=== PATIENT | female | born 1940 | race Caucasian/White ===

== ENCOUNTER → 2022-12-31 | Outpatient (CLI) | payer MEDICARE ==
--- NOTE | 2022-12-31 16:46 | US ---
EXAMINATION TYPE: US venous doppler duplex LE DATE OF EXAM: 12/31/2022 2:22 PM COMPARISON: NONE CLINICAL INDICATION: Female, 82 years old with history of R25.2 CRAMP AND SPASM; Leg spasms. No redn ess or swelling. On aspirin. SIDE PERFORMED: Bilateral TECHNIQUE: The lower extremity deep venous system is examined utilizing real time linear array sonog alisson with graded compression, doppler sonography and color-flow sonography. VESSELS IMAGED: Common Femoral Vein Deep Femoral Vein Greater Saphenous Vein * Femoral Vein Popliteal Vein Small Saphenous Vein * Proximal Calf Veins (* superficial vessels) Right Leg: Negative for DVT Left Leg: Negative for DVT IMPRESSION: Grayscale, color doppler, spectral doppler imaging performed of the deep veins of the lo wer extremities. There is normal flow, compressibility, vascular waveforms.
== END | disposition home or self-care (01) ==
LOC: RADUSWWP 13:31
PROVIDERS: ATTEND Internal Medicine
DX: R25.2 Cramp and spasm (principal)
CPT/HCPCS: 93970

== ENCOUNTER 2023-01-17 13:43 | Inpatient (IN) | payer MEDICARE ==
[2023-01-17] MEDS ORDERED: SODIUM CHLORIDE 0.9% 1,000 ML IV STA (14:48)
[2023-01-17 15:07] LABS: Basophils # (A) 0.1 k/uL (0-0.2); Basophils % (A) 1 %; Eosinophils # (A) 0.4 k/uL (0-0.7); Eosinophils % (A) 5 %; HCT 32.8 % (34.0-46.0); HGB 11.5 gm/dL (11.4-16.0); Lymphocytes # (A) 2.2 k/uL (1.0-4.8); Lymphocytes % (A) 31 %; MCHC 35.2 g/dL (31.0-37.0); MCV 93.7 fL (80.0-100.0); Mean Platelet Volume 8.4; Monocytes # (A) 0.4 k/uL (0-1.0); Monocytes % (A) 6 %; Neutrophils # (A) 4.1 k/uL (1.3-7.7); Neutrophils % (A) 56 %; Platelet Count 163 k/uL (150-450); RDW 11.5 % (11.5-15.5); WBC 7.3 k/uL (3.8-10.6)
[2023-01-17 15:15] LABS: Partial Thromboplastin Time 23.8 sec (22.0-30.0); Prothrombin Time 10.4 sec (9.0-12.0)
[2023-01-17 15:32] LABS: ALT 25 U/L (4-34); AST 33 U/L (14-36); African American GFR (CKD) 15 (>60 ml/min/1.73 sqM); Albumin 4.4 g/dL (3.5-5.0); Alkaline Phosphatase 63 U/L (38-126); Anion Gap 15 mmol/L; Calcium 9.5 mg/dL (8.4-10.2); Carbon Dioxide 15 mmol/L (22-30); Chloride 99 mmol/L (98-107); Glucose 129 mg/dL (74-99); Non-African American GFR(CKD) 13 (>60 ml/min/1.73 sqM); Potassium 4.5 mmol/L (3.5-5.1); Sodium 129 mmol/L (137-145); Total Bilirubin 0.6 mg/dL (0.2-1.3); Total Protein 7.5 g/dL (6.3-8.2)
--- NOTE | 2023-01-17 15:32 | XR ---
EXAMINATION TYPE: XR chest 2V DATE OF EXAM: 01/17/2023 3:28 PM COMPARISON: None TECHNIQUE: XR chest 2V Frontal and lateral views of the chest. CLINICAL INDICATION:Female, 82 years old with history of weakness; FINDINGS: Lungs/Pleura: There is no evidence of pleural effusion, focal consolidation, or pneumothorax. Senesc ent parenchymal change. Pulmonary vascularity: Unremarkable. Heart/mediastinum: Cardiomediastinal silhouette is enlarged. Atherosclerotic calcifications are seen in the aorta. Two lead cardiac conduction device overlying the left hemithorax with lead tips project ing over the right ventricle and right atrium. Musculoskeletal: Multiple level degenerative disc disease changes seen throughout the spine. IMPRESSION: Cardiomegaly without evidence for acute process.
[2023-01-17 15:42] LABS: Blood Urea Nitrogen 107 mg/dL (7-17)
[2023-01-17] MEDS ORDERED: NALOXONE 0.4 MG/ML 1 ML VIAL IV PRN ×2 (16:18→16:30)
[2023-01-17] MEDS ORDERED: ACETAMINOPHEN TAB 325 MG TAB PO PRN (16:18)
[2023-01-17] MEDS ORDERED: MELATONIN 3 MG TABLET PO PRN (16:18)
[2023-01-17] MEDS ORDERED: HYDROcodone/APAP 5-325MG 1 EACH TAB PO PRN (16:18)
[2023-01-17] MEDS ORDERED: ONDANSETRON 4 MG/2 ML VIAL IVP PRN (16:30)
[2023-01-17] MEDS: SODIUM CHLORIDE 0.9% 1,000 ML IV SCH (17:59)
--- NOTE | 2023-01-17 18:08 | ED ---
General Adult HPI - General Chief complaint: Recheck/Abnormal Lab/Rx Stated complaint: Abnormal Labs Time Seen by Provider: 01/17/23 14:30 Source: patient, RN notes reviewed, old records reviewed Mode of arrival: ambulatory - History of Present Illness Initial comments: Patient is an 82-year-old male who was sent in by her PCP over concern for dehydration and abnormal labs. Patient has been having episodes of diarrhea, for multiple days. She has had decreased by mouth intake per family. Patient does have a history of CK D. She is from [place] and recently moved here. W fiona in [place] they did place a AV fistula in the right upper extremity. It has never been used for dialysis but was placed empirically. She is yet to follow up with a real estate associate here in [place]. Denies any chest pain or shortness of breath. Denies any fevers. Denies any dysuria or hematuria. Denies any constipation, urinary retention, diarrhea currently. Denies any blood in her stool. Presents for further evaluation at this time. - Related Data Allergies Allergy/AdvReac Type Severity Reaction Status Date / Time Penicillins AdvReac Rash/Hives Verified 01/17/23 14:00 Review of Systems ROS Statement: Those systems with pertinent positive or pertinent negative responses have been documented in the HPI. Review of Systems: CONST: Endorses generalized weakness EYES: Denies blurry vision ENT: Denies nasal congestion C/V: Denies Chest pain RESP: Denies shortness of breath GI: Denies abdominal pain : Denies dysuria SKIN: Denies rash. MSK: Denies joint pain. NEURO: Denies headache ROS Other: All systems not noted in ROS Statement are negative. Past Medical History Past Medical History: Chest Pain / Angina, Hyperlipidemia, Hypertension, Renal Disease Additional Past Medical History / Comment(s): right arm fistula History of Any Multi-Drug Resistant Organisms: None Reported Past Surgical History: Appendectomy, Tubal Ligation Additional Past Surgical History / Comment(s): pacemaker Past Psychological History: No Psychological Hx Reported Smoking Status: Never smoker Past Alcohol Use History: None Reported Past Drug Use History: None Reported General Exam - General Exam Comments Initial Comments: General: Appears in no acute distress. HEAD: Normal with no signs of head trauma. EYES: PERRLA, EOMI, conjunctiva normal, no discharge. ENT: Hearing grossly intact, normal oropharynx. Mildly dry mucous membranes. RESPIRATORY: Clear breath sounds bilaterally. No wheezes, rales, or rhonchi. C/V: Regular rate and rhythm. S1 and S2 auscultated, no edema, peripheral pulses 2+ and intact throughout.Right upper extremity AV fistula has palpable thrill and audible bruit. ABD: Abd is soft, nontender, nondistended EXT: Normal range of motion, no obvious deformity SKIN: No rashes or lesions observed on exposed skin. NEURO: Alert and oriented x 4. Cranial nerves II-XII intact. No focal sensory or strength deficits. Course Vital Signs 01/17/23 13:52 Temperature 97.0 F L Pulse Rate 69 Respiratory 18 Rate Blood Pressure 129/66 O2 Sat by Pulse 99 Oximetry Medical Decision Making - Medical Decision Making Was pt. sent in by a medical professional or institution (, PA, SEARCH ENGINE OPTIMIZATION CONSULTANT, urgent care, hospital, or custodial...) When possible be specific @ -No Did you speak to anyone other than the patient for history (EMS, parent, family, police, friend...)? What history was obtained from this source @ -Spoke with the patient's daughter who assist with patient's past medical history recent past medical history including results of his laboratory studies. Did you review nursing and triage notes (agree or disagree)? Why? @ -I reviewed and agree with nursing and triage notes Were old charts reviewed (outside hosp., previous admission, EMS record, old EKG, old radiological studies, urgent care reports/EKG's, custodial records)? Report findings @ -Old charts and labs reviewed from December 2022. Differential Diagnosis (chest pain, altered mental status, abdominal pain women, abdominal pain men, vaginal bleeding, weakness, fever, dyspnea, syncope, headache, dizziness, GI bleed, back pain, seizure, CVA, palpatations, mental health, musculoskeletal)? @ -Dehydration, viral syndrome, UTI, infection, electrolyte abnormality, this list is not all-inclusive EKG interpreted by me (3pts min.). @ -None done X-rays interpreted by me (1pt min.). @ -Chest x-ray reveals no obvious acute cardiopulmonary process. CT interpreted by me (1pt min.). @ -None done U/S interpreted by me (1pt. min.). @ -None done What testing was considered but not performed or refused? (CT, X-rays, U/S, labs)? Why? @ -None What meds were considered but not given or refused? Why? @ -None Did you discuss the management of the patient with other professionals (professionals i.e. , PA, SEARCH ENGINE OPTIMIZATION CONSULTANT, lab, RT, psych nurse, social sciences instructor, hotel office manager, teacher, learning and development officer, comp field case manager)? Give summary @ -I discussed with the admitting physician, Dr. Samson who accepted the patient. Was smoking cessation discussed for >3mins.? @ -No Was critical care preformed (if so, how long)? @ -No Were there social determinants of health that impacted care today? How? (Homelessness, low income, unemployed, alcoholism, drug addiction, transportation, low edu. Level, literacy, decrease access to med. care, penitentiary, rehab)? @ -No Was there de-escalation of care discussed even if they declined (Discuss DNR or withdrawal of care, Hospice)? DNR status @ -No What co-morbidities impacted this encounter? (DM, HTN, Smoking, COPD, CAD, Cancer, CVA, ARF, Chemo, Hep., AIDS, mental health diagnosis, sleep apnea, morbid obesity)? @ -CK D Was patient admitted / discharged? Hospital course, mention meds given and route, prescriptions, significant lab abnormalities, going to OR and other pertinent info. @ -Based on the patient's presentation and physical exam, I'm concerned for possible dehydration for the patient. This recent with an acute kidney injury on CK D concerning her recent labs showing elevated creatinine above her ba seline. She is been having diarrhea but currently is relatively symptomatically except feeling generally tired with body pain. Presents for further evaluation. We'll obtain abdominal laboratory studies. She likely will be admitted. She was in agreement this plan. Vital signs of Limits. Patient's labs reveal a acutely elevated BUN/creatinine in the setting of CK D. Likely an acute kidney injury on CK D. Patient also mildly hyponatremic to 129. Viral swabs are negative. Urine is still pending. I updated family and patient. She will be admitted to the hospital for evaluation by nephrology for IV fluids as well. Diagnosis is CHENCHO on CK D and hyponatremia. Patient was in agreement this plan. I spoke with the accepting physician, Dr. Samson of [facility] Adm[facility] for Dr. Khalil Who Accepted the Patient. Nephrology Consulted. Undiagnosed new problem with uncertain prognosis? @ -No Drug Therapy requiring intensive monitoring for toxicity (Heparin, Nitro, Insulin, Cardizem)? @ -No Were any procedures done? @ -No Diagnosis/symptom? @ -CHENCHO on CK D Acute, or Chronic, or Acute on Chronic? @ -Acute Uncomplicated (without systemic symptoms) or Complicated (systemic symptoms)? @ -Complicated Side effects of treatment? @ -No Exacerbation, Progression, or Severe Exacerbation? @ -No Poses a threat to life or bodily function? How? (Chest pain, USA, MS, pneumonia, PE, COPD, DKA, ARF, appy, cholecystitis, CVA, Diverticulitis, Homicidal, Suicidal, threat to staff... and all critical care pts) @ -Yes Diagnosis/symptom? @ -Hyponatremia, dehydration Acute, or Chronic, or Acute on Chronic? @ -Acute Uncomplicated (without systemic symptoms) or Complicated (systemic symptoms)? @ -Complicated Side effects of treatment? @ -none Exacerbation, Progression, or Severe Exacerbation] @ -no Poses a threat to life or bodily function? @ -Yes - Lab Data Result diagrams: 01/17/23 14:55 01/17/23 14:55 Lab Results 01/17/23 01/17/23 01/17/23 Range/Units 14:55 14:55 14:55 WBC 7.3 (3.8-10.6) k/uL RBC 3.50 L (3.80-5.40) m/uL Hgb 11.5 (11.4-16.0) gm/dL Hct 32.8 L (34.0-46.0) % MCV 93.7 (80.0-100.0) fL MCH 33.0 (25.0-35.0) pg MCHC 35.2 (31.0-37.0) g/dL RDW 11.5 (11.5-15.5) % Plt Count 163 (150-450) k/uL MPV 8.4 Neutrophils % 56 % Lymphocytes % 31 % Monocytes % 6 % Eosinophils % 5 % Basophils % 1 % Neutrophils # 4.1 (1.3-7.7) k/uL Lymphocytes # 2.2 (1.0-4.8) k/uL Monocytes # 0.4 (0-1.0) k/uL Eosinophils # 0.4 (0-0.7) k/uL Basophils # 0.1 (0-0.2) k/uL PT 10.4 (9.0-12.0) sec INR 1.0 (<1.2) APTT 23.8 (22.0-30.0) sec Sodium 129 L (137-145) mmol/L Potassium 4.5 (3.5-5.1) mmol/L Chloride 99 (98-107) mmol/L Carbon Dioxide 15 L (22-30) mmol/L Anion Gap 15 mmol/L BUN 107 H* (7-17) mg/dL Creatinine 3.11 H (0.52-1.04) mg/dL Est GFR (CKD-EPI)AfAm 15 (>60 ml/min/1.73 sqM) Est GFR (CKD-EPI)NonAf 13 (>60 ml/min/1.73 sqM) Glucose 129 H (74-99) mg/dL Calcium 9.5 (8.4-10.2) mg/dL Total Bilirubin 0.6 (0.2-1.3) mg/dL AST 33 (14-36) U/L ALT 25 (4-34) U/L Alkaline Phosphatase 63 (38-126) U/L Total Protein 7.5 (6.3-8.2) g/dL Albumin 4.4 (3.5-5.0) g/dL Influenza Type A (PCR) (Not Detectd) Influenza Type B (PCR) (Not Detectd) RSV (PCR) (Not Detectd) SARS-CoV-2 (PCR) (Not Detectd) 01/17/23 Range/Units 15:13 WBC (3.8-10.6) k/uL RBC (3.80-5.40) m/uL Hgb (11.4-16.0) gm/dL Hct (34.0-46.0) % MCV (80.0-100.0) fL MCH (25.0-35.0) pg MCHC (31.0-37.0) g/dL RDW (11.5-15.5) % Plt Count (150-450) k/uL MPV Neutrophils % % Lymphocytes % % Monocytes % % Eosinophils % % Basophils % % Neutrophils # (1.3-7.7) k/uL Lymphocytes # (1.0-4.8) k/uL Monocytes # (0-1.0) k/uL Eosinophils # (0-0.7) k/uL Basophils # (0-0.2) k/uL PT (9.0-12.0) sec INR (<1.2) APTT (22.0-30.0) sec Sodium (137-145) mmol/L Potassium (3.5-5.1) mmol/L Chloride (98-107) mmol/L Carbon Dioxide (22-30) mmol/L Anion Gap mmol/L BUN (7-17) mg/dL Creatinine (0.52-1.04) mg/dL Est GFR (CKD-EPI)AfAm (>60 ml/min/1.73 sqM) Est GFR (CKD-EPI)NonAf (>60 ml/min/1.73 sqM) Glucose (74-99) mg/dL Calcium (8.4-10.2) mg/dL Total Bilirubin (0.2-1.3) mg/dL AST (14-36) U/L ALT (4-34) U/L Alkaline Phosphatase (38-126) U/L Total Protein (6.3-8.2) g/dL Albumin (3.5-5.0) g/dL Influenza Type A (PCR) Not Detected (Not Detectd) Influenza Type B (PCR) Not Detected (Not Detectd) RSV (PCR) Not Detected (Not Detectd) SARS-CoV-2 (PCR) Not Detected (Not Detectd) Disposition Clinical Impression: Acute kidney injury superimposed on CKD, Dehydration, Hyponatremia Disposition: ADMITTED IP TO THIS HOSP Condition: Stable Time of Disposition: 15:43
[2023-01-17 18:11] LABS: Appearance,Urine Clear (Clear); Color,Urine Light Yellow; Glucose,Urine (UA) Negative (Negative); Protein,Urine Negative (Negative); Specific Gravity,Urine <1.005 (1.001-1.035)
[2023-01-17 18:12] LABS: Bilirubin,Urine Negative (Negative); Blood,Urine Negative (Negative); Ketones,Urine Negative (Negative); Leukocyte Esterase,Urine Negative (Negative); Nitrite,Urine Negative (Negative); Urobilinogen,Urine <2.0 mg/dL (<2.0)
--- NOTE | 2023-01-17 18:41 | P.HPIM ---
History of Present Illness H&P Date: 01/17/23 History of Presenting Illness: Patient is a very pleasant 82-year-old female with a past medical history of stage IIIB chronic kidney disease, hypertension, hyperlipidemia and hyp othyroidism. She presented to the emergency department secondary to concerns of dehydration. She recently moved to [facility] from [place] to live with family. She was seen by Dr. Edwards in the outpatient setting for evaluation and workup to establish primary care provider and reports having an appointment with chemical research technician Dr. Antoine next week. Patient and family at bedside reports that over the past 5 days patient has had decreased appetite, nausea, and decreased urinary output. Patient admits to not urinating very much over the past week. Family at bedside reports that she has been evaluated by a chemical research technician in the past and they put in a catheter for potential dialysis but states her renal function seemed to have stabilized with baseline creatinine around 2. Patient reports upon evaluation at PCPs office he was concern for dehydration and she had labs drawn showing elevated renal function and concerns for dehydration so she was sent to the emergency department for evaluation and rehydration. Patient denies having any fevers, chills, headache, lightheadedness, dizziness, diaphoresis, chest pain or palpitations, shortness of breath, cough or congestion, episodes of vomiting, or experiencing any numbness/tingling/weakness in her extremities. She does report having a couple episodes of diarrhea but reports he's also had a decreased appetite and not eating very much. Patient does also report decreased urinary output but denies having any dysuria, abdominal pain, flank pain, suprapubic pain, or hematuria. Patient underwent full evaluation in the emergency department. Labs completed and reviewed. CBC showing no significant abnormalities. Coagulation profile normal findings. BMP revealing hyponatremia with sodium of 129 and hypocarbia with bicarbonate 15 as well as an acute kidney injury with BUN of 107, creatinine 3.11, and GFR of 13 with baseline creatinine of 2.0 per documented labs drawn on 12/26/22. Chest x-ray was completed showing cardiomegaly without evidence for acute process. Discussed in detail with ED physician, patient to be admitted to general medical unit with telemetry secondary to acute on chronic kidney injury and dehydration. Consult placed to nephrology. Review of systems: Pertinent positives and negatives as discussed in HPI, a complete review of systems was performed and all other systems are negative. Physical exam: Vital signs reviewed and stable. General: Nontoxic, no distress and appears stated age. Derm: Skin warm and dry, normal coloration for ethnicity. Head: Atraumatic, normocephalic and symmetric. Eyes: EOMs intact, no lid lag, and anicteric sclera Mouth: no lip lesions, mucus membranes moist Cardiovascular: regular rate and rhythm with normal S1S2, no murmur, positive posterior tibial pulses bilaterally, and cap refill < 2 seconds. Right upper extremity AV fistula, bruit and thrill intact. Lungs: Respirations even, regular, and unlabored on room air. Lungs CTA bilaterally, no rhonchi, no rales, no wheezing, and no accessory muscle usage. Abdominal: soft, nontender to palpation, no guarding, no appreciable organomegaly Ext: ROM intact. No gross muscle atrophy, no edema, no contractures Neuro: Speech clear, face symmetrical and CN II-XII grossly intact with no noted focal neuro deficits Psych: Alert and oriented to person, place, time, and situation. Appropriate and pleasant affect. Assessment and Plan of Care: Acute kidney injury on stage III B chronic kidney disease Dehydration with reports of decreased oral intake and decreased urinary output Hypertension Hyperlipidemia Hypothyroidism Labs completed and reviewed. CBC showing no significant abnormalities. Coagulation profile normal findings. BMP revealing hyponatremia with sodium of 129 and hypocarbia with bicarbonate 15 as well as an acute kidney injury with BUN of 107, creatinine 3.11, and GFR of 13 with baseline creatinine of 2.0 per documented labs drawn on 12/26/22. Chest x-ray was completed showing cardiomegaly without evidence for acute process. Discussed in detail with ED physician, patient to be admitted to general medical unit with telemetry secondary to acute on chronic kidney injury and d ehydration. Consult placed to nephrology. Order placed for ultrasound renal/kidneys and bladder. Order placed for straight cath as needed to obtain previously ordered urine specimen. Patient to continue with IV fluid hydration with 0.9% normal saline at 100 mL per hour pending further recommendations from nephrology telemetry monitoring Follow-up on urinalysis Awaiting home medications to be uploaded into system, home meds to be reordered once reconciled. Order placed for repeat morning BMP to continue to follow renal function closely and monitor for improvement. Orders placed for bladder management to monitor for postvoid residuals. -Order placed for EKG. The patient is admitted with an anticipated greater than 2 midnight stay for evaluation of acute kidney injury on chronic kidney disease. CODE STATUS: full code DVT prophylaxis: Heparin Discussed with: pt, pt's family at bedside, RN and Ed physician Anticipated discharge date: clinical course to determine Anticipated discharge place: home Patient was seen independently by Nurse Practitioner. This document was prepared using [employer] dictation software. Please allow for errors in terminal operations supervisor while rare they do occur. I reviewed the documentation as provided by the LUBNA above, who is the original author of this note. I agree with the documented assessment and plan, with the following changes: none Past Medical History Past Medical History: Chest Pain / Angina, Hyperlipidemia, Hypertension, Renal Disease Additional Past Medical History / Comment(s): right arm fistula History of Any Multi-Drug Resistant Organisms: None Reported Past Surgical History: Appendectomy, Tubal Ligation Additional Past Surgical History / Comment(s): pacemaker Past Psychological History: No Psychological Hx Reported Smoking Status: Never smoker Past Alcohol Use History: None Reported Past Drug Use History: None Reported Medications and Allergies Allergies Allergy/AdvReac Type Severity Reaction Status Date / Time bacitracin Allergy Unknown Verified 01/17/23 18:42 [From Neosporin ([id number])] levofloxacin [From Levaquin] Allergy Unknown Verified 01/17/23 18:42 metronidazole [From Flagyl] Allergy Unknown Verified 01/17/23 18:42 neomycin Allergy Unknown Verified 01/17/23 18:42 [From Neosporin ([id number])] Penicillins Allergy Rash/Hives Verified 01/17/23 18:42 polymyxin B Allergy Unknown Verified 01/17/23 18:42 [From Neosporin ([id number])] Physical Exam Osteopathic Statement: *. No significant issues noted on an osteopathic structural exam other than those noted in the History and Physical/Consult. Vitals: Vital Signs Temp Pulse Resp BP Pulse Ox 01/17/23 13:52 97.0 F L 69 18 129/66 99 Intake and Output 01/17/23 01/17/23 01/17/23 06:59 14:59 22:59 Other: Weight 58.695 kg Results CBC & Chem 7: 01/17/23 14:55 01/17/23 14:55 Labs: Abnormal Lab Results - Last 24 Hours (Table) 01/17/23 01/17/23 Range/Units 14:55 14:55 RBC 3.50 L (3.80-5.40) m/uL Hct 32.8 L (34.0-46.0) % Sodium 129 L (137-145) mmol/L Carbon Dioxide 15 L (22-30) mmol/L BUN 107 H* (7-17) mg/dL Creatinine 3.11 H (0.52-1.04) mg/dL Glucose 129 H (74-99) mg/dL
--- NOTE | 2023-01-17 19:54 | US ---
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 Corticomedullary differentiation is maintained. 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 Urinary bladder is within normal limits. IMPRESSION: 1. No hydronephrosis or nephrolithiasis. 2. 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
[2023-01-17] MEDS: HEPARIN SODIUM,PORCINE/PF 5,000 UNIT/0.5 ML SYRINGE SQ SCH (22:39)
[2023-01-18] MEDS: SODIUM CHLORIDE 0.9% 1,000 ML IV SCH ×3 (05:19→21:32)
[2023-01-18] MEDS: LORATADINE 10 MG TAB PO SCH (08:41)
[2023-01-18] MEDS: VITAMIN E (DL,TOCOPHERYL ACET) 400 UNIT (180 MG) CAP PO SCH (08:41)
[2023-01-18] MEDS: ASPIRIN 81 MG PO SCH (08:41)
[2023-01-18] MEDS: VIT A,C & E-LUTEIN-MINERALS 1 EACH TAB PO SCH (08:41)
[2023-01-18] MEDS: METOPROLOL SUCCINATE (ER) 25 MG TAB.ER.24H PO SCH (08:41)
[2023-01-18] MEDS: amLODIPine 5 MG TAB PO SCH ×2 (08:41→19:54)
[2023-01-18] MEDS: HEPARIN SODIUM,PORCINE/PF 5,000 UNIT/0.5 ML SYRINGE SQ SCH ×2 (08:54→21:30)
[2023-01-18 09:38] LABS: BUN/Creat Ratio 34.27 Ratio (12.00-20.00); Blood Urea Nitrogen 89.1 mg/dL (9.0-27.0); Calcium 9.2 mg/dL (8.7-10.3); Carbon Dioxide 17.1 mmol/L (21.6-31.8); Chloride 103 mmol/L (96-109); Glucose 84 mg/dL (70-110); Magnesium 2.6 mg/dL (1.5-2.4); Potassium 4.3 mmol/L (3.5-5.5); Sodium 135 mmol/L (135-145)
[2023-01-18 09:56] LABS: Basophils # (A) 0.06 X 10*3/uL (0.00-0.10); Basophils % (A) 0.8 %; Eosinophils # (A) 0.47 X 10*3/uL (0.04-0.35); HCT 33.3 % (37.2-46.3); Lymphocytes # (A) 2.22 X 10*3/uL (0.90-5.00); Lymphocytes % (A) 28.4 %; MCH 31.4 pg (27.0-32.0); MCV 95.1 FL (80.0-97.0); Mean Platelet Volume 10.6 FL (9.5-12.2); Monocytes # (A) 0.68 X 10*3/uL (0.20-1.00); Monocytes % (A) 8.7 %; NRBC Per 100 WBC 0 X 10*3/uL (0.00-0.01); Neutrophils # (A) 4.36 X 10*3/uL (1.80-7.70); Neutrophils % (A) 55.8 %; Platelet Count 188 X 10*3/uL (140-440); RDW 11.3 % (11.5-14.5); WBC 7.81 X 10*3/uL (4.50-10.00)
[2023-01-18] MEDS: CHOLESTYRAMINE (WITH SUGAR) 4 GM PACKET PO SCH (12:02)
--- NOTE | 2023-01-18 13:35 | P.NPCON ---
History of Present Illness - Reason for Consult Consult date: 01/18/23 acute renal failure - Chief Complaint Dehydration - History of Present Illness 82-year-old lady recently moved from [place], coming to the hospital with multiple episodes of diarrhea. She has history of chronic kidney disease, right upper arm aVF used to follow with nephrology in [place]. Unclear baseline creatinine, but as per the daughter she is CK D stage V. creatinine was 2.0 earlier in the month on admission was 3.6, improved to 2.6 with hydration. Still continues to have diarrhea. No nausea vomiting. No NSAID use or recent contrast studies. Home medication includes losartan and Lasix. No documented hypotensive episodes. Review of Systems Constitutional: Reports as per HPI Past Medical History Past Medical History: Chest Pain / Angina, Hyperlipidemia, Hypertension, Renal Disease Additional Past Medical History / Comment(s): right arm fistula History of Any Multi-Drug Resistant Organisms: None Reported Past Surgical History: Appendectomy, Tubal Ligation Additional Past Surgical History / Comment(s): pacemaker Past Psychological History: No Psychological Hx Reported Smoking Status: Never smoker Past Alcohol Use History: None Reported Past Drug Use History: None Reported Medications and Allergies Home Medications Medication Instructions Recorded Confirmed Type Aspirin EC [Ecotrin Low Dose] 81 mg PO DAILY 01/17/23 01/17/23 History Atorvastatin [Lipitor] 20 mg PO HS 01/17/23 01/17/23 History Cholestyramine (with Sugar) 4 gm PO DIRECTED 01/17/23 01/17/23 History [Cholestyramine Packet] Fluticasone Nasal [place] [Flonase 1 - 2 spr EA NOSTRIL BID PRN 01/17/23 01/17/23 History Nasal [place]] Furosemide [Lasix] 40 mg PO DAILY 01/17/23 01/17/23 History Levothyroxine Sodium [Synthroid] 50 mcg PO DIRECTED 01/17/23 01/17/23 History Loratadine 10 mg PO DAILY 01/17/23 01/17/23 History Losartan Potassium 100 mg PO DIRECTED 01/17/23 01/17/23 History Metoprolol Succinate (ER) [Toprol 25 mg PO DAILY 01/17/23 01/17/23 History Xl] Oxybutynin Xl [Ditropan XL] 5 mg PO DIRECTED 01/17/23 01/17/23 History Spironolactone [Aldactone] 25 mg PO DIRECTED 01/17/23 01/17/23 History Vitamin E (Dl,Tocopheryl Acet) 400 unit PO DAILY 01/17/23 01/17/23 History [Vitamin E (400 Iu = 180 mg)] Vits A,C,E/Lutein/Minerals 1 tab PO DAILY 01/17/23 01/17/23 History [Ocuvite with Lutein Tablet] amLODIPine [Norvasc] 5 mg PO BID 01/17/23 01/17/23 History Allergies Allergy/AdvReac Type Severity Reaction Status Date / Time bacitracin Allergy Unknown Verified 01/17/23 18:42 [From Neosporin ([id number])] levofloxacin [From Levaquin] Allergy Unknown Verified 01/17/23 18:42 metronidazole [From Flagyl] Allergy Unknown Verified 01/17/23 18:42 neomycin Allergy Unknown Verified 01/17/23 18:42 [From Neosporin ([id number])] Penicillins Allergy Rash/Hives Verified 01/17/23 18:42 polymyxin B Allergy Unknown Verified 01/17/23 18:42 [From Neosporin ([id number])] Physical Exam Vitals: Vital Signs Temp Pulse Pulse Resp BP BP Pulse Ox 01/18/23 07:00 97.5 F L 66 16 147/55 96 01/18/23 02:16 17 01/18/23 00:20 98.1 F 76 17 138/64 97 01/17/23 21:25 97.5 F L 61 14 144/56 98 01/17/23 20:43 68 16 130/53 95 01/17/23 19:00 96.8 F L 64 14 132/50 98 01/17/23 13:52 97.0 F L 69 18 129/66 99 Intake and Output 01/17/23 01/18/23 01/18/23 22:59 06:59 14:59 Output Total 200 400 Balance -200 -400 Output: Urine 200 400 Other: Voiding Method Toilet # Voids 2 Weight 58.695 kg No acute distress S1-S2 heard Lungs clear Abdomen soft No edema Results - Lab Results Most recent lab results Calcium 9.2 mg/dL (8.7-10.3) 01/18/23 05:42 Magnesium 2.6 mg/dL (1.5-2.4) H 01/18/23 05:42 01/18/23 05:42 01/18/23 05:42 Assessment and Plan Assessment: #1 acute kidney injury secondary to prerenal process or diarrhea. 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 -She also has right upper arm aVF, not fully matured #3 hypertension with chronic kidney disease. #4 metabolic bone disease #5 anemia with chronic kidney disease Plan: #1 renal function improving. #2 continue with IV fluids #3 if renal function continued to improve, stable from nephrology to be followed up in the office next week
--- NOTE | 2023-01-18 16:52 | P.PN ---
Subjective Progress Note Date: 01/18/23 Hospital course: Hospital course: Patient is a very pleasant 82-year-old female with a past medical history of stage IIIB chronic kidney disease due to atrophied left kidney, hypertension, hyperlipidemia and hypothyroidism. She presented to the emergency department secondary to concerns of dehydration. She recently moved to [facility] from [place] to live with family. She was seen by Dr. Edwards in the outpatient setting for evaluation and workup to establish primary care provider and reports having an appointment with route deliverer Dr. Antoine next week. Patient and family at bedside reports that over the past 5 days patient has had decreased appetite, nausea, and decreased urinary output. Patient admits to not urinating very much over the past week and having a few episodes of diarrhea. Family at bedside reports that she has been evaluated by a route deliverer in the past and they put in a catheter for potential dialysis but states her renal function seemed to have stabilized with baseline creatinine around 2. Patient reports upon evaluation at PCPs office he was concern for dehydration and she had labs drawn showing elevated renal function and concerns for dehydration so she was sent to the emergency department for evaluation and rehydration. Patient underwent full evaluation in the emergency department. Labs completed and reviewed. CBC showing no significant abnormalities. Coagulation profile normal findings. BMP revealing hyponatremia with sodium of 129 and hypocarbia with bicarbonate 15 as well as an acute kidney injury with BUN of 107, creatinine 3.11, and GFR of 13 with baseline creatinine of 2.0 per documented labs drawn on 12/26/22. Chest x-ray was completed showing cardiomegaly without evidence for acute process. Patient was admitted to general medical unit with telemetry secondary to acute on chronic kidney injury and dehydration. Consult placed to nephrology. Physical exam: Vital signs reviewed and stable. General: Nontoxic, no distress and appears stated age. Derm: Skin warm and dry, normal coloration for ethnicity. Head: Atraumatic, normocephalic and symmetric. Eyes: EOMs intact, no lid lag, and anicteric sclera Mouth: no lip lesions, mucus membranes moist Cardiovascular: regular rate and rhythm with normal S1S2, no murmur, positive posterior tibial pulses bilaterally, and cap refill < 2 seconds. Right upper extremity AV fistula, bruit and thrill intact. Lungs: Respirations even, regular, and unlabored on room air. Lungs CTA bilaterally, no rhonchi, no rales, no wheezing, and no accessory muscle usage. Abdominal: soft, nontender to palpation, no guarding, no appreciable organomegaly Ext: ROM intact. No gross muscle atrophy, no edema, no contractures Neuro: Speech clear, face symmetrical and CN II-XII grossly intact with no noted focal neuro deficits Psych: Alert and oriented to person, place, time, and situation. Appropriate and pleasant affect. Assessment and Plan of Care: Acute kidney injury on stage III B chronic kidney disease, improving Dehydration with reports of decreased oral intake, diarrhea and decreased urinary output while still taking diuretics Hypertension Hyperlipidemia Hypothyroidism Labs completed and reviewed. BMP revealing improvement of renal function with BUN 89.1, creatinine 2.6, and GFR of 18. CBC showing mild normocytic anemia with hemoglobin stable at 11.0. Nephrology following, discussed plan of care recommending continued IV fluid hydration for an additional 24 hours if renal function continues to improve may be discharged from nephrology standpoint. Ultrasound renal/kidneys and bladder completed in radiology report reviewed showing no hydronephrosis or nephrolithiasis, nonvisualization of left kidney which may be due to congenital absence or atrophy.. Urinalysis negative for blood, protein,or infection. Patient to continue with IV fluid hydration with 0.9% normal saline at 100 mL per hour Continue telemetry monitoring Order placed for repeat morning CBC and BMP to follow up on renal function and electrolytes. Awaiting home medications to be uploaded into system, home meds to be reordered once reconciled. Order placed for repeat morning BMP to continue to follow renal function closely and monitor for improvement. Continue to monitor I's and O's -Lasix, Aldactone and Losartan held at this time secondary to acute kidney injury. -Patient to continue with daily medication regimen consisting of amlodipine 5 mg twice daily, aspirin 81 mg daily, atorvastatin 20 mg nightly, cholestyramine 4 g daily, metoprolol 25 mg daily, and Ditropan 5 mg daily CODE STATUS: full code DVT prophylaxis: Heparin Discussed with: Patient, RN, and route deliverer Anticipated discharge date: clinical course to determine Anticipated discharge place: home Patient was seen independently by Nurse Practitioner. This document was prepared using [employer] dictation software. Please allow for errors in technical service rep while rare they do occur. Objective - Vital Signs Vital signs: Vital Signs Temp 97.5 F L 01/18/23 07:00 Pulse 66 01/18/23 07:00 Resp 16 01/18/23 07:00 BP 147/55 01/18/23 07:00 Pulse Ox 96 01/18/23 07:00 FiO2 Intake & Output 01/17/23 01/18/23 01/18/23 18:59 06:59 18:59 Output Total 600 Balance -600 Weight 58.695 kg 58.695 kg Output: Urine 600 Other: Voiding Method Toilet # Voids 2 - Labs CBC & Chem 7: 01/18/23 05:42 01/18/23 05:42 Labs: Abnormal Lab Results - Last 24 Hours (Table) 01/17/23 01/17/23 Range/Units 14:55 14:55 RBC 3.50 L (3.80-5.40) m/uL Hct 32.8 L (34.0-46.0) % Sodium 129 L (137-145) mmol/L Carbon Dioxide 15 L (22-30) mmol/L BUN 107 H* (7-17) mg/dL Creatinine 3.11 H (0.52-1.04) mg/dL Glucose 129 H (74-99) mg/dL
[2023-01-18] MEDS ORDERED: ATORVASTATIN 20 MG TAB PO SCH (21:00)
[2023-01-18] MEDS ORDERED: OXYBUTYNIN XL 5 MG TAB.ER.24 PO SCH (21:00)
[2023-01-19 04:58] VITALS: RESP 16
[2023-01-19 08:45] LABS: HCT 33.7 % (37.2-46.3); HGB 11.3 d/dL (12.0-15.0); MCH 31.7 pg (27.0-32.0); MCHC 33.5 d/dL (32.0-37.0); MCV 94.7 FL (80.0-97.0); Mean Platelet Volume 10.1 FL (9.5-12.2); NRBC Per 100 WBC 0 X 10*3/uL (0.00-0.01); Platelet Count 180 X 10*3/uL (140-440); RBC 3.56 X 10*6/uL (4.10-5.20); RDW 11.3 % (11.5-14.5); WBC 7.79 X 10*3/uL (4.50-10.00)
[2023-01-19 09:04] LABS: BUN/Creat Ratio 32.19 Ratio (12.00-20.00); Blood Urea Nitrogen 67.6 mg/dL (9.0-27.0); Calcium 9.5 mg/dL (8.7-10.3); Carbon Dioxide 17.9 mmol/L (21.6-31.8); Chloride 107 mmol/L (96-109); Glucose 86 mg/dL (70-110); Magnesium 2.3 mg/dL (1.5-2.4); Potassium 4.6 mmol/L (3.5-5.5); Sodium 138 mmol/L (135-145)
[2023-01-19] MEDS: LORATADINE 10 MG TAB PO SCH (09:08)
[2023-01-19] MEDS: ASPIRIN 81 MG PO SCH (09:08)
[2023-01-19] MEDS: METOPROLOL SUCCINATE (ER) 25 MG TAB.ER.24H PO SCH (09:08)
[2023-01-19] MEDS: VIT A,C & E-LUTEIN-MINERALS 1 EACH TAB PO SCH (09:08)
[2023-01-19] MEDS: amLODIPine 5 MG TAB PO SCH (09:08)
[2023-01-19] MEDS: VITAMIN E (DL,TOCOPHERYL ACET) 400 UNIT (180 MG) CAP PO SCH (09:08)
[2023-01-19] MEDS: CHOLESTYRAMINE (WITH SUGAR) 4 GM PACKET PO SCH (09:10)
[2023-01-19] MEDS: HEPARIN SODIUM,PORCINE/PF 5,000 UNIT/0.5 ML SYRINGE SQ SCH (09:41)
[2023-01-19] MEDS: SODIUM CHLORIDE 0.9% 1,000 ML IV SCH (09:41)
--- NOTE | 2023-01-19 10:04 | P.DS ---
Providers Date of admission: 01/17/23 16:30 Expected date of discharge: 01/19/23 Attending physician: Landon Samson MD Consults: 01/17/23 16:19 Consult Physician Routine Consulting Provider: Ivan Langston Consult Reason/Comments: acute on chronic renal failure Do you want consulting provider notified?: Yes Primary care physician: Jono Edwards MD Hospital Course: Discharge Diagnosis: Acute kidney injury on stage III B chronic kidney disease. Acute kidney injury secondary to dehydration resulting from decreased oral intake and diarrhea. Diuretics were held and patient underwent IV fluid hydration. Patient reports no further episodes of diarrhea. Ultrasound renal/kidneys and bladder completed in radiology report reviewed showing no hydronephrosis or nephrolithiasis, nonvisualization of left kidney which may be due to congenital absence or atrophy. Urinalysis negative for blood, protein,or infection.She was evaluated by structural steel trades worker stated patient may be cleared from nephrology standpoint for outpatient follow-up in the office next week as scheduled once renal function improves near baseline Renal function is back at baseline with BUN 67.6, creatinine 2.1, and GFR of 23 with baseline creatinine of 2.0.Patient instructed that Aldactone is being discontinued secondary to high risk of hyperkalemia with current chronic kidney disease. Patient instructed that she may resume diuretic with Lasix tomorrow morning and also educated that any time she is experiencing decreased intake with vomiting or diarrhea that diuretic should be held and she should notify her doctor. Patient is scheduled to follow-up with her structural steel trades worker on 02/07/23 and has outpatient follow-up with her PCP in 2 days. Dehydration with reports of decreased oral intake, diarrhea and decreased urinary output while still taking diuretics. Hypertension Hyperlipidemia Hypothyroidism Hospital Course: Patient is a very pleasant 82-year-old female with a past medical history of stage IIIB chronic kidney disease due to atrophied left kidney, hypertension, hyperlipidemia and hypothyroidism. She presented to the emergency department secondary to concerns of dehydration. She recently moved to [facility] from [place] to live with family. She was seen by Dr. Edwards in the outpatient setting for evaluation and workup to establish primary care provider and reports having an appointment with structural steel trades worker Dr. Antoine next week. Patient and family at bedside reports that over the past 5 days patient has had decreased appetite, nausea, and decreased urinary output. Patient admits to not urinating very much over the past week and having a few episodes of diarrhea. Family at bedside reports that she has been evaluated by a structural steel trades worker in the past and they put in a catheter for potential dialysis but states her renal function seemed to have stabilized with baseline creatinine around 2. Patient reports upon evaluation at PCPs office he was concern for dehydration and she had labs drawn showing elevated renal function and concerns for dehydration so she was sent to the emergency department for evaluation and rehydration. Patient underwent full evaluation in the emergency department. Labs completed and reviewed. CBC showing no significant abnormalities. Coagulation profile normal findings. BMP revealing hyponatremia with sodium of 129 and hypocarbia with bicarbonate 15 as well as an acute kidney injury with BUN of 107, creatinine 3.11, and GFR of 13 with baseline creatinine of 2.0 per documented labs drawn on 12/26/22. Chest x-ray was completed showing cardiomegaly without evidence for acute process. Patient was admitted to general medical unit with telemetry secondary to acute on chronic kidney injury and dehydration. Consult placed to nephrology. Acute kidney injury secondary to dehydration resulting from decreased oral intake and diarrhea. Diuretics were held and patient underwent IV fluid hydration. Patient reports no further episodes of diarrhea. Ultrasound renal/kidneys and bladder completed in radiology report reviewed showing no hydronephrosis or nephrolithiasis, nonvisualization of left kidney which may be due to congenital absence or atrophy. Urinalysis negative for blood, protein,or infection.She was evaluated by structural steel trades worker stated patient may be cleared from nephrology standpoint for outpatient follow-up in the office next week as scheduled once renal function improves near baseline Renal function is back at baseline with BUN 67.6, creatinine 2.1, and GFR of 23 with baseline creatinine of 2.0.Patient instructed that Aldactone is being dis continued secondary to high risk of hyperkalemia with current chronic kidney disease. Patient instructed that she may resume diuretic with Lasix tomorrow morning and also educated that any time she is experiencing decreased intake with vomiting or diarrhea that diuretic should be held and she should notify her doctor. Patient is scheduled to follow-up with her structural steel trades worker on 02/07/23 and has outpatient follow-up with her PCP in 2 days. Physical exam: Vital signs reviewed and stable. General: Nontoxic, no distress and appears stated age. Derm: Skin warm and dry, normal coloration for ethnicity. Head: Atraumatic, normocephalic and symmetric. Eyes: EOMs intact, no lid lag, and anicteric sclera Mouth: no lip lesions, mucus membranes moist Cardiovascular: regular rate and rhythm with normal S1S2, no murmur, positive posterior tibial pulses bilaterally, and cap refill < 2 seconds. Right upper extremity AV fistula, bruit and thrill intact. Lungs: Respirations even, regular, and unlabored on room air. Lungs CTA bilaterally, no rhonchi, no rales, no wheezing, and no accessory muscle usage. Abdominal: soft, nontender to palpation, no guarding, no appreciable organomegaly Ext: ROM intact. No gross muscle atrophy, no edema, no contractures Neuro: Speech clear, face symmetrical and CN II-XII grossly intact with no noted focal neuro deficits Psych: Alert and oriented to person, place, time, and situation. Appropriate and pleasant affect. A total of 37 minutes of time were spent preparing this complex discharge summary. Pt was discharged on 01/19/23 at 9:59 AM. Patient was seen independently by Nurse Practitioner. This document was prepared using [employer] dictation software. Please allow for errors in funeral workers while rare they do occur. Patient Condition at Discharge: Stable Plan - Discharge Summary Discharge Rx Participant: No New Discharge Prescriptions: Continue Aspirin EC [Ecotrin Low Dose] 81 mg PO DAILY Cholestyramine (with Sugar) [Cholestyramine Packet] 4 gm PO DIRECTED Fluticasone Nasal [place] [Flonase Nasal [place]] 1 - 2 spr EA NOSTRIL BID PRN PRN Reason: Allergy Symptoms Furosemide [Lasix] 40 mg PO DAILY Loratadine 10 mg PO DAILY Metoprolol Succinate (ER) [Toprol XL] 25 mg PO DAILY Vits A,C,E/Lutein/Minerals [Ocuvite with Lutein Tablet] 1 tab PO DAILY amLODIPine [Norvasc] 5 mg PO BID Atorvastatin [Lipitor] 20 mg PO HS Levothyroxine Sodium [Synthroid] 50 mcg PO DAILY Losartan Potassium 100 mg PO DAILY Oxybutynin Xl [Ditropan XL] 5 mg PO HS Vitamin E (Dl,Tocopheryl Acet) [Vitamin E (400 Iu = 180 mg)] 400 unit PO DAILY Discontinued Spironolactone [Aldactone] 25 mg PO DIRECTED Discharge Medication List Aspirin EC [Ecotrin Low Dose] 81 mg PO DAILY 01/17/23 [History] Atorvastatin [Lipitor] 20 mg PO HS 01/17/23 [History] Cholestyramine (with Sugar) [Cholestyramine Packet] 4 gm PO DIRECTED 01/17/23 [History] Fluticasone Nasal [place] [Flonase Nasal [place]] 1 - 2 spr EA NOSTRIL BID PRN 12/21 03/14 [History] Furosemide [Lasix] 40 mg PO DAILY 01/17/23 [History] Levothyroxine Sodium [Synthroid] 50 mcg PO DAILY 01/17/23 [History] Loratadine 10 mg PO DAILY 01/17/23 [History] Losartan Potassium 100 mg PO DAILY 01/17/23 [History] Metoprolol Succinate (ER) [Toprol XL] 25 mg PO DAILY 01/17/23 [History] Oxybutynin Xl [Ditropan XL] 5 mg PO HS 01/17/23 [History] Vitamin E (Dl,Tocopheryl Acet) [Vitamin E (400 Iu = 180 mg)] 400 unit PO DAILY 01/17/23 [History] Vits A,C,E/Lutein/Minerals [Ocuvite with Lutein Tablet] 1 tab PO DAILY 01/17/23 [History] amLODIPine [Norvasc] 5 mg PO BID 01/17/23 [History] Follow up Appointment(s)/Referral(s): Linda Antoine MD [STAFF PHYSICIAN] - 01/28/23 9:15 am Jono Edwards MD [Primary Care Provider] - 1 Week Patient Instructions/Handouts: Dehydration (ED), Acute Kidney Injury (DC) Activity/Diet/Wound Care/Special Instructions: Activity: As tolerated. Take breaks as needed. Diet: Heart healthy and carb consistent diet. Avoid salts, or foods with hidden salts such as canned or boxed foods and frozen dinners. Extra salt makes your heart work harder and traps the fluid in your body for longer. Special Instructions: Take all of your medications as directed and remember to keep all of your doctor's appointments and follow-up as needed. Now that diarrhea has subsided and you have been rehydrated, we will be discharging you home. As discussed with you and your grandson, you may resume your diuretic Lasix 40 mg daily starting tomorrow (but should always hold in the future if you are having excess diarrhea or vomiting). Also as we discussed, Aldactone has been discontinued because with your chronic kidney disease and currently being on losartan, taking Aldactone places you at a very elevated risk for developing hyperkalemia. Follow up with Dr. Antoine, It Support Consultant as scheduled on Jan 28. Thank you for allowing us to participate in your care, it was truly a pleasure having you for our patient!!! Discharge Disposition: HOME SELF-CARE
[2023-01-19 10:42] VITALS: BP 156/60; PULSE 72; TEMP 97.8
== END 2023-01-19 11:25 | disposition home or self-care (01) | DRG 683 ==
LOC: EC 13:43 → 6NMEDSUR 16:30 → OBSVTOIN 01-18 18:31
PROVIDERS: ADMIT Student in an Organized Health Care Education/Training Program; ATTEND Student in an Organized Health Care Education/Training Program
DX: N17.9 Acute kidney failure, unspecified (principal); E87.1 Hypo-osmolality and hyponatremia; D63.1 Anemia in chronic kidney disease; I13.10 Hypertensive heart and chronic kidney disease without heart failure, with stage 1 through stage 4 chronic kidney disease, or unspecified chronic kidney disease; N18.32 Chronic kidney disease, stage 3b; E03.9 Hypothyroidism, unspecified; E86.0 Dehydration; E78.5 Hyperlipidemia, unspecified; M89.8X9 Other specified disorders of bone, unspecified site; R19.7 Diarrhea, unspecified; Z20.822 Contact with and (suspected) exposure to COVID-19; Z28.310 Unvaccinated for COVID-19; Z88.0 Allergy status to penicillin; Z79.82 Long term (current) use of aspirin; Z79.890 Hormone replacement therapy; Z79.899 Other long term (current) drug therapy; Z88.1 Allergy status to other antibiotic agents
CPT/HCPCS: 36415; 51798; 71046; 76770; 80048; 80053; 81003; 83735; 85025; 85027; 85610; 85730; 87636; 93005; 96360; 99285

== ENCOUNTER → 2023-01-23 | Outpatient (CLI) | payer MEDICARE ==
--- NOTE | 2023-01-23 16:55 | US ---
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 Indirect Doppler criteria was utilized. FINDINGS: EXAM MEASUREMENTS: RIGHT: Peak Systolic Velocity (PSV) cm/sec ----- Right CCA: 111 ----- Right ICA: 119 ----- Right ECA: 90.3 ICA/CCA ratio: 1.2 RIGHT: End Diastole cm/sec ----- Right CCA: 8.9 ----- Right ICA: 16.6 ----- Right ECA: 0.8 LEFT: Peak Systolic Velocity (PSV) cm/sec ----- Left CCA: 113 ----- Left ICA: 78.7 ----- Left ECA: 161 ICA/CCA ratio: 0.8 LEFT: End Diastole cm/sec ----- Left CCA: 17.4 ----- Left ICA: 15.7 ----- Left ECA: 3.3 VERTEBRALS (direction of flow): Right Vertebral: unable to obtain Left Vertebral: Antegrade Rhythm: Normal INSERTER OPERATOR NOTES: exam technically challenging due to shadowing from plaque and deep tortuous vessel s IMPRESSION: Limited examination. 1. Moderate atherosclerotic plaque in the the left carotid bulb with mild plaque in the right bowel. Less than 50% stenosis of the bilateral internal carotid artery origins. 2. Nonvisualization of the right vertebral artery. This can be further evaluated with CTA neck as cl inically indicated. Criteria for Assigning % of Stenosis / Diameter reduction (Estimation based on the indirect measurements of the internal carotid artery velocities (ICA PSV). 1. Normal (no stenosis)=ICA PSV < 125 cm/s: ratio < 2.0: ICA EDV<40 cm/s. 2. Less than 50% stenosis=ICA PSV < 125 cm/s: ratio < 2.0: ICA EDV<40 cm/s. 3. 50 to 69% stenosis=ICA PSV of 125 to 230 cm/s: ration 2.0 ? 4.0: ICA EDV 40-100 cm/s. 4. Greater than 70% stenosis to near occlusion= ICA PSV > 230 cm/s: ratio > 4.0: ICA EDV > 100 cm/s. 5. Near occlusion= ICA PSV velocities may be low or undetectable: variable ratio and ICA EDV. 6. Total occlusion=unable to detect flow.
--- NOTE | 2023-01-25 10:10 | US ---
EXAMINATION TYPE: US arterial LE single level DATE OF EXAM: 01/23/2023 3:42 PM CLINICAL INDICATION: Female, 82 years old with history of I65.23 R25.2; claudication both legs History of: Smoker: quit 15+ yrs prior Hypertension: Yes Diabetic: No Hyperlipidemia: No TIA/CVA: No Previous Vascular Surgery: rt arm fistula CAD: No MT: No Vascular Ulcers: No Claudication: Bilateral Gangrene: No Doppler Waveforms: Right: Monophasic Left: Multiphasic Right Brachial Pressure: NOT OBTAINED DUE TO FISTULA Left Brachial Pressure: 140 Ankle-Brachial Indices: Right: 0.5 Left: 0.9 (Vessel hardening > 1.4; Normal 0.9 - 1.4, Moderate 0.7 - 0.9, Severe 0.5-0.7) Toe Brachial Indices: Right: 0.2 Left: 0.4 IMPRESSION: Findings compatible with severe right and normal left peripheral vascular disease by ankle brachial i ndices.
== END | disposition home or self-care (01) ==
LOC: RADUSWWP 13:49
PROVIDERS: ATTEND Internal Medicine
DX: I65.23 Occlusion and stenosis of bilateral carotid arteries (principal); R25.2 Cramp and spasm
CPT/HCPCS: 93880; 93923

== ENCOUNTER → 2023-02-14 | Outpatient (CLI) | payer MEDICARE ==
[2023-02-14 13:18] LABS: ALT 13 U/L (8-44); AST 21 U/L (13-35); Albumin 4.5 d/dL (3.8-4.9); Albumin/Globulin Ratio 1.88 Ratio (1.60-3.17); Alkaline Phosphatase 119 U/L (41-126); BUN/Creat Ratio 11.95 Ratio (12.00-20.00); Blood Urea Nitrogen 23.9 mg/dL (9.0-27.0); Calcium 9.9 mg/dL (8.7-10.3); Carbon Dioxide 23.9 mmol/L (21.6-31.8); Chloride 103 mmol/L (96-109); Globulin 2.4 d/dL (1.6-3.3); Glucose 95 mg/dL (70-110); Magnesium 1.9 mg/dL (1.5-2.4); Potassium 3.8 mmol/L (3.5-5.5); Sodium 141 mmol/L (135-145); Total Bilirubin 0.5 mg/dL (0.3-1.2); Total Protein 6.9 d/dL (6.2-8.2)
[2023-02-14 14:23] LABS: Basophils # (A) 0.08 X 10*3/uL (0.00-0.10); Basophils % (A) 0.9 %; Eosinophils # (A) 2.24 X 10*3/uL (0.04-0.35); Eosinophils % (A) 24.5 %; HGB 11.6 d/dL (12.0-15.0); Lymphocytes # (A) 2.67 X 10*3/uL (0.90-5.00); Lymphocytes % (A) 29.1 %; MCH 31.9 pg (27.0-32.0); MCHC 33.1 d/dL (32.0-37.0); MCV 96.2 FL (80.0-97.0); Mean Platelet Volume 10.4 FL (9.5-12.2); Monocytes # (A) 0.69 X 10*3/uL (0.20-1.00); Monocytes % (A) 7.5 %; NRBC Per 100 WBC 0 X 10*3/uL (0.00-0.01); Neutrophils # (A) 3.45 X 10*3/uL (1.80-7.70); Neutrophils % (A) 37.7 %; Platelet Count 182 X 10*3/uL (140-440); RBC 3.64 X 10*6/uL (4.10-5.20); RBC Morphology Normal (Normal); RDW 12.6 % (11.5-14.5); WBC 9.16 X 10*3/uL (4.50-10.00)
== END | disposition home or self-care (01) ==
LOC: LABWHC1 08:51
PROVIDERS: ATTEND Internal Medicine
DX: I10 Essential (primary) hypertension (principal)
CPT/HCPCS: 36415; 80053; 83735; 85025

== ENCOUNTER → 2023-03-05 | Outpatient (CLI) | payer MEDICARE ==
[2023-03-05 13:07] LABS: Basophils # (A) 0.1 k/uL (0-0.2); Basophils % (A) 1 %; Eosinophils % (A) 15 %; HCT 37.5 % (34.0-46.0); HGB 12.4 gm/dL (11.4-16.0); Lymphocytes # (A) 1.8 k/uL (1.0-4.8); Lymphocytes % (A) 27 %; MCH 32.6 pg (25.0-35.0); MCHC 33.2 g/dL (31.0-37.0); MCV 98.4 fL (80.0-100.0); Mean Platelet Volume 8.5; Monocytes # (A) 0.5 k/uL (0-1.0); Monocytes % (A) 8 %; Neutrophils # (A) 3.3 k/uL (1.3-7.7); Neutrophils % (A) 47 %; Platelet Count 176 k/uL (150-450); RBC 3.81 m/uL (3.80-5.40)
[2023-03-05 20:26] LABS: Albumin 4.5 d/dL (3.8-4.9); BUN/Creat Ratio 15.45 Ratio (12.00-20.00); Blood Urea Nitrogen 30.9 mg/dL (9.0-27.0); Calcium 9.7 mg/dL (8.7-10.3); Carbon Dioxide 25.4 mmol/L (21.6-31.8); Chloride 102 mmol/L (96-109); Glucose 110 mg/dL (70-110); Iron 41 UG/DL (50-170); Potassium 3.7 mmol/L (3.5-5.5); Sodium 141 mmol/L (135-145); Total Iron Binding Capacity 199 UG/DL (228-460); Uric Acid 10.1 mg/dL (2.9-7.7)
== END | disposition home or self-care (01) ==
LOC: LABWHC1 12:13
DX: E55.9 Vitamin D deficiency, unspecified (principal); M10.9 Gout, unspecified; N25.81 Secondary hyperparathyroidism of renal origin; N39.0 Urinary tract infection, site not specified; N18.4 Chronic kidney disease, stage 4 (severe); D63.1 Anemia in chronic kidney disease; R80.9 Proteinuria, unspecified
CPT/HCPCS: 36415; 80048; 82040; 82306; 83540; 83550; 83735; 83970; 84100; 84550; 85025

== ENCOUNTER 2023-03-14 20:13 | Emergency (ER) | payer MEDICARE ==
[2023-03-14] MEDS ORDERED: SODIUM CHLORIDE 0.9% 500 ML 500 ML IV STA (20:29)
[2023-03-14 20:30] VITALS: BP 173/73; PULSE 83; RESP 18; TEMP 98
--- NOTE | 2023-03-14 20:32 | ED ---
Arrhythmia/Palpitations HPI - General Chief Complaint: Arrhythmia/Palpitations Stated Complaint: Hypertension Time Seen by Provider: 03/14/23 20:29 Source: patient, family, RN notes reviewed, old records reviewed, Caregiver Mode of arrival: EMS Limitations: no limitations - History of Present Illness Initial Comments: This is a 82-year-old female presents emergency department today. Patient feels like her heart is racing complaining of elevated blood pressure which is in persistence up-to-date. No chest pain no travel history no sick contacts no s hortness of breath. Patient did take medications as prescribed, has no neurological complaints able ambulate without difficulty does have again mild headache -: hour(s) Context: occurred during rest Associated Symptoms: denies other symptoms Treatments Prior to Arrival: other (0) - Related Data Home Medications Medication Instructions Recorded Confirmed Aspirin EC [Ecotrin Low Dose] 81 mg PO DAILY 01/17/23 01/17/23 Atorvastatin [Lipitor] 20 mg PO HS 01/17/23 01/17/23 Cholestyramine (with Sugar) 4 gm PO DIRECTED 01/17/23 01/17/23 [Cholestyramine Packet] Fluticasone Nasal [place] [Flonase 1 - 2 spr EA NOSTRIL BID PRN 01/17/23 01/17/23 Nasal [place]] Furosemide [Lasix] 40 mg PO DAILY 01/17/23 01/17/23 Levothyroxine Sodium [Synthroid] 50 mcg PO DAILY 01/17/23 01/19/23 Loratadine 10 mg PO DAILY 01/17/23 01/17/23 Losartan Potassium 100 mg PO DAILY 01/17/23 01/19/23 Metoprolol Succinate (ER) [Toprol 25 mg PO DAILY 01/17/23 01/17/23 XL] Oxybutynin Xl [Ditropan XL] 5 mg PO HS 01/17/23 01/19/23 Vitamin E (Dl,Tocopheryl Acet) 400 unit PO DAILY 01/17/23 01/17/23 [Vitamin E (400 Iu = 180 mg)] Vits A,C,E/Lutein/Minerals 1 tab PO DAILY 01/17/23 01/17/23 [Ocuvite with Lutein Tablet] amLODIPine [Norvasc] 5 mg PO BID 01/17/23 01/17/23 Allergies Allergy/AdvReac Type Severity Reaction Status Date / Time bacitracin Allergy Unknown Verified 03/14/23 20:26 [From Neosporin ([id number])] levofloxacin [From Levaquin] Allergy Unknown Verified 03/14/23 20:26 metronidazole [From Flagyl] Allergy Unknown Verified 03/14/23 20:26 neomycin Allergy Unknown Verified 03/14/23 20:26 [From Neosporin ([id number])] Penicillins Allergy Rash/Hives Verified 03/14/23 20:26 polymyxin B Allergy Unknown Verified 03/14/23 20:26 [From Neosporin ([id number])] Review of Systems ROS Statement: Those systems with pertinent positive or pertinent negative responses have been documented in the HPI. ROS Other: All systems not noted in ROS Statement are negative. Past Medical History Past Medical History: Chest Pain / Angina, Hyperlipidemia, Hypertension, Renal Disease Additional Past Medical History / Comment(s): stage 4 renal. right arm fistula History of Any Multi-Drug Resistant Organisms: None Reported Past Surgical History: Appendectomy, Tubal Ligation Additional Past Surgical History / Comment(s): pacemaker Past Psychological History: No Psychological Hx Reported Smoking Status: Never smoker Past Alcohol Use History: None Reported Past Drug Use History: None Reported General Exam General appearance: alert, in no apparent distress, anxious Head exam: Present: atraumatic, normocephalic, normal inspection Eye exam: Present: normal appearance, PERRL, EOMI. Absent: scleral icterus, conjunctival injection, periorbital swelling ENT exam: Present: normal exam, mucous membranes moist Neck exam: Present: normal inspection. Absent: tenderness, meningismus, lymphadenopathy Respiratory exam: Present: normal lung sounds bilaterally. Absent: respiratory distress, wheezes, rales, rhonchi, stridor Cardiovascular Exam: Present: regular rate, normal rhythm, normal heart sounds. Absent: systolic murmur, diastolic murmur, rubs, gallop, clicks GI/Abdominal exam: Present: soft, normal bowel sounds. Absent: distended, tenderness, guarding, rebound, rigid Extremities exam: Present: normal inspection, full ROM, normal capillary refill. Absent: tenderness, pedal edema, joint swelling, calf tenderness Back exam: Present: normal inspection Neurological exam: Present: alert, oriented X3, CN II-XII intact Psychiatric exam: Present: normal affect, normal mood Skin exam: Present: warm, dry, intact, normal color. Absent: rash Course Vital Signs 03/14/23 20:16 Temperature 98.0 F Pulse Rate 83 Respiratory 18 Rate Blood Pressure 173/73 O2 Sat by Pulse 95 Oximetry - Reevaluation(s) Reevaluation #1: 03/14/23 Medical record is reviewed Reevaluation #2: 03/14/23 Patient symptoms are improved here in the ER Reevaluation #3: 03/14/23 Patient informed results and questions answered Reevaluation #4: Was pt. sent in by a medical professional or institution (JG Foley, AUTO SERVICE REPRESENTATIVE, urgent care, hospital, or assisted...) When possible be specific @ -no Did you speak to anyone other than the patient for history (EMS, parent, family, police, friend...)? What history was obtained from this source @ -no Did you review nursing and triage notes (agree or disagree)? Why? @ -agree Are old charts reviewed (outside hosp., previous admission, EMS record, old EKG, old radiological studies, urgent care reports/EKG's, assisted records)? Report findings @ -yes Differential Diagnosis (chest pain, altered mental status, abdominal pain women, abdominal pain men, vaginal bleeding, weakness, fever, dyspnea, syncope, headache, dizziness, GI bleed, back pain, seizure, CVA, palpatations, mental health, musculoskeletal)? @ -prior EKG interpreted by me (3pts min.). @ -yes X-rays interpreted by me (1pt min.). @ -no CT interpreted by me (1pt min.). @ -no U/S interpreted by me (1pt. min.). @ -no What testing was considered but not performed or refused? (CT, X-rays, U/S, labs)? Why? @ -none What meds were considered but not given or refused? Why? @ -none Did you discuss the management of the patient with other professionals (professionals i.e. JG Foley, AUTO SERVICE REPRESENTATIVE, lab, RT, psych nurse, social media editor, intellectual property lawyer, teacher, animal park code enforcement officer, case managers)? Give summary @ -no Was smoking cessation discussed for >3mins.? @ -no Was critical care preformed (if so, how long)? @ -no Were there social determinants of health that impacted care today? How? (Homelessness, low income, unemployed, alcoholism, drug addiction, transportation, low edu. Level, literacy, decrease access to med. care, [facility], rehab)? @ -none Was there de-escalation of care discussed even if they declined (Discuss DNR or withdrawal of care, Hospice)? DNR status @ -no What co-morbidities impacted this encounter? (DM, HTN, Smoking, COPD, CAD, Cancer, CVA, ARF, Chemo, Hep., AIDS, mental health diagnosis, sleep apnea, morbid obesity)? @ -none Was patient admitted / discharged? Hospital course, mention meds given and route, prescriptions, significant lab abnormalities, going to OR and other pertinent info. @ - 82 female to the emergency department for evaluation of hypertension occasional headache. History of hypertension but uncontrolled. Patient symptoms are improving here in the ER and can be discharged home Discharge Undiagnosed new problem with uncertain prognosis? @ -no Drug Therapy requiring intensive monitoring for toxicity (Heparin, Nitro, Insulin, Cardizem)? @ -no Were any procedures done? @ -no Diagnosis/symptom? @ -Hypertension Acute, or Chronic, or Acute on Chronic? @ -Acute Uncomplicated (without systemic symptoms) or Complicated (systemic symptoms)? @ -Complicated Side effects of treatment? @ -no Exacerbation, Progression, or Severe Exacerbation? @ -exacerbation Poses a threat to life or bodily function? How? (Chest pain, [place], [place], pneumonia, PE, COPD, DKA, ARF, appy, cholecystitis, CVA, Diverticulitis, Homicidal, Suicidal, threat to staff... and all critical care pts) @ -yes EKG Findings - EKG Comments: EKG Findings:: EKG is paced 85 QRS 173 QTC 449 - EKG Results: EKG: interpreted by SEVERIANO Medical Decision Making - Medical Decision Making 82 female to the emergency department for evaluation of hypertension occasional headache. History of hypertension but uncontrolled. Patient symptoms are improving here in the ER and can be discharged home - Lab Data Result diagrams: 03/14/23 20:31 03/14/23 20:31 Lab Results 03/14/23 03/14/23 03/14/23 Range/Units 20:31 20:31 20:31 WBC 8.3 (3.8-10.6) k/uL RBC 3.67 L (3.80-5.40) m/uL Hgb 12.0 (11.4-16.0) gm/dL Hct 35.4 (34.0-46.0) % MCV 96.4 (80.0-100.0) fL MCH 32.7 (25.0-35.0) pg MCHC 33.9 (31.0-37.0) g/dL RDW 11.7 (11.5-15.5) % Plt Count 191 (150-450) k/uL MPV 8.1 Neutrophils % 53 % Lymphocytes % 28 % Monocytes % 7 % Eosinophils % 9 % Basophils % 1 % Neutrophils # 4.4 (1.3-7.7) k/uL Lymphocytes # 2.3 (1.0-4.8) k/uL Monocytes # 0.6 (0-1.0) k/uL Eosinophils # 0.7 (0-0.7) k/uL Basophils # 0.1 (0-0.2) k/uL PT 10.3 (9.0-12.0) sec INR 1.0 (<1.2) APTT 26.1 (22.0-30.0) sec Sodium 135 L (137-145) mmol/L Potassium 4.0 (3.5-5.1) mmol/L Chloride 102 (98-107) mmol/L Carbon Dioxide 20 L (22-30) mmol/L Anion Gap 13 mmol/L BUN 32 H (7-17) mg/dL Creatinine 1.54 H (0.52-1.04) mg/dL Est GFR (CKD-EPI)AfAm 36 (>60 ml/min/1.73 sqM) Est GFR (CKD-EPI)NonAf 31 (>60 ml/min/1.73 sqM) Glucose 129 H (74-99) mg/dL Calcium 9.5 (8.4-10.2) mg/dL Phosphorus 3.7 (2.5-4.5) mg/dL Magnesium 2.0 (1.6-2.3) mg/dL Total Bilirubin 0.4 (0.2-1.3) mg/dL AST 29 (14-36) U/L ALT 18 (4-34) U/L Alkaline Phosphatase 103 (38-126) U/L Troponin I (0.000-0.034) ng/mL NT-Pro-B Natriuret Pep 1730 pg/mL Total Protein 6.8 (6.3-8.2) g/dL Albumin 3.9 (3.5-5.0) g/dL 03/14/23 Range/Units 20:31 WBC (3.8-10.6) k/uL RBC (3.80-5.40) m/uL Hgb (11.4-16.0) gm/dL Hct (34.0-46.0) % MCV (80.0-100.0) fL MCH (25.0-35.0) pg MCHC (31.0-37.0) g/dL RDW (11.5-15.5) % Plt Count (150-450) k/uL MPV Neutrophils % % Lymphocytes % % Monocytes % % Eosinophils % % Basophils % % Neutrophils # (1.3-7.7) k/uL Lymphocytes # (1.0-4.8) k/uL Monocytes # (0-1.0) k/uL Eosinophils # (0-0.7) k/uL Basophils # (0-0.2) k/uL PT (9.0-12.0) sec INR (<1.2) APTT (22.0-30.0) sec Sodium (137-145) mmol/L Potassium (3.5-5.1) mmol/L Chloride (98-107) mmol/L Carbon Dioxide (22-30) mmol/L Anion Gap mmol/L BUN (7-17) mg/dL Creatinine (0.52-1.04) mg/dL Est GFR (CKD-EPI)AfAm (>60 ml/min/1.73 sqM) Est GFR (CKD-EPI)NonAf (>60 ml/min/1.73 sqM) Glucose (74-99) mg/dL Calcium (8.4-10.2) mg/dL Phosphorus (2.5-4.5) mg/dL Magnesium (1.6-2.3) mg/dL Total Bilirubin (0.2-1.3) mg/dL AST (14-36) U/L ALT (4-34) U/L Alkaline Phosphatase (38-126) U/L Troponin I <0.012 (0.000-0.034) ng/mL NT-Pro-B Natriuret Pep pg/mL Total Protein (6.3-8.2) g/dL Albumin (3.5-5.0) g/dL - EKG Data -: EKG Interpreted by Me Disposition Clinical Impression: Hypertension Disposition: HOME SELF-CARE Condition: Good Instructions (If sedation given, give patient instructions): Hypertension (ED) Is patient prescribed a controlled substance at d/c from ED?: No Referrals: Jono Edwards MD [Primary Care Provider] - 1-2 days Time of Disposition: 22:30
[2023-03-14 20:41] LABS: Basophils # (A) 0.1 k/uL (0-0.2); Basophils % (A) 1 %; Eosinophils # (A) 0.7 k/uL (0-0.7); Eosinophils % (A) 9 %; HCT 35.4 % (34.0-46.0); Lymphocytes # (A) 2.3 k/uL (1.0-4.8); Lymphocytes % (A) 28 %; MCH 32.7 pg (25.0-35.0); MCHC 33.9 g/dL (31.0-37.0); MCV 96.4 fL (80.0-100.0); Mean Platelet Volume 8.1; Monocytes # (A) 0.6 k/uL (0-1.0); Monocytes % (A) 7 %; Neutrophils # (A) 4.4 k/uL (1.3-7.7); Neutrophils % (A) 53 %; Platelet Count 191 k/uL (150-450); RBC 3.67 m/uL (3.80-5.40); RDW 11.7 % (11.5-15.5); WBC 8.3 k/uL (3.8-10.6)
[2023-03-14 21:00] LABS: Partial Thromboplastin Time 26.1 sec (22.0-30.0); Prothrombin Time 10.3 sec (9.0-12.0)
[2023-03-14 21:01] LABS: ALT 18 U/L (4-34); AST 29 U/L (14-36); African American GFR (CKD) 36 (>60 ml/min/1.73 sqM); Albumin 3.9 g/dL (3.5-5.0); Alkaline Phosphatase 103 U/L (38-126); Anion Gap 13 mmol/L; Blood Urea Nitrogen 32 mg/dL (7-17); Calcium 9.5 mg/dL (8.4-10.2); Carbon Dioxide 20 mmol/L (22-30); Chloride 102 mmol/L (98-107); Glucose 129 mg/dL (74-99); Non-African American GFR(CKD) 31 (>60 ml/min/1.73 sqM); Phosphorus 3.7 mg/dL (2.5-4.5); Sodium 135 mmol/L (137-145); Total Bilirubin 0.4 mg/dL (0.2-1.3); Total Protein 6.8 g/dL (6.3-8.2)
[2023-03-14 21:09] LABS: NT-Pro-B-Type Natriuretic Pept 1730 pg/mL
== END 2023-03-14 22:58 | disposition home or self-care (01) ==
LOC: EC 20:13
DX: I10 Essential (primary) hypertension (principal); E78.5 Hyperlipidemia, unspecified; Z88.0 Allergy status to penicillin; Z88.1 Allergy status to other antibiotic agents; Z88.8 Allergy status to other drugs, medicaments and biological substances; Z79.82 Long term (current) use of aspirin; Z79.899 Other long term (current) drug therapy
CPT/HCPCS: 36415; 80053; 83735; 83880; 84100; 84484; 85025; 85610; 85730; 93005; 99285

== ENCOUNTER → 2023-04-22 | Outpatient (CLI) | payer MEDICARE ==
[2023-04-22 11:00] LABS: Basophils # (A) 0.08 X 10*3/uL (0.00-0.10); Basophils % (A) 1.2 %; Eosinophils # (A) 0.75 X 10*3/uL (0.04-0.35); Eosinophils % (A) 11.2 %; HCT 39.9 % (37.2-46.3); HGB 13.1 d/dL (12.0-15.0); Lymphocytes # (A) 2.23 X 10*3/uL (0.90-5.00); Lymphocytes % (A) 33.2 %; MCH 30.7 pg (27.0-32.0); MCHC 32.8 d/dL (32.0-37.0); MCV 93.4 FL (80.0-97.0); Mean Platelet Volume 10.6 FL (9.5-12.2); Monocytes # (A) 0.64 X 10*3/uL (0.20-1.00); Monocytes % (A) 9.5 %; NRBC Per 100 WBC 0 X 10*3/uL (0.00-0.01); Neutrophils # (A) 2.99 X 10*3/uL (1.80-7.70); Neutrophils % (A) 44.6 %; Platelet Count 193 X 10*3/uL (140-440); RBC 4.27 X 10*6/uL (4.10-5.20); RDW 11.2 % (11.5-14.5); WBC 6.71 X 10*3/uL (4.50-10.00)
[2023-04-22 16:26] LABS: Appearance,Urine Clear (Clear); Bilirubin,Urine Negative (Negative); Blood,Urine Negative (Negative); Color,Urine Yellow (Yellow); Ketones,Urine Negative (Negative); Nitrite,Urine Negative (Negative); PH, Urine 5.5; Specific Gravity,Urine 1.009 (1.001-1.030); Urobilinogen,Urine 0.2 E.U./DL
[2023-04-22 16:29] LABS: Bacteria,Urine None Seen (None Seen)
[2023-04-22 16:33] LABS: % Iron Saturation 56.94 (12.00-45.00); Albumin 4.5 d/dL (3.8-4.9); BUN/Creat Ratio 15.16 Ratio (12.00-20.00); Blood Urea Nitrogen 28.8 mg/dL (9.0-27.0); Calcium 10.1 mg/dL (8.7-10.3); Carbon Dioxide 24.5 mmol/L (21.6-31.8); Chloride 96 mmol/L (96-109); Glucose 92 mg/dL (70-110); Iron 123 UG/DL (50-170); Magnesium 2.1 mg/dL (1.5-2.4); Phosphorus 4.2 mg/dL (2.4-5.1); Potassium 3.5 mmol/L (3.5-5.5); Sodium 136 mmol/L (135-145); Total Iron Binding Capacity 216 UG/DL (228-460)
== END | disposition home or self-care (01) ==
LOC: LABWHC1 08:16
PROVIDERS: ATTEND Nurse Practitioner Family
DX: N18.4 Chronic kidney disease, stage 4 (severe) (principal); E55.9 Vitamin D deficiency, unspecified; N25.81 Secondary hyperparathyroidism of renal origin; M10.9 Gout, unspecified; D63.1 Anemia in chronic kidney disease; R80.9 Proteinuria, unspecified
CPT/HCPCS: 36415; 80048; 81001; 82040; 82306; 82728; 83540; 83550; 83735; 83970; 84100; 85025

== ENCOUNTER → 2023-05-27 | Outpatient (CLI) | payer MEDICARE ==
[2023-05-27 15:43] LABS: Basophils # (A) 0.09 X 10*3/uL (0.00-0.10); Basophils % (A) 1.3 %; Eosinophils # (A) 0.74 X 10*3/uL (0.04-0.35); HCT 38.4 % (37.2-46.3); HGB 12.5 g/dL (12.0-15.0); Lymphocytes # (A) 2.49 X 10*3/uL (0.90-5.00); Lymphocytes % (A) 36.9 %; MCH 30.7 pg (27.0-32.0); MCHC 32.6 g/dL (32.0-37.0); MCV 94.3 FL (80.0-97.0); Monocytes # (A) 0.96 X 10*3/uL (0.20-1.00); Monocytes % (A) 14.2 %; NRBC Per 100 WBC 0 X 10*3/uL (0.00-0.01); Neutrophils # (A) 2.45 X 10*3/uL (1.80-7.70); Neutrophils % (A) 36.5 %; Platelet Count 175 X 10*3/uL (140-440); RBC 4.07 X 10*6/uL (4.10-5.20); RDW 11.8 % (11.5-14.5); WBC 6.74 X 10*3/uL (4.50-10.00)
[2023-05-27 16:04] LABS: % Iron Saturation 32.29 (12.00-45.00); Albumin 4.3 g/dL (3.8-4.9); BUN/Creat Ratio 17.28 Ratio (12.00-20.00); Blood Urea Nitrogen 43.2 mg/dL (9.0-27.0); Calcium 9.5 mg/dL (8.7-10.3); Carbon Dioxide 23.6 mmol/L (21.6-31.8); Chloride 100 mmol/L (96-109); Glucose 91 mg/dL (70-110); Iron 72 UG/DL (50-170); Magnesium 2.2 mg/dL (1.5-2.4); Phosphorus 4.3 mg/dL (2.4-5.1); Sodium 138 mmol/L (135-145); T4, Free (Free Thyroxine) 1.31 ng/dL (0.80-1.80); Total Iron Binding Capacity 223 UG/DL (228-460); Uric Acid 9.3 mg/dL (2.9-7.7)
== END | disposition home or self-care (01) ==
LOC: LABWHC1 08:25
PROVIDERS: ATTEND Internal Medicine Nephrology
DX: E55.9 Vitamin D deficiency, unspecified (principal); E03.9 Hypothyroidism, unspecified; N25.81 Secondary hyperparathyroidism of renal origin; M10.9 Gout, unspecified; D63.1 Anemia in chronic kidney disease; N39.0 Urinary tract infection, site not specified; N18.4 Chronic kidney disease, stage 4 (severe); R80.9 Proteinuria, unspecified; R73.9 Hyperglycemia, unspecified
CPT/HCPCS: 36415; 80048; 82040; 82043; 82306; 82570; 82728; 83036; 83540; 83550; 83735; 83970; 84100; 84439; 84443; 84550; 85025

== ENCOUNTER → 2023-07-17 | Outpatient (CLI) | payer MEDICARE ==
[2023-07-17 16:18] LABS: BUN/Creat Ratio 13.29 Ratio (12.00-20.00); Blood Urea Nitrogen 63.8 mg/dL (9.0-27.0); Calcium 9.7 mg/dL (8.7-10.3); Chloride 99 mmol/L (96-109); Glucose 101 mg/dL (70-110); Potassium 4.3 mmol/L (3.5-5.5); Sodium 138 mmol/L (135-145)
== END | disposition home or self-care (01) ==
LOC: LABWHC1 09:04
PROVIDERS: ATTEND Internal Medicine Nephrology
DX: N18.4 Chronic kidney disease, stage 4 (severe) (principal)
CPT/HCPCS: 36415; 80048

== ENCOUNTER 2023-07-22 19:43 | Inpatient (IN) | payer MEDICARE ==
--- NOTE | 2023-07-22 21:15 | XR ---
EXAMINATION TYPE: XR chest 2V DATE OF EXAM: 07/22/2023 8:56 PM CLINICAL INDICATION:Female, 82 years old with history of shortness of breath.; H COMPARISON: Chest radiographs from 01/17/2023 TECHNIQUE: XR chest 2V Frontal and lateral views of the chest. FINDINGS: Lungs/Pleura: No evidence of focal consolidation or pneumothorax. Blunting of the costophrenic angles is present. Pulmonary vascularity: Pulmonary vascular congestion. Heart/mediastinum: Cardiomediastinal silhouette is enlarged and stable. Two lead cardiac conduction d evice overlying the left hemithorax with lead tips projecting over the right ventricle and right atri um. Musculoskeletal: No acute osseous pathology. Other findings: None IMPRESSION: Cardiomegaly, pulmonary vascular congestion and bilateral pleural effusions. Correlate with BNP for c ongestive heart failure.
[2023-07-22 21:21] LABS: Basophils % (A) 0 %; Eosinophils # (A) 0.1 k/uL (0-0.7); Eosinophils % (A) 1 %; HCT 30.9 % (34.0-46.0); HGB 10.6 gm/dL (11.4-16.0); Lymphocytes # (A) 0.9 k/uL (1.0-4.8); Lymphocytes % (A) 14 %; MCH 31.8 pg (25.0-35.0); MCHC 34.4 g/dL (31.0-37.0); MCV 92.5 fL (80.0-100.0); Monocytes # (A) 0.3 k/uL (0-1.0); Monocytes % (A) 5 %; Neutrophils % (A) 79 %; Platelet Count 153 k/uL (150-450); RBC 3.34 m/uL (3.80-5.40); RDW 13.2 % (11.5-15.5); WBC 6.4 k/uL (3.8-10.6)
[2023-07-22 21:22] LABS: ALT 18 U/L (4-34); AST 26 U/L (14-36); African American GFR (CKD) 11 (>60 ml/min/1.73 sqM); Albumin 3.9 g/dL (3.5-5.0); Alkaline Phosphatase 88 U/L (38-126); Anion Gap 13 mmol/L; Blood Urea Nitrogen 71 mg/dL (7-17); Carbon Dioxide 16 mmol/L (22-30); Chloride 101 mmol/L (98-107); Glucose 153 mg/dL (74-99); Non-African American GFR(CKD) 9 (>60 ml/min/1.73 sqM); Potassium 4.3 mmol/L (3.5-5.1); Sodium 130 mmol/L (137-145); Total Protein 6.8 g/dL (6.3-8.2)
[2023-07-22] MEDS ORDERED: BUMETANIDE 0.25 MG/ML 4 ML VIAL IVP STA (23:28)
--- NOTE | 2023-07-22 23:39 | ED ---
Weakness HPI - General Chief complaint: Weakness Stated complaint: high BP stage IV liver failure Time Seen by Provider: 07/22/23 22:34 Source: patient Mode of arrival: wheelchair Limitations: no limitations - History of Present Illness Initial comments: 82-year-old female with history of ESRD presenting with chief complaint of elevated blood pressure and shortness of breath. Patient has had worsening shortness of breath over the past few days. Worse with lying flat. Patient is in need of dialysis. She follows with Dr. Antoine. Patient has an old dialysis fistula to the right arm that has not been used for 3 years, her daughter notes that over the holidays it dramatically increased in size and they were scheduled to see Dr. Joseph tomorrow. She denies chest pain. No fevers. No cough or congestion. - Related Data Home Medications Medication Instructions Recorded Confirmed Aspirin EC [Ecotrin Low Dose] 81 mg PO DAILY 01/17/23 07/22/23 Atorvastatin [Lipitor] 20 mg PO HS 01/17/23 07/22/23 Cholestyramine (with Sugar) 4 gm PO BID PRN 01/17/23 07/22/23 [Cholestyramine Packet] Fluticasone Nasal [place] [Flonase 1 - 2 spr EA NOSTRIL BID PRN 01/17/23 07/22/23 Nasal [place]] Furosemide [Lasix] 40 mg PO DAILY 01/17/23 07/22/23 Levothyroxine Sodium [Synthroid] 50 mcg PO DAILY 01/17/23 07/22/23 Loratadine 10 mg PO DAILY 01/17/23 07/22/23 Oxybutynin Xl [Ditropan XL] 5 mg PO HS 01/17/23 07/22/23 Vits A,C,E/Lutein/Minerals 1 tab PO DAILY 01/17/23 07/22/23 [Ocuvite with Lutein Tablet] amLODIPine [Norvasc] 5 mg PO BID 01/17/23 07/22/23 Vitamin E (Dl,Tocopheryl Acet) 450 mg PO HS 07/22/23 07/22/23 [Vitamin E (1000 Iu = 450 MG)] allopurinoL [Zyloprim] 100 mg PO DAILY 07/22/23 07/22/23 carvediloL [Coreg] 12.5 mg PO BID 07/22/23 07/22/23 Allergies Allergy/AdvReac Type Severity Reaction Status Date / Time bacitracin Allergy Rash/Hives Verified 07/22/23 23:11 [From Neosporin ([id number])] levofloxacin [From Levaquin] Allergy Rash/Hives Verified 07/22/23 23:11 metronidazole [From Flagyl] Allergy Rash/Hives Verified 07/22/23 23:11 neomycin Allergy Rash/Hives Verified 07/22/23 23:11 [From Neosporin ([id number])] Penicillins Allergy Rash/Hives Verified 07/22/23 23:11 polymyxin B Allergy Rash/Hives Verified 07/22/23 23:11 [From Neosporin ([id number])] Review of Systems ROS Statement: Those systems with pertinent positive or pertinent negative responses have been documented in the HPI. ROS Other: All systems not noted in ROS Statement are negative. Past Medical History Past Medical History: Chest Pain / Angina, Hyperlipidemia, Hypertension, Renal Disease Additional Past Medical History / Comment(s): stage 4 renal. right arm fistula History of Any Multi-Drug Resistant Organisms: None Reported Past Surgical History: Appendectomy, Tubal Ligation Additional Past Surgical History / Comment(s): pacemaker Past Psychological History: No Psychological Hx Reported Smoking Status: Never smoker Past Alcohol Use History: None Reported Past Drug Use History: None Reported General Exam Limitations: no limitations General appearance: alert, in distress (Patient showing increased respiratory effort) Head exam: Present: atraumatic, normocephalic Eye exam: Present: normal appearance, EOMI Neck exam: Present: normal inspection Respiratory exam: Present: respiratory distress (Patient is clearly short of breath), rales, accessory muscle use. Absent: wheezes, rhonchi, stridor Cardiovascular Exam: Present: regular rate, normal rhythm, normal heart sounds. Absent: systolic murmur, diastolic murmur, rubs, gallop, clicks Neurological exam: Present: alert, oriented X3 Psychiatric exam: Present: normal affect, normal mood Skin exam: Present: warm, dry Course Vital Signs 07/22/23 07/22/23 20:29 22:45 Temperature 98.1 F Pulse Rate 82 84 Respiratory 18 20 Rate Blood Pressure 160/65 168/77 O2 Sat by Pulse 94 L 96 Oximetry Medical Decision Making - Medical Decision Making EKG shows electronic ventricular pacemaker. Ventricular rate 86. AR interval 164. QRS 146. QT 429. QTc 472. Was pt. sent in by a medical professional or institution (J[facility] Foley, PSYCHIATRIC LPN, urgent care, hospital, or intermediate...) When possible be specific @ -No Did you speak to anyone other than the patient for history (EMS, parent, family, police, friend...)? What history was obtained from this source @ -History supplemented by daughter Did you review nursing and triage notes (agree or disagree)? Why? @ -I reviewed and agree with nursing and triage notes Were old charts reviewed (outside hosp., previous admission, EMS record, old EKG, old radiological studies, urgent care reports/EKG's, intermediate records)? Report findings @ -No old charts were reviewed Differential Diagnosis (chest pain, altered mental status, abdominal pain women, abdominal pain men, vaginal bleeding, weakness, fever, dyspnea, syncope, headache, dizziness, GI bleed, back pain, seizure, CVA, palpatations, mental health, musculoskeletal)? @ -MDM Differential Dyspnea: Coronary syndrome, arrhythmia, tamponade, asthma, COPD, pulmonary embolism, pneumonia, pneumothorax, pulmonary effusion, anaphylaxis, diabetic ketoacidosis, flailed chest, pulmonary contusion, diaphragmatic rupture, anemia, neuromuscular this is not meant to be an all-inclusive list. EKG interpreted by me (3pts min.). @ -As above X-rays interpreted by me (1pt min.). @ -Chest x-ray shows cardiomegaly, pulmonary vascular congestion and bilateral pleural effusions. CT interpreted by me (1pt min.). @ -None done U/S interpreted by me (1pt. min.). @ -None done What testing was considered but not performed or refused? (CT, X-rays, U/S, labs)? Why? @ -None What meds were considered but not given or refused? Why? @ -None Did you discuss the management of the patient with other professionals (professionals i.e. JG Foley, PSYCHIATRIC LPN, lab, RT, psych nurse, executive secretary social welfare, lawyer real estate, teacher, court registry officer, medical case manager)? Give summary @ -I spoke with Dr. Ding who accepted admission Was smoking cessation discussed for >3mins.? @ -No Was critical care preformed (if so, how long)? @ -No Were there social determinants of health that impacted care today? How? (Homelessness, low income, unemployed, alcoholism, drug addiction, transporta tion, low edu. Level, literacy, decrease access to med. care, detention, rehab)? @ -No Was there de-escalation of care discussed even if they declined (Discuss DNR or withdrawal of care, Hospice)? DNR status @ -No What co-morbidities impacted this encounter? (DM, HTN, Smoking, COPD, CAD, Cancer, CVA, ARF, Chemo, Hep., AIDS, mental health diagnosis, sleep apnea, morbid obesity)? @ -ESRD Was patient admitted / discharged? Hospital course, mention meds given and route, prescriptions, significant lab abnormalities, going to OR and other pertinent info. @ -82-year-old female presenting with chief complaint of dyspnea. Patient has history of ESRD and requires dialysis, has not started dialysis yet. On physical exam there are Rales heard bilaterally at the lung bases. Chest x-ray shows cardiomegaly with pulmonary vascular congestion and bilateral pleural effusions. BNP is 38,700. BUN 71 and creatinine 4.16. Given the patient's kidney function she is treated with Bumex 1mg. She will be admitted with consults placed to nephrology and vascular surgery. Patient is agreeable with this plan. I discussed this case with my attending Dr. Ward. Undiagnosed new problem with uncertain prognosis? @ -No Drug Therapy requiring intensive monitoring for toxicity (Heparin, Nitro, Insulin, Cardizem)? @ -No Were any procedures done? @ -No Diagnosis/symptom? @ -CHF, CKD Acute, or Chronic, or Acute on Chronic? @ -Acute on chronic Uncomplicated (without systemic symptoms) or Complicated (systemic symptoms)? @ -Complicated Side effects of treatment? @ -No Exacerbation, Progression, or Severe Exacerbation? @ -CHF exacerbation Poses a threat to life or bodily function? How? (Chest pain, [place], [place], pneumonia, PE, COPD, DKA, ARF, appy, cholecystitis, CVA, Diverticulitis, Homicidal, Su[place] ju[place], threat to staff... and all critical care pts) @ -Yes - Lab Data Result diagrams: 07/22/23 20:37 07/22/23 20:37 Lab Results 01/31/24 01/31/24 01/31/24 Range/Units 20:37 20:37 20:37 WBC 6.4 (3.8-10.6) k/uL RBC 3.34 L (3.80-5.40) m/uL Hgb 10.6 L (11.4-16.0) gm/dL Hct 30.9 L (34.0-46.0) % MCV 92.5 (80.0-100.0) fL MCH 31.8 (25.0-35.0) pg MCHC 34.4 (31.0-37.0) g/dL RDW 13.2 (11.5-15.5) % Plt Count 153 (150-450) k/uL MPV 9.0 Neutrophils % 79 % Lymphocytes % 14 % Monocytes % 5 % Eosinophils % 1 % Basophils % 0 % Neutrophils # 5.0 (1.3-7.7) k/uL Lymphocytes # 0.9 L (1.0-4.8) k/uL Monocytes # 0.3 (0-1.0) k/uL Eosinophils # 0.1 (0-0.7) k/uL Basophils # 0.0 (0-0.2) k/uL Sodium 130 L (137-145) mmol/L Potassium 4.3 (3.5-5.1) mmol/L Chloride 101 (98-107) mmol/L Carbon Dioxide 16 L (22-30) mmol/L Anion Gap 13 mmol/L BUN 71 H (7-17) mg/dL Creatinine 4.16 H (0.52-1.04) mg/dL Est GFR (CKD-EPI)AfAm 11 (>60 ml/min/1.73 sqM) Est GFR (CKD-EPI)NonAf 9 (>60 ml/min/1.73 sqM) Glucose 153 H (74-99) mg/dL Calcium 9.0 (8.4-10.2) mg/dL Total Bilirubin 1.0 (0.2-1.3) mg/dL AST 26 (14-36) U/L ALT 18 (4-34) U/L Alkaline Phosphatase 88 (38-126) U/L NT-Pro-B Natriuret Pep 87650 pg/mL Total Protein 6.8 (6.3-8.2) g/dL Albumin 3.9 (3.5-5.0) g/dL Disposition Clinical Impression: CHF (congestive heart failure), Chronic renal disease Disposition: ADMITTED IP TO THIS HOSP Condition: Poor Time of Disposition: 23:39
[2023-07-22] MEDS ORDERED: NALOXONE 0.4 MG/ML 1 ML VIAL IV PRN (23:48)
--- NOTE | 2023-07-23 03:27 | P.HPIM ---
History of Present Illness H&P Date: 07/23/23 Patient is a 82-year-old female with PMH of ESRD, hypertension, hyperlipidemia, and hypothyroidism who presents to the emergency room with complaints of shortness of breath. Reports gradually worsening dyspnea and orthopnea over the past 3 to 4 days. Reports that she previously underwent an RUE AV fistula formation in [place] 2 years ago but her CKD improved and she never initiated dialysis. Reports however that the fistula has increased in size and was scheduled to see Dr. Joseph in the clinic tomorrow to get it ready for dialysis initiation. Patient denied experiencing lower extremity swelling or pain. Denied chest discomfort, fever, chills, cough, nausea, vomiting, abdominal pain, diarrhea. Patient reports previously being told she had congestive heart failure. Continues to make urine of varying amounts daily. Chest x-ray was consistent with congestive heart failure with EKG showing V paced rhythm at 86 bpm as reviewed by me. Laboratory evaluation was remarkable for proBNP 38,700, creatinine 4.16 (previously 2.1 and 12/2022), sodium 130, CO2 16, and hemoglobin 10.6. ED documentation reviewed and case discussed with ED provider. Review of systems: Pertinent positives and negatives as discussed in HPI, a complete review of systems was performed and all other systems are negative. Physical examination: Vital signs reviewed General: non toxic, no distress, appears at stated age, normal weight Derm: no unusual rashes/lesions, warm Head: atraumatic, normocephalic, symmetric Eyes: EOMI, no lid lag, anicteric sclera, pupils equal round reactive to light ENT: Nose and ears atraumatic Neck: No cervical lymphadenopathy, trachea midline, supple Mouth: no lip lesion, mucus membranes moist Cardiovascular: S1S2 reg, no murmur, positive dorsalis pedis pulse bilateral, no edema Lungs: Mild scattered coarse breath sounds without wheezing, no accessory muscle use Abdominal: soft, nontender to palpation, no guarding Ext: muscle strength 4 out of 5 in all 4 extremities grossly, no gross muscle atrophy, no contractures, RUE AV fistula noted with palpable thrill Neuro: CN II-XI grossly intact, no gross focal neuro deficits Psych: Alert, oriented, appropriate affect Assessment: Fluid overload, congestive heart failure with likely component ESRD Hyponatremia Normocytic anemia, likely of chronic disease Chronic conditions: Hypertension, hyperlipidemia, hypothyroidism Imaging: Chest x-ray was consistent with congestive heart failure with EKG showing V paced rhythm at 86 bpm as reviewed by me. Data Review: Laboratory evaluation was remarkable for proBNP 38,700, creatinine 4.16 (previously 2.1 and 12/2022), sodium 130, CO2 16, and hemoglobin 10.6. Plan: Start patient on Lasix 40 mg IVP q8h Cardiology and nephrology consulted Intake and output Daily weights Obtain echocardiogram Fluid restriction Vascular surgery consulted for RUE fistula Continue home meds DVT prophylaxis: Lovenox subcu The patient is admitted with an anticipated greater than 2 midnight stay for evaluation of fluid overload CODE STATUS: Full Code Discussed with: Patient Anticipated discharge place: Home Past Medical History Past Medical History: Chest Pain / Angina, Hyperlipidemia, Hypertension, Renal Disease Additional Past Medical History / Comment(s): stage 4 renal. right arm fistula History of Any Multi-Drug Resistant Organisms: None Reported Past Surgical History: Appendectomy, Tubal Ligation Additional Past Surgical History / Comment(s): pacemaker Past Psychological History: No Psychological Hx Reported Smoking Status: Never smoker Past Alcohol Use History: None Reported Past Drug Use History: None Reported Medications and Allergies Home Medications Medication Instructions Recorded Confirmed Type Aspirin EC [Ecotrin Low Dose] 81 mg PO DAILY 01/17/23 07/22/23 History Atorvastatin [Lipitor] 20 mg PO HS 01/17/23 07/22/23 History Cholestyramine (with Sugar) 4 gm PO BID PRN 01/17/23 07/22/23 History [Cholestyramine Packet] Fluticasone Nasal [place] [Flonase 1 - 2 spr EA NOSTRIL BID PRN 01/17/23 07/22/23 History Nasal [place]] Furosemide [Lasix] 40 mg PO DAILY 01/17/23 07/22/23 History Levothyroxine Sodium [Synthroid] 50 mcg PO DAILY 01/17/23 07/22/23 History Loratadine 10 mg PO DAILY 01/17/23 07/22/23 History Oxybutynin Xl [Ditropan XL] 5 mg PO HS 01/17/23 07/22/23 History Vits A,C,E/Lutein/Minerals 1 tab PO DAILY 01/17/23 07/22/23 History [Ocuvite with Lutein Tablet] amLODIPine [Norvasc] 5 mg PO BID 01/17/23 07/22/23 History Vitamin E (Dl,Tocopheryl Acet) 450 mg PO HS 07/22/23 07/22/23 History [Vitamin E (1000 Iu = 450 MG)] allopurinoL [Zyloprim] 100 mg PO DAILY 07/22/23 07/22/23 History carvediloL [Coreg] 12.5 mg PO BID 07/22/23 07/22/23 History Allergies Allergy/AdvReac Type Severity Reaction Status Date / Time bacitracin Allergy Rash/Hives Verified 07/22/23 23:11 [From Neosporin ([id number])] levofloxacin [From Levaquin] Allergy Rash/Hives Verified 07/22/23 23:11 metronidazole [From Flagyl] Allergy Rash/Hives Verified 07/22/23 23:11 neomycin Allergy Rash/Hives Verified 07/22/23 23:11 [From Neosporin ([id number])] Penicillins Allergy Rash/Hives Verified 07/22/23 23:11 polymyxin B Allergy Rash/Hives Verified 07/22/23 23:11 [From Neosporin ([id number])] Physical Exam Vitals: Vital Signs Temp Pulse Resp BP Pulse Ox 07/23/23 01:58 72 16 151/59 95 07/22/23 22:45 84 20 168/77 96 07/22/23 20:29 98.1 F 82 18 160/65 94 L Intake and Output 07/22/23 07/22/23 07/23/23 14:59 22:59 06:59 Other: Weight 62.142 kg Results CBC & Chem 7: 07/22/23 20:37 07/22/23 20:37 Labs: Abnormal Lab Results - Last 24 Hours (Table) 07/22/23 07/22/23 Range/Units 20:37 20:37 RBC 3.34 L (3.80-5.40) m/uL Hgb 10.6 L (11.4-16.0) gm/dL Hct 30.9 L (34.0-46.0) % Lymphocytes # 0.9 L (1.0-4.8) k/uL Sodium 130 L (137-145) mmol/L Carbon Dioxide 16 L (22-30) mmol/L BUN 71 H (7-17) mg/dL Creatinine 4.16 H (0.52-1.04) mg/dL Glucose 153 H (74-99) mg/dL
[2023-07-23] MEDS ORDERED: FUROSEMIDE 10 MG/ML 4 ML VIAL IV SCH (08:00)
[2023-07-23] MEDS: LEVOTHYROXINE 50 MCG TAB PO SCH (09:01)
[2023-07-23] MEDS: carvediloL 12.5 MG TAB PO SCH ×2 (09:05→18:54)
[2023-07-23 09:25] LABS: Appearance,Urine Clear (Clear); Bacteria,Urine Rare /hpf; Bilirubin,Urine Negative (Negative); Blood,Urine Negative (Negative); Color,Urine Colorless; Glucose,Urine (UA) Negative (Negative); Ketones,Urine Negative (Negative); Leukocyte Esterase,Urine Trace (Negative); Nitrite,Urine Negative (Negative); PH, Urine 5.5 (5.0-8.0); Protein,Urine 2+ (Negative); Specific Gravity,Urine 1.012 (1.001-1.035); Squamous Epithelial Cell,Urine 1 /hpf (0-4); Urobilinogen,Urine <2.0 mg/dL (<2.0); WBC,Urine 1 /hpf (0-5)
[2023-07-23] MEDS: amLODIPine 5 MG TAB PO SCH ×2 (09:51→21:00)
[2023-07-23] MEDS: allopurinoL 100 MG TAB PO SCH (09:51)
[2023-07-23] MEDS: ASPIRIN 81 MG PO SCH (09:52)
--- NOTE | 2023-07-23 10:40 | US ---
EXAMINATION TYPE: Pre-Operative Non-Invasive Evaluation of the hand for Potential Radial Artery [address], Measurements only DATE OF EXAM: 07/23/2023 10:30 AM CLINICAL INDICATION: Female, 82 years old with history of evaluate fistula; evaluate fistula had x 2 years never needed to use it. SIDE PERFORMED: Right TECHNIQUE: Radial artery is measured utilizing real time linear array sonography. Duplex Findings: Radial Artery: Color flow seen Right fistula visualized flow seen. IMPRESSION: 1. Right radial artery fistula appears patent.
--- NOTE | 2023-07-23 11:03 | P.GSCN ---
History of Present Illness Consult date: 07/23/23 Reason for Consult: Dialysis fistula Requesting physician: Kadi Masters History of present illness: This is a pleasant 82-year-old female who presented to the emergency department with complaints of elevated blood pressure and shortness of breath. Apparently patient has been having worsening of shortness of breath over the past few days especially with lying flat. She has a history of chronic kidney disease and follows with Dr. Antoine. She had placed a right upper extremity fistula about 2 to 3 years ago in [place] however had never had to access it for dialysis. She states she believes that she is going to require hemodialysis. She had an appointment with Dr. Russ scheduled today in the office to make sure fistula could be accessed. She currently denies any shortness of breath or chest pain sitting up in bed. Denies any pain in the right upper extremity. Review of Systems A 14 point review systems was completed all pertinent positives and negatives as stated in the HPI. Past Medical History Past Medical History: Chest Pain / Angina, Hyperlipidemia, Hypertension, Renal Disease Additional Past Medical History / Comment(s): stage 4 renal. right arm fistula History of Any Multi-Drug Resistant Organisms: None Reported Past Surgical History: Appendectomy, Tubal Ligation Additional Past Surgical History / Comment(s): pacemaker Past Psychological History: No Psychological Hx Reported Smoking Status: Never smoker Past Alcohol Use History: None Reported Past Drug Use History: None Reported Medications and Allergies Home Medications Medication Instructions Recorded Confirmed Type Aspirin EC [Ecotrin Low Dose] 81 mg PO DAILY 01/17/23 07/22/23 History Atorvastatin [Lipitor] 20 mg PO HS 01/17/23 07/22/23 History Cholestyramine (with Sugar) 4 gm PO BID PRN 01/17/23 07/22/23 History [Cholestyramine Packet] Fluticasone Nasal [place] [Flonase 1 - 2 spr EA NOSTRIL BID PRN 01/17/23 07/22/23 History Nasal [place]] Furosemide [Lasix] 40 mg PO DAILY 01/17/23 07/22/23 History Levothyroxine Sodium [Synthroid] 50 mcg PO DAILY 01/17/23 07/22/23 History Loratadine 10 mg PO DAILY 01/17/23 07/22/23 History Oxybutynin Xl [Ditropan XL] 5 mg PO HS 01/17/23 07/22/23 History Vits A,C,E/Lutein/Minerals 1 tab PO DAILY 01/17/23 07/22/23 History [Ocuvite with Lutein Tablet] amLODIPine [Norvasc] 5 mg PO BID 01/17/23 07/22/23 History Vitamin E (Dl,Tocopheryl Acet) 450 mg PO HS 07/22/23 07/22/23 History [Vitamin E (1000 Iu = 450 MG)] allopurinoL [Zyloprim] 100 mg PO DAILY 07/22/23 07/22/23 History carvediloL [Coreg] 12.5 mg PO BID 07/22/23 07/22/23 History Allergies Allergy/AdvReac Type Severity Reaction Status Date / Time bacitracin Allergy Rash/Hives Verified 07/22/23 23:11 [From Neosporin ([id number])] levofloxacin [From Levaquin] Allergy Rash/Hives Verified 07/22/23 23:11 metronidazole [From Flagyl] Allergy Rash/Hives Verified 07/22/23 23:11 neomycin Allergy Rash/Hives Verified 07/22/23 23:11 [From Neosporin ([id number])] Penicillins Allergy Rash/Hives Verified 07/22/23 23:11 polymyxin B Allergy Rash/Hives Verified 07/22/23 23:11 [From Neosporin ([id number])] Surgical - Exam Vital Signs Temp Pulse Resp BP Pulse Ox 98.1 F 82 18 160/65 94 L 07/22/23 20:29 07/22/23 20:29 07/22/23 20:29 07/22/23 20:29 07/22/23 20:29 General appearance: The patient is alert, oriented, appears in no acute distress. HET: Head is normocephalic and atraumatic. Pupils are equal and reactive. Neck: Supple. Heart: Regular. Lungs: Equal expansion, normal respiratory effort. Abdomen: Soft, nontender, nondistended. Extremities: Normal skin color and turgor. Right upper extremity fistula with palpable thrill and audible bruit. Palpable radial pulse. Neurological: No focal deficits. Alert and oriented x 3. Results - Labs 07/22/23 20:37 07/22/23 20:37 Abnormal Lab Results - Last 24 Hours (Table) 07/22/23 07/22/23 Range/Units 20:37 20:37 RBC 3.34 L (3.80-5.40) m/uL Hgb 10.6 L (11.4-16.0) gm/dL Hct 30.9 L (34.0-46.0) % Lymphocytes # 0.9 L (1.0-4.8) k/uL Sodium 130 L (137-145) mmol/L Carbon Dioxide 16 L (22-30) mmol/L BUN 71 H (7-17) mg/dL Creatinine 4.16 H (0.52-1.04) mg/dL Glucose 153 H (74-99) mg/dL Diabetes panel 07/22/23 Range/Units 20:37 Sodium 130 L (137-145) mmol/L Potassium 4.3 (3.5-5.1) mmol/L Chloride 101 (98-107) mmol/L Carbon Dioxide 16 L (22-30) mmol/L BUN 71 H (7-17) mg/dL Creatinine 4.16 H (0.52-1.04) mg/dL Glucose 153 H (74-99) mg/dL Calcium 9.0 (8.4-10.2) mg/dL AST 26 (14-36) U/L ALT 18 (4-34) U/L Alkaline Phosphatase 88 (38-126) U/L Total Protein 6.8 (6.3-8.2) g/dL Albumin 3.9 (3.5-5.0) g/dL Calcium panel 07/22/23 Range/Units 20:37 Calcium 9.0 (8.4-10.2) mg/dL Albumin 3.9 (3.5-5.0) g/dL Pituitary panel 07/22/23 Range/Units 20:37 Sodium 130 L (137-145) mmol/L Potassium 4.3 (3.5-5.1) mmol/L Chloride 101 (98-107) mmol/L Carbon Dioxide 16 L (22-30) mmol/L BUN 71 H (7-17) mg/dL Creatinine 4.16 H (0.52-1.04) mg/dL Glucose 153 H (74-99) mg/dL Calcium 9.0 (8.4-10.2) mg/dL Adrenal panel 07/22/23 Range/Units 20:37 Sodium 130 L (137-145) mmol/L Potassium 4.3 (3.5-5.1) mmol/L Chloride 101 (98-107) mmol/L Carbon Dioxide 16 L (22-30) mmol/L BUN 71 H (7-17) mg/dL Creatinine 4.16 H (0.52-1.04) mg/dL Glucose 153 H (74-99) mg/dL Calcium 9.0 (8.4-10.2) mg/dL Total Bilirubin 1.0 (0.2-1.3) mg/dL AST 26 (14-36) U/L ALT 18 (4-34) U/L Alkaline Phosphatase 88 (38-126) U/L Total Protein 6.8 (6.3-8.2) g/dL Albumin 3.9 (3.5-5.0) g/dL Assessment and Plan Assessment: 1. Chronic kidney disease possibly requiring hemodialysis 2. History of right upper extremity fistula creation Plan: Patient's fistula has good palpable thrill and audible bruit, patent fistula. May access for hemodialysis if needed. No further workup needed. Thank you for this consultation, we will sign off at this time. The impression and plan of care has been dictated as directed. I performed a history and examination of this patient, discussed the same with the dictator. I agree with the dictator's note ,documented as a scribe. Any additional findings or plans will be noted.
[2023-07-23] MEDS: hydrALAZINE HCL 25 MG TAB PO SCH ×3 (11:26→21:03)
--- NOTE | 2023-07-23 12:05 | P.CRDCN ---
History of Present Illness Consult date: 07/23/23 Consult reason: hypertension, shortness of breath Chief complaint: Shortness of breath and elevated blood pressure History of present illness: History of present illness: Patient is a pleasant 82-year-old female with significant past medical history of end-stage renal disease with fistula however not on dialysis, hypertension, hyperlipidemia, pacemaker, and hypothyroidism who presented to the emergency department with elevated blood pressure and worsening shortness of breath. She denies any history of CAD or heart failure. She reports that her shortness of breath has been getting gradually worse over the past couple weeks. Her swelling has been stable. She denies any chest pain or pressure. Denies any fevers or chills. EKG shows ventricular paced rhythm. Chest x-ray shows cardiomegaly, pulmonary vascular congestion and bilateral pleural effusions. Labs reviewed hemoglobin 10.6, sodium 130, creatinine 4.16, BUN 71, BNP 09579. She was started on IV diuretics. REVIEW OF SYSTEMS: No fever or chills. No cough or expectoration. No diaphoresis. Patient denies headache, dizziness, blurred vision, double vision. Patient denies any stomach discomfort. No nausea, vomiting. No hematochezia. No hematemesis. Denies any black stools or blood in his stools. Denies dysuria or hematuria. No muscle weakness or numbness. No chest pain or pressure. Reports shortness of breath. PHYSICAL EXAMINATION: This is a 82-year-old female in no apparent distress at the time of my examination. HEENT: Head is atraumatic, normocephalic. Pupils are equal, round. Sclerae anicteric. Conjunctivae are clear. Mucous membranes of the mouth are moist. Neck is supple. There is no jugular venous distention. No carotid bruit is heard. CHEST EXAMINATION: Lungs are clear to auscultation with diminished bases. No chest wall tenderness is noted on palpation or with deep breathing. She is on 3 L nasal cannula O2. HEART EXAMINATION: Heart regular rate and rhythm. S1, S2 heard. No murmurs, gallops or rub. ABDOMEN: Soft, nontender. Bowel sounds are heard. EXTREMITIES: 2+ peripheral pulses with trace edema bilateral lower extremities and no calf tenderness noted. NEUROLOGIC EXAMINATION: Patient is awake, alert and oriented x3. IMPRESSION AND PLAN: Hypertension Shortness of breath Congestive heart failure likely a component of end-stage renal disease Hyponatremia Hyperlipidemia Hypothyroidism PLAN: We will check echocardiogram to evaluate heart function and structure. Recommend better blood pressure control will start hydralazine 25 mg 3 times daily. Continue with diuretics. Will check troponin. Nephrology following. We will follow. I am dictating on behalf of Dr. Chance Esparza's history/physical and assessment/plan. Past Medical History Past Medical History: Chest Pain / Angina, Hyperlipidemia, Hypertension, Renal Disease Additional Past Medical History / Comment(s): stage 4 renal. right arm fistula History of Any Multi-Drug Resistant Organisms: None Reported Past Surgical History: Appendectomy, Tubal Ligation Additional Past Surgical History / Comment(s): pacemaker Past Psychological History: No Psychological Hx Reported Smoking Status: Never smoker Past Alcohol Use History: None Reported Past Drug Use History: None Reported Medications and Allergies Home Medications Medication Instructions Recorded Confirmed Type Aspirin EC [Ecotrin Low Dose] 81 mg PO DAILY 01/17/23 07/22/23 History Atorvastatin [Lipitor] 20 mg PO HS 01/17/23 07/22/23 History Cholestyramine (with Sugar) 4 gm PO BID PRN 01/17/23 07/22/23 History [Cholestyramine Packet] Fluticasone Nasal [place] [Flonase 1 - 2 spr EA NOSTRIL BID PRN 01/17/23 07/22/23 History Nasal [place]] Furosemide [Lasix] 40 mg PO DAILY 01/17/23 07/22/23 History Levothyroxine Sodium [Synthroid] 50 mcg PO DAILY 01/17/23 07/22/23 History Loratadine 10 mg PO DAILY 01/17/23 07/22/23 History Oxybutynin Xl [Ditropan XL] 5 mg PO HS 01/17/23 07/22/23 History Vits A,C,E/Lutein/Minerals 1 tab PO DAILY 01/17/23 07/22/23 History [Ocuvite with Lutein Tablet] amLODIPine [Norvasc] 5 mg PO BID 01/17/23 07/22/23 History Vitamin E (Dl,Tocopheryl Acet) 450 mg PO HS 07/22/23 07/22/23 History [Vitamin E (1000 Iu = 450 MG)] allopurinoL [Zyloprim] 100 mg PO DAILY 07/22/23 07/22/23 History carvediloL [Coreg] 12.5 mg PO BID 07/22/23 07/22/23 History Allergies Allergy/AdvReac Type Severity Reaction Status Date / Time bacitracin Allergy Rash/Hives Verified 07/22/23 23:11 [From Neosporin ([id number])] levofloxacin [From Levaquin] Allergy Rash/Hives Verified 07/22/23 23:11 metronidazole [From Flagyl] Allergy Rash/Hives Verified 07/22/23 23:11 neomycin Allergy Rash/Hives Verified 07/22/23 23:11 [From Neosporin ([id number])] Penicillins Allergy Rash/Hives Verified 07/22/23 23:11 polymyxin B Allergy Rash/Hives Verified 07/22/23 23:11 [From Neosporin ([id number])] Physical Exam Vitals: Vital Signs Temp Pulse Resp BP Pulse Ox 07/23/23 11:28 82 18 167/72 95 07/23/23 09:56 97.6 F 84 20 170/69 94 L 07/23/23 09:00 90 18 180/70 95 07/23/23 08:00 91 18 159/76 94 L 07/23/23 05:12 82 18 151/64 95 07/23/23 03:29 90 18 159/76 94 L 07/23/23 01:58 72 16 151/59 95 07/22/23 22:45 84 20 168/77 96 07/22/23 20:29 98.1 F 82 18 160/65 94 L Intake and Output 07/22/23 07/23/23 07/23/23 22:59 06:59 14:59 Other: Weight 62.142 kg Results 07/22/23 20:37 07/22/23 20:37 Cardiac Enzymes 07/22/23 Range/Units 20:37 AST 26 (14-36) U/L CBC 07/22/23 Range/Units 20:37 WBC 6.4 (3.8-10.6) k/uL RBC 3.34 L (3.80-5.40) m/uL Hgb 10.6 L (11.4-16.0) gm/dL Hct 30.9 L (34.0-46.0) % Plt Count 153 (150-450) k/uL Comprehensive Metabolic Panel 07/22/23 Range/Units 20:37 Sodium 130 L (137-145) mmol/L Potassium 4.3 (3.5-5.1) mmol/L Chloride 101 (98-107) mmol/L Carbon Dioxide 16 L (22-30) mmol/L BUN 71 H (7-17) mg/dL Creatinine 4.16 H (0.52-1.04) mg/dL Glucose 153 H (74-99) mg/dL Calcium 9.0 (8.4-10.2) mg/dL AST 26 (14-36) U/L ALT 18 (4-34) U/L Alkaline Phosphatase 88 (38-126) U/L Total Protein 6.8 (6.3-8.2) g/dL Albumin 3.9 (3.5-5.0) g/dL Current Medications Generic Name Dose Route Start Last Admin Trade Name Freq PRN Reason Stop Dose Admin Allopurinol 100 mg 07/23/23 09:00 07/23/23 09:51 Allopurinol 100 Mg Tab PO 100 mg DAILY [facility] Administration Amlodipine Besylate 5 mg 07/23/23 09:00 07/23/23 09:51 Amlodipine 5 Mg Tab PO 5 mg BID [facility] Administration Aspirin 81 mg 07/23/23 09:00 07/23/23 09:52 Aspirin 81 Mg PO 81 mg DAILY [facility] Administration Atorvastatin Calcium 20 mg 07/23/23 21:00 Atorvastatin 20 Mg Tab PO HS [facility] Carvedilol 12.5 mg 07/23/23 07:30 07/23/23 09:05 Carvedilol 12.5 Mg Tab PO 12.5 mg BID-W/MEALS [facility] Administration Furosemide 40 mg 07/23/23 08:00 07/23/23 09:04 Furosemide 10 Mg/Ml 4 Ml Vial IV 40 mg Q8HR [facility] Administration Hydralazine HCl 25 mg 07/23/23 11:15 07/23/23 11:26 Hydralazine Hcl 25 Mg Tab PO 25 mg TID [facility] Administration Levothyroxine Sodium 50 mcg 07/23/23 06:30 07/23/23 09:01 Levothyroxine 50 Mcg Tab PO 50 mcg DAILY@0630 [facility] Administration Naloxone HCl 0.2 mg 07/22/23 23:48 Naloxone 0.4 Mg/Ml 1 Ml Vial IV Q2M PRN Opioid Reversal Oxybutynin Chloride 5 mg 07/23/23 21:00 Oxybutynin Xl 5 Mg Tab.Er.24 PO HS [facility] Intake and Output 07/22/23 07/23/23 07/23/23 22:59 06:59 14:59 Other: Weight 62.142 kg 07/22/23 20:37 07/22/23 20:37
[2023-07-23] MEDS ORDERED: LIDOCAINE 4% CREAM 5 GM TUBE TOPICAL ONE (12:10)
[2023-07-23] MEDS ORDERED: hydrALAZINE HCL 20 MG/ML 1 ML VIAL IVP PRN (12:31)
--- NOTE | 2023-07-23 12:34 | P.NPCON ---
History of Present Illness - Reason for Consult chronic renal failure - History of Present Illness Reason for consultation: Progressive chronic kidney disease History of present illness: Patient is 82-year-old female seen in renal consultation for progressive chronic kidney disease. Patient has chronic kidney disease stage IV/V. Patient's recent creatinine was 4.8. Patient came to the hospital due to shortness of breath and elevated blood pressure. Patient has history of congestive heart failure. She is currently on IV Lasix. Chest x-ray suggestive of fluid overload. Creatinine 4.16 on admission. Also noted to be acidotic and hyponatremic. She has been evaluated by cardiology and echocardiogram is pending. Hydralazine added for better blood pressure control. She is currently on 3 L nasal cannula. Denies gross hematuria. Denies use of nonsteroidals. Patient has a matured AV fistula on her right arm and has been evaluated by vascular surgery. The fistula has been cleared for use. Patient was evaluated outpatient. Losartan was discontinued and kidney ultrasound was ordered to rule out obstruction. Vital signs are stable. General: Resting in bed. HEENT: Head exam is unremarkable. On nasal cannula. LUNGS: Scattered rhonchi. HEART: Rate and Rhythm are regular. ABDOMEN: Nontender. EXTREMITITES: Trace edema. Past Medical History Past Medical History: Chest Pain / Angina, Hyperlipidemia, Hypertension, Renal Disease Additional Past Medical History / Comment(s): stage 4 renal. right arm fistula History of Any Multi-Drug Resistant Organisms: None Reported Past Surgical History: Appendectomy, Tubal Ligation Additional Past Surgical History / Comment(s): pacemaker Past Psychological History: No Psychological Hx Reported Smoking Status: Never smoker Past Alcohol Use History: None Reported Past Drug Use History: None Reported Medications and Allergies Home Medications Medication Instructions Recorded Confirmed Type Aspirin EC [Ecotrin Low Dose] 81 mg PO DAILY 01/17/23 07/22/23 History Atorvastatin [Lipitor] 20 mg PO HS 01/17/23 07/22/23 History Cholestyramine (with Sugar) 4 gm PO BID PRN 01/17/23 07/22/23 History [Cholestyramine Packet] Fluticasone Nasal [place] [Flonase 1 - 2 spr EA NOSTRIL BID PRN 01/17/23 07/22/23 History Nasal [place]] Furosemide [Lasix] 40 mg PO DAILY 01/17/23 07/22/23 History Levothyroxine Sodium [Synthroid] 50 mcg PO DAILY 01/17/23 07/22/23 History Loratadine 10 mg PO DAILY 01/17/23 07/22/23 History Oxybutynin Xl [Ditropan XL] 5 mg PO HS 01/17/23 07/22/23 History Vits A,C,E/Lutein/Minerals 1 tab PO DAILY 01/17/23 07/22/23 History [Ocuvite with Lutein Tablet] amLODIPine [Norvasc] 5 mg PO BID 01/17/23 07/22/23 History Vitamin E (Dl,Tocopheryl Acet) 450 mg PO HS 07/22/23 07/22/23 History [Vitamin E (1000 Iu = 450 MG)] allopurinoL [Zyloprim] 100 mg PO DAILY 07/22/23 07/22/23 History carvediloL [Coreg] 12.5 mg PO BID 07/22/23 07/22/23 History Allergies Allergy/AdvReac Type Severity Reaction Status Date / Time bacitracin Allergy Rash/Hives Verified 07/22/23 23:11 [From Neosporin ([id number])] levofloxacin [From Levaquin] Allergy Rash/Hives Verified 07/22/23 23:11 metronidazole [From Flagyl] Allergy Rash/Hives Verified 07/22/23 23:11 neomycin Allergy Rash/Hives Verified 07/22/23 23:11 [From Neosporin ([id number])] Penicillins Allergy Rash/Hives Verified 07/22/23 23:11 polymyxin B Allergy Rash/Hives Verified 07/22/23 23:11 [From Neosporin ([id number])] Physical Exam Vitals: Vital Signs Temp Pulse Resp BP Pulse Ox 07/23/23 11:28 82 18 167/72 95 07/23/23 09:56 97.6 F 84 20 170/69 94 L 07/23/23 09:00 90 18 180/70 95 07/23/23 08:00 91 18 159/76 94 L 07/23/23 05:12 82 18 151/64 95 07/23/23 03:29 90 18 159/76 94 L 07/23/23 01:58 72 16 151/59 95 07/22/23 22:45 84 20 168/77 96 07/22/23 20:29 98.1 F 82 18 160/65 94 L Intake and Output 07/22/23 07/23/23 07/23/23 22:59 06:59 14:59 Other: Weight 62.142 kg Results - Lab Results Most recent lab results Calcium 9.0 mg/dL (8.4-10.2) 07/22/23 20:37 07/22/23 20:37 07/22/23 20:37 Assessment and Plan Plan: Assessment: 1. Acute kidney injury secondary to ATN versus progression of underlying chronic kidney disease. Creatinine 4.16 on admission. 2. Chronic kidney disease stage IV with baseline creatinine at 2 with recent progression to CKD 5. Etiology is nephrosclerosis and solitary kidney. 3. Congestive heart failure. Unknown ejection fraction. Echocardiogram or dered. 4. Hypertension with chronic kidney disease. 5. Volume overload. 6. Acute hypoxic respiratory failure. 7. Metabolic acidosis secondary to chronic kidney disease. Plan: Change IV Lasix to 80 mg IV twice daily. Low-salt diet and 1200 cc fluid restriction. Initiate renal replacement therapy. AV fistula has been cleared for use by vascular surgery - will start with small needles. Plan for first treatment of hemodialysis today and second treatment tomorrow. Check renal ultrasound. Check phosphorus level. Patient agreeable with the above plan. Thank you for the consultation. I will continue to follow the patient with you during her hospital stay.
--- NOTE | 2023-07-23 13:35 | US ---
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 Size is somewhat small.
[2023-07-23 14:37] LABS: African American GFR (CKD) 13 (>60 ml/min/1.73 sqM); Anion Gap 13 mmol/L; Blood Urea Nitrogen 65 mg/dL (7-17); Calcium 8.8 mg/dL (8.4-10.2); Carbon Dioxide 19 mmol/L (22-30); Chloride 100 mmol/L (98-107); Glucose 108 mg/dL (74-99); Non-African American GFR(CKD) 11 (>60 ml/min/1.73 sqM); Potassium 3.7 mmol/L (3.5-5.1); Sodium 132 mmol/L (137-145)
[2023-07-23] MEDS: ATORVASTATIN 20 MG TAB PO SCH (21:00)
[2023-07-23] MEDS: FUROSEMIDE 10 MG/ML 10 ML VIAL IV SCH (21:00)
[2023-07-23] MEDS: OXYBUTYNIN XL 5 MG TAB.ER.24 PO SCH (21:00)
[2023-07-24 03:45] LABS: Hepatitis B Surface AB- Quant 3.5 mIU/mL
[2023-07-24 05:49] LABS: Hepatitis B Surface Antigen Nonreactive
[2023-07-24] MEDS: LEVOTHYROXINE 50 MCG TAB PO SCH (05:51)
--- NOTE | 2023-07-24 07:44 | CA ---
Transthoracic Echo Report Name: Brenda Dotson Age: 82 Gender: F : 1940 Exam Date: 07/23/2023 13:18 Exam Location: [facility] Ht (in): 64 Wt (lb): 137 Ordering Physician: Kan Ding MD Attending/Referring Phys: Cow Tender Elieser Rachel RD Procedure CPT: Indications: chf Cardiac Hx: Technical Quality: Fair Contrast 1: Total Dose (mL): Contrast 2: Total Dose (mL): MEASUREMENTS (Male / Female) Normal Values 2D ECHO LV Diastolic Diameter PLAX 4.8 cm 4.2 - 5.9 / 3.9 - 5.3 cm LV Systolic Diameter PLAX 2.7 cm IVS Diastolic Thickness 1.0 cm 0.6 - 1.0 / 0.6 - 0.9 cm LVPW Diastolic Thickness 1.1 cm 0.6 - 1.0 / 0.6 - 0.9 cm LV Relative Wall Thickness 0.4 RV Internal Dim ED PLAX 2.8 cm LVOT Diameter 2.1 cm Aortic Root Diameter 2.7 cm LA Systolic Diameter LX 3.3 cm 3.0 - 4.0 / 2.7 - 3.8 cm LV Diastolic Volume MOD BP 44.7 cm??? 67 - 155 / 56 - 104 cm??? LV Systolic Volume MOD BP 23.6 cm??? - 58 / 19 - 49 cm??? LV Ejection Fraction MOD BP 47.2 % >= 55 % LV Cardiac Index MOD BP 965.9 cm???/min???m??? LV Diastolic Volume MOD 4C 37.9 cm??? LV Systolic Volume MOD 4C 21.3 cm??? LV Ejection Fraction MOD 4C 43.8 % LV Cardiac Index MOD 4C 759.7 cm???/min???m??? LV Diastolic Length 4C 5.6 cm LV Systolic Length 4C 4.9 cm LV Diastolic Volume MOD 2C 48.4 cm??? LV Systolic Volume MOD 2C 24.8 cm??? LV Ejection Fraction MOD 2C 48.7 % LV Cardiac Index MOD 2C 1079.4 cm???/min???m??? LV Diastolic Length 2C 6.2 cm LV Systolic Length 2C 5.3 cm LA Volume 46.0 cm??? - 58 / 22 - 52 cm??? LA Volume Index 27.4 cm???/m??? 16 - 28 cm???/m??? DOPPLER AV Peak Velocity 98.8 cm/s AV Peak Gradient 3.9 mmHg AV Mean Velocity 73.9 cm/s AV Mean Gradient 2.4 mmHg AV Velocity Time Integral 24.8 cm LVOT Peak Velocity 73.2 cm/s LVOT Peak Gradient 2.1 mmHg LVOT Velocity Time Integral 20.2 cm LVOT Stroke Volume 72.2 cm??? LVOT Stroke Volume Index 43.4 ml/m??? LVOT Cardiac Index 3306.4 cm???/min???m??? AV Area Cont Eq vti 2.9 cm??? AV Area Cont Eq pk 2.6 cm??? MV Peak Velocity 123.5 cm/s MV Peak Gradient 6.1 mmHg MV Mean Velocity 67.4 cm/s MV Mean Gradient 2.2 mmHg MV Velocity Time Integral 33.1 cm MR Peak Velocity 366.8 cm/s MR Peak Gradient 53.8 mmHg Mitral E Point Velocity 105.8 cm/s Mitral A Point Velocity 102.6 cm/s Mitral E to A Ratio 1.0 MV Deceleration Time 161.0 ms TR Peak Velocity 305.8 cm/s TR Peak Gradient 37.4 mmHg Right Ventricular Systolic Press 42.4 mmHg PV Peak Velocity 89.8 cm/s PV Peak Gradient 3.2 mmHg FINDINGS Left Ventricle Normal LV size and wall thickness. Left ventricular ejection fraction is estimated at 55 %. Mild concentric LVH Right Ventricle Normal right ventricular size. RVSP= 42 mmHg. Catheter/pacemaker wire in the right ventricular cavity. Right Atrium Normal right atrial size. Left Atrium Normal left atrial size. Mitral Valve Structurally normal mitral valve. Mild MR. Aortic Valve Trileaflet aortic valve. No aortic stenosis. No aortic regurgitation. Tricuspid Valve Structurally normal tricuspid valve. Moderate TR. Pulmonic Valve Pulmonic valve not well visualized. No pulmonic regurgitation. Pericardium Small posterior pericardial effusion. Aorta Normal size aortic root. CONCLUSIONS Normal LV size and function. LVEF estimated at 55-60% Mild concentric LVH No obvious regional wall motion abnormality and no significant diastolic dysfunction PPM wire in RV. RVSP 42 mmHg Mild MR. Physiologic pericardial effusion, small Previewed by: Dr Sascha Markham (Electronically Signed) Final Date: 24 July 2023 07:43
--- NOTE | 2023-07-24 10:43 | P.PN ---
Subjective HISTORY OF PRESENT ILLNESS: This is an 82-year-old female who follows in the office with Dr. Jay. 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 Patient initially presented to the hospital with increasing shortness of breath. Patient was initiated on hemodialysis yesterday with removal of 2.1 L. Patient is again undergoing hemodialysis at the time of examination. She remains on IV diuretics and is receiving 80 mg of Lasix twice a day. Blood pressure this morning 172/68. She remains on 3 L nasal cannula with oxygen saturations greater than 92%. Echocardiogram completed revealing ejection fraction 55%, mild concentric LVH, mild MR, moderate TR and small posterior pericardial effusion PHYSICAL EXAM: VITAL SIGNS: Reviewed. GENERAL: Well-developed in no acute distress. NECK: Supple. No JVD or thyromegaly LUNGS: Respirations even and unlabored. Lungs essentially clear to auscultation bilaterally. HEART: Regular rate and rhythm. S1 and S2 heard. EXTREMITIES: Normal range of motion. No clubbing or cyanosis. Peripheral pulses intact. 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 Signing provider agrees with the documented findings, assessment, and plan of care documented by LETTER STAMPING MACHINE OPERATOR as a scribe. Objective - Vital Signs Vital signs: Vital Signs Temp 98.1 F 07/24/23 07:34 Pulse 80 07/24/23 07:34 Resp 19 07/24/23 07:34 BP 172/68 07/24/23 07:34 Pulse Ox 94 L 07/24/23 07:34 FiO2 Intake & Output 07/23/23 07/24/23 07/24/23 18:59 06:59 18:59 Intake Total 400 590 Output Total 2100 Balance -1700 590 Weight 58 kg Intake: Oral 590 Hemodialysis 400 Output: Hemodialysis 2100 Other: Voiding Method External Catheter - Labs CBC & Chem 7: 07/22/23 20:37 07/23/23 14:17 Labs: Abnormal Lab Results - Last 24 Hours (Table) 07/22/23 07/22/23 07/23/23 Range/Units 14:17 22:26 14:17 Sodium 132 L (137-145) mmol/L Carbon Dioxide 19 L (22-30) mmol/L BUN 65 H (7-17) mg/dL Creatinine 3.59 H (0.52-1.04) mg/dL Glucose 108 H (74-99) mg/dL Phosphorus 6.1 H (2.5-4.5) mg/dL Troponin I 0.058 H* (0.000-0.034) ng/mL
--- NOTE | 2023-07-24 11:15 | P.PN ---
Subjective Patient is seen in follow-up for chronic kidney disease stage V. Started on hemodialysis July 23, 2023. AV fistula working well. Tolerating dialysis well. Dyspnea improved. Tolerated 2 L ultrafiltration yesterday. Vital signs are stable. General: No acute distress. HEENT: Head exam is unremarkable. On nasal cannula. LUNGS: No audible rhonchi or wheezes. HEART: Rate and Rhythm are regular. ABDOMEN: Nontender. EXTREMITITES: No edema. Objective - Vital Signs Vital signs: Vital Signs Temp 98.0 F 07/24/23 10:49 Pulse 72 07/24/23 10:49 Resp 21 07/24/23 10:49 BP 164/72 07/24/23 10:49 Pulse Ox 94 L 07/24/23 07:34 FiO2 Intake & Output 07/23/23 07/24/23 07/24/23 18:59 06:59 18:59 Intake Total 400 590 400 Output Total 2100 2000 Balance -1700 590 -1600 Weight 58 kg Intake: Oral 590 Hemodialysis 400 400 Output: Hemodialysis 2100 1999 Other: Voiding Method External Catheter - Labs CBC & Chem 7: 07/22/23 20:37 07/23/23 14:17 Labs: Abnormal Lab Results - Last 24 Hours (Table) 07/22/23 07/22/23 07/23/23 Range/Units 14:17 22:26 14:17 Sodium 132 L (137-145) mmol/L Carbon Dioxide 19 L (22-30) mmol/L BUN 65 H (7-17) mg/dL Creatinine 3.59 H (0.52-1.04) mg/dL Glucose 108 H (74-99) mg/dL Phosphorus 6.1 H (2.5-4.5) mg/dL Troponin I 0.058 H* (0.000-0.034) ng/mL Assessment and Plan Plan: Assessment: 1. Acute kidney injury secondary to ATN versus progression of underlying chronic kidney disease. Creatinine 4.16 on admission. Started on hemodialysis July 23, 2023 via AV fistula. Kidney ultrasound showed no hydronephrosis. Left kidney absent. 2. Chronic kidney disease stage IV with baseline creatinine at 2 with recent progression to CKD 5. Etiology is nephrosclerosis and solitary kidney. 3. Acute on chronic diastolic CHF with moderate tricuspid regurgitation and mild mitral regurgitation. Small posterior pericardial effusion noted. 4. Hypertension with chronic kidney disease. 5. Volume overload. Improving with ultrafiltration. 6. Acute hypoxic respiratory failure. 7. Metabolic acidosis secondary to chronic kidney disease. Improved postdialysis. 8. Hypervolemic hyponatremia. Improved postdialysis. 9. Hyperphosphatemia secondary to chronic kidney disease. Phosphorus level 6.1 dated July 22, 2023. This will be repeated. Plan: Currently seen while undergoing hemodialysis. Third treatment tomorrow. Maintain IV Lasix. Increase dose of hydralazine. Hold for systolic blood pressure less than 120. Low-salt diet and 1200 cc fluid restriction. Repeat phosphorus level. program manager environmental planning to set up outpatient hemodialysis.
[2023-07-24 11:44] LABS: BUN/Creat Ratio 14.91 Ratio (12.00-20.00); Blood Urea Nitrogen 50.7 mg/dL (9.0-27.0); Calcium 8.9 mg/dL (8.7-10.3); Carbon Dioxide 23.6 mmol/L (21.6-31.8); Chloride 95 mmol/L (96-109); Glucose 93 mg/dL (70-110); Potassium 3.6 mmol/L (3.5-5.5); Sodium 134 mmol/L (135-145)
[2023-07-24] MEDS: carvediloL 12.5 MG TAB PO SCH ×2 (13:06→17:11)
[2023-07-24] MEDS: ASPIRIN 81 MG PO SCH (13:06)
[2023-07-24] MEDS: allopurinoL 100 MG TAB PO SCH (13:07)
[2023-07-24] MEDS: amLODIPine 5 MG TAB PO SCH ×2 (13:07→21:18)
[2023-07-24] MEDS: FUROSEMIDE 10 MG/ML 10 ML VIAL IV SCH ×2 (13:07→21:18)
[2023-07-24] MEDS: hydrALAZINE HCL 25 MG TAB PO SCH (13:07)
--- NOTE | 2023-07-24 14:54 | P.PN ---
Subjective Progress Note Date: 07/24/23 Patient was seen and examined today as a follow-up. She underwent dialysis via access of right upper extremity fistula x 2 without any complications. He denies any pain in the right upper extremity. Objective - Vital Signs Vital signs: Vital Signs Temp 97.5 F L 07/24/23 13:24 Pulse 79 07/24/23 13:24 Resp 19 07/24/23 13:24 BP 176/55 07/24/23 13:24 Pulse Ox 91 L 07/24/23 13:24 FiO2 Intake & Output 07/23/23 07/24/23 07/24/23 18:59 06:59 18:59 Intake Total 400 590 400 Output Total 2099 1999 Balance -1700 590 -1600 Weight 58 kg Intake: Oral 590 Hemodialysis 400 400 Output: Hemodialysis 2099 1999 Other: Voiding Method External Catheter External Catheter - Exam General appearance: The patient is alert, oriented, appears in no acute distress. HET: Head is normocephalic and atraumatic. Neck: Supple. Extremities: Normal skin color and turgor. Right upper extremity fistula with dressing over it. Palpable thrill. No bleeding. Neurological: No focal deficits. - Labs CBC & Chem 7: 07/22/23 20:37 07/24/23 07:31 Labs: Abnormal Lab Results - Last 24 Hours (Table) 07/22/23 07/22/23 07/24/23 Range/Units 14:17 22:26 07:31 Sodium 134 L (135-145) mmol/L Chloride 95 L (96-109) mmol/L Anion Gap 15.40 H (4.00-12.00) mmol/L BUN 50.7 H (9.0-27.0) mg/dL Creatinine 3.4 H (0.6-1.5) mg/dL Est GFR (CKD-EPI) 13 L (>=60) Phosphorus 6.1 H (2.5-4.5) mg/dL Troponin I 0.058 H* (0.000-0.034) ng/mL Assessment and Plan Assessment: 1. Chronic kidney disease possibly requiring hemodialysis 2. History of right upper extremity fistula creation Plan: Continue with hemodialysis per recommendations from nephrology. Thank you for this consultation, we will sign off at this time. The impression and plan of care has been dictated as directed. Dr.Giliberto I performed a history and examination of this patient, discussed the same with the dictator. I agree with the dictator's note ,documented as a scribe. Any additional findings or plans will be noted.
--- NOTE | 2023-07-24 15:32 | P.PN ---
Subjective Progress Note Date: 07/24/23 Hospital Course: 82-year-old female with PMH of ESRD, hypertension, hyperlipidemia, and hypothyroidism who presents to the emergency room with complaints of shortness of breath. Chest x-ray was consistent with congestive heart failure with EKG showing V paced rhythm at 86 bpm. Laboratory evaluation was remarkable for proBNP 38,700, creatinine 4.16 (previously 2.1 and 12/2022), sodium 130, CO2 16, and hemoglobin 10.6. Patient was hypoxic, requiring supplemental oxygen. Nephrology, cardiology and vascular surgery consulted. Patient now started on hemodialysis. Subjective: Patient seen and examined at bedside. No acute events overnight. She claims that her shortness of breath is slightly improved. Pertinent positives and negatives as discussed above, a complete review of systems was performed and all other systems are negative. Vitals Signs Reviewed. General: non toxic, no distress, appears at stated age, normal weight Derm: no unusual rashes/lesions, warm Head: atraumatic, normocephalic, symmetric Eyes: EOMI, no lid lag, anicteric sclera, pupils equal round reactive to light ENT: Nose and ears atraumatic Neck: No cervical lymphadenopathy, trachea midline, supple Mouth: no lip lesion, mucus membranes moist Cardiovascular: S1S2 reg, no murmur, positive dorsalis pedis pulse bilateral, no edema Lungs: Mild scattered coarse breath sounds without wheezing, no accessory muscle use Abdominal: soft, nontender to palpation, no guarding Ext: muscle strength 4 out of 5 in all 4 extremities grossly, no gross muscle atrophy, no contractures, RUE AV fistula noted with palpable thrill Neuro: CN II-XI grossly intact, no gross focal neuro deficits Psych: Alert, oriented, appropriate affect Data Reviewed Today: Pertinent Labs: Sodium 134, creatinine 3.4 Imaging: Echocardiogram report reviewed, shows LVEF of 55%, RVSP 40 to Assessment and Plan: Active: ESRD, now on dialysis CHF diastolic exacerbation Hypervolemic hyponatremia Anemia of chronic disease -Cardiology note reviewed, continue hemodialysis IV diuresis per nephrology, no changes -Nephrology note reviewed, continue hemodialysis, increase the dose of hydralazine, low-salt diet and fluid restriction, IV Lasix 80 twice daily -Also on amlodipine 5 mg twice daily, hydralazine at 50 3 times daily, Coreg 12.5 twice daily -vascular surgery note reviewed, signed off -Repeat CBC and BMP tomorrow -PT/OT consulted Chronic: Hypertension Dyslipidemia Hypothyroidism AV block with permanent pacemaker DVT ppx: Subcu heparin Code status: Full code Anticipated discharge place: Pending clinical course Anticipated discharge time: Pending clinical course Objective - Vital Signs Vital signs: Vital Signs Temp 97.5 F L 07/24/23 13:24 Pulse 79 07/24/23 13:24 Resp 19 07/24/23 13:24 BP 176/55 07/24/23 13:24 Pulse Ox 91 L 07/24/23 13:24 FiO2 Intake & Output 07/23/23 07/24/23 07/24/23 18:59 06:59 18:59 Intake Total 400 590 400 Output Total 2099 1999 Balance -1700 590 -1600 Weight 58 kg Intake: Oral 590 Hemodialysis 400 400 Output: Hemodialysis 2099 1999 Other: Voiding Method External Catheter External Catheter - Labs CBC & Chem 7: 07/22/23 20:37 07/24/23 07:31 Labs: Abnormal Lab Results - Last 24 Hours (Table) 07/22/23 07/24/23 Range/Units 22:26 07:31 Sodium 134 L (135-145) mmol/L Chloride 95 L (96-109) mmol/L Anion Gap 15.40 H (4.00-12.00) mmol/L BUN 50.7 H (9.0-27.0) mg/dL Creatinine 3.4 H (0.6-1.5) mg/dL Est GFR (CKD-EPI) 13 L (>=60) Troponin I 0.058 H* (0.000-0.034) ng/mL
[2023-07-24] MEDS: hydrALAZINE HCL 50 MG TAB PO SCH ×2 (17:11→21:18)
[2023-07-24] MEDS: HEPARIN SODIUM,PORCINE 5,000 UNIT/ML 1 ML VIAL SQ SCH ×2 (17:11→23:44)
[2023-07-24] MEDS: ATORVASTATIN 20 MG TAB PO SCH (21:18)
[2023-07-24] MEDS: OXYBUTYNIN XL 5 MG TAB.ER.24 PO SCH (21:18)
[2023-07-24] MEDS ORDERED: ONDANSETRON 4 MG/2 ML VIAL IVP STA (23:04)
[2023-07-25 08:21] LABS: African American GFR (CKD) 17 (>60 ml/min/1.73 sqM); Anion Gap 7 mmol/L; Blood Urea Nitrogen 40 mg/dL (7-17); Calcium 8.8 mg/dL (8.4-10.2); Carbon Dioxide 28 mmol/L (22-30); Chloride 98 mmol/L (98-107); Glucose 96 mg/dL (74-99); Non-African American GFR(CKD) 14 (>60 ml/min/1.73 sqM); Phosphorus 4.3 mg/dL (2.5-4.5); Potassium 3.6 mmol/L (3.5-5.1); Sodium 133 mmol/L (137-145)
[2023-07-25] MEDS: hydrALAZINE HCL 50 MG TAB PO SCH ×3 (08:26→21:38)
[2023-07-25] MEDS: allopurinoL 100 MG TAB PO SCH (08:26)
[2023-07-25] MEDS: carvediloL 12.5 MG TAB PO SCH ×2 (08:26→17:47)
[2023-07-25] MEDS: amLODIPine 5 MG TAB PO SCH ×2 (08:26→21:38)
[2023-07-25] MEDS: ASPIRIN 81 MG PO SCH (08:26)
[2023-07-25] MEDS: HEPARIN SODIUM,PORCINE 5,000 UNIT/ML 1 ML VIAL SQ SCH ×3 (08:27→23:38)
[2023-07-25] MEDS: FUROSEMIDE 10 MG/ML 10 ML VIAL IV SCH ×2 (08:27→21:38)
[2023-07-25] MEDS: LEVOTHYROXINE 50 MCG TAB PO SCH (08:28)
[2023-07-25] MEDS ORDERED: SALINE NASAL GEL 14.1 GM TUBE NASAL PRN (10:58)
--- NOTE | 2023-07-25 11:32 | P.PN ---
Subjective Progress Note Date: 07/25/23 Patient is seen in follow-up for chronic kidney disease stage V. Started on hemodialysis July 23, 2023. AV fistula working well. Tolerating dialysis well. Dyspnea improved. Third HD treatment planned for today. Vital signs are stable. General: No acute distress. HEENT: Head exam is unremarkable. On nasal cannula. LUNGS: No audible rhonchi or wheezes. HEART: Rate and Rhythm are regular. AVF with palpable thrill ABDOMEN: Nontender. EXTREMITITES: No edema. Objective - Vital Signs Vital signs: Vital Signs Temp 97.5 F L 07/25/23 07:55 Pulse 77 07/25/23 07:55 Resp 15 07/25/23 07:55 BP 155/58 07/25/23 07:55 Pulse Ox 93 L 07/25/23 08:49 FiO2 Intake & Output 07/24/23 07/25/23 07/25/23 18:59 06:59 18:59 Intake Total 400 240 240 Output Total 2000 Balance -1600 240 240 Weight 70 kg Intake: Oral 240 240 Hemodialysis 400 Output: Hemodialysis 1999 Other: Voiding Method External Catheter # Voids 2 - Labs CBC & Chem 7: 07/22/23 20:37 07/25/23 06:53 Labs: Abnormal Lab Results - Last 24 Hours (Table) 07/24/23 07/25/23 Range/Units 07:31 06:53 Sodium 134 L 133 L (135-145) mmol/L Chloride 95 L (96-109) mmol/L Anion Gap 15.40 H (4.00-12.00) mmol/L BUN 50.7 H 40 H (9.0-27.0) mg/dL Creatinine 3.4 H 2.90 H (0.6-1.5) mg/dL Est GFR (CKD-EPI) 13 L (>=60) Assessment and Plan Plan: Assessment: 1. Acute kidney injury secondary to ATN versus progression of underlying chronic kidney disease. Creatinine 4.16 on admission. Started on hemodialysis July 23, 2023 via AV fistula. Kidney ultrasound showed no hydronephrosis. Left kidney absent. 2. Chronic kidney disease stage IV with baseline creatinine at 2 with recent progression to CKD 5. Etiology is nephrosclerosis and solitary kidney. 3. Acute on chronic diastolic CHF with moderate tricuspid regurgitation and mi ld mitral regurgitation. Small posterior pericardial effusion noted. 4. Hypertension with chronic kidney disease. 5. Volume overload. Improving with ultrafiltration. 6. Acute hypoxic respiratory failure. 7. Metabolic acidosis secondary to chronic kidney disease. Improved postdialysis. 8. Hypervolemic hyponatremia. Improved postdialysis. 9. Hyperphosphatemia secondary to chronic kidney disease. Phosphorus level 6.1 dated July 22, 2023. This will be repeated. Plan: Third treatment today, next treatment Thursday Maintain IV Lasix. Continue hydralazine. Hold for systolic blood pressure less than 120. Low-salt diet and 1200 cc fluid restriction. Repeat phosphorus level. chemical plant manager to set up outpatient hemodialysis, clear for discharge once has chair time.
--- NOTE | 2023-07-25 13:58 | P.PN ---
Subjective Progress Note Date: 07/25/23 Hospital Course: 82-year-old female with PMH of ESRD, hypertension, hyperlipidemia, and hypothyroidism who presents to the emergency room with complaints of shortness of breath. Chest x-ray was consistent with congestive heart failure with EKG showing V paced rhythm at 86 bpm. Laboratory evaluation was remarkable for proBNP 38,700, creatinine 4.16 (previously 2.1 and 12/2022), sodium 130, CO2 16, and hemoglobin 10.6. Patient was hypoxic, requiring supplemental oxygen. Nephrology, cardiology and vascular surgery consulted. Patient now started on hemodialysis. Subjective: Patient seen and examined at bedside. No acute events overnight. She claims that her shortness of breath is slightly improved. Pertinent positives and negatives as discussed above, a complete review of systems was performed and all other systems are negative. Vitals Signs Reviewed. General: non toxic, no distress, appears at stated age, normal weight Derm: no unusual rashes/lesions, warm Head: atraumatic, normocephalic, symmetric Eyes: EOMI, no lid lag, anicteric sclera, pupils equal round reactive to light ENT: Nose and ears atraumatic Neck: No cervical lymphadenopathy, trachea midline, supple Mouth: no lip lesion, mucus membranes moist Cardiovascular: S1S2 reg, no murmur, positive dorsalis pedis pulse bilateral, no edema Lungs: Mild scattered coarse breath sounds without wheezing, no accessory muscle use, supplemental oxygen Abdominal: soft, nontender to palpation, no guarding Ext: muscle strength 4 out of 5 in all 4 extremities grossly, no gross muscle atrophy, no contractures, RUE AV fistula noted with palpable thrill Neuro: CN II-XI grossly intact, no gross focal neuro deficits Psych: Alert, oriented, appropriate affect Data Reviewed Today: Pertinent Labs: Sodium 133, creatinine 2.9, magnesium 2 Imaging: No new imaging Assessment and Plan: Active: ESRD, now on dialysis CHF diastolic exacerbation Hypervolemic hyponatremia Anemia of chronic disease -Cardiology following -Nephrology following continue hemodialysis, low-salt diet and fluid restriction, IV Lasix 80 twice daily -Also on amlodipine 5 mg twice daily, hydralazine at 50 3 times daily, Coreg 12.5 twice daily -vascular surgery note reviewed, signed off -Repeat CBC and BMP tomorrow -PT/OT consulted Chronic: Hypertension Dyslipidemia Hypothyroidism AV block with permanent pacemaker DVT ppx: Subcu heparin Code status: Full code Anticipated discharge place: Pending clinical course Anticipated discharge time: Pending clinical course Objective - Vital Signs Vital signs: Vital Signs Temp 98.7 F 07/25/23 12:59 Pulse 96 07/25/23 12:59 Resp 17 07/25/23 12:59 BP 136/59 07/25/23 12:59 Pulse Ox 96 07/25/23 12:59 FiO2 Intake & Output 07/24/23 07/25/23 07/25/23 18:59 06:59 18:59 Intake Total 400 240 240 Output Total 1999 Balance -1600 240 240 Weight 70 kg Intake: Oral 240 240 Hemodialysis 400 Output: Hemodialysis 1999 Other: Voiding Method External Catheter External Catheter # Voids 2 - Labs CBC & Chem 7: 07/22/23 20:37 07/25/23 06:53 Labs: Abnormal Lab Results - Last 24 Hours (Table) 07/25/23 Range/Units 06:53 Sodium 133 L (137-145) mmol/L BUN 40 H (7-17) mg/dL Creatinine 2.90 H (0.52-1.04) mg/dL
--- NOTE | 2023-07-25 16:27 | P.PN ---
Subjective Progress Note Date: 07/25/23 HISTORY OF PRESENT ILLNESS: This is an 82-year-old female who follows in the office with Dr. Jay. 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 Patient initially presented to the hospital with increasing shortness of breath. Patient was initiated on hemodialysis yesterday with removal of 2.1 L. Patient is again undergoing hemodialysis at the time of examination. She remains on IV diuretics and is receiving 80 mg of Lasix twice a day. Blood pressure this morning 172/68. She remains on 3 L nasal cannula with oxygen saturations greater than 92%. Echocardiogram completed revealing ejection fraction 55%, mild concentric LVH, mild MR, moderate TR and small posterior pericardial effusion. 07/26/23 She is feeling better today, her itching and shortness of breath have both improved. She is currently on dialysis. No chest pain or pressure. BP is better controlled. PHYSICAL EXAM: VITAL SIGNS: Reviewed. GENERAL: Well-developed in no acute distress. NECK: Supple. LUNGS: Respirations even and unlabored. Lungs essentially clear to auscultation bilaterally. HEART: Regular rate and rhythm. S1 and S2 heard. EXTREMITIES: Normal range of motion. No clubbing or cyanosis. Peripheral pulses intact. 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 Daily weights, accurate intake and output, and monitoring of kidney function. Continue to monitor blood pressure. Continue current cardiac medications. Cardiology to sign off, please call with any questions or concerns. Follow-up in clinic in 1 week. Nurse practitioner note has been reviewed by physician. Signing provider agrees with the documented findings, assessment, and plan of care documented by WHEELAGE CLERK as a scribe. Objective - Vital Signs Vital signs: Vital Signs Temp 98.7 F 07/25/23 12:59 Pulse 96 07/25/23 12:59 Resp 17 07/25/23 12:59 BP 136/59 07/25/23 12:59 Pulse Ox 96 07/25/23 12:59 FiO2 Intake & Output 07/24/23 07/25/23 07/25/23 18:59 06:59 18:59 Intake Total 400 240 240 Output Total 1999 Balance -1600 240 240 Weight 70 kg Intake: Oral 240 240 Hemodialysis 400 Output: Hemodialysis 1999 Other: Voiding Method External Catheter External Catheter # Voids 2 - Labs CBC & Chem 7: 07/22/23 20:37 07/25/23 06:53 Labs: Abnormal Lab Results - Last 24 Hours (Table) 07/25/23 Range/Units 06:53 Sodium 133 L (137-145) mmol/L BUN 40 H (7-17) mg/dL Creatinine 2.90 H (0.52-1.04) mg/dL
[2023-07-25] MEDS: ATORVASTATIN 20 MG TAB PO SCH (21:38)
[2023-07-25] MEDS: OXYBUTYNIN XL 5 MG TAB.ER.24 PO SCH (21:39)
[2023-07-25] MEDS ORDERED: ACETAMINOPHEN TAB 325 MG TAB PO PRN (23:40)
[2023-07-26] MEDS: LEVOTHYROXINE 50 MCG TAB PO SCH (05:41)
[2023-07-26] MEDS: allopurinoL 100 MG TAB PO SCH (08:44)
[2023-07-26] MEDS: amLODIPine 5 MG TAB PO SCH ×2 (08:44→21:28)
[2023-07-26] MEDS: HEPARIN SODIUM,PORCINE 5,000 UNIT/ML 1 ML VIAL SQ SCH ×3 (08:44→23:02)
[2023-07-26] MEDS: hydrALAZINE HCL 50 MG TAB PO SCH ×3 (08:44→21:28)
[2023-07-26] MEDS: carvediloL 12.5 MG TAB PO SCH ×2 (08:44→17:33)
[2023-07-26] MEDS: ASPIRIN 81 MG PO SCH (08:45)
[2023-07-26] MEDS: FUROSEMIDE 10 MG/ML 10 ML VIAL IV SCH ×2 (08:45→21:28)
[2023-07-26 09:07] LABS: African American GFR (CKD) 19 (>60 ml/min/1.73 sqM); Anion Gap 11 mmol/L; Blood Urea Nitrogen 22 mg/dL (7-17); Calcium 9.1 mg/dL (8.4-10.2); Carbon Dioxide 26 mmol/L (22-30); Chloride 97 mmol/L (98-107); Glucose 99 mg/dL (74-99); Non-African American GFR(CKD) 16 (>60 ml/min/1.73 sqM); Potassium 3.9 mmol/L (3.5-5.1); Sodium 134 mmol/L (137-145)
--- NOTE | 2023-07-26 09:15 | P.PN ---
Subjective Progress Note Date: 07/26/23 Patient is seen in follow-up for chronic kidney disease stage V. Started on hemodialysis July 23, 2023. Having some left foot pain when walking and left calf cramping after HD. Vital signs are stable. General: No acute distress. HEENT: Head exam is unremarkable. On nasal cannula. LUNGS: No audible rhonchi or wheezes. HEART: Rate and Rhythm are regular. RUE AVF with palpable thrill ABDOMEN: Nontender. EXTREMITITES: No edema. Objective - Vital Signs Vital signs: Vital Signs Temp 98.1 F 07/26/23 08:00 Pulse 74 07/26/23 08:00 Resp 18 07/26/23 08:00 BP 149/54 07/26/23 08:00 Pulse Ox 91 L 07/26/23 09:10 FiO2 Intake & Output 07/25/23 07/26/23 07/26/23 18:59 06:59 18:59 Intake Total 240 250 Balance 240 250 Weight 57 kg Intake: Oral 240 250 Other: Voiding Method External Catheter # Voids 1 1 - Labs CBC & Chem 7: 07/22/23 20:37 07/26/23 08:07 Labs: Abnormal Lab Results - Last 24 Hours (Table) 07/26/23 Range/Units 08:07 Sodium 134 L (137-145) mmol/L Chloride 97 L (98-107) mmol/L BUN 22 H (7-17) mg/dL Creatinine 2.64 H (0.52-1.04) mg/dL Assessment and Plan Plan: Assessment: 1. Acute kidney injury secondary to ATN versus progression of underlying chronic kidney disease. Creatinine 4.16 on admission. Started on hemodialysis July 23, 2023 via AV fistula. Kidney ultrasound showed no hydronephrosis. Left kidney absent. 2. Chronic kidney disease stage IV with baseline creatinine at 2 with recent progression to CKD 5. Etiology is nephrosclerosis and solitary kidney. 3. Acute on chronic diastolic CHF with moderate tricuspid regurgitation and mild mitral regurgitation. Small posterior pericardial effusion noted. 4. Hypertension with chronic kidney disease. 5. Volume overload. Improving with ultrafiltration. 6. Acute hypoxic respiratory failure. 7. Metabolic acidosis secondary to chronic kidney disease. Improved postdialysis. 8. Hypervolemic hyponatremia. Improved postdialysis. 9. Hyperphosphatemia secondary to chronic kidney disease. Phosphorus level 6.1 dated July 22, 2023. This will be repeated. Plan: Completed 3 consecutive HD treatments, next HD Thursday. Maintain IV Lasix. Continue hydralazine. Hold for systolic blood pressure less than 120. Low-salt diet and 1200 cc fluid restriction. Repeat phosphorus level. secondary market manager to set up outpatient hemodialysis, clear for discharge once has chair time.
--- NOTE | 2023-07-26 12:01 | P.PN ---
Subjective Progress Note Date: 07/26/23 Hospital Course: 82-year-old female with PMH of ESRD, hypertension, hyperlipidemia, and hypothyroidism who presents to the emergency room with complaints of shortness of breath. Chest x-ray was consistent with congestive heart failure with EKG showing V paced rhythm at 86 bpm. Laboratory evaluation was remarkable for proBNP 38,700, creatinine 4.16 (previously 2.1 and 12/2022), sodium 130, CO2 16, and hemoglobin 10.6. Patient was hypoxic, requiring supplemental oxygen. Nephrology, cardiology and vascular surgery consulted. Patient now started on hemodialysis. Subjective: Patient seen and examined at bedside. No acute events overnight. Shortness of breath is improved. However complaining of left foot pain after recent fall Pertinent positives and negatives as discussed above, a complete review of systems was performed and all other systems are negative. Vitals Signs Reviewed. General: non toxic, no distress, appears at stated age, normal weight Derm: no unusual rashes/lesions, warm Head: atraumatic, normocephalic, symmetric Eyes: EOMI, no lid lag, anicteric sclera, pupils equal round reactive to light ENT: Nose and ears atraumatic Neck: No cervical lymphadenopathy, trachea midline, supple Mouth: no lip lesion, mucus membranes moist Cardiovascular: S1S2 reg, no murmur, positive dorsalis pedis pulse bilateral, no edema Lungs: Mild scattered coarse breath sounds without wheezing, no accessory muscle use, supplemental oxygen Abdominal: soft, nontender to palpation, no guarding Ext: muscle strength 4 out of 5 in all 4 extremities grossly, no gross muscle atrophy, no contractures, RUE AV fistula noted with palpable thrill Neuro: CN II-XI grossly intact, no gross focal neuro deficits Psych: Alert, oriented, appropriate affect Data Reviewed Today: Pertinent Labs: Sodium 134, creatinine 2.64 Imaging: No new imaging Assessment and Plan: Active: ESRD, now on dialysis CHF diastolic exacerbation Hypervolemic hyponatremia Anemia of chronic disease -Cardiology following -Nephrology following continue hemodialysis on Thursday, low-salt diet and fluid restriction, IV Lasix 80 twice daily, okay to be discharged when set up for outpatient dialysis -Also on amlodipine 5 mg twice daily, hydralazine at 50 3 times daily, Coreg 12.5 twice daily -vascular surgery note reviewed, signed off -Repeat CBC and BMP tomorrow -PT/OT consulted Left foot pain -X-rays pending Chronic: Hypertension Dyslipidemia Hypothyroidism AV block with permanent pacemaker DVT ppx: Subcu heparin Code status: Full code Anticipated discharge place: Physical therapy evaluation pending Anticipated discharge time: 1 to 2 days Objective - Vital Signs Vital signs: Vital Signs Temp 98.1 F 07/26/23 08:00 Pulse 86 07/26/23 08:00 Resp 18 07/26/23 08:00 BP 149/54 07/26/23 08:00 Pulse Ox 91 L 07/26/23 09:10 FiO2 Intake & Output 07/25/23 07/26/23 07/26/23 18:59 06:59 18:59 Intake Total 240 250 Balance 240 250 Weight 57 kg Intake: Oral 240 250 Other: Voiding Method External Catheter External Catheter # Voids 1 1 - Labs CBC & Chem 7: 07/22/23 20:37 07/26/23 08:07 Labs: Abnormal Lab Results - Last 24 Hours (Table) 07/26/23 Range/Units 08:07 Sodium 134 L (137-145) mmol/L Chloride 97 L (98-107) mmol/L BUN 22 H (7-17) mg/dL Creatinine 2.64 H (0.52-1.04) mg/dL
--- NOTE | 2023-07-26 12:53 | XR ---
EXAMINATION TYPE: XR foot complete LT DATE OF EXAM: 07/26/2023 CLINICAL HISTORY: pain TECHNIQUE: Frontal, lateral and oblique images of the left foot are obtained. COMPARISON: None. FINDINGS: There is no acute fracture/dislocation evident. The joint spaces appear within normal leung its. Simple appearing cyst at the base of the proximal phalanx great toe. The overlying soft tissue appears unremarkable. IMPRESSION: There is no acute fracture or dislocation. ICD 10 NO FRACTURE, INITIAL EVALUATION
[2023-07-26] MEDS: FLUTICASONE 50MCG/SPRAY NASAL 16GM EA NOSTRIL PRN (21:28)
[2023-07-26] MEDS: ATORVASTATIN 20 MG TAB PO SCH (21:28)
[2023-07-26] MEDS: OXYBUTYNIN XL 5 MG TAB.ER.24 PO SCH (21:40)
[2023-07-27] MEDS: LEVOTHYROXINE 50 MCG TAB PO SCH (06:18)
[2023-07-27] MEDS: FUROSEMIDE 10 MG/ML 10 ML VIAL IV SCH (08:35)
[2023-07-27] MEDS: FLUTICASONE 50MCG/SPRAY NASAL 16GM EA NOSTRIL PRN (08:35)
[2023-07-27] MEDS: hydrALAZINE HCL 50 MG TAB PO SCH (08:36)
[2023-07-27] MEDS: ASPIRIN 81 MG PO SCH (08:36)
[2023-07-27] MEDS: amLODIPine 5 MG TAB PO SCH (08:36)
[2023-07-27] MEDS: allopurinoL 100 MG TAB PO SCH (08:36)
[2023-07-27] MEDS: carvediloL 12.5 MG TAB PO SCH (08:36)
[2023-07-27] MEDS: HEPARIN SODIUM,PORCINE 5,000 UNIT/ML 1 ML VIAL SQ SCH (08:37)
[2023-07-27 09:05] LABS: BUN/Creat Ratio 9.03 Ratio (12.00-20.00); Blood Urea Nitrogen 34.3 mg/dL (9.0-27.0); Calcium 9.3 mg/dL (8.7-10.3); Carbon Dioxide 25.6 mmol/L (21.6-31.8); Chloride 94 mmol/L (96-109); Glucose 103 mg/dL (70-110); Potassium 3.8 mmol/L (3.5-5.5); Sodium 133 mmol/L (135-145)
[2023-07-27 09:19] VITALS: RESP 17
--- NOTE | 2023-07-27 12:00 | P.PN ---
Subjective Patient is seen for follow-up for end-stage renal disease. Started hemodialysis this admission. No significant complaints today. Overall feeling better. Awaiting outpatient chair time. Objective - Vital Signs Vital signs: Vital Signs Temp 97.9 F 07/27/23 07:29 Pulse 77 07/27/23 07:29 Resp 17 07/27/23 07:29 BP 161/54 07/27/23 07:29 Pulse Ox 95 07/27/23 08:37 FiO2 Intake & Output 07/26/23 07/27/23 07/27/23 18:59 06:59 18:59 Intake Total 720 240 Balance 720 240 Weight 56 kg Intake: Oral 720 240 Other: Voiding Method External Catheter External Catheter # Voids 1 1 - Exam Patient is awake, comfortable, no acute distress Examination of the heart S1 and S2 Examination of the lungs bilateral breath sounds are heard Abdomen is soft nontender Examination of lower extremities shows no significant edema FINANCIAL ADMINISTRATOR exam grossly intact - Labs CBC & Chem 7: 07/22/23 20:37 07/27/23 06:19 Labs: Abnormal Lab Results - Last 24 Hours (Table) 07/27/23 Range/Units 06:19 Sodium 133 L (135-145) mmol/L Chloride 94 L (96-109) mmol/L Anion Gap 13.40 H (4.00-12.00) mmol/L BUN 34.3 H (9.0-27.0) mg/dL Creatinine 3.8 H (0.6-1.5) mg/dL Est GFR (CKD-EPI) 11 L (>=60) BUN/Creatinine Ratio 9.03 L (12.00-20.00) Ratio Assessment and Plan Assessment: 1. Acute kidney injury secondary to ATN versus progression of underlying chronic kidney disease. Creatinine 4.16 on admission. Started on hemodialysis July 23, 2023 via AV fistula. Kidney ultrasound showed no hydronephrosis. Left kidney absent. 2. Chronic kidney disease stage IV with baseline creatinine at 2 with recent progression to CKD 5. Etiology is nephrosclerosis and solitary kidney. 3. Acute on chronic diastolic CHF with moderate tricuspid regurgitation and mild mitral regurgitation. Small posterior pericardial effusion noted. 4. Hypertension with chronic kidney disease. 5. Volume overload. Improving with ultrafiltration. 6. Acute hypoxic respiratory failure. 7. Metabolic acidosis secondary to chronic kidney disease. Improved postdialysis. 8. Hypervolemic hyponatremia. Improved postdialysis. 9. Hyperphosphatemia secondary to chronic kidney disease. Phosphorus level 6.1 dated July 22, 2023. Repeat level 4.3 on 07/25/2023 Plan: Hemodialysis in a.m. Awaiting outpatient placement.
--- NOTE | 2023-07-27 12:40 | P.PN ---
Subjective Progress Note Date: 07/27/23 Hospital Course: 82-year-old female with PMH of ESRD, hypertension, hyperlipidemia, and hypothyroidism who presents to the emergency room with complaints of shortness of breath. Chest x-ray was consistent with congestive heart failure with EKG showing V paced rhythm at 86 bpm. Laboratory evaluation was remarkable for proBNP 38,700, creatinine 4.16 (previously 2.1 and 12/2022), sodium 130, CO2 16, and hemoglobin 10.6. Patient was hypoxic, requiring supplemental oxygen. Nephrology, cardiology and vascular surgery consulted. Patient now started on hemodialysis. Patient may need subacute rehab. Subjective: Patient seen and examined at bedside. No acute events overnight. No new complaints. Pertinent positives and negatives as discussed above, a complete review of systems was performed and all other systems are negative. Vitals Signs Reviewed. General: non toxic, no distress, appears at stated age, normal weight Derm: no unusual rashes/lesions, warm Head: atraumatic, normocephalic, symmetric Eyes: EOMI, no lid lag, anicteric sclera, pupils equal round reactive to light ENT: Nose and ears atraumatic Neck: No cervical lymphadenopathy, trachea midline, supple Mouth: no lip lesion, mucus membranes moist Cardiovascular: S1S2 reg, no murmur, positive dorsalis pedis pulse bilateral, no edema Lungs: Clear to auscultation bilaterally, no accessory muscle use Abdominal: soft, nontender to palpation, no guarding Ext: muscle strength 4 out of 5 in all 4 extremities grossly, no gross muscle atrophy, no contractures, RUE AV fistula noted with palpable thrill Neuro: CN II-XI grossly intact, no gross focal neuro deficits Psych: Alert, oriented, appropriate affect Data Reviewed Today: Pertinent Labs: Sodium 133, creatinine 3.8 Imaging: No new imaging Assessment and Plan: Active: ESRD, now on dialysis CHF diastolic exacerbation Hypervolemic hyponatremia Anemia of chronic disease -Cardiology following -Nephrology note reviewed, dialysis tomorrow, pending outpatient dialysis set up, on Lasix 80 mg IV twice daily -Also on amlodipine 5 mg twice daily, hydralazine at 50 3 times daily, Coreg 12.5 twice daily -vascular surgery note reviewed, signed off Left foot pain, improved -No fractures on x-rays Chronic: Hypertension Dyslipidemia Hypothyroidism AV block with permanent pacemaker DVT ppx: Subcu heparin Code status: Full code Anticipated discharge place: Physical therapy evaluation pending Anticipated discharge time: Possibly today Objective - Vital Signs Vital signs: Vital Signs Temp 97.9 F 07/27/23 07:29 Pulse 77 07/27/23 07:29 Resp 17 07/27/23 07:29 BP 161/54 07/27/23 07:29 Pulse Ox 95 07/27/23 08:37 FiO2 Intake & Output 07/26/23 07/27/23 07/27/23 18:59 06:59 18:59 Intake Total 720 240 Balance 720 240 Weight 56 kg Intake: Oral 720 240 Other: Voiding Method External Catheter External Catheter # Voids 1 1 - Labs CBC & Chem 7: 07/22/23 20:37 07/27/23 06:19 Labs: Abnormal Lab Results - Last 24 Hours (Table) 07/27/23 Range/Units 06:19 Sodium 133 L (135-145) mmol/L Chloride 94 L (96-109) mmol/L Anion Gap 13.40 H (4.00-12.00) mmol/L BUN 34.3 H (9.0-27.0) mg/dL Creatinine 3.8 H (0.6-1.5) mg/dL Est GFR (CKD-EPI) 11 L (>=60) BUN/Creatinine Ratio 9.03 L (12.00-20.00) Ratio
--- NOTE | 2023-07-27 12:51 | P.DS ---
Providers Date of admission: 07/23/23 00:39 Expected date of discharge: 07/27/23 Attending physician: Kan Ding MD Consults: 07/22/23 23:48 Consult Physician Urgent Consulting Provider: Linda Antoine Consult Reason/Comments: CKD Do you want consulting provider notified?: Yes, Notify in am Primary care physician: [facility] Course: Discharge Diagnosis: ESRD, now on dialysis CHF diastolic exacerbation Hypervolemic hyponatremia Anemia of chronic disease Hypertension Dyslipidemia Hypothyroidism AV block with permanent pacemaker Hospital Course: 82-year-old female with PMH of ESRD, hypertension, hyperlipidemia, and hypothyroidism who presents to the emergency room with complaints of shortness of breath. Chest x-ray was consistent with congestive heart failure with EKG showing V paced rhythm at 86 bpm. Laboratory evaluation was remarkable for proBNP 38,700, creatinine 4.16 (previously 2.1 and 12/2022), sodium 130, CO2 16, and hemoglobin 10.6. Patient was hypoxic, requiring supplemental oxygen. Nephrology, cardiology and vascular surgery consulted. Patient now started on hemodialysis. Will start outpatient dialysis tomorrow, Thursday. Patient seen and examined at bedside. Vital signs reviewed and stable. General: non toxic, no distress, appears at stated age, normal weight Derm: no unusual rashes/lesions, warm Head: atraumatic, normocephalic, symmetric Eyes: EOMI, no lid lag, anicteric sclera, pupils equal round reactive to light ENT: Nose and ears atraumatic Neck: No cervical lymphadenopathy, trachea midline, supple Mouth: no lip lesion, mucus membranes moist Cardiovascular: S1S2 reg, no murmur, positive dorsalis pedis pulse bilateral, no edema Lungs: Clear to auscultation bilaterally, no accessory muscle use Abdominal: soft, nontender to palpation, no guarding Ext: muscle strength 4 out of 5 in all 4 extremities grossly, no gross muscle atrophy, no contractures, RUE AV fistula noted with palpable thrill Neuro: CN II-XI grossly intact, no gross focal neuro deficits Psych: Alert, oriented, appropriate affect A total of 33 minutes of time were spent preparing this complex discharge summary. Patient was discharged on 07/27/2023 at 1249. Patient Condition at Discharge: Stable Plan - Discharge Summary Discharge Rx Participant: Yes New Discharge Prescriptions: New hydrALAZINE HCL [Apresoline] 50 mg PO TID #90 tab Continue Aspirin EC [Ecotrin Low Dose] 81 mg PO DAILY Cholestyramine (with Sugar) [Cholestyramine Packet] 4 gm PO BID PRN PRN Reason: Diarrhea Fluticasone Nasal [place] [Flonase Nasal [place]] 1 - 2 spr EA NOSTRIL BID PRN PRN Reason: Allergy Symptoms Loratadine 10 mg PO DAILY Vits A,C,E/Lutein/Minerals [Ocuvite with Lutein Tablet] 1 tab PO DAILY allopurinoL [Zyloprim] 100 mg PO DAILY carvediloL [Coreg*] 12.5 mg PO BID amLODIPine [Norvasc] 5 mg PO BID Atorvastatin [Lipitor] 20 mg PO HS Levothyroxine Sodium [Synthroid] 50 mcg PO DAILY Oxybutynin Xl [Ditropan XL] 5 mg PO HS Vitamin E (Dl,Tocopheryl Acet) [Vitamin E (1000 Iu = 450 MG)] 450 mg PO HS Changed Furosemide [Lasix] 80 mg PO BID #90 tab Discharge Medication List Aspirin EC [Ecotrin Low Dose] 81 mg PO DAILY 01/17/23 [History] Atorvastatin [Lipitor] 20 mg PO HS 01/17/23 [History] Cholestyramine (with Sugar) [Cholestyramine Packet] 4 gm PO BID PRN 01/17/23 [History] Fluticasone Nasal [place] [Flonase Nasal [place]] 1 - 2 spr EA NOSTRIL BID PRN 01/17/23 [History] Levothyroxine Sodium [Synthroid] 50 mcg PO DAILY 01/17/23 [History] Loratadine 10 mg PO DAILY 01/17/23 [History] Oxybutynin Xl [Ditropan XL] 5 mg PO HS 01/17/23 [History] Vits A,C,E/Lutein/Minerals [Ocuvite with Lutein Tablet] 1 tab PO DAILY 01/17/23 [History] amLODIPine [Norvasc] 5 mg PO BID 01/17/23 [History] Vitamin E (Dl,Tocopheryl Acet) [Vitamin E (1000 Iu = 450 MG)] 450 mg PO HS 07/22/23 [History] allopurinoL [Zyloprim] 100 mg PO DAILY 07/22/23 [History] carvediloL [Coreg*] 12.5 mg PO BID 07/22/23 [History] Furosemide [Lasix] 80 mg PO BID #90 tab 07/27/23 [Rx] hydrALAZINE HCL [Apresoline] 50 mg PO TID #90 tab 07/27/23 [Rx] Follow up Appointment(s)/Referral(s): [facility] [NON-STAFF] - 1 Week Jono Edwards DO [Primary Care Provider] - 1-2 days [facility], [NON-STAFF] - 1 Week Linda Antoine MD [STAFF PHYSICIAN] - 1 Week Patient Instructions/Handouts: End Stage Kidney Disease (DC), Dialysis Diet (DC) Activity/Diet/Wound Care/Special Instructions: Please see your PCP and house painter. Discharge Disposition: HOME SELF-CARE
[2023-07-27 15:08] VITALS: BP 150/56; PULSE 79; TEMP 97.7
== END 2023-07-27 15:43 | disposition home or self-care (01) | DRG 291 ==
LOC: EC 19:43 → 2CATHESU 07-23 00:39 → 3NCARDOBS 07-23 05:35 → 1SOBS 07-23 08:15 → 3SCARD 07-23 08:46 → 4SSUR 07-23 12:37 → 5NMEDONC 07-23 12:47
PROVIDERS: ADMIT Internal Medicine; ATTEND Internal Medicine
PROC: 5A1D70Z Performance of Urinary Filtration, Intermittent, Less than 6 Hours Per Day (ICD-10-PCS; principal; 2023-07-23)
PROC: 3E0F7SF Introduction of Other Gas into Respiratory Tract, Via Natural or Artificial Opening (ICD-10-PCS; 2023-07-23)
DX: I13.2 Hypertensive heart and chronic kidney disease with heart failure and with stage 5 chronic kidney disease, or end stage renal disease (principal); I50.33 Acute on chronic diastolic (congestive) heart failure; J96.01 Acute respiratory failure with hypoxia; N18.6 End stage renal disease; N17.0 Acute kidney failure with tubular necrosis; E87.1 Hypo-osmolality and hyponatremia; N17.9 Acute kidney failure, unspecified; I31.39 Other pericardial effusion (noninflammatory); E87.20 Acidosis, unspecified; E11.22 Type 2 diabetes mellitus with diabetic chronic kidney disease; E83.39 Other disorders of phosphorus metabolism; E03.9 Hypothyroidism, unspecified; I08.1 Rheumatic disorders of both mitral and tricuspid valves; D63.1 Anemia in chronic kidney disease; Z79.890 Hormone replacement therapy; E78.5 Hyperlipidemia, unspecified; E87.70 Fluid overload, unspecified; I44.30 Unspecified atrioventricular block; Z79.82 Long term (current) use of aspirin; Z79.899 Other long term (current) drug therapy; Z99.2 Dependence on renal dialysis; Z88.1 Allergy status to other antibiotic agents; Z88.8 Allergy status to other drugs, medicaments and biological substances; Z98.51 Tubal ligation status; Z88.0 Allergy status to penicillin
CPT/HCPCS: 36415; 71046; 76770; 80048; 80053; 81001; 83735; 83880; 84100; 84484; 85025; 86706; 87340; 90935; 93306; 94760; 96374; 96375; 99285

== ENCOUNTER 2023-07-29 14:56 | Emergency (ER) | payer MEDICARE ==
--- NOTE | 2023-07-29 15:35 | ED ---
Weakness HPI - General Chief complaint: Weakness Stated complaint: Confusion Time Seen by Provider: 07/29/23 15:03 Source: patient, EMS, RN notes reviewed, old records reviewed Mode of arrival: EMS Limitations: no limitations - History of Present Illness Initial comments: This is an 82-year-old female to the ER for evaluation of a few days of confusion worsening confusion today. Patient called grandson came to patient's house and evaluated the patient concern for some altered mental status and not acting appropriately. Patient herself aside from being weak has no complaints and she again is a mildly significant poor historian with recent starting of dialysis MD Complaint: generalized weakness -: days(s) Location: generalized Severity: moderate Severity scale (1-10): 5 Consistency: constant Improves with: none Worsens with: none Context: recent illness, history of similar Associated Symptoms: confusion - Related Data Home Medications Medication Instructions Recorded Confirmed Aspirin EC [Ecotrin Low Dose] 81 mg PO DAILY 01/17/23 07/29/23 Atorvastatin [Lipitor] 20 mg PO HS 01/17/23 07/29/23 Cholestyramine (with Sugar) 4 gm PO BID PRN 01/17/23 07/29/23 [Cholestyramine Packet] Fluticasone Nasal [place] [Flonase 1 - 2 spr EA NOSTRIL BID PRN 01/17/23 07/29/23 Nasal [place]] Levothyroxine Sodium [Synthroid] 50 mcg PO DAILY 01/17/23 07/29/23 Loratadine 10 mg PO DAILY 01/17/23 07/29/23 Oxybutynin Xl [Ditropan XL] 5 mg PO HS 01/17/23 07/29/23 Vits A,C,E/Lutein/Minerals 1 tab PO DAILY 01/17/23 07/29/23 [Ocuvite with Lutein Tablet] amLODIPine [Norvasc] 5 mg PO BID 01/17/23 07/29/23 Vitamin E (Dl,Tocopheryl Acet) 450 mg PO HS 07/22/23 07/29/23 [Vitamin E (1000 Iu = 450 MG)] allopurinoL [Zyloprim] 100 mg PO DAILY 07/22/23 07/29/23 carvediloL [Coreg*] 12.5 mg PO BID 07/22/23 07/29/23 Previous Rx's Medication Instructions Recorded Furosemide [Lasix] 80 mg PO BID #90 tab 07/27/23 hydrALAZINE HCL [Apresoline] 50 mg PO TID #90 tab 07/27/23 Allergies Allergy/AdvReac Type Severity Reaction Status Date / Time bacitracin Allergy Rash/Hives Verified 07/29/23 15:41 [From Neosporin ([id number])] levofloxacin [From Levaquin] Allergy Rash/Hives Verified 07/29/23 15:41 metronidazole [From Flagyl] Allergy Rash/Hives Verified 07/29/23 15:41 neomycin Allergy Rash/Hives Verified 07/29/23 15:41 [From Neosporin ([id number])] Penicillins Allergy Rash/Hives Verified 07/29/23 15:41 polymyxin B Allergy Rash/Hives Verified 07/29/23 15:41 [From Neosporin ([id number])] Review of Systems ROS Statement: Those systems with pertinent positive or pertinent negative responses have been documented in the HPI. ROS Other: All systems not noted in ROS Statement are negative. Past Medical History Past Medical History: Chest Pain / Angina, Dialysis, Hyperlipidemia, Hypertension, Renal Disease Additional Past Medical History / Comment(s): stage 4 renal. right arm fistula History of Any Multi-Drug Resistant Organisms: None Reported Past Surgical History: Appendectomy, Tubal Ligation Additional Past Surgical History / Comment(s): pacemaker Past Psychological History: No Psychological Hx Reported Smoking Status: Never smoker Past Alcohol Use History: None Reported Past Drug Use History: None Reported General Exam Limitations: no limitations General appearance: alert, in no apparent distress Head exam: Present: atraumatic, normocephalic, normal inspection Eye exam: Present: normal appearance, PERRL, EOMI. Absent: scleral icterus, conjunctival injection, periorbital swelling ENT exam: Present: normal exam, mucous membranes moist Neck exam: Present: normal inspection. Absent: tenderness, meningismus, lymphadenopathy Respiratory exam: Present: normal lung sounds bilaterally. Absent: respiratory distress, wheezes, rales, rhonchi, stridor Cardiovascular Exam: Present: regular rate, normal rhythm, normal heart sounds. Absent: systolic murmur, diastolic murmur, rubs, gallop, clicks GI/Abdominal exam: Present: soft, normal bowel sounds. Absent: distended, tenderness, guarding, rebound, rigid Extremities exam: Present: normal inspection, full ROM, normal capillary refill. Absent: tenderness, pedal edema, joint swelling, calf tenderness Back exam: Present: normal inspection Neurological exam: Present: alert, oriented X3, CN II-XII intact Psychiatric exam: Present: normal affect, normal mood Skin exam: Present: warm, dry, intact, normal color. Absent: rash Course Vital Signs 07/29/23 07/29/23 07/29/23 15:04 15:52 17:00 Temperature 97.6 F Pulse Rate 82 80 80 Respiratory 20 16 16 Rate Blood Pressure 173/69 166/58 164/61 O2 Sat by Pulse 96 95 94 L Oximetry 07/29/23 07/29/23 18:00 19:27 Temperature 97.9 F Pulse Rate 84 80 Respiratory 16 16 Rate Blood Pressure 159/56 160/59 O2 Sat by Pulse 93 L 94 L Oximetry - Reevaluation(s) Reevaluation #1: 07/29/23 17:56 Medical records reviewed Reevaluation #2: 07/29/23 17:56 Patient symptoms unchanged Reevaluation #3: 07/29/23 17:56 Patient informed of results questions answered Reevaluation #4: 07/29/23 17:56 Was pt. sent in by a medical professional or institution (, PA, BEVERAGE SALES CONSULTANT, urgent care, hospital, or correction...) When possible be specific @ -no Did you speak to anyone other than the patient for history (EMS, parent, family, police, friend...)? What history was obtained from this source @ -no Did you review nursing and triage notes (agree or disagree)? Why? @ -agree Are old charts reviewed (outside hosp., previous admission, EMS record, old EKG, old radiological studies, urgent care reports/EKG's, correction records)? Report findings @ -yes Differential Diagnosis (chest pain, altered mental status, abdominal pain women, abdominal pain men, vaginal bleeding, weakness, fever, dyspnea, syncope, headache, dizziness, GI bleed, back pain, seizure, CVA, palpatations, mental health, musculoskeletal)? @ -prior EKG interpreted by me (3pts min.). @ -yes X-rays interpreted by me (1pt min.). @ -no CT interpreted by me (1pt min.). @ -Yes negative for acute disease U/S interpreted by me (1pt. min.). @ -no What testing was considered but not performed or refused? (CT, X-rays, U/S, labs)? Why? @ -none What meds were considered but not given or refused? Why? @ -none Did you discuss the management of the patient with other professionals (professionals i.e. Dr., PA, BEVERAGE SALES CONSULTANT, lab, RT, psych nurse, oncology social worker, jockey agent, teacher, freedom of information officer, outpatient case manager)? Give summary @ -no Was smoking cessation discussed for >3mins.? @ -no Was critical care preformed (if so, how long)? @ -no Were there social determinants of health that impacted care today? How? (Homelessness, low income, unemployed, alcoholism, drug addiction, transportation, low edu. Level, literacy, decrease access to med. care, long term, rehab)? @ -none Was there de-escalation of care discussed even if they declined (Discuss DNR or withdrawal of care, Hospice)? DNR status @ -no What co-morbidities impacted this encounter? (DM, HTN, Smoking, COPD, CAD, Cancer, CVA, ARF, Chemo, Hep., AIDS, mental health diagnosis, sleep apnea, morbid obesity)? @ -none Was patient admitted / discharged? Hospital course, mention meds given and route, prescriptions, significant lab abnormalities, going to OR and other pertinent info. @ - 82 female to the ER for evaluation. Patient presents today for evaluation of weakness here in the ER with no acute findings, patient feels improved and can be discharged home Discharge Undiagnosed new problem with uncertain prognosis? @ -no Drug Therapy requiring intensive monitoring for toxicity (Heparin, Nitro, In sulin, Cardizem)? @ -no Were any procedures done? @ -no Diagnosis/symptom? @ -Weakness Acute, or Chronic, or Acute on Chronic? @ -Acute Uncomplicated (without systemic symptoms) or Complicated (systemic symptoms)? @ -Complicated Side effects of treatment? @ -no Exacerbation, Progression, or Severe Exacerbation? @ -exacerbation Poses a threat to life or bodily function? How? (Chest pain, USA, NM, pneumonia, PE, COPD, DKA, ARF, appy, cholecystitis, CVA, Diverticulitis, Homicidal, Suicidal, threat to staff... and all critical care pts) @ -yes with extremes of age Reevaluation #5: 07/29/23 17:56 And differential Altered Mental Status: Hypoglycemia, DKA, hypercapnia, ETOH, overdose, CO poisoning, trauma, myxedema coma, HTN encephalopathy, infection, encephalitis, psychosis, intercranial hemorrhage, hepatic encephalopathy, meningitis, CVA, this is not meant to be an all-inclusive list EKG Findings - EKG Comments: EKG Findings:: EKG is paced 82 FL 145 QRS 131 QTc 506 - EKG Results: EKG: interpreted by SEVERIANO Medical Decision Making - Medical Decision Making 82 female to the ER for evaluation. Patient presents today for evaluation of weakness here in the ER with no acute findings, patient feels improved and can be discharged home - Lab Data Result diagrams: 07/29/23 15:33 07/29/23 15:33 Lab Results 07/29/23 07/29/23 07/29/23 Range/Units 15:04 15:33 15:33 WBC 8.1 (3.8-10.6) k/uL RBC 3.29 L (3.80-5.40) m/uL Hgb 10.7 L (11.4-16.0) gm/dL Hct 30.6 L (34.0-46.0) % MCV 93.1 (80.0-100.0) fL MCH 32.6 (25.0-35.0) pg MCHC 35.0 (31.0-37.0) g/dL RDW 13.3 (11.5-15.5) % Plt Count 168 (150-450) k/uL MPV 8.5 Neutrophils % 54 % Lymphocytes % 27 % Monocytes % 8 % Eosinophils % 8 % Basophils % 1 % Neutrophils # 4.4 (1.3-7.7) k/uL Lymphocytes # 2.2 (1.0-4.8) k/uL Monocytes # 0.7 (0-1.0) k/uL Eosinophils # 0.6 (0-0.7) k/uL Basophils # 0.0 (0-0.2) k/uL PT 10.9 (10.0-12.5) sec INR 1.0 (<1.2) APTT 24.5 (22.0-30.0) sec Sodium (137-145) mmol/L Potassium (3.5-5.1) mmol/L Chloride (98-107) mmol/L Carbon Dioxide (22-30) mmol/L Anion Gap mmol/L BUN (7-17) mg/dL Creatinine (0.52-1.04) mg/dL Est GFR (CKD-EPI)AfAm (>60 ml/min/1.73 sqM) Est GFR (CKD-EPI)NonAf (>60 ml/min/1.73 sqM) Glucose (74-99) mg/dL Plasma Lactic Acid Jordon (0.7-2.0) mmol/L Calcium (8.4-10.2) mg/dL Phosphorus (2.5-4.5) mg/dL Magnesium (1.6-2.3) mg/dL Total Bilirubin (0.2-1.3) mg/dL AST (14-36) U/L ALT (4-34) U/L Alkaline Phosphatase (38-126) U/L Ammonia (<30) umol/L Troponin I (0.000-0.034) ng/mL NT-Pro-B Natriuret Pep pg/mL Total Protein (6.3-8.2) g/dL Albumin (3.5-5.0) g/dL Urine Color Light Yellow Urine Appearance Cloudy H (Clear) Urine pH 6.5 (5.0-8.0) Ur Specific [place] 1.007 (1.001-1.035) Urine Protein 1+ H (Negative) Urine Glucose (UA) Negative (Negative) Urine Ketones Negative (Negative) Urine Blood Negative (Negative) Urine Nitrite Negative (Negative) Urine Bilirubin Negative (Negative) Urine Urobilinogen <2.0 (<2.0) mg/dL Ur Leukocyte Esterase Small H (Negative) Urine RBC 1 (0-5) /hpf Urine WBC 3 (0-5) /hpf Ur Squamous Epith Cells 4 (0-4) /hpf Hyaline Casts 7 H (0-2) /lpf Urine Mucus Rare H (None) /hpf 07/29/23 07/29/23 07/29/23 Range/Units 15:33 15:33 15:33 WBC (3.8-10.6) k/uL RBC (3.80-5.40) m/uL Hgb (11.4-16.0) gm/dL Hct (34.0-46.0) % MCV (80.0-100.0) fL MCH (25.0-35.0) pg MCHC (31.0-37.0) g/dL RDW (11.5-15.5) % Plt Count (150-450) k/uL MPV Neutrophils % % Lymphocytes % % Monocytes % % Eosinophils % % Basophils % % Neutrophils # (1.3-7.7) k/uL Lymphocytes # (1.0-4.8) k/uL Monocytes # (0-1.0) k/uL Eosinophils # (0-0.7) k/uL Basophils # (0-0.2) k/uL PT (10.0-12.5) sec INR (<1.2) APTT (22.0-30.0) sec Sodium 129 L (137-145) mmol/L Potassium 3.3 L (3.5-5.1) mmol/L Chloride 93 L (98-107) mmol/L Carbon Dioxide 26 (22-30) mmol/L Anion Gap 10 mmol/L BUN 33 H (7-17) mg/dL Creatinine 2.83 H (0.52-1.04) mg/dL Est GFR (CKD-EPI)AfAm 17 (>60 ml/min/1.73 sqM) Est GFR (CKD-EPI)NonAf 15 (>60 ml/min/1.73 sqM) Glucose 123 H (74-99) mg/dL Plasma Lactic Acid Jordon 0.9 (0.7-2.0) mmol/L Calcium 9.1 (8.4-10.2) mg/dL Phosphorus 3.3 (2.5-4.5) mg/dL Magnesium 2.0 (1.6-2.3) mg/dL Total Bilirubin 0.8 (0.2-1.3) mg/dL AST 30 (14-36) U/L ALT 17 (4-34) U/L Alkaline Phosphatase 87 (38-126) U/L Ammonia <9 (<30) umol/L Troponin I 0.026 (0.000-0.034) ng/mL NT-Pro-B Natriuret Pep 8850 pg/mL Total Protein 6.7 (6.3-8.2) g/dL Albumin 4.0 (3.5-5.0) g/dL Urine Color Urine Appearance (Clear) Urine pH (5.0-8.0) Ur Specific [place] (1.001-1.035) Urine Protein (Negative) Urine Glucose (UA) (Negative) Urine Ketones (Negative) Urine Blood (Negative) Urine Nitrite (Negative) Urine Bilirubin (Negative) Urine Urobilinogen (<2.0) mg/dL Ur Leukocyte Esterase (Negative) Urine RBC (0-5) /hpf Urine WBC (0-5) /hpf Ur Squamous Epith Cells (0-4) /hpf Hyaline Casts (0-2) /lpf Urine Mucus (None) /hpf - EKG Data -: EKG Interpreted by Ut - Radiology Data Radiology results: report reviewed (CT brain negative for acute disease), image reviewed Disposition Clinical Impression: Weakness, Altered mental state Disposition: HOME SELF-CARE Condition: Good Instructions (If sedation given, give patient instructions): Weakness (ED) Is patient prescribed a controlled substance at d/c from ED?: No Referrals: Jono Edwards DO [Primary Care Provider] - 1-2 days Time of Disposition: 18:20
[2023-07-29 15:59] LABS: Basophils % (A) 1 %; Eosinophils # (A) 0.6 k/uL (0-0.7); Eosinophils % (A) 8 %; HCT 30.6 % (34.0-46.0); HGB 10.7 gm/dL (11.4-16.0); Lymphocytes # (A) 2.2 k/uL (1.0-4.8); Lymphocytes % (A) 27 %; MCH 32.6 pg (25.0-35.0); MCV 93.1 fL (80.0-100.0); Mean Platelet Volume 8.5; Monocytes # (A) 0.7 k/uL (0-1.0); Monocytes % (A) 8 %; Neutrophils # (A) 4.4 k/uL (1.3-7.7); Neutrophils % (A) 54 %; Platelet Count 168 k/uL (150-450); RBC 3.29 m/uL (3.80-5.40); RDW 13.3 % (11.5-15.5); WBC 8.1 k/uL (3.8-10.6)
[2023-07-29 16:10] LABS: Lactic Acid, Venous 0.9 mmol/L (0.7-2.0); Prothrombin Time 10.9 sec (10.0-12.5)
[2023-07-29 16:11] LABS: Partial Thromboplastin Time 24.5 sec (22.0-30.0)
[2023-07-29 16:13] VITALS: RESP 16
[2023-07-29 16:13] LABS: ALT 17 U/L (4-34); AST 30 U/L (14-36); African American GFR (CKD) 17 (>60 ml/min/1.73 sqM); Alkaline Phosphatase 87 U/L (38-126); Anion Gap 10 mmol/L; Blood Urea Nitrogen 33 mg/dL (7-17); Calcium 9.1 mg/dL (8.4-10.2); Carbon Dioxide 26 mmol/L (22-30); Chloride 93 mmol/L (98-107); Glucose 123 mg/dL (74-99); Non-African American GFR(CKD) 15 (>60 ml/min/1.73 sqM); Phosphorus 3.3 mg/dL (2.5-4.5); Potassium 3.3 mmol/L (3.5-5.1); Sodium 129 mmol/L (137-145); Total Bilirubin 0.8 mg/dL (0.2-1.3); Total Protein 6.7 g/dL (6.3-8.2)
--- NOTE | 2023-07-29 16:13 | CT ---
EXAMINATION TYPE: CT brain wo con DATE OF EXAM: 07/29/2023 COMPARISON: None HISTORY: AMS, confusion CT DLP: 1109.[address] of the brain was performed. The ventricles, basal cisterns and sulci overlying the cerebral convexities demonstrate mild enlargem ent. There is no evidence for intracranial hemorrhage or sulcal effacement. There is decreased attenuation about the periventricular white matter and deep white matter of both c erebral hemispheres, compatible with chronic small vessel ischemia. Differential diagnosis does inclu de demyelination. No mass effects are seen.No midline shift. Osseous calvarium is intact. If symptoms persist consider MRI. IMPRESSION: 1. Age related atrophic and chronic small vessel ischemic change without acute intracranial process s een at this time.
[2023-07-29 16:20] LABS: NT-Pro-B-Type Natriuretic Pept 8850 pg/mL
[2023-07-29] MEDS: SODIUM CHLORIDE 0.9% 1,000 ML IV STA (17:03)
[2023-07-29 19:44] VITALS: BP 160/59; PULSE 80; TEMP 97.9
[2023-07-29 20:03] LABS: Appearance,Urine Cloudy (Clear); Bilirubin,Urine Negative (Negative); Blood,Urine Negative (Negative); Color,Urine Light Yellow; Glucose,Urine (UA) Negative (Negative); Hyaline Casts,Urine 7 /lpf (0-2); Ketones,Urine Negative (Negative); Leukocyte Esterase,Urine Small (Negative); Mucus,Urine Rare /hpf; Nitrite,Urine Negative (Negative); PH, Urine 6.5 (5.0-8.0); Protein,Urine 1+ (Negative); RBC,Urine 1 /hpf (0-5); Specific Gravity,Urine 1.007 (1.001-1.035); Squamous Epithelial Cell,Urine 4 /hpf (0-4); Urobilinogen,Urine <2.0 mg/dL (<2.0); WBC,Urine 3 /hpf (0-5)
== END 2023-07-29 19:48 | disposition home or self-care (01) ==
LOC: EC 14:56
DX: R53.1 Weakness (principal); R41.82 Altered mental status, unspecified; E78.5 Hyperlipidemia, unspecified; I12.9 Hypertensive chronic kidney disease with stage 1 through stage 4 chronic kidney disease, or unspecified chronic kidney disease; N18.4 Chronic kidney disease, stage 4 (severe); Z99.2 Dependence on renal dialysis; Z79.82 Long term (current) use of aspirin; Z79.899 Other long term (current) drug therapy; Z88.1 Allergy status to other antibiotic agents; Z88.0 Allergy status to penicillin; Z88.8 Allergy status to other drugs, medicaments and biological substances
CPT/HCPCS: 36415; 70450; 80053; 81001; 82140; 83605; 83735; 83880; 84100; 84484; 85025; 85610; 85730; 93005; 96360; 99285

== ENCOUNTER 2023-08-08 00:12 | Inpatient (IN) | payer MEDICARE ==
[2023-08-08] MEDS: MAGNESIUM SULFATE-D5W PMX 1 GM in DEXTROSE/WATER 1 100ML.BAG IVPB STA (00:23)
[2023-08-08] MEDS: methylPREDNISolone SOD SUCCI 125 MG/2 ML VIAL IV STA (00:25)
[2023-08-08] MEDS: IPRATROPIUM-ALBUTEROL 3 ML NEB INHALATION STA (00:30)
[2023-08-08 01:13] LABS: Basophils % (A) 0 %; Eosinophils # (A) 0.5 k/uL (0-0.7); Eosinophils % (A) 5 %; HCT 26.2 % (34.0-46.0); Lymphocytes # (A) 1.5 k/uL (1.0-4.8); Lymphocytes % (A) 16 %; MCH 32.5 pg (25.0-35.0); MCHC 33.9 g/dL (31.0-37.0); MCV 95.7 fL (80.0-100.0); Mean Platelet Volume 10.1; Monocytes # (A) 0.6 k/uL (0-1.0); Monocytes % (A) 7 %; Neutrophils # (A) 6.7 k/uL (1.3-7.7); Neutrophils % (A) 70 %; Platelet Count 181 k/uL (150-450); RBC 2.74 m/uL (3.80-5.40); RDW 14.3 % (11.5-15.5); WBC 9.5 k/uL (3.8-10.6)
[2023-08-08 01:18] LABS: HGB 8.9 gm/dL (11.4-16.0)
[2023-08-08 01:21] LABS: Prothrombin Time 10.6 sec (10.0-12.5)
[2023-08-08 01:23] LABS: ALT 13 U/L (4-34); AST 26 U/L (14-36); African American GFR (CKD) 21 (>60 ml/min/1.73 sqM); Albumin 3.5 g/dL (3.5-5.0); Alkaline Phosphatase 108 U/L (38-126); Anion Gap 9 mmol/L; Blood Urea Nitrogen 18 mg/dL (7-17); Calcium 8.2 mg/dL (8.4-10.2); Carbon Dioxide 25 mmol/L (22-30); Chloride 88 mmol/L (98-107); Glucose 278 mg/dL (74-99); Non-African American GFR(CKD) 19 (>60 ml/min/1.73 sqM); Potassium 3.1 mmol/L (3.5-5.1); Sodium 122 mmol/L (137-145); Total Bilirubin 1.1 mg/dL (0.2-1.3); Total Protein 5.9 g/dL (6.3-8.2)
[2023-08-08 01:27] LABS: Partial Thromboplastin Time 21.9 sec (22.0-30.0)
[2023-08-08 01:31] LABS: NT-Pro-B-Type Natriuretic Pept 20800 pg/mL
--- NOTE | 2023-08-08 02:04 | XR ---
EXAM: XR Chest, 1 View CLINICAL HISTORY: ITS.REASON XR Reason: dyspnea TECHNIQUE: Frontal view of the chest. COMPARISON: No relevant prior studies available. FINDINGS: Lungs: Right lower lobe infiltrate. Pleural space: Unremarkable. No pneumothorax. Heart: Cardiomegaly. Mediastinum: Unremarkable. Normal mediastinal contour. Bones/joints: Unremarkable. No acute fracture. Soft tissues: Left chest wall encoded the . IMPRESSION: Right lower lobe pneumonia
--- NOTE | 2023-08-08 02:19 | ED ---
General Adult HPI - General Chief complaint: Shortness of Breath Stated complaint: NINFA Time Seen by Provider: 08/08/23 00:17 Source: patient, EMS, RN notes reviewed, old records reviewed Mode of arrival: EMS Limitations: no limitations - History of Present Illness Initial comments: Patient is an 82-year-old female who presents emergency department complaining of shortness of breath. Sudden onset today. Patient is a hemodialysis patient. Was a prior tobacco user. Has not missed any dialysis. Normally goes Thursday, , Thursday. Follows up with Dr. Antoine. Endorses no cough. Endorses increased work of breathing as well as shortness of breath. Still makes some mild amount of urine. Presents for further evaluation at this time. Denies chest pain, abdominal pain, nausea, vomiting. No known sick contacts. He is not on any inhalers at home. On last admission, they did find a small pericardial effusion present. - Related Data Home Medications Medication Instructions Recorded Confirmed Aspirin EC [Ecotrin Low Dose] 81 mg PO DAILY 01/17/23 07/29/23 Atorvastatin [Lipitor] 20 mg PO HS 01/17/23 07/29/23 Cholestyramine (with Sugar) 4 gm PO BID PRN 01/17/23 07/29/23 [Cholestyramine Packet] Fluticasone Nasal [place] [Flonase 1 - 2 spr EA NOSTRIL BID PRN 01/17/23 07/29/23 Nasal [place]] Levothyroxine Sodium [Synthroid] 50 mcg PO DAILY 01/17/23 07/29/23 Loratadine 10 mg PO DAILY 01/17/23 07/29/23 Oxybutynin Xl [Ditropan XL] 5 mg PO HS 01/17/23 07/29/23 Vits A,C,E/Lutein/Minerals 1 tab PO DAILY 01/17/23 07/29/23 [Ocuvite with Lutein Tablet] amLODIPine [Norvasc] 5 mg PO BID 01/17/23 07/29/23 Vitamin E (Dl,Tocopheryl Acet) 450 mg PO HS 07/22/23 07/29/23 [Vitamin E (1000 Iu = 450 MG)] allopurinoL [Zyloprim] 100 mg PO DAILY 07/22/23 07/29/23 carvediloL [Coreg*] 12.5 mg PO BID 07/22/23 07/29/23 Previous Rx's Medication Instructions Recorded Furosemide [Lasix] 80 mg PO BID #90 tab 07/27/23 hydrALAZINE HCL [Apresoline] 50 mg PO TID #90 tab 07/27/23 Allergies Allergy/AdvReac Type Severity Reaction Status Date / Time bacitracin Allergy Rash/Hives Verified 07/29/23 15:41 [From Neosporin ([id number])] levofloxacin [From Levaquin] Allergy Rash/Hives Verified 07/29/23 15:41 metronidazole [From Flagyl] Allergy Rash/Hives Verified 07/29/23 15:41 neomycin Allergy Rash/Hives Verified 07/29/23 15:41 [From Neosporin ([id number])] Penicillins Allergy Rash/Hives Verified 07/29/23 15:41 polymyxin B Allergy Rash/Hives Verified 07/29/23 15:41 [From Neosporin ([id number])] Review of Systems ROS Statement: Those systems with pertinent positive or pertinent negative responses have been documented in the HPI. Review of Systems: CONST: Denies fever EYES: Denies blurry vision ENT: Denies nasal congestion C/V: Denies Chest pain RESP: Endorses shortness of breath GI: Denies abdominal pain : Denies dysuria SKIN: Denies rash. MSK: Denies joint pain. NEURO: Denies headache ROS Other: All systems not noted in ROS Statement are negative. Past Medical History Past Medical History: Chest Pain / Angina, Dialysis, Hyperlipidemia, Hypertension, Renal Disease Additional Past Medical History / Comment(s): stage 4 renal. right arm fistula History of Any Multi-Drug Resistant Organisms: None Reported Past Surgical History: Appendectomy, Tubal Ligation Additional Past Surgical History / Comment(s): pacemaker Past Psychological History: No Psychological Hx Reported Smoking Status: Never smoker Past Alcohol Use History: None Reported Past Drug Use History: None Reported General Exam - General Exam Comments Initial Comments: General: Appears in mild to moderate respiratory distress. HEAD: Normal with no signs of head trauma. EYES: PERRLA, EOMI, conjunctiva normal, no discharge. ENT: Hearing grossly intact, normal oropharynx. RESPIRATORY: Diminished breath sounds with coarse breath sounds bilaterally. Increased work of breathing. Requiring supplemental oxygen. Baseline does not require oxygen. C/V: Regular rate and rhythm. S1 and S2 auscultated, extremity edema., peripheral pulses 2+ and intact throughout ABD: Abd is soft, nontender, nondistended EXT: Normal range of motion, no obvious deformity SKIN: No rashes or lesions observed on exposed skin. NEURO: Alert and oriented x 4. Limitations: no limitations Course Vital Signs 08/08/23 08/08/23 08/08/23 00:16 00:20 00:48 Temperature 98 F Pulse Rate 82 73 Respiratory 25 H 18 Rate Blood Pressure 170/72 171/61 O2 Sat by Pulse 100 99 Oximetry Fraction of 40 Inspired Oxygen (FIO2) 08/08/23 08/08/23 01:29 02:38 Temperature Pulse Rate 70 74 Respiratory 17 20 Rate Blood Pressure 169/63 165/62 O2 Sat by Pulse 99 96 Oximetry Fraction of Inspired Oxygen (FIO2) Medical Decision Making - Medical Decision Making Was pt. sent in by a medical professional or institution (, PA, CELL ROOM OPERATOR, urgent care, hospital, or long-term...) When possible be specific @ -No Did you speak to anyone other than the patient for history (EMS, parent, family, police, friend...)? What history was obtained from this source @ -No Did you review nursing and triage notes (agree or disagree)? Why? @ -I reviewed and agree with nursing and triage notes Were old charts reviewed (outside hosp., previous admission, EMS record, old EKG, old radiological studies, urgent care reports/EKG's, long-term records)? Report findings @ -Old charts reviewed Differential Diagnosis (chest pain, altered mental status, abdominal pain women, abdominal pain men, vaginal bleeding, weakness, fever, dyspnea, syncope, headach e, dizziness, GI bleed, back pain, seizure, CVA, palpatations, mental health, musculoskeletal)? @ -Differential Dyspnea: Coronary syndrome, arrhythmia, tamponade, asthma, COPD, pulmonary embolism, p neumonia, pneumothorax, pulmonary effusion, anaphylaxis, diabetic ketoacidosis, flailed chest, pulmonary contusion, diaphragmatic rupture, anemia, neuromuscular, this is not meant to be an all-inclusive list. EKG interpreted by me (3pts min.). @ -As above X-rays interpreted by me (1pt min.). @ -Chest x-ray shows bilateral pulmonary vascular congestion, CT interpreted by me (1pt min.). @ -None done U/S interpreted by me (1pt. min.). @ -None done What testing was considered but not performed or refused? (CT, X-rays, U/S, labs)? Why? @ -None What meds were considered but not given or refused? Why? @ -None Did you discuss the management of the patient with other professionals (professionals i.e. Dr., PA, CELL ROOM OPERATOR, lab, RT, psych nurse, addiction social worker, finisher merchant products, teacher, community cultural development officer, manager mountain)? Give summary @ -Discussed with nephrology Dr. Guerra who will arrange for dialysis and was i n agreement with waiting until morning. I spoke with admitting physician Dr. Sales who accepted the admission was in agreement the plan. Was smoking cessation discussed for >3mins.? @ -No Was critical care preformed (if so, how long)? @ -Yes, 35 minutes Were there social determinants of health that impacted care today? How? (Homelessness, low income, unemployed, alcoholism, drug addiction, tr ansportation, low edu. Level, literacy, decrease access to med. care, fci, rehab)? @ -No Was there de-escalation of care discussed even if they declined (Discuss DNR or withdrawal of care, Hospice)? DNR status @ -No What co-morbidities impacted this encounter? (DM, HTN, Smoking, COPD, CAD, Cancer, CVA, ARF, Chemo, Hep., AIDS, mental health diagnosis, sleep apnea, morbid obesity)? @ -ESRD on hemodialysis Was patient admitted / discharged? Hospital course, mention meds given and route, prescriptions, significant lab abnormalities, going to OR and other pertinent info. @ -Based on the patient's presentation and physical exam, patient presents emergency department with relatively sudden onset shortness of breath. Started today. Denies any significant coughing or productive sputum. Not missed dialysis. Concern is for COPD versus CHF. Initial confusion that she may have a history of COPD and therefore was empirically administered a breathing treatment as well as IV steroids while we were stabilized and patient on BiPAP however was found she has no history of this. Will obtain cardiopulmonary workup otherwise. She was in agreement this plan. Vital signs initially presented with significant tachypnea as well as hypoxia on nonrebreather. Seems to have been improved at this time. Remainder the vital signs within acceptable limits. Patient's labs remarkable for chronic anemia, hyponatremia and hypochloremia as well as hypokalemia. Patient's BNP is elevated to 20,000. Troponin remarkable. Viral swabs negative. Chest x-ray shows bilateral pulmonary vascular congestio n. Radiology interprets it as right lower lobe pneumonia however clinically patient prominent presents more as a volume overload state. Patient was updated regarding this. Patient empirically given a dose of Rocephin however low suspicion for pneumonia. She still makes some urine and will be given a dose of Lasix. Patient otherwise will be admitted on BiPAP. Pulmonology consulted regarding the BiPAP administration. Nephrology consulted and I spoke with Dr. Guerra he was in agreement that patient seems stable enough for dialysis in the morning. He will arrange for it. I spoke with the admitting physician, Dr. Sales who accepted the admission. Undiagnosed new problem with uncertain prognosis? @ -No Drug Therapy requiring intensive monitoring for toxicity (Heparin, Nitro, Insulin, Cardizem)? @ -No Were any procedures done? @ -No Diagnosis/symptom? @ -Hypoxic respiratory failure secondary to volume overload state on BiPAP, ESRD on hemodialysis Acute, or Chronic, or Acute on Chronic? @ -Acute Uncomplicated (without systemic symptoms) or Complicated (systemic symptoms)? @ -Complicated Side effects of treatment? @ -No Exacerbation, Progression, or Severe Exacerbation? @ -No Poses a threat to life or bodily function? How? (Chest pain, [place], [place], pneumonia, PE, COPD, DKA, ARF, appy, cholecystitis, CVA, Diverticulitis, Homicidal, Suicidal, threat to staff... and all critical care pts) @ -Yes - Lab Data Result diagrams: 08/08/23 00:48 08/08/23 00:48 Lab Results 08/08/23 08/08/23 08/08/23 Range/Units 00:48 00:48 00:48 WBC 9.5 (3.8-10.6) k/uL RBC 2.74 L (3.80-5.40) m/uL Hgb 8.9 L D (11.4-16.0) gm/dL Hct 26.2 L (34.0-46.0) % MCV 95.7 (80.0-100.0) fL MCH 32.5 (25.0-35.0) pg MCHC 33.9 (31.0-37.0) g/dL RDW 14.3 (11.5-15.5) % Plt Count 181 (150-450) k/uL MPV 10.1 Neutrophils % 70 % Lymphocytes % 16 % Monocytes % 7 % Eosinophils % 5 % Basophils % 0 % Neutrophils # 6.7 (1.3-7.7) k/uL Lymphocytes # 1.5 (1.0-4.8) k/uL Monocytes # 0.6 (0-1.0) k/uL Eosinophils # 0.5 (0-0.7) k/uL Basophils # 0.0 (0-0.2) k/uL PT 10.6 (10.0-12.5) sec INR 1.0 (<1.2) APTT 21.9 L (22.0-30.0) sec Sodium 122 L (137-145) mmol/L Potassium 3.1 L (3.5-5.1) mmol/L Chloride 88 L (98-107) mmol/L Carbon Dioxide 25 (22-30) mmol/L Anion Gap 9 mmol/L BUN 18 H (7-17) mg/dL Creatinine 2.36 H (0.52-1.04) mg/dL Est GFR (CKD-EPI)AfAm 21 (>60 ml/min/1.73 sqM) Est GFR (CKD-EPI)NonAf 19 (>60 ml/min/1.73 sqM) Glucose 278 H (74-99) mg/dL Calcium 8.2 L (8.4-10.2) mg/dL Total Bilirubin 1.1 (0.2-1.3) mg/dL AST 26 (14-36) U/L ALT 13 (4-34) U/L Alkaline Phosphatase 108 (38-126) U/L Troponin I (0.000-0.034) ng/mL NT-Pro-B Natriuret Pep 23522 pg/mL Total Protein 5.9 L (6.3-8.2) g/dL Albumin 3.5 (3.5-5.0) g/dL Influenza Type A (PCR) (Not Detectd) Influenza Type B (PCR) (Not Detectd) RSV (PCR) (Not Detectd) SARS-CoV-2 (PCR) (Not Detectd) 08/08/23 08/08/23 Range/Units 00:48 01:15 WBC (3.8-10.6) k/uL RBC (3.80-5.40) m/uL Hgb (11.4-16.0) gm/dL Hct (34.0-46.0) % MCV (80.0-100.0) fL MCH (25.0-35.0) pg MCHC (31.0-37.0) g/dL RDW (11.5-15.5) % Plt Count (150-450) k/uL MPV Neutrophils % % Lymphocytes % % Monocytes % % Eosinophils % % Basophils % % Neutrophils # (1.3-7.7) k/uL Lymphocytes # (1.0-4.8) k/uL Monocytes # (0-1.0) k/uL Eosinophils # (0-0.7) k/uL Basophils # (0-0.2) k/uL PT (10.0-12.5) sec INR (<1.2) APTT (22.0-30.0) sec Sodium (137-145) mmol/L Potassium (3.5-5.1) mmol/L Chloride (98-107) mmol/L Carbon Dioxide (22-30) mmol/L Anion Gap mmol/L BUN (7-17) mg/dL Creatinine (0.52-1.04) mg/dL Est GFR (CKD-EPI)AfAm (>60 ml/min/1.73 sqM) Est GFR (CKD-EPI)NonAf (>60 ml/min/1.73 sqM) Glucose (74-99) mg/dL Calcium (8.4-10.2) mg/dL Total Bilirubin (0.2-1.3) mg/dL AST (14-36) U/L ALT (4-34) U/L Alkaline Phosphatase (38-126) U/L Troponin I 0.030 (0.000-0.034) ng/mL NT-Pro-B Natriuret Pep pg/mL Total Protein (6.3-8.2) g/dL Albumin (3.5-5.0) g/dL Influenza Type A (PCR) Not Detected (Not Detectd) Influenza Type B (PCR) Not Detected (Not Detectd) RSV (PCR) Not Detected (Not Detectd) SARS-CoV-2 (PCR) Not Detected (Not Detectd) - EKG Data -: EKG Interpreted by Me EKG Comments: 12-lead Electrocardiogram Interpretation Note EKG was reviewed and interpreted by myself. 12-lead ECG performed at 0008 is interpreted by me as revealing paced rhythm at a rate of 80 beats per minute. Left axis deviation. QRS durations 146 ms, QTc is 495 ms.. There were no ST or T wave abnormalities to suggest myocardial ischemia or injury. R wave progression across the precordium was satisfactory. By my interpretation this EKG is non-diagnostic for acute ischemia. Critical Care Time Critical Care Time: Yes Total Critical Care Time: 35 Disposition Clinical Impression: Volume overload, Hypoxic respiratory failure, BiPAP (biphasic positive airway pressure) dependence, ESRD on dialysis Disposition: ADMITTED IP TO THIS [facility] Condition: Stable Time of Disposition: 02:10
[2023-08-08] MEDS ORDERED: NALOXONE 0.4 MG/ML 1 ML VIAL IV PRN ×2 (02:22→02:23)
[2023-08-08] MEDS ORDERED: ONDANSETRON 4 MG/2 ML VIAL IVP PRN (02:23)
[2023-08-08] MEDS: FUROSEMIDE 10 MG/ML 4 ML VIAL IV STA (02:41)
--- NOTE | 2023-08-08 05:59 | P.HPIM ---
History of Present Illness H&P Date: 08/08/23 Chief Complaint: Difficulty breathing 82-year-old female with end-stage renal disease on hemodialysis Thursday and Thursday Patient unable to provide any meaningful history she is currently on BiPAP and sleepy history obtained by reviewing medical record and discussing the case with the ER doctor and the nursing staff Seems like patient came into the hospital complaining of shortness of breath for a week now which got worse today. Patient is a hemodialysis patient on TTS right AV fistula. Her main concern was increased work of breathing and shortness of breath she also reports some fevers at home and mild cough. Denies any bleeding denies any hemoptysis denies any nausea vomiting No further history obtainable at this time unknown if patient ever had blood clots unknown if she had any sick contacts review of systems Pertinent positives as noted in HPI. All other systems were reviewed and are negative on exam Constitutional: No acute distress, currently on BiPAP and sleeping easily arousable Eyes: Anicteric sclerae, moist conjunctiva, Pupils equal round reactive to light ENMT: NC/AT Oropharynx clear, no erythema, or exudates Neck: Supple, no masses, or JVD No carotid bruits No thyromegaly Lungs: Clear to auscultation Clear to percussion Normal respiratory effort, no accessory muscle use Cardiovascular: Heart regular in rate and rhythm, No murmurs, gallops, or rubs No peripheral edema Abdominal: Soft Nontender, no guarding, rebound or rigidity Abdomen moving with respiration Normoactive bowel sounds No hepatomegaly, No splenomegaly No palpable mass No abdominal wall hernia noted Extremities: No digital cyanosis No clubbing Pedal pulses intact and symmetrical Radial pulses intact and symmetrical No calf tenderness Psychiatric: Alert and oriented to person, place Neuro Muscles Strength 3/5 in bilateral lower extremities 4 out of 5 in bilateral upper extremities Sensation to light touch grossly present throughout Cranial nerves II-XII grossly intact Past Medical History Past Medical History: Chest Pain / Angina, Dialysis, Hyperlipidemia, Hypertension, Renal Disease Additional Past Medical History / Comment(s): stage 4 renal. right arm fistula History of Any Multi-Drug Resistant Organisms: None Reported Past Surgical History: Appendectomy, Tubal Ligation Additional Past Surgical History / Comment(s): pacemaker Past Psychological History: No Psychological Hx Reported Smoking Status: Never smoker Past Alcohol Use History: None Reported Past Drug Use History: None Reported Medications and Allergies Home Medications Medication Instructions Recorded Confirmed Type Aspirin EC [Ecotrin Low Dose] 81 mg PO DAILY 01/17/23 07/29/23 History Atorvastatin [Lipitor] 20 mg PO HS 01/17/23 07/29/23 History Cholestyramine (with Sugar) 4 gm PO BID PRN 01/17/23 07/29/23 History [Cholestyramine Packet] Fluticasone Nasal [place] [Flonase 1 - 2 spr EA NOSTRIL BID PRN 01/17/23 07/29/23 History Nasal [place]] Levothyroxine Sodium [Synthroid] 50 mcg PO DAILY 01/17/23 07/29/23 History Loratadine 10 mg PO DAILY 01/17/23 07/29/23 History Oxybutynin Xl [Ditropan XL] 5 mg PO HS 01/17/23 07/29/23 History Vits A,C,E/Lutein/Minerals 1 tab PO DAILY 01/17/23 07/29/23 History [Ocuvite with Lutein Tablet] amLODIPine [Norvasc] 5 mg PO BID 01/17/23 07/29/23 History Vitamin E (Dl,Tocopheryl Acet) 450 mg PO HS 07/22/23 07/29/23 History [Vitamin E (1000 Iu = 450 MG)] allopurinoL [Zyloprim] 100 mg PO DAILY 07/22/23 07/29/23 History carvediloL [Coreg*] 12.5 mg PO BID 07/22/23 07/29/23 History Furosemide [Lasix] 80 mg PO BID #90 tab 07/27/23 07/29/23 Rx hydrALAZINE HCL [Apresoline] 50 mg PO TID #90 tab 07/27/23 07/29/23 Rx Allergies Allergy/AdvReac Type Severity Reaction Status Date / Time bacitracin Allergy Rash/Hives Verified 07/29/23 15:41 [From Neosporin ([id number])] levofloxacin [From Levaquin] Allergy Rash/Hives Verified 07/29/23 15:41 metronidazole [From Flagyl] Allergy Rash/Hives Verified 07/29/23 15:41 neomycin Allergy Rash/Hives Verified 07/29/23 15:41 [From Neosporin ([id number])] Penicillins Allergy Rash/Hives Verified 07/29/23 15:41 polymyxin B Allergy Rash/Hives Verified 07/29/23 15:41 [From Neosporin ([id number])] Physical Exam Vitals: Vital Signs Temp Pulse Pulse Resp BP BP Pulse Ox 08/08/23 04:00 97.7 F 78 22 169/62 98 08/08/23 03:58 08/08/23 02:38 74 20 165/62 96 08/08/23 01:29 70 17 169/63 99 08/08/23 00:48 73 18 171/61 99 08/08/23 00:20 08/08/23 00:16 98 F 82 25 H 170/72 100 FiO2 08/08/23 04:00 08/08/23 03:58 40 08/08/23 02:38 08/08/23 01:29 08/08/23 00:48 08/08/23 00:20 40 08/08/23 00:16 Intake and Output 08/07/23 08/07/23 08/08/23 14:59 22:59 06:59 Other: Weight 63.503 kg Results CBC & Chem 7: 08/08/23 00:48 08/08/23 00:48 Labs: Abnormal Lab Results - Last 24 Hours (Table) 08/08/23 08/08/23 08/08/23 Range/Units 00:48 00:48 00:48 RBC 2.74 L (3.80-5.40) m/uL Hgb 8.9 L D (11.4-16.0) gm/dL Hct 26.2 L (34.0-46.0) % APTT 21.9 L (22.0-30.0) sec Sodium 122 L (137-145) mmol/L Potassium 3.1 L (3.5-5.1) mmol/L Chloride 88 L (98-107) mmol/L BUN 18 H (7-17) mg/dL Creatinine 2.36 H (0.52-1.04) mg/dL Glucose 278 H (74-99) mg/dL Calcium 8.2 L (8.4-10.2) mg/dL Total Protein 5.9 L (6.3-8.2) g/dL Thrombosis Risk Factor Assmnt - Choose All That Apply Any of the Below Risk Factors Present?: No Other Risk Factors: Yes Each Risk Factor Represents 3 Points: Age 75 years or older Other congenital or acquired thrombophilia - If yes, enter type in comment: No Thrombosis Risk Factor Assessment Total Risk Factor Score: 3 Thrombosis Risk Factor Assessment Level: Moderate Risk Assessment and Plan Assessment: 82-year-old female with end-stage renal disease on hemodialysis TTS through right AV fistula coming in due to worsening shortness of breath associated with fever and cough I discussed case with ED doctor accepted the admission for suspected right lower lobe pneumonia with anticipated length of stay more than 2 midnights Acute hypoxic respiratory failure currently on BiPAP Continue with BiPAP support Monitor vital signs Adjust settings to comfort Suspected community-acquired pneumonia Chest x-ray showed right lower lobe pneumonia White count 9.5 unremarkable patient afebrile while in the hospital Continue with Rocephin 2 g IV piggyback daily Azithromycin 500 mg p.o. daily Tylenol for fever as needed DuoNebs as needed 4 times daily Hemoglobin 8.9 chronic anemia secondary to end-stage renal disease Denies any GI bleeding Continue to monitor End-stage renal disease on hemodialysis TTS For right AV fistula Consult nephrology Hyponatremia continue gentle IV fluid hydration normal saline. Currently sodium 122 potassium 3.1 BUN 18 creatinine 2.36 Acute respiratory viral panel negative for COVID influenza and RSV Continue cardiac meds aspirin, amlodipine, statin, Coreg Full code DVT prophylaxis heparin subcu 3 times daily
[2023-08-08] MEDS: carvediloL 12.5 MG TAB PO SCH (06:35)
[2023-08-08] MEDS: AZITHROMYCIN 500 MG TAB PO SCH (09:28)
[2023-08-08] MEDS: ASPIRIN 81 MG PO SCH (09:28)
[2023-08-08] MEDS: amLODIPine 5 MG TAB PO SCH (09:28)
[2023-08-08] MEDS: FUROSEMIDE 10 MG/ML 4 ML VIAL IV SCH (09:29)
[2023-08-08] MEDS: HEPARIN SODIUM,PORCINE 5,000 UNIT/ML 1 ML VIAL SQ SCH (09:29)
[2023-08-08] MEDS: POTASSIUM CHLORIDE 10 MEQ in WATER FOR INJECTION 1 100ML.BAG IVPB SCH (09:40)
[2023-08-08 11:20] LABS: African American GFR (CKD) 18 (>60 ml/min/1.73 sqM); Anion Gap 10 mmol/L; Blood Urea Nitrogen 24 mg/dL (7-17); Calcium 8.6 mg/dL (8.4-10.2); Carbon Dioxide 26 mmol/L (22-30); Chloride 90 mmol/L (98-107); Glucose 235 mg/dL (74-99); Non-African American GFR(CKD) 16 (>60 ml/min/1.73 sqM); Potassium 3.4 mmol/L (3.5-5.1); Sodium 126 mmol/L (137-145)
[2023-08-08 13:20] VITALS: BMI 23.6
[2023-08-08] MEDS ORDERED: IPRATROPIUM-ALBUTEROL 3 ML NEB INHALATION PRN (13:36)
--- NOTE | 2023-08-08 13:52 | P.PN ---
Subjective Progress Note Date: 08/08/23 Hospital course: Patient is a very pleasant 82-year-old female with a past medical history of ESRD on dialysis Thursday//Thursday's, CAD status post pacemaker placement, chronic diastolic heart failure, hypertension, hyperlipidemia, and hypothyroidism. She presented to the emergency department on 08/08/2023 with a chief complaint of shortness of breath progressively worsening. Upon arrival to the emergency department patient underwent full evaluation. She was found to be in acute respiratory distress with respiratory rate 25 and requiring supplemental oxygen with a nonrebreather. Temp is 98.0 F, heart rate was 82, and blood pressure was 170/72. EKG was completed showing a ventricular paced rhythm. Chest x-ray completed showing right lower lobe infiltrate consistent with right lower lobe pneumonia. Labs completed and reviewed. CBC showing normocytic anemia with hemoglobin of 8.9. BMP revealing hyponatremia with sodium of 122, hypokalemia with potassium of 3.1, hypochloremia with chloride of 88, and renal function consistent with ESRD with BUN of 18, creatinine 2.36, and GFR of 19. Liver profile unremarkable. Troponin 0.030 and proBNP elevated at 20,800. Influenza A, influenza B, RSV, and COVID PCR were all negative. Patient later requiring placement on BiPAP. She was started on treatment for community-acquired pneumonia with azithromycin and Rocephin. She was admitted under our services with consultation to nephrology and pulmonology. Physical exam: Patient seen and fully evaluated at bedside this morning. Patient was initially requiring continuous BiPAP she has since been weaned off of BiPAP and is maintaining SpO2 in the 90's on 6 L O2 via nasal cannula. She reports that she feels as though she is breathing somewhat better but states she is unable to lie flat and continues with significant shortness of breath with movement. She denies having any headache, lightheadedness, dizziness, chest pain, palpitations, or experiencing any numbness/tingling/weakness in her extremities. Patient has large bruise to right arm, states has been there greater than 2 weeks after she underwent her initial hemodialysis session but has not had any difficulties further bruising since initial treatment. Vital signs reviewed and stable. General: Nontoxic, no distress and appears stated age. Derm: Skin warm and dry, normal coloration for ethnicity. Patient with large area of bruising covering right arm. Head: Atraumatic, normocephalic and symmetric. Eyes: EOMs intact, no lid lag, and anicteric sclera Mouth: no lip lesions, mucus membranes moist Cardiovascular: regular rate and rhythm with normal S1S2, no murmur, positive posterior tibial pulses bilaterally, and cap refill < 2 seconds. AV fistula right upper extremity with bruit and thrill intact. Lungs: Respirations even, regular, and unlabored on room air. Lungs CTA chandler aterally, no rhonchi, no rales, no wheezing, and no accessory muscle usage. Abdominal: soft, nontender to palpation, no guarding, no appreciable organomegaly Ext: ROM intact. No gross muscle atrophy, 1+ bilateral lower extremity edema, no contractures Neuro: Speech clear, face symmetrical and CN II-XII grossly intact with no noted focal neuro deficits Psych: Alert and oriented to person, place, time, and situation. Appropriate and pleasant affect. Assessment and Plan of Care: 82-year-old female with end-stage renal disease on hemodialysis Thursday//Saturdays, presented to the emergency department with a chief complaint of worsening shortness of breath associated with fever and cough and initially requiring placement on continuous BiPAP. Patient was found to have right lower lobe pneumonia and fluid volume overload. Acute hypoxic respiratory failure Community acquired pneumonia, right lower lobe HFpEF ESRD on hemodialysis -Chest x-ray positive for right lower lobe pneumonia -Acute respiratory viral panel negative for COVID influenza and RSV -Oxygenation to be administered and titrated as needed to maintain SPO2 equal to or greater than 90%. Patient initially requiring continuous BiPAP and is now on 6 L O2 via NC. -Telemetry monitoring. -Monitor pulse-oximetry -Duonebs scheduled 4 times daily and as needed for SOB and/or wheezing -Incentive Spirometry -Diuretics: Lasix 40 mg IVP every 12 hours -Antibiotics: Rocephin 2 g IVPB every 24 hours and azithromycin 500 mg daily -Sputum culture, Legionella antigen -Pulmonology following, reviewed documentation in chart. -Nephrology following managing dialysis. Hyponatremia, secondary to fluid volume overload -Continue with Lasix 40 mg IVP twice daily along with scheduled dialysis -Monitor BMP closely with repeat BMP every 6 hours. -Hyponatremia is believed to be the result of dilution secondary to fluid volume overload and should improve with IV diuresis. Anemia of chronic disease, secondary to end-stage renal disease -Denies any GI bleeding, will place patient on PPI prophylaxis with Protonix. -Hemoglobin stable at 8.9, no need for transfusion or further intervention at this time. Will continue to monitor with repeat morning CBC. History of CAD status post pacemaker placement Hypertension Hyperlipidemia Continue daily medication regimen with aspirin 81 mg daily, amlodipine 5 mg twice daily, atorvastatin 20 mg nightly, carvedilol 12.5 mg twice daily, hydralazine 50 mg twice daily, and losartan 25 mg daily. Hypothyroidism Continue daily medication regimen with levothyroxine 50 mcg daily. CODE STATUS: Full code DVT prophylaxis: Heparin Anticipated discharge date: Clinical course to determine Anticipated discharge place: Clinical course to determine Patient was seen independently by Nurse Pracitioner. This document was prepared using [employer] dictation software. Please allow for errors in orthopedic nurse, while rare they do occur. This patient was seen independently by Gloria HAWLEY. I agree with the assessment and plan done by my colleague. Objective - Vital Signs Vital signs: Vital Signs Temp 97.7 F 08/08/23 04:00 Pulse 78 08/08/23 04:00 Resp 22 08/08/23 04:00 BP 169/62 08/08/23 04:00 Pulse Ox 98 08/08/23 04:00 FiO2 40 08/08/23 08:03 Intake & Output 08/07/23 08/08/23 08/08/23 18:59 06:59 18:59 Output Total 0 Balance 0 Weight 62.5 kg Output: Urine 0 - Labs CBC & Chem 7: 08/09/23 04:18 08/09/23 07:57 Labs: Abnormal Lab Results - Last 24 Hours (Table) 08/08/23 08/08/23 08/08/23 Range/Units 00:48 00:48 00:48 RBC 2.74 L (3.80-5.40) m/uL Hgb 8.9 L D (11.4-16.0) gm/dL Hct 26.2 L (34.0-46.0) % APTT 21.9 L (22.0-30.0) sec Sodium 122 L (137-145) mmol/L Potassium 3.1 L (3.5-5.1) mmol/L Chloride 88 L (98-107) mmol/L BUN 18 H (7-17) mg/dL Creatinine 2.36 H (0.52-1.04) mg/dL Glucose 278 H (74-99) mg/dL Calcium 8.2 L (8.4-10.2) mg/dL Total Protein 5.9 L (6.3-8.2) g/dL
[2023-08-08 14:21] LABS: Potassium 3.9 mmol/L (3.5-5.1)
[2023-08-08 14:22] LABS: African American GFR (CKD) 19 (>60 ml/min/1.73 sqM); Anion Gap 13 mmol/L; Blood Urea Nitrogen 26 mg/dL (7-17); Calcium 8.5 mg/dL (8.4-10.2); Carbon Dioxide 23 mmol/L (22-30); Chloride 90 mmol/L (98-107); Glucose 253 mg/dL (74-99); Non-African American GFR(CKD) 16 (>60 ml/min/1.73 sqM); Sodium 126 mmol/L (137-145)
--- NOTE | 2023-08-08 14:28 | P.CNPUL ---
History of Present Illness Consult date: 08/08/23 Requesting physician: Cullen Sales Reason for consult: other (Pulmonary edema shortness of breath) Chief complaint: Shortness of History of present illness: This is an 82-year-old female with history of end-stage renal disease, on hemodialysis, patient has been very compliant with her hemodialysis. However over the last 1 week, patient has been complaining of increased shortness of breath, nonproductive cough, but no fever, no chills, no hemoptysis, no chest pain. Patient was evaluated in the ER, and her chest x-ray is showing evidence of interstitial edema, underlying right lower lobe pneumonia is not entirely ruled out, suspicious for increased infiltrate in the right lower lobe hence patient was admitted, and this consult was initiated upon admission the patient did not have any leukocytosis WBC count was 9.5, hemoglobin 8.9. Her sodium however was noted to be low at 122, and follow-up sodium later this morning is 126. Her BUN is 24 creatinine 2.66 screening for influenza A, influenza B, RSV and COVID-19 were all negative. Patient had a elevated BNP level of 20,800, p rocalcitonin level is pending. Patient did receive Lasix however it is not clear whether the patient makes a significant amount of urine on a daily basis. According to her she does make some urine. And she is not anuric Review of Systems REVIEW OF SYSTEMS: CONSTITUTIONAL: Generalized weakness and fatigue. EYES: Negative. ENT: Negative. CARDIAC: Shortness of breath PULMONARY: Shortness of breath and cough as noted in HPI GI: Negative. GENITOURINARY: Negative. MUSCULOSKELETAL: Negative. SKIN: Negative. NEUROPSYCH: Negative. ENDOCRINE: Negative. HEMATOLOGIC: Negative. Past Medical History Past Medical History: Chest Pain / Angina, Dialysis, Hyperlipidemia, Hypertension, Renal Disease Additional Past Medical History / Comment(s): stage 4 renal. right arm fistula History of Any Multi-Drug Resistant Organisms: None Reported Past Surgical History: Appendectomy, Tubal Ligation Additional Past Surgical History / Comment(s): pacemaker Past Psychological History: No Psychological Hx Reported Smoking Status: Never smoker Past Alcohol Use History: None Reported Past Drug Use History: None Reported Medications and Allergies Home Medications Medication Instructions Recorded Confirmed Type Aspirin EC [Ecotrin Low Dose] 81 mg PO DAILY 01/17/23 08/08/23 History Atorvastatin [Lipitor] 20 mg PO HS 01/17/23 08/08/23 History Cholestyramine (with Sugar) 4 gm PO BID PRN 01/17/23 08/08/23 History [Cholestyramine Packet] Fluticasone Nasal [place] [Flonase 1 - 2 spr EA NOSTRIL BID PRN 01/17/23 08/08/23 History Nasal [place]] Levothyroxine Sodium [Synthroid] 50 mcg PO DAILY 01/17/23 08/08/23 History Loratadine 10 mg PO DAILY 01/17/23 08/08/23 History Oxybutynin Xl [Ditropan XL] 5 mg PO HS 01/17/23 08/08/23 History Vits A,C,E/Lutein/Minerals 1 tab PO DAILY 01/17/23 08/08/23 History [Ocuvite with Lutein Tablet] amLODIPine [Norvasc] 5 mg PO BID 01/17/23 08/08/23 History Vitamin E (Dl,Tocopheryl Acet) 450 mg PO HS 07/22/23 08/08/23 History [Vitamin E (1000 Iu = 450 MG)] allopurinoL [Zyloprim] 100 mg PO DAILY 07/22/23 08/08/23 History carvediloL [Coreg*] 12.5 mg PO BID 07/22/23 08/08/23 History Furosemide [Lasix] 40 mg PO BID 08/08/23 08/08/23 History Losartan [Cozaar] 25 mg PO DIRECTED 08/08/23 08/08/23 History hydrALAZINE HCL [Apresoline] 50 mg PO BID 08/08/23 08/08/23 History Allergies Allergy/AdvReac Type Severity Reaction Status Date / Time bacitracin Allergy Rash/Hives Verified 08/08/23 11:09 [From Neosporin ([id number])] levofloxacin [From Levaquin] Allergy Rash/Hives Verified 08/08/23 11:09 metronidazole [From Flagyl] Allergy Rash/Hives Verified 08/08/23 11:09 neomycin Allergy Rash/Hives Verified 08/08/23 11:09 [From Neosporin ([id number])] Penicillins Allergy Rash/Hives Verified 08/08/23 11:09 polymyxin B Allergy Rash/Hives Verified 08/08/23 11:09 [From Neosporin ([id number])] Physical Exam Vitals: Vital Signs Temp Pulse Pulse Resp BP BP Pulse Ox 08/08/23 08:35 98.2 F 78 19 161/70 96 08/08/23 08:03 08/08/23 04:00 97.7 F 78 22 169/62 98 08/08/23 03:58 08/08/23 02:38 74 20 165/62 96 08/08/23 01:29 70 17 169/63 99 08/08/23 00:48 73 18 171/61 99 08/08/23 00:20 08/08/23 00:16 98 F 82 25 H 170/72 100 FiO2 08/08/23 08:35 08/08/23 08:03 40 08/08/23 04:00 08/08/23 03:58 40 08/08/23 02:38 08/08/23 01:29 08/08/23 00:48 08/08/23 00:20 40 08/08/23 00:16 Intake and Output 08/07/23 08/08/23 08/08/23 22:59 06:59 14:59 Intake Total 240 Output Total 0 Balance 0 240 Intake: Oral 240 Output: Urine 0 Other: Weight 62.5 kg 62.5 kg General: The patient is awake and alert, in no distress, and does not appear acutely ill. Patient is on 4 L nasal cannula, O2 saturation 96% Skin: Skin is warm and dry and no rashes or lesions are noted. Eye: Pupils are equal, round and reactive to light, extra-ocular movements are intact; there is normal conjunctiva bilaterally. Ears, nose, mouth and throat: There are moist mucous membranes and no oral lesions. Neck: The neck is supple, there is no tenderness or JVD. Cardiovascular: There is a regular rate and rhythm. No murmur, rub or gallop is appreciated. Respiratory: Crackles at the bases noted bilaterally no rhonchi no wheezes. Gastrointestinal: Soft, non-distended, non-tender abdomen without masses or organomegaly noted. There is no rebound or guarding present. Bowel sounds are unremarkable. Back: There is no tenderness to palpation in the midline. There is no obvious deformity. Musculoskeletal: Normal ROM, no tenderness, There is no pedal edema. There is no calf tenderness or swelling. No cords were appreciated. Neurological: CN II-XII intact, Cranial nerves III through XII are intact. There are no obvious motor or sensory deficits. Coordination appears grossly intact. Speech is normal. Psychiatric: Cooperative, appropriate mood & affect, normal judgment. Results - Laboratory Findings CBC and BMP: 08/08/23 00:48 08/08/23 10:04 PT/INR, D-dimer PT 10.6 sec (10.0-12.5) 08/08/23 00:48 INR 1.0 (<1.2) 08/08/23 00:48 Abnormal lab findings: Abnormal Labs 08/08/23 08/08/23 08/08/23 00:48 00:48 00:48 RBC 2.74 L Hgb 8.9 L D Hct 26.2 L APTT 21.9 L Sodium 122 L Potassium 3.1 L Chloride 88 L BUN 18 H Creatinine 2.36 H Glucose 278 H Calcium 8.2 L Total Protein 5.9 L 08/08/23 10:04 RBC Hgb Hct APTT Sodium 126 L Potassium 3.4 L Chloride 90 L BUN 24 H Creatinine 2.66 H Glucose 235 H Calcium Total Protein - Diagnostic Findings Chest x-ray: image reviewed (As noted in HPI.) Assessment and Plan Assessment: Impression: Acute hypoxic respiratory failure secondary to pulmonary edema, fluid overload, possible underlying right lower lobe/superimposed pneumonia. History of chronic kidney disease, on hemodialysis. Chronic iron deficiency anemia. This is related to end-stage renal disease Hyponatremia, I believe the hyponatremia is hypervolemic in nature, and the patient would likely benefit from fluid restrictions History of pulmonary hypertension History of chronic diastolic congestive heart failure based on previous x-rays of the chest. Recommendation: Continue present supportive care measures Continue Rocephin and Zithromax however if procalcitonin level is normal these will need to be discontinued. Continue Lasix assuming the patient does respond and does make urine Nephrology to evaluate for hemodialysis. Fluid restriction. Continue DuoNeb as needed. Previous echocardiogram was reviewed in this patient, patient has preserved LV function based on previous echocardiogram from 07/23/2023 Will continue to follow Time with Patient: Greater than 30
[2023-08-08] MEDS: IPRATROPIUM-ALBUTEROL 3 ML NEB INHALATION SCH (14:48)
[2023-08-08] MEDS: LOSARTAN 25 MG TAB PO SCH (16:41)
--- NOTE | 2023-08-08 19:56 | P.NPCON ---
History of Present Illness - Reason for Consult Consult date: 08/08/23 - History of Present Illness This is an 82-year-old female with history of end-stage renal disease, on hemodialysis, patient has been very compliant with her hemodialysis. However over the last 1 week, patient has been complaining of increased shortness of breath, nonproductive cough, but no fever, no chills, no hemoptysis, no chest pain. Patient was evaluated in the ER, and her chest x-ray is showing evidence of interstitial edema, underlying right lower lobe pneumonia is not entirely ruled out. She was started on Bipap in ED and transitioned to nasal cannula. On exam today remains short of breath but improved. Toelrating HD without issues and has not missed any HD sessions. Vital signs are stable. General: No acute distress. HEENT: Head exam is unremarkable. On nasal cannula. LUNGS: No audible rhonchi or wheezes. HEART: Rate and Rhythm are regular. RUE AVF with palpable thrill ABDOMEN: Nontender. EXTREMITITES: No edema. Past Medical History Past Medical History: Chest Pain / Angina, Dialysis, Hyperlipidemia, Hypertension, Renal Disease Additional Past Medical History / Comment(s): stage 4 renal. right arm fistula History of Any Multi-Drug Resistant Organisms: None Reported Past Surgical History: Appendectomy, Tubal Ligation Additional Past Surgical History / Comment(s): pacemaker Past Psychological History: No Psychological Hx Reported Smoking Status: Never smoker Past Alcohol Use History: None Reported Past Drug Use History: None Reported Medications and Allergies Home Medications Medication Instructions Recorded Confirmed Type Aspirin EC [Ecotrin Low Dose] 81 mg PO DAILY 01/17/23 08/08/23 History Atorvastatin [Lipitor] 20 mg PO HS 01/17/23 08/08/23 History Cholestyramine (with Sugar) 4 gm PO BID PRN 01/17/23 08/08/23 History [Cholestyramine Packet] Fluticasone Nasal [place] [Flonase 1 - 2 spr EA NOSTRIL BID PRN 01/17/23 08/08/23 History Nasal [place]] Levothyroxine Sodium [Synthroid] 50 mcg PO DAILY 01/17/23 08/08/23 History Loratadine 10 mg PO DAILY 01/17/23 08/08/23 History Oxybutynin Xl [Ditropan XL] 5 mg PO 01/17/23 08/08/23 History Vits A,C,E/Lutein/Minerals 1 tab PO DAILY 01/17/23 08/08/23 History [Ocuvite with Lutein Tablet] amLODIPine [Norvasc] 5 mg PO BID 01/17/23 08/08/23 History Vitamin E (Dl,Tocopheryl Acet) 450 mg PO HS 07/22/23 08/08/23 History [Vitamin E (1000 Iu = 450 MG)] allopurinoL [Zyloprim] 100 mg PO DAILY 07/22/23 08/08/23 History carvediloL [Coreg*] 12.5 mg PO BID 07/22/23 08/08/23 History Furosemide [Lasix] 40 mg PO BID 08/08/23 08/08/23 History Losartan [Cozaar] 25 mg PO DIRECTED 08/08/23 08/08/23 History hydrALAZINE HCL [Apresoline] 50 mg PO BID 08/08/23 08/08/23 History Allergies Allergy/AdvReac Type Severity Reaction Status Date / Time bacitracin Allergy Rash/Hives Verified 08/08/23 11:09 [From Neosporin ([id number])] levofloxacin [From Levaquin] Allergy Rash/Hives Verified 08/08/23 11:09 metronidazole [From Flagyl] Allergy Rash/Hives Verified 08/08/23 11:09 neomycin Allergy Rash/Hives Verified 08/08/23 11:09 [From Neosporin ([id number])] Penicillins Allergy Rash/Hives Verified 08/08/23 11:09 polymyxin B Allergy Rash/Hives Verified 08/08/23 11:09 [From Neosporin ([id number])] Physical Exam Vitals: Vital Signs Temp Pulse Pulse Resp BP BP Pulse Ox 08/08/23 08:35 98.2 F 78 19 161/70 96 08/08/23 08:03 08/08/23 04:00 97.7 F 78 22 169/62 98 08/08/23 03:58 08/08/23 02:38 74 20 165/62 96 08/08/23 01:29 70 17 169/63 99 08/08/23 00:48 73 18 171/61 99 08/08/23 00:20 08/08/23 00:16 98 F 82 25 H 170/72 100 FiO2 08/08/23 08:35 08/08/23 08:03 40 08/08/23 04:00 08/08/23 03:58 40 08/08/23 02:38 08/08/23 01:29 08/08/23 00:48 08/08/23 00:20 40 08/08/23 00:16 Intake and Output 08/07/23 08/08/23 08/08/23 22:59 06:59 14:59 Intake Total 240 Output Total 0 Balance 0 240 Intake: Oral 240 Output: Urine 0 Other: Weight 62.5 kg Results - Lab Results Most recent lab results Calcium 8.2 mg/dL (8.4-10.2) L 08/08/23 00:48 08/08/23 00:48 08/08/23 12:40 Assessment and Plan Plan: Assessment: 1. ESRD on HD TTS, access RUE AVF. Left kidney absent. 2. Pneumonia with Hypoxia 3. Hypertension with chronic kidney disease. 4. Anemia with ESRD 5. MBD with ESRD Plan: Seen on HD today, continue TTS schedule Continue antibiotics Pulmonology following, off Bipap. Continue home BP medications.
[2023-08-08] MEDS: OXYBUTYNIN XL 5 MG TAB.ER.24 PO SCH (20:43)
[2023-08-08] MEDS: hydrALAZINE HCL 50 MG TAB PO SCH (20:44)
[2023-08-08] MEDS: ATORVASTATIN 20 MG TAB PO SCH (20:44)
[2023-08-08 21:45] LABS: African American GFR (CKD) 35 (>60 ml/min/1.73 sqM); Anion Gap 3 mmol/L; Blood Urea Nitrogen 14 mg/dL (7-17); Calcium 8.2 mg/dL (8.4-10.2); Carbon Dioxide 31 mmol/L (22-30); Chloride 98 mmol/L (98-107); Glucose 184 mg/dL (74-99); Non-African American GFR(CKD) 31 (>60 ml/min/1.73 sqM); Potassium 3.8 mmol/L (3.5-5.1); Sodium 132 mmol/L (137-145)
[2023-08-09 04:40] LABS: Basophils % (A) 0 %; Eosinophils % (A) 0 %; HCT 23.7 % (34.0-46.0); HGB 7.9 gm/dL (11.4-16.0); Lymphocytes # (A) 1.1 k/uL (1.0-4.8); Lymphocytes % (A) 12 %; MCH 32.3 pg (25.0-35.0); MCHC 33.4 g/dL (31.0-37.0); MCV 96.8 fL (80.0-100.0); Mean Platelet Volume 9.3; Monocytes # (A) 0.5 k/uL (0-1.0); Monocytes % (A) 6 %; Neutrophils # (A) 7.4 k/uL (1.3-7.7); Neutrophils % (A) 81 %; Platelet Count 183 k/uL (150-450); RBC 2.45 m/uL (3.80-5.40); RDW 14.9 % (11.5-15.5); WBC 9.1 k/uL (3.8-10.6)
[2023-08-09 04:52] LABS: African American GFR (CKD) 27 (>60 ml/min/1.73 sqM); Anion Gap 5 mmol/L; Blood Urea Nitrogen 19 mg/dL (7-17); Calcium 8.4 mg/dL (8.4-10.2); Carbon Dioxide 29 mmol/L (22-30); Chloride 99 mmol/L (98-107); Glucose 109 mg/dL (74-99); Non-African American GFR(CKD) 23 (>60 ml/min/1.73 sqM); Potassium 3.9 mmol/L (3.5-5.1); Sodium 133 mmol/L (137-145)
[2023-08-09 08:53] LABS: African American GFR (CKD) 25 (>60 ml/min/1.73 sqM); Anion Gap 6 mmol/L; Blood Urea Nitrogen 22 mg/dL (7-17); Calcium 8.5 mg/dL (8.4-10.2); Carbon Dioxide 29 mmol/L (22-30); Chloride 98 mmol/L (98-107); Glucose 149 mg/dL (74-99); Non-African American GFR(CKD) 22 (>60 ml/min/1.73 sqM); Potassium 3.8 mmol/L (3.5-5.1); Sodium 133 mmol/L (137-145)
[2023-08-09] MEDS: PANTOPRAZOLE 40 MG/10 ML VIAL IVP SCH (09:00)
[2023-08-09] MEDS: LEVOTHYROXINE 50 MCG TAB PO SCH (09:02)
--- NOTE | 2023-08-09 11:48 | P.PN ---
Subjective Progress Note Date: 08/09/23 Patient follow-up for ESRD. States that her breathing is back to normal and she's feeling much better today after dialysis and receiving antibiotics. She is hoping to go home today. Vital signs are stable. General: No acute distress. HEENT: Head exam is unremarkable. On nasal cannula. LUNGS: No audible rhonchi or wheezes. HEART: Rate and Rhythm are regular. RUE AVF with palpable thrill ABDOMEN: Nontender. EXTREMITITES: No edema. Objective - Vital Signs Vital signs: Vital Signs Temp 98.2 F 08/09/23 08:30 Pulse 80 08/09/23 11:42 Resp 20 08/09/23 08:30 BP 125/42 08/09/23 08:30 Pulse Ox 96 08/09/23 08:30 FiO2 40 08/08/23 08:03 Intake & Output 08/08/23 08/09/23 08/09/23 18:59 06:59 18:59 Intake Total 480 400 240 Output Total 3200 Balance 480 -2800 240 Weight 62.5 kg 61.5 kg Intake: Oral 480 240 Hemodialysis 400 Output: Urine 300 Hemodialysis 2900 Other: Voiding Method Toilet # Voids 1 - Labs CBC & Chem 7: 08/09/23 04:18 08/09/23 07:57 Labs: Abnormal Lab Results - Last 24 Hours (Table) 08/08/23 08/08/23 08/09/23 Range/Units 12:40 21:11 04:18 RBC 2.45 L (3.80-5.40) m/uL Hgb 7.9 L (11.4-16.0) gm/dL Hct 23.7 L (34.0-46.0) % Sodium 126 L 132 L (137-145) mmol/L Chloride 90 L (98-107) mmol/L Carbon Dioxide 31 H (22-30) mmol/L BUN 26 H (7-17) mg/dL Creatinine 2.65 H 1.56 H (0.52-1.04) mg/dL Glucose 253 H 184 H (74-99) mg/dL Calcium 8.2 L (8.4-10.2) mg/dL 08/09/23 08/09/23 Range/Units 04:18 07:57 RBC (3.80-5.40) m/uL Hgb (11.4-16.0) gm/dL Hct (34.0-46.0) % Sodium 133 L 133 L (137-145) mmol/L Chloride (98-107) mmol/L Carbon Dioxide (22-30) mmol/L BUN 19 H 22 H (7-17) mg/dL Creatinine 1.94 H 2.08 H (0.52-1.04) mg/dL Glucose 109 H 149 H (74-99) mg/dL Calcium (8.4-10.2) mg/dL Assessment and Plan Plan: Assessment: 1. ESRD on HD TTS, access RUE AVF. Left kidney absent. 2. Pneumonia with Hypoxia-improved off BiPAP and on nasal cannula 3. Hypertension with chronic kidney disease. 4. Anemia with ESRD 5. MBD with ESRD Plan: Continue TTS schedule Continue antibiotics Pulmonology following, off Bipap. Continue home BP medications. Clear for discharge from a nephrology standpoint.
--- NOTE | 2023-08-09 14:01 | P.PN ---
Subjective Progress Note Date: 08/09/23 Principal diagnosis: Acute hypoxic respiratory failure This is an 82-year-old female with history of end-stage renal disease, on hemodialysis, patient has been very compliant with her hemodialysis. However over the last 1 week, patient has been complaining of increased shortness of breath, nonproductive cough, but no fever, no chills, no hemoptysis, no chest pain. Patient was evaluated in the ER, and her chest x-ray is showing evidence of interstitial edema, underlying right lower lobe pneumonia is not entirely ruled out, suspicious for increased infiltrate in the right lower lobe hence patient was admitted, and this consult was initiated upon admission the patient did not have any leukocytosis WBC count was 9.5, hemoglobin 8.9. Her sodium however was noted to be low at 122, and follow-up sodium later this morning is 126. Her BUN is 24 creatinine 2.66 screening for influenza A, influenza B, RSV and COVID-19 were all negative. Patient had a elevated BNP level of 20,800, procalcitonin level is pending. Patient did receive Lasix however it is not clear whether the patient makes a significant amount of urine on a daily basis. According to her she does make some urine. And she is not anuric Patient was reevaluated today on 08/09/2023, feeling better today, breathing easier, less shortness of breath, no cough no wheezing no fever no chills no hemoptysis and no chest pain.CBC continues to show no evidence of leukocytosis, WBC count is 9.1 hemoglobin is 7.9 basic metabolic profile is normal creatinine is up to 2.08 from admission. Remind you patient is a renal failure patient. Procalcitonin is borderline elevated, 0.13 would definitely recommend follow-up chest x-ray in the next 24 hours, and if improving then the findings are mostly findings of pulmonary edema rather than pneumonia. Although pneumonia involving the right lower lobe is still in the differential and not entirely ruled out Objective - Vital Signs Vital signs: Vital Signs Temp 98.2 F 08/09/23 08:30 Pulse 80 08/09/23 11:52 Resp 20 08/09/23 08:30 BP 125/42 08/09/23 08:30 Pulse Ox 96 08/09/23 08:30 FiO2 40 08/08/23 08:03 Intake & Output 02/08/09/23 08/09/23 18:59 06:59 18:59 Intake Total 480 400 598 Output Total 3200 Balance 480 -2800 598 Weight 62.5 kg 61.5 kg Intake: Oral 480 598 Hemodialysis 400 Output: Urine 300 Hemodialysis 2900 Other: Voiding Method Toilet # Voids 1 1 # Bowel Movements 1 - Exam General: The patient is awake and alert, in no distress, and does not appear acutely ill. Patient is on 5 L nasal cannula with O2 sats of 96% Skin: Skin is warm and dry and no rashes or lesions are noted. Eye: Pupils are equal, round and reactive to light, extra-ocular movements are intact; there is normal conjunctiva bilaterally. Ears, nose, mouth and throat: There are moist mucous membranes and no oral lesions. Neck: The neck is supple, there is no tenderness or JVD. Cardiovascular: There is a regular rate and rhythm. No murmur, rub or gallop is appreciated. Respiratory: Crackles at the bases noted bilaterally no rhonchi no wheezes. Gastrointestinal: Soft, non-distended, non-tender abdomen without masses or organomegaly noted. There is no rebound or guarding present. Bowel sounds are unremarkable. Back: There is no tenderness to palpation in the midline. There is no obvious deformity. Musculoskeletal: Normal ROM, no tenderness, There is no pedal edema. There is no calf tenderness or swelling. No cords were appreciated. Neurological: CN II-XII intact, Cranial nerves III through XII are intact. There are no obvious motor or sensory deficits. Coordination appears grossly intact. Speech is normal. Psychiatric: Cooperative, appropriate mood & affect, normal judgment. - Labs CBC & Chem 7: 08/09/23 04:18 08/09/23 07:57 Labs: Abnormal Lab Results - Last 24 Hours (Table) 08/08/23 08/08/23 08/08/23 Range/Units 10:04 12:40 21:11 RBC (3.80-5.40) m/uL Hgb (11.4-16.0) gm/dL Hct (34.0-46.0) % Sodium 126 L 132 L (137-145) mmol/L Chloride 90 L (98-107) mmol/L Carbon Dioxide 31 H (22-30) mmol/L BUN 26 H (7-17) mg/dL Creatinine 2.65 H 1.56 H (0.52-1.04) mg/dL Glucose 253 H 184 H (74-99) mg/dL Calcium 8.2 L (8.4-10.2) mg/dL Procalcitonin 0.13 H (0.02-0.09) ng/mL 08/09/23 08/09/23 08/09/23 Range/Units 04:18 04:18 07:57 RBC 2.45 L (3.80-5.40) m/uL Hgb 7.9 L (11.4-16.0) gm/dL Hct 23.7 L (34.0-46.0) % Sodium 133 L 133 L (137-145) mmol/L Chloride (98-107) mmol/L Carbon Dioxide (22-30) mmol/L BUN 19 H 22 H (7-17) mg/dL Creatinine 1.94 H 2.08 H (0.52-1.04) mg/dL Glucose 109 H 149 H (74-99) mg/dL Calcium (8.4-10.2) mg/dL Procalcitonin (0.02-0.09) ng/mL Microbiology - Last 24 Hours (Table) 08/08/23 03:00 Blood Culture - Preliminary Blood 08/08/23 02:45 Blood Culture - Preliminary Blood Assessment and Plan Assessment: Impression: Acute hypoxic respiratory failure secondary to pulmonary edema, fluid overload, possible underlying right lower lobe/superimposed pneumonia. proCalcitonin level is 0.13 History of chronic kidney disease, on hemodialysis. Chronic iron deficiency anemia. This is related to end-stage renal disease Hyponatremia, I believe the hyponatremia is hypervolemic in nature, and the patient would likely benefit from fluid restrictions History of pulmonary hypertension History of chronic diastolic congestive heart failure based on previous x-rays of the chest. Recommendation: Continue present supportive care measures Continue Rocephin and Zithromax, especially with elevated procalcitonin level Continue Lasix patient tells me today that her urine output is picking up with Lasix Nephrology is on board handling her hemodialysis Continue fluid restriction. Continue DuoNeb as needed. Previous echocardiogram was reviewed in this patient, patient has preserved LV function based on previous echocardiogram from 07/23/2023 Recommend follow-up chest x-ray in a.m. Will continue to follow Time with Patient: Less than 30
--- NOTE | 2023-08-09 14:37 | P.PN ---
Subjective Progress Note Date: 08/09/23 Hospital course: Patient is a very pleasant 82-year-old female with a past medical history of ESRD on dialysis Thursday//Thursday's, CAD status post pacemaker placement, chronic diastolic heart failure, hypertension, hyperlipidemia, and hypothyroidism. She presented to the emergency department on 08/08/2023 with a chief complaint of shortness of breath progressively worsening. Upon arrival to the emergency department patient underwent full evaluation. She was found to be in acute respiratory distress with respiratory rate 25 and requiring supplemental oxygen with a nonrebreather. Temp is 98.0 F, heart rate was 82, and blood pressure was 170/72. EKG was completed showing a ventricular paced rhythm. Chest x-ray completed showing right lower lobe infiltrate consistent with right lower lobe pneumonia. Labs completed and reviewed. CBC showing normocytic anemia with hemoglobin of 8.9. BMP revealing hyponatremia with so dium of 122, hypokalemia with potassium of 3.1, hypochloremia with chloride of 88, and renal function consistent with ESRD with BUN of 18, creatinine 2.36, and GFR of 19. Liver profile unremarkable. Troponin 0.030 and proBNP elevated at 20,800. Influenza A, influenza B, RSV, and COVID PCR were all negative. Patient later requiring placement on BiPAP. She was started on treatment for community-acquired pneumonia with azithromycin and Rocephin. She was admitted under our services with consultation to nephrology and pulmonology. Physical exam: Vital signs reviewed and stable. General: Nontoxic, no distress and appears stated age. Derm: Skin warm and dry, normal coloration for ethnicity. Patient with large area of bruising covering right arm. Head: Atraumatic, normocephalic and symmetric. Eyes: EOMs intact, no lid lag, and anicteric sclera Mouth: no lip lesions, mucus membranes moist Cardiovascular: regular rate and rhythm with normal S1S2, no murmur, positive posterior tibial pulses bilaterally, and cap refill < 2 seconds. AV fistula right upper extremity with bruit and thrill intact. Lungs: Respirations even, regular, and unlabored on room air. Lungs with soft crackles noted to right lower lobe. Otherwise CTA with no rhonchi, no rales, no wheezing, and no accessory muscle usage. Abdominal: soft, nontender to palpation, no guarding, no appreciable organomegaly Ext: ROM intact. No gross muscle atrophy, no lower extremity edema, no contractures Neuro: Speech clear, face symmetrical and CN II-XII grossly intact with no noted focal neuro deficits Psych: Alert and oriented to person, place, time, and situation. Appropriate and pleasant affect. Assessment and Plan of Care: 82-year-old female with end-stage renal disease on hemodialysis Thursday//Saturdays, presented to the emergency department with a chief complaint of worsening shortness of breath associated with fever and cough and initially requiring placement on continuous BiPAP. Patient was found to have right lower lobe pneumonia and fluid volume overload. Acute hypoxic respiratory failure Community acquired pneumonia, right lower lobe HFpEF ESRD on hemodialysis -Chest x-ray positive for right lower lobe pneumonia -Acute respiratory viral panel negative for COVID influenza and RSV -Oxygenation to be administered and titrated as needed to maintain SPO2 equal to or greater than 90%. Patient initially requiring continuous BiPAP and is now on 5L O2 via NC. -Orders placed for RN communication to attempt to wean down from oxygen. -Telemetry monitoring. -Monitor pulse-oximetry -Duonebs scheduled 4 times daily and as needed for SOB and/or wheezing -Incentive Spirometry -Diuretics: Lasix 40 mg IVP every 12 hours -Antibiotics: Rocephin 2 g IVPB every 24 hours dose 2 of 5 and azithromycin 500 mg daily dose 2 of 3 -Procalcitonin slightly elevated at 0.13. -Legionella antigen pending. -Pulmonology following, reviewed documentation in chart. -Nephrology following managing dialysis. Patient's last dialysis session was 08/08/2023. Hyponatremia, secondary to fluid volume overload. Improving with IV diuresis. -Continue with Lasix 40 mg IVP twice daily along with scheduled dialysis -Sodium improving and currently 133. Monitor BMP closely with repeat BMP klarissa orrow morning -Hyponatremia is believed to be the result of dilution secondary to fluid volume overload and improved with IV diuresis. Anemia of chronic disease, secondary to end-stage renal disease -Denies any GI bleeding, will place patient on PPI prophylaxis with Protonix. -Hemoglobin stable at 7.9, no need for transfusion or further intervention at this time. Will continue to monitor with repeat morning CBC and transfuse if needed for hemoglobin less than 7. History of CAD status post pacemaker placement Hypertension Hyperlipidemia Continue daily medication regimen with aspirin 81 mg daily, amlodipine 5 mg twice daily, atorvastatin 20 mg nightly, carvedilol 12.5 mg twice daily, hydralazine 50 mg twice daily, and losartan 25 mg daily. Hypothyroidism Continue daily medication regimen with levothyroxine 50 mcg daily. Data and imaging reviewed: Morning labs completed and reviewed. CBC showing normocytic anemia with hemoglobin of 7.9. BMP showing improvement of sodium with IV diuresis with sodium 133 and renal function staying consistent with known ESRD with BUN 22, creatinine 2.08, and GFR 22.. Vital signs reviewed. Blood pressure 125/42, heart rate 73, respiratory rate 20, temp 98.2 F, and SpO2 of 96% on 5 L. CODE STATUS: Full code DVT prophylaxis: Heparin Anticipated discharge date: Clinical course to determine Anticipated discharge place: Clinical course to determine Patient was seen independently by Nurse Pracitioner. This document was prepared using [employer] dictation software. Please allow for errors in value advisor, while rare they do occur. This patient was seen independently by Gloria HAWLEY. I agree with the assessment and plan done by my colleague. Objective - Vital Signs Vital signs: Vital Signs Temp 98.4 F 08/09/23 04:00 Pulse 75 08/09/23 08:22 Resp 20 08/09/23 04:00 BP 118/53 08/09/23 04:00 Pulse Ox 96 08/09/23 04:00 FiO2 40 08/08/23 08:03 Intake & Output 08/08/23 08/09/23 08/09/23 18:59 06:59 18:59 Intake Total 480 400 240 Output Total 3200 Balance 480 -2800 240 Weight 62.5 kg 61.5 kg Intake: Oral 480 240 Hemodialysis 400 Output: Urine 300 Hemodialysis 2900 Other: Voiding Method Toilet # Voids 1 - Labs CBC & Chem 7: 08/09/23 04:18 08/09/23 07:57 Labs: Abnormal Lab Results - Last 24 Hours (Table) 08/08/23 08/08/23 08/08/23 Range/Units 10:04 12:40 21:11 RBC (3.80-5.40) m/uL Hgb (11.4-16.0) gm/dL Hct (34.0-46.0) % Sodium 126 L 126 L 132 L (137-145) mmol/L Potassium 3.4 L (3.5-5.1) mmol/L Chloride 90 L 90 L (98-107) mmol/L Carbon Dioxide 31 H (22-30) mmol/L BUN 24 H 26 H (7-17) mg/dL Creatinine 2.66 H 2.65 H 1.56 H (0.52-1.04) mg/dL Glucose 235 H 253 H 184 H (74-99) mg/dL Calcium 8.2 L (8.4-10.2) mg/dL 08/09/23 08/09/23 Range/Units 04:18 04:18 RBC 2.45 L (3.80-5.40) m/uL Hgb 7.9 L (11.4-16.0) gm/dL Hct 23.7 L (34.0-46.0) % Sodium 133 L (137-145) mmol/L Potassium (3.5-5.1) mmol/L Chloride (98-107) mmol/L Carbon Dioxide (22-30) mmol/L BUN 19 H (7-17) mg/dL Creatinine 1.94 H (0.52-1.04) mg/dL Glucose 109 H (74-99) mg/dL Calcium (8.4-10.2) mg/dL
--- NOTE | 2023-08-10 08:06 | XR ---
EXAMINATION TYPE: XR chest 1V portable DATE OF EXAM: 08/10/2023 5:13 AM CLINICAL INDICATION:Female, 82 years old with history of CHF; COMPARISON: Chest radiographs from 08/07/2023 TECHNIQUE: XR chest 1V portable Frontal view of the chest. FINDINGS: Lungs/Pleura: There is no evidence of pleural effusion, focal consolidation, or pneumothorax. Pulmonary vascularity: Pulmonary vascular congestion. Heart/mediastinum: Cardiomediastinal silhouette is enlarged and stable. Two lead cardiac conduction d evice overlying the left hemithorax with lead tips projecting over the right ventricle and right atri um. Musculoskeletal: No acute osseous pathology. Other findings: None IMPRESSION: Improved aeration of the lung bases with Cardiomegaly and mild pulmonary vascular congestion. Correla te with BNP for congestive heart failure.
[2023-08-10 10:04] LABS: HCT 25.1 % (34.0-46.0); HGB 8.4 gm/dL (11.4-16.0); MCH 32.4 pg (25.0-35.0); MCHC 33.4 g/dL (31.0-37.0); MCV 96.9 fL (80.0-100.0); Macrocytosis Slight; Mean Platelet Volume 9.9; Platelet Count 183 k/uL (150-450); RBC 2.59 m/uL (3.80-5.40); RDW 15.5 % (11.5-15.5); WBC 9.6 k/uL (3.8-10.6)
[2023-08-10 10:15] LABS: African American GFR (CKD) 17 (>60 ml/min/1.73 sqM); Anion Gap 7 mmol/L; Blood Urea Nitrogen 33 mg/dL (7-17); Calcium 8.5 mg/dL (8.4-10.2); Carbon Dioxide 28 mmol/L (22-30); Chloride 97 mmol/L (98-107); Glucose 92 mg/dL (74-99); Non-African American GFR(CKD) 15 (>60 ml/min/1.73 sqM); Potassium 3.6 mmol/L (3.5-5.1); Sodium 132 mmol/L (137-145)
--- NOTE | 2023-08-10 11:52 | P.PN ---
Subjective Progress Note Date: 08/10/23 Principal diagnosis: Fluid overload. Acute hypoxic respiratory failure This is an 82-year-old female with history of end-stage renal disease, on hemodialysis, patient has been very compliant with her hemodialysis. However over the last 1 week, patient has been complaining of increased shortness of breath, nonproductive cough, but no fever, no chills, no hemoptysis, no chest pain. Patient was evaluated in the ER, and her chest x-ray is showing evidence of interstitial edema, underlying right lower lobe pneumonia is not entirely ruled out, suspicious for increased infiltrate in the right lower lobe hence patient was admitted, and this consult was initiated upon admission the patient did not have any leukocytosis WBC count was 9.5, hemoglobin 8.9. Her sodium however was noted to be low at 122, and follow-up sodium later this morning is 126. Her BUN is 24 creatinine 2.66 screening for influenza A, influenza B, RSV and COVID-19 were all negative. Patient had a elevated BNP level of 20,800, procalcitonin level is pending. Patient did receive Lasix however it is not clear whether the patient makes a significant amount of urine on a daily basis. According to her she does make some urine. And she is not anuric Patient was reevaluated today on 08/09/2023, feeling better today, breathing easier, less shortness of breath, no cough no wheezing no fever no chills no hemoptysis and no chest pain.CBC continues to show no evidence of leukocytosis, WBC count is 9.1 hemoglobin is 7.9 basic metabolic profile is normal creatinine is up to 2.08 from admission. Remind you patient is a renal failure patient. Procalcitonin is borderline elevated, 0.13 would definitely recommend follow-up chest x-ray in the next 24 hours, and if improving then the findings are mostly findings of pulmonary edema rather than pneumonia. Although pneumonia involving the right lower lobe is still in the differential and not entirely ruled out Progress note dated August 10, 2023. The patient is seen today in room 353. The patient is on 2 L of oxygen. No IV fluids. She receives hemodialysis, on Tuesdays, , and Thursday. She is hoping to be discharged after hemodialysis tomorrow. The patient appears in no acute distress. She states her breathing is improved. Currently, her white count is 9.6, hemoglobin 8.4, hematocrit 25.1, and platelet count 183,000. S odium 132, potassium 3.6, chlorides 97, CO2 28, BUN 33, creatinine 2.78. Blood cultures are negative. Chest x-ray shows improved aeration at the lung bases, with cardiomegaly, and mild pulmonary vascular congestion. Objective - Vital Signs Vital signs: Vital Signs Temp 97.7 F 08/10/23 08:00 Pulse 68 08/10/23 09:09 Resp 16 08/10/23 08:00 BP 138/54 08/10/23 08:00 Pulse Ox 93 L 08/10/23 08:54 FiO2 40 08/08/23 08:03 Intake & Output 08/09/23 08/10/23 08/10/23 18:59 06:59 18:59 Intake Total 956 200 Output Total 250 200 Balance 956 -250 0 Weight 58.2 kg Intake: Oral 956 200 Output: Urine 250 200 Other: Voiding Method Toilet Toilet # Voids 1 # Bowel Movements 1 - Exam No acute distress, oriented 3. Currently on 2 L of oxygen. No respiratory distress. HEENT examination is grossly unremarkable. Mucous membranes are moist. No oral lesions. Neck supple. Full range of motion. No adenopathy thyromegaly or neck vein distention. Cardiovascular examination reveals regular rhythm rate. S1-S2 normal. No S3 or S4. No discernible murmur noted. Heart sounds are distant. Heart rate 81 bpm. Lungs reveal basilar crackles. No wheezes or rhonchi. 2 L saturation is 94%. Breath sounds are equal bilaterally. Abdomen soft bowel sounds are heard. No masses or tenderness. Extremities are intact. No cyanosis clubbing or edema. Skin is without rash or lesion. Neurologic examination is brief but nonfocal. - Labs CBC & Chem 7: 08/10/23 08:35 08/10/23 08:35 Labs: Abnormal Lab Results - Last 24 Hours (Table) 08/08/23 08/10/23 08/10/23 Range/Units 10:04 08:35 08:35 RBC 2.59 L (3.80-5.40) m/uL Hgb 8.4 L (11.4-16.0) gm/dL Hct 25.1 L (34.0-46.0) % Sodium 132 L (137-145) mmol/L Chloride 97 L (98-107) mmol/L BUN 33 H (7-17) mg/dL Creatinine 2.78 H (0.52-1.04) mg/dL Procalcitonin 0.13 H (0.02-0.09) ng/mL Microbiology - Last 24 Hours (Table) 08/08/23 03:00 Blood Culture - Preliminary Blood 08/08/23 02:45 Blood Culture - Preliminary Blood Assessment and Plan Assessment: Acute hypoxemic respiratory failure, secondary to pulmonary edema/fluid overload, in a patient with end-stage renal disease. History of chronic kidney disease, currently on 3 times a week hemodialysis. Chronic iron deficiency anemia. Hyponatremia. History of pulmonary hypertension. History of chronic diastolic CHF. Plan: Plan dated August 10, 2023. The patient is seen today room 353. She continues on 2 L of oxygen. The patient appears to be relatively comfortable. She is hoping to be discharged home tomorrow, after hemodialysis. Labs, x-rays, medications are reviewed. The patient continues on Rocephin. We will continue to follow make recommendations along the way. The patient also continues on breathing treatments. Clinically, she looks very stable. There is no conversational dyspnea, use of accessory muscles, or audible wheezes. Time with Patient: Less than 30
--- NOTE | 2023-08-10 12:14 | P.PN ---
Subjective Patient is seen for follow-up for end-stage renal disease. Scheduled for hemodialysis in a.m. No significant complaints except for pain in the left foot. Patient is still able to walk. She is currently heading into the shower. Objective - Vital Signs Vital signs: Vital Signs Temp 97.6 F 08/10/23 11:45 Pulse 81 08/10/23 11:45 Resp 17 08/10/23 11:45 BP 155/54 08/10/23 11:45 Pulse Ox 94 L 08/10/23 11:45 FiO2 40 08/08/23 08:03 Intake & Output 08/09/23 08/10/23 08/10/23 18:59 06:59 18:59 Intake Total 956 200 Output Total 250 200 Balance 956 -250 0 Weight 58.2 kg Intake: Oral 956 200 Output: Urine 250 200 Other: Voiding Method Toilet Toilet # Voids 1 # Bowel Movements 1 - Exam Patient is awake, comfortable, no acute distress Alert oriented 3 No edema noted in the lower extremities Patient appears euvolemic. - Labs CBC & Chem 7: 08/10/23 08:35 08/10/23 08:35 Labs: Abnormal Lab Results - Last 24 Hours (Table) 08/10/23 08/10/23 Range/Units 08:35 08:35 RBC 2.59 L (3.80-5.40) m/uL Hgb 8.4 L (11.4-16.0) gm/dL Hct 25.1 L (34.0-46.0) % Sodium 132 L (137-145) mmol/L Chloride 97 L (98-107) mmol/L BUN 33 H (7-17) mg/dL Creatinine 2.78 H (0.52-1.04) mg/dL Microbiology - Last 24 Hours (Table) 08/08/23 03:00 Blood Culture - Preliminary Blood 08/08/23 02:45 Blood Culture - Preliminary Blood Assessment and Plan Assessment: 1. ESRD on HD TTS, access RUE AVF. Left kidney absent. 2. Pneumonia with Hypoxia-improved off BiPAP and on nasal cannula 3. Hypertension with chronic kidney disease. 4. Anemia with ESRD 5. MBD with ESRD Plan: Hemodialysis in a.m. increase UF as tolerated. Chest x-ray shows evidence of pulmonary vascular congestion. Continue antibiotics
[2023-08-10] MEDS ORDERED: HYDROcodone/APAP 5-325MG 1 EACH TAB PO PRN (13:33)
--- NOTE | 2023-08-10 14:05 | P.PN ---
Subjective Progress Note Date: 08/10/23 Hospital course: Patient is a very pleasant 82-year-old female with a past medical history of ESRD on dialysis Thursday//Thursday's, CAD status post pacemaker placement, chronic diastolic heart failure, hypertension, hyperlipidemia, and hypothyroidism. She presented to the emergency department on 08/08/2023 with a chief complaint of shortness of breath progressively worsening. Upon arrival to the emergency department patient underwent full evaluation. She was found to be in acute respiratory distress with respiratory rate 25 and requiring supplemental oxygen with a nonrebreather. Temp is 98.0 F, heart rate was 82, and blood pressure was 170/72. EKG was completed showing a ventricular paced rhythm. Chest x-ray completed showing right lower lobe infiltrate consistent with right lower lobe pneumonia. Labs completed and reviewed. CBC showing normocytic anemia with hemoglobin of 8.9. BMP revealing hyponatremia with so dium of 122, hypokalemia with potassium of 3.1, hypochloremia with chloride of 88, and renal function consistent with ESRD with BUN of 18, creatinine 2.36, and GFR of 19. Liver profile unremarkable. Troponin 0.030 and proBNP elevated at 20,800. Influenza A, influenza B, RSV, and COVID PCR were all negative. Patient later requiring placement on BiPAP. She was started on treatment for community-acquired pneumonia with azithromycin and Rocephin. She was admitted under our services with consultation to nephrology and pulmonology. Physical exam: Patient seen and fully evaluated at bedside. She reports charley horse-like pain to left foot. She denies any falls or injuries. No rashes, erythema, or obvious injury noted. Potassium 3.6 and magnesium 2.0. Patient remains on supplemental oxygen 2 L at all times. Patient had event overnight in which she woke up and went to the restroom without her oxygen and upon returning to bed was hypoxic at 83%. Patient placed back on O2 and oxygen sats improving greater than 90%. Vital signs reviewed and stable. General: Nontoxic, no distress and appears stated age. Derm: Skin warm and dry, normal coloration for ethnicity. Patient with large area of bruising covering right arm. Head: Atraumatic, normocephalic and symmetric. Eyes: EOMs intact, no lid lag, and anicteric sclera Mouth: no lip lesions, mucus membranes moist Cardiovascular: regular rate and rhythm with normal S1S2, no murmur, positive posterior tibial pulses bilaterally, and cap refill < 2 seconds[address] AV fistula right upper extremity with bruit and thrill intact. Lungs: Respirations even, regular, and unlabored on room air. Lungs with soft crackles noted to right lower lobe. Otherwise CTA with no rhonchi, no rales, no wheezing, and no accessory muscle usage. Abdominal: soft, nontender to palpation, no guarding, no appreciable organomegaly Ext: ROM intact. No gross muscle atrophy, no lower extremity edema, no contractures Neuro: Speech clear, face symmetrical and CN II-XII grossly intact with no noted focal neuro deficits Psych: Alert and oriented to person, place, time, and situation. Appropriate and pleasant affect. Assessment and Plan of Care: 82-year-old female with end-stage renal disease on hemodialysis Thursday//Saturdays, presented to the emergency department with a chief complaint of worsening shortness of breath associated with fever and cough and initially requiring placement on continuous BiPAP. Patient was found to have right lower lobe pneumonia and fluid volume overload. Acute hypoxic respiratory failure Community acquired pneumonia, right lower lobe HFpEF, mild exacerbation ESRD on hemodialysis -Initial chest x-ray positive for right lower lobe pneumonia and repeat chest x- ray completed this morning showing improved aeration of the lung bases with cardiomegaly and mild pulmonary vascular congestion. -Acute respiratory viral panel negative for COVID influenza and RSV -Oxygenation to be administered and titrated as needed to maintain SPO2 equal to or greater than 90%. Patient initially requiring continuous BiPAP and is now on 5L O2 via NC. -Orders placed for RN communication to attempt to wean down from oxygen. -Telemetry monitoring. -Monitor pulse-oximetry -Duonebs scheduled 4 times daily and as needed for SOB and/or wheezing -Incentive Spirometry, instructed patient on use 10-15 times hourly while awake. -Diuretics: Lasix 40 mg IVP every 12 hours -Antibiotics: Rocephin 2 g IVPB every 24 hours dose 3 of 5 and azithromycin 500 mg daily dose 3 of 3 -Procalcitonin slightly elevated at 0.13. -Legionella antigen negative -Pulmonology following, reviewed documentation in chart. -Nephrology following managing dialysis. Patient's last dialysis session was 08/08/2023. Hyponatremia, secondary to fluid volume overload. Improved with IV diuresis. -Continue with Lasix 40 mg IVP twice daily along with scheduled dialysis -Sodium improving and currently 133. Monitor BMP closely with repeat BMP tomorrow morning -Hyponatremia is believed to be the result of dilution secondary to fluid volume overload and improved with IV diuresis. Anemia of chronic disease, secondary to end-stage renal disease -Denies any GI bleeding, will place patient on PPI prophylaxis with Protonix. -Hemoglobin stable at 8.4, no need for transfusion or further intervention at this time. Will continue to monitor with repeat morning CBC and transfuse if needed for hemoglobin less than 7. History of CAD status post pacemaker placement Hypertension Hyperlipidemia Continue daily medication regimen with aspirin 81 mg daily, amlodipine 5 mg twice daily, atorvastatin 20 mg nightly, carvedilol 12.5 mg twice daily, hydrala zine 50 mg twice daily, and losartan 25 mg daily. Hypothyroidism Continue daily medication regimen with levothyroxine 50 mcg daily. Data and imaging reviewed: Repeat chest x-ray completed this morning showing improved aeration of the lung bases with cardiomegaly and mild pulmonary vascular congestion. Morning labs completed and reviewed. CBC showing stable normocytic anemia with hemoglobin of 8.4. BMP revealing hyponatremia with sodium of 132 and hypochloremia with chloride of 97. Renal function elevated with BUN of 33 and creatinine of 2.78 and GFR 15. Vital signs reviewed. Blood pressure 138/54, heart rate 72, respiratory rate 16, temp 97.7 F, and SpO2 of 95% on 2 L. Blood culture showing no growth to date. CODE STATUS: Full code DVT prophylaxis: Heparin Anticipated discharge date: Clinical course to determine Anticipated discharge place: Clinical course to determine Patient was seen independently by Nurse Pracitioner. This document was prepared using [employer] dictation software. Please allow for errors in engraver wood, while rare they do occur. This patient was seen independently by my colleague Gloria HAWLEY. I agree with the assessment and plan. Objective - Vital Signs Vital signs: Vital Signs Temp 98.6 F 08/10/23 04:00 Pulse 85 08/10/23 04:00 Resp 18 08/10/23 04:00 BP 159/57 08/10/23 04:00 Pulse Ox 93 L 08/10/23 04:00 FiO2 40 08/08/23 08:03 Intake & Output 08/09/23 08/10/2324 18:59 06:59 18:59 Intake Total 956 Output Total 250 Balance 956 -250 Weight 58.2 kg Intake: Oral 956 Output: Urine 250 Other: Voiding Method Toilet # Voids 1 # Bowel Movements 1 - Labs CBC & Chem 7: 08/11/23 14:57 08/11/23 14:57 Labs: Abnormal Lab Results - Last 24 Hours (Table) 08/08/23 08/09/23 Range/Units 10:04 07:57 Sodium 133 L (137-145) mmol/L BUN 22 H (7-17) mg/dL Creatinine 2.08 H (0.52-1.04) mg/dL Glucose 149 H (74-99) mg/dL Procalcitonin 0.13 H (0.02-0.09) ng/mL Microbiology - Last 24 Hours (Table) 08/08/23 03:00 Blood Culture - Preliminary Blood 08/08/23 02:45 Blood Culture - Preliminary Blood
[2023-08-10] MEDS: ACETAMINOPHEN TAB 325 MG TAB PO PRN (15:38)
[2023-08-11] MEDS: PANTOPRAZOLE 40 MG TABLET PO SCH (06:37)
--- NOTE | 2023-08-11 10:25 | P.PN ---
Subjective Progress Note Date: 08/11/23 Principal diagnosis: Fluid overload. Acute hypoxic respiratory failure This is an 82-year-old female with history of end-stage renal disease, on hemodialysis, patient has been very compliant with her hemodialysis. However over the last 1 week, patient has been complaining of increased shortness of breath, nonproductive cough, but no fever, no chills, no hemoptysis, no chest pain. Patient was evaluated in the ER, and her chest x-ray is showing evidence of interstitial edema, underlying right lower lobe pneumonia is not entirely ruled out, suspicious for increased infiltrate in the right lower lobe hence patient was admitted, and this consult was initiated upon admission the patient did not have any leukocytosis WBC count was 9.5, hemoglobin 8.9. Her sodium however was noted to be low at 122, and follow-up sodium later this morning is 126. Her BUN is 24 creatinine 2.66 screening for influenza A, influenza B, RSV and COVID-19 were all negative. Patient had a elevated BNP level of 20,800, procalcitonin level is pending. Patient did receive Lasix however it is not clear whether the patient makes a significant amount of urine on a daily basis. According to her she does make some urine. And she is not anuric Patient was reevaluated today on 08/09/2023, feeling better today, breathing easier, less shortness of breath, no cough no wheezing no fever no chills no hemoptysis and no chest pain.CBC continues to show no evidence of leukocytosis, WBC count is 9.1 hemoglobin is 7.9 basic metabolic profile is normal creatinine is up to 2.08 from admission. Remind you patient is a renal failure patient. Procalcitonin is borderline elevated, 0.13 would definitely recommend follow-up chest x-ray in the next 24 hours, and if improving then the findings are mostly findings of pulmonary edema rather than pneumonia. Although pneumonia involving the right lower lobe is still in the differential and not entirely ruled out Progress note dated August 10, 2023. The patient is seen today in room 353. The patient is on 2 L of oxygen. No IV fluids. She receives hemodialysis, on Tuesdays, , and Thursday. She is hoping to be discharged after hemodialysis tomorrow. The patient appears in no acute distress. She states her breathing is improved. Currently, her white count is 9.6, hemoglobin 8.4, hematocrit 25.1, and platelet count 183,000. S odium 132, potassium 3.6, chlorides 97, CO2 28, BUN 33, creatinine 2.78. Blood cultures are negative. Chest x-ray shows improved aeration at the lung bases, with cardiomegaly, and mild pulmonary vascular congestion. Progress note dated August 19, 2023. This is an 82-year-old female seen today in room 353. Currently she is undergoing hemodialysis. She is on 2 L of oxygen. The plan is for removal of 2 L of fluid today. The patient is hoping to be discharged, after dialysis. No new labs today. Clinically she appears very stable. She does not use oxygen at home. She will need to be assessed for home oxygen use, after dialysis. Objective - Vital Signs Vital signs: Vital Signs Temp 98.1 F 08/11/23 07:50 Pulse 74 08/11/23 09:04 Resp 16 08/11/23 07:50 BP 147/57 08/11/23 07:50 Pulse Ox 95 08/11/23 08:58 FiO2 40 08/08/23 08:03 Intake & Output 08/10/23 08/11/23 08/11/23 18:59 06:59 18:59 Intake Total 310 240 Output Total 200 700 Balance 110 -700 240 Weight 58.2 kg Intake: Oral 310 240 Output: Urine 200 700 Other: Voiding Method Toilet Toilet - Exam No acute distress, oriented 3. Currently on 2 L of oxygen. No respiratory distress. HEENT examination is grossly unremarkable. Mucous membranes are moist. No oral lesions. Neck supple. Full range of motion. No adenopathy thyromegaly or neck vein distention. Cardiovascular examination reveals regular rhythm rate. S1-S2 normal. No S3 or S4. No discernible murmur noted. Heart sounds are distant. Heart rate 74 bpm. Lungs reveal basilar crackles. No wheezes or rhonchi. 2 L saturation is 95 %. Breath sounds are equal bilaterally. Abdomen soft bowel sounds are heard. No masses or tenderness. Extremities are intact. No cyanosis clubbing or edema. Skin is without rash or lesion. Neurologic examination is brief but nonfocal. - Labs CBC & Chem 7: 08/10/23 08:35 08/10/23 08:35 Labs: Microbiology - Last 24 Hours (Table) 08/08/23 03:00 Blood Culture - Preliminary Blood 08/08/23 02:45 Blood Culture - Preliminary Blood Assessment and Plan Assessment: Acute hypoxemic respiratory failure, secondary to pulmonary edema/fluid overload, in a patient with end-stage renal disease. History of chronic kidney disease, currently on 3 times a week hemodialysis. Chronic iron deficiency anemia. Hyponatremia. History of pulmonary hypertension. History of chronic diastolic CHF. Plan: Plan dated August 10, 2023. The patient is seen today room 353. She continues on 2 L of oxygen. The patient appears to be relatively comfortable. She is hoping to be discharged home tomorrow, after hemodialysis. Labs, x-rays, medications are reviewed. The patient continues on Rocephin. We will continue to follow make recommendations along the way. The patient also continues on breathing treatments. Clinically, she looks very stable. There is no conversational dyspnea, use of accessory muscles, or audible wheezes. Plan dated August 11, 2023. The patient is currently undergoing hemodialysis. She continues on oxygen at 2 L. The plan for hemodialysis today is removal of fluid, hopefully, 2 L. The patient is hoping to be discharged home after dialysis. The patient will need to be assessed for home oxygen use, after hemodialysis. She will need a room air resting saturation, and a saturation, while walking up and down the hallway. Labs, x-rays, medications are reviewed. Prognosis is guarded. We will continue to follow the patient, make recommendations along the way. Time with Patient: Less than 30
[2023-08-11] MEDS ORDERED: NITROGLYCERIN SL TABS 0.4 MG TAB SUBLINGUAL PRN (10:44)
[2023-08-11] MEDS: ASPIRIN 81 MG PO STA (10:52)
--- NOTE | 2023-08-11 14:09 | P.CRDCN ---
History of Present Illness History of present illness: HISTORY OF PRESENT ILLNESS: This is a 82-year-old female with a past medical history significant for hypothyroidism, hyperlipidemia, hypertension, and end-stage renal disease on hemodialysis. Patient follows in the office with Dr. Jay. We have been asked to see the patient in consultation for chest pain. Patient examined at the bedside. Patient was undergoing hemodialysis today when she developed chest pain. She was approximately 90 minutes into her dialysis session. She states the pain started in the middle of her chest and radiated into her back between her shoulder blades. Patient's hemodialysis was stopped and fluid was given back to her. She then had resolution of her chest pain. She states that she has been on hemodialysis for approximately 1 month. She denies ever having chest pain like this with dialysis previously. The patient did not require any sublingual nitro. She currently denies any chest pain or pressure. Denies any shortness of breath. Patient's blood pressures have been elevated with a systolic between [id number] during hospitalization DIAGNOSTICS: - EKG reveals ventricular paced rhythm. - Chest xray improved aeration of the lung base with cardiomegaly and mild pulmonary vascular congestion - Laboratory data: WBC 9.6. Hemoglobin 8.4. Platelet count 183. Sodium 132. Potassium 3.6. BUN 33. Creatinine 2.78. Troponin negative x 2 - Current home cardiac medications include aspirin 81 mg daily, Lipitor 20 mg at night, Lasix 40 mg twice a day, amlodipine 5 mg twice a day, carvedilol 12.5 mg twice a day, hydralazine 50 mg twice a day, and losartan 25 mg daily as needed. - Most recent echocardiogram obtained on July 23, 2023 revealed ejection fraction 55%, mild MR, moderate TR REVIEW OF SYSTEMS: At the time of my exam: CONSTITUTIONAL: Denies fever or chills. HEENT: Denies blurred vision, vision changes, or eye pain. Denies hemoptysis CARDIOVASCULAR: Denies chest pain. Denies orthopnea. Denies PND. Denies palpitations RESPIRATORY: Denies shortness of breath. GASTROINTESTINAL: Denies abdominal pain. Denies nausea or vomiting. HEMATOLOGIC: Denies bleeding disorders. GENITOURINARY: Denies any blood in urine. SKIN: Denies pruitis. Denies rash. PHYSICAL EXAM: VITAL SIGNS: Reviewed. GENERAL: Well-developed in no acute distress. HEENT: Head is normocephalic. Pupils are equal, round. Sclerae anicteric. Mucous membranes of the mouth are moist. Neck supple. No JVD or thyromegaly LUNGS: Respirations even and unlabored. Lungs essentially clear to auscultation bilaterally. HEART: Regular rate and rhythm. S1 and S2 heard. Systolic murmur noted ABDOMEN: Soft. Nondistended. Nontender. EXTREMITIES: Normal range of motion. No clubbing or cyanosis. Peripheral pulses intact. No lower extremity edema NEUROLOGIC: Awake and alert. Oriented x 3. ASSESSMENT: Chest pain, atypical, troponin negative x 2 Hypertension, uncontrolled End-stage renal disease on hemodialysis, left kidney absent History of permanent pacemaker implantation Hyperlipidemia Hypothyroidism PLAN: An acute coronary event has been ruled out Discontinue amlodipine Begin Procardia 30 mg twice a day. Hold Procardia in the morning on dialysis d ays Continue additional cardiac medications Continue to monitor blood pressure Further recommendations pending patient course Nurse practitioner note has been reviewed by physician. Signing provider agrees with the documented findings, assessment, and plan of care documented by GRANITE WORKER as a scribe. Past Medical History Past Medical History: Chest Pain / Angina, Dialysis, Hyperlipidemia, Hypertension, Renal Disease Additional Past Medical History / Comment(s): stage 4 renal. right arm fistula History of Any Multi-Drug Resistant Organisms: None Reported Past Surgical History: Appendectomy, Tubal Ligation Additional Past Surgical History / Comment(s): pacemaker Past Psychological History: No Psychological Hx Reported Smoking Status: Never smoker Past Alcohol Use History: None Reported Past Drug Use History: None Reported Medications and Allergies Home Medications Medication Instructions Recorded Confirmed Type Aspirin EC [Ecotrin Low Dose] 81 mg PO DAILY 01/17/23 08/08/23 History Atorvastatin [Lipitor] 20 mg PO HS 01/17/23 08/08/23 History Cholestyramine (with Sugar) 4 gm PO BID PRN 01/17/23 08/08/23 History [Cholestyramine Packet] Fluticasone Nasal Irving [Flonase 1 - 2 spr EA NOSTRIL BID PRN 01/17/23 08/08/23 History Nasal Irving] Levothyroxine Sodium [Synthroid] 50 mcg PO DAILY 01/17/23 08/08/23 History Loratadine 10 mg PO DAILY 01/17/23 08/08/23 History Oxybutynin Xl [Ditropan XL] 5 mg PO HS 01/17/23 08/08/23 History Vits A,C,E/Lutein/Minerals 1 tab PO DAILY 01/17/23 08/08/23 History [Ocuvite with Lutein Tablet] amLODIPine [Norvasc] 5 mg PO BID 01/17/23 08/08/23 History Vitamin E (Dl,Tocopheryl Acet) 450 mg PO HS 07/22/23 08/08/23 History [Vitamin E (1000 Iu = 450 MG)] allopurinoL [Zyloprim] 100 mg PO DAILY 07/22/23 08/08/23 History carvediloL [Coreg*] 12.5 mg PO BID 07/22/23 08/08/23 History Furosemide [Lasix] 40 mg PO BID 08/08/23 08/08/23 History Losartan [Cozaar] 25 mg PO DIRECTED 08/08/23 08/08/23 History hydrALAZINE HCL [Apresoline] 50 mg PO BID 08/08/23 08/08/23 History Allergies Allergy/AdvReac Type Severity Reaction Status Date / Time bacitracin Allergy Rash/Hives Verified 08/08/23 11:09 [From Neosporin ([id number])] levofloxacin [From Levaquin] Allergy Rash/Hives Verified 08/08/23 11:09 metronidazole [From Flagyl] Allergy Rash/Hives Verified 08/08/23 11:09 neomycin Allergy Rash/Hives Verified 08/08/23 11:09 [From Neosporin ([id number])] Penicillins Allergy Rash/Hives Verified 08/08/23 11:09 polymyxin B Allergy Rash/Hives Verified 08/08/23 11:09 [From Neosporin ([id number])] Physical Exam Vitals: Vital Signs Temp Pulse Pulse Resp BP Pulse Ox 08/11/23 12:00 70 17 160/80 97 08/11/23 09:04 74 08/11/23 08:58 95 08/11/23 08:55 72 08/11/23 07:50 98.1 F 65 16 147/57 95 08/11/23 04:00 97.5 F L 78 18 167/56 96 08/11/23 02:00 70 18 08/11/23 00:00 70 18 145/53 96 08/10/23 20:52 68 08/10/23 20:41 69 08/10/23 20:00 97.4 F L 71 18 145/54 95 08/10/23 16:00 97.7 F 80 16 159/55 95 08/10/23 15:59 82 16 08/10/23 15:48 80 16 Intake and Output 08/10/23 08/11/23 08/11/23 22:59 06:59 14:59 Intake Total 0 480 Output Total 700 Balance 0 -700 480 Intake: Oral 0 480 Output: Urine 700 Other: Voiding Method Toilet Toilet Weight 58.2 kg Results 08/10/23 08:35 08/10/23 08:35 Cardiac Enzymes 08/11/23 08/11/23 Range/Units 12:30 13:11 Troponin I 0.022 0.020 (0.000-0.034) ng/mL Current Medications Generic Name Dose Route Start Last Admin Trade Name Freq PRN Reason Stop Dose Admin Acetaminophen 650 mg 08/10/23 13:33 08/11/23 06:37 Acetaminophen Tab 325 Mg Tab PO 650 mg Q6HR PRN Administration Mild Pain or Fever > 100.5 Hydrocodone Bitart/Acetaminophen 1 each 08/10/23 13:33 Hydrocodone/Apap 5-325mg 1 Each Tab PO Q4HR PRN Moderate Pain (Scale 4 to 6) Albuterol/Ipratropium 3 ml 08/08/23 13:36 Ipratropium-Albuterol 3 Ml Neb INHALATION RT-Q2H PRN Shortness Of Breath Or Wheezing Albuterol/Ipratropium 3 ml 08/08/23 16:00 08/11/23 12:12 Ipratropium-Albuterol 3 Ml Neb INHALATION Not Given RT-QID ALEXANDRU Aspirin 81 mg 08/08/23 09:00 08/11/23 07:55 Aspirin 81 Mg PO 81 mg DAILY ALEXANDRU Administration Atorvastatin Calcium 20 mg 08/08/23 21:00 08/10/23 20:57 Atorvastatin 20 Mg Tab PO 20 mg HS [facility] Administration Carvedilol 12.5 mg 08/08/23 07:30 08/11/23 06:37 Carvedilol 12.5 Mg Tab PO 12.5 mg BID-W/MEALS ALEXANDRU Administration Fluticasone Propionate 1 spray 08/08/23 09:00 Fluticasone 50mcg/Irving Nasal 16gm EA NOSTRIL BID PRN Allergy Symptoms Furosemide 40 mg 08/08/23 09:00 08/11/23 07:55 Furosemide 10 Mg/Ml 4 Ml Vial IV 40 mg Q12HR ALEXANDRU Administration Heparin Sodium (Porcine) 5,000 unit 08/08/23 08:00 08/11/23 07:55 Heparin Sodium,Porcine 5,000 Unit/Ml 1 Ml Vial SQ 5,000 unit Q8HR ALEXANDRU Administration Hydralazine HCl 50 mg 08/08/23 21:00 08/11/23 07:55 Hydralazine Hcl 50 Mg Tab PO 50 mg BID ALEXANDRU Administration Ceftriaxone Sodium 2 gm/ 50 mls @ 100 mls/hr 08/09/23 09:00 08/11/23 07:54 Sodium Chloride IVPB 100 mls/hr Q24HR ALEXANDRU Administration Protocol Levothyroxine Sodium 50 mcg 08/09/23 09:00 08/11/23 06:37 Levothyroxine 50 Mcg Tab PO 50 mcg DAILY ALEXANDRU Administration Losartan Potassium 25 mg 08/08/23 14:00 08/10/23 15:42 Losartan 25 Mg Tab PO 25 mg DIRECTED ALEXANDRU Administration Naloxone HCl 0.2 mg 08/08/23 02:23 Naloxone 0.4 Mg/Ml 1 Ml Vial IV Q2M PRN Opioid Reversal Nifedipine 30 mg 08/11/23 21:00 Nifedipine 10 Mg Cap PO BID ALEXANDRU Nitroglycerin 0.4 mg 08/11/23 10:44 Nitroglycerin Sl Tabs 0.4 Mg Tab SUBLINGUAL Q5M PRN Chest Pain Ondansetron HCl 4 mg 08/08/23 02:23 Ondansetron 4 Mg/2 Ml Vial IVP Q8HR PRN Nausea And Vomiting Oxybutynin Chloride 5 mg 08/08/23 21:00 08/10/23 20:57 Oxybutynin Xl 5 Mg Tab.Er.24 PO 5 mg HS ALEXANDRU Administration Pantoprazole Sodium 40 mg 08/11/23 07:30 08/11/23 06:37 Pantoprazole 40 Mg Tablet PO 40 mg [id number] ALEXANDRU Administration Intake and Output 08/10/23 08/11/23 08/11/23 22:59 06:59 14:59 Intake Total 0 480 Output Total 700 Balance 0 -700 480 Intake: Oral 0 480 Output: Urine 700 Other: Voiding Method Toilet Toilet Weight 58.2 kg 08/10/23 08:35 08/10/23 08:35
--- NOTE | 2023-08-11 15:05 | P.PN ---
Subjective Progress Note Date: 08/11/23 Hospital course: Patient is a very pleasant 82-year-old female with a past medical history of ESRD on dialysis Thursday//Thursday's, CAD status post pacemaker placement, chronic diastolic heart failure, hypertension, hyperlipidemia, and hypothyroidism. She presented to the emergency department on 08/08/2023 with a chief complaint of shortness of breath progressively worsening. Upon arrival to the emergency department patient underwent full evaluation. She was found to be in acute respiratory distress with respiratory rate 25 and requiring supplemental oxygen with a nonrebreather. Temp is 98.0 F, heart rate was 82, and blood pressure was 170/72. EKG was completed showing a ventricular paced rhythm. Chest x-ray completed showing right lower lobe infiltrate consistent with right lower lobe pneumonia. Labs completed and reviewed. CBC showing normocytic anemia with hemoglobin of 8.9. BMP revealing hyponatremia with so dium of 122, hypokalemia with potassium of 3.1, hypochloremia with chloride of 88, and renal function consistent with ESRD with BUN of 18, creatinine 2.36, and GFR of 19. Liver profile unremarkable. Troponin 0.030 and proBNP elevated at 20,800. Influenza A, influenza B, RSV, and COVID PCR were all negative. Patient later requiring placement on BiPAP. She was started on treatment for community-acquired pneumonia with azithromycin and Rocephin. She was admitted under our services with consultation to nephrology and pulmonology. Patient was undergoing treatment for community-acquired pneumonia as well as mild diastolic heart failure exacerbation. On the morning of 08/11/2023 patient developed chest pain/pressure to midsternal chest radiating into her back and left shoulder during her dialysis session. During this time dialysis nurse reported patient's blood pressure did drop. Orders placed for aspirin 276 mg p.o. x 1 dose (as patient already took 81 mg aspirin this morning), stat EKG which again revealed a ventricular paced rhythm unchanged from previous. Troponin which resulted at 0.022 and consult was placed to cardiology. Card Clothier was notified and dialysis session stopped at this time. Physical exam: Patient seen and fully evaluated at bedside. Upon evaluation at bedside patient reporting sudden chest pressure/pain radiating into her back and left shoulder. She was currently undergoing dialysis treatment. Vital signs were stable at this time with pressure 120 systolic but patient soon dropped to 90 systolic. Card Clothier notified and dialysis session terminated. Patient given aspirin, EKG obtained and troponin. Order was placed for sublingual nitro but chest pain reportedly subsided and patient did not require. Vital signs reviewed and stable. General: Nontoxic, no distress and appears stated age. Derm: Skin warm and dry, normal coloration for ethnicity. Patient with large area of bruising covering right arm. Head: Atraumatic, normocephalic and symmetric. Eyes: EOMs intact, no lid lag, and anicteric sclera Mouth: no lip lesions, mucus membranes moist Cardiovascular: regular rate and rhythm with normal S1S2, no murmur, positive posterior tibial pulses bilaterally, and cap refill < 2 seconds. AV fistula right upper extremity with bruit and thrill intact. Lungs: Respirations even, regular, and unlabored on room air. Lungs with soft crackles noted to right lower lobe. Otherwise CTA with no rhonchi, no rales, no wheezing, and no accessory muscle usage. Abdominal: soft, nontender to palpation, no guarding, no appreciable organomegaly Ext: ROM intact. No gross muscle atrophy, no lower extremity edema, no contractures Neuro: Speech clear, face symmetrical and CN II-XII grossly intact with no noted focal neuro deficits Psych: Alert and oriented to person, place, time, and situation. Appropriate and pleasant affect. Assessment and Plan of Care: 82-year-old female with end-stage renal disease on hemodialysis Thursday//Saturdays, presented to the emergency department with a chief complaint of worsening shortness of breath associated with fever and cough and initially requiring placement on continuous BiPAP. Patient was found to have right lower lobe pneumonia and fluid volume overload. Acute hypoxic respiratory failure Community acquired pneumonia, right lower lobe HFpEF, mild exacerbation ESRD on hemodialysis -Initial chest x-ray positive for right lower lobe pneumonia and repeat chest x- ray completed this morning showing improved aeration of the lung bases with cardiomegaly and mild pulmonary vascular congestion. -Acute respiratory viral panel negative for COVID influenza and RSV -Oxygenation to be administered and titrated as needed to maintain SPO2 equal to or greater than 90%. Patient initially requiring continuous BiPAP and is now on 5L O2 via NC. -Orders placed for RN communication to attempt to wean down from oxygen. -Telemetry monitoring. -Monitor pulse-oximetry -Duonebs scheduled 4 times daily and as needed for SOB and/or wheezing -Incentive Spirometry, instructed patient on use 10-15 times hourly while awake. -Diuretics: Lasix 40 mg IVP every 12 hours -Antibiotics: Rocephin 2 g IVPB every 24 hours dose 3 of 5 and azithromycin 500 mg daily dose 3 of 3 -Procalcitonin slightly elevated at 0.13. -Legionella antigen negative -Pulmonology following, reviewed documentation in chart. -Nephrology following managing dialysis. Patient's last dialysis session was 08/08/2023. Chest pain, rule out acute coronary event Hypotension during dialysis session -Patient developed chest pain/pressure to midsternal chest radiating into her back and left shoulder during her dialysis session. -During this time dialysis nurse reported patient's blood pressure did drop down to 90 systolic. -Orders placed for aspirin 276 mg p.o. x 1 dose (as patient already took 81 mg aspirin this morning), stat EKG which again revealed a ventricular paced rhythm unchanged from previous. -Troponin was obtained which resulted at 0.022 and order placed for trending of troponins every 3 hours x 3. -Consult was placed to cardiology. -Card Clothier was notified and dialysis session stopped at this time. -Patient to remain on continuous telemetry monitoring. Hyponatremia, secondary to fluid volume overload. Improved with IV diuresis. -Continue with Lasix 40 mg IVP twice daily along with scheduled dialysis -Sodium improving and currently 133. Monitor BMP closely with repeat BMP tomorrow morning -Hyponatremia is believed to be the result of dilution secondary to fluid volume overload and improved with IV diuresis. Anemia of chronic disease, secondary to end-stage renal disease -Denies any GI bleeding, will place patient on PPI prophylaxis with Protonix. -Hemoglobin stable at 8.4, no need for transfusion or further intervention at this time. Will continue to monitor with repeat morning CBC and transfuse if needed for hemoglobin less than 7. History of CAD status post pacemaker placement Hypertension Hyperlipidemia Continue daily medication regimen with aspirin 81 mg daily, amlodipine 5 mg twice daily, atorvastatin 20 mg nightly, carvedilol 12.5 mg twice daily, hydralazine 50 mg twice daily, and losartan 25 mg daily. Hypothyroidism Continue daily medication regimen with levothyroxine 50 mcg daily. Data and imaging reviewed: Morning labs completed pending. Stat troponin was obtained resulting at 0.022. Vital signs reviewed. Blood pressure 147/57, heart rate 65, respiratory rate 16, temp 98.1 F, and SpO2 of 95% on 2 L. Blood culture showing no growth to date. EKG repeated this morning with onset of chest pain. EKG revealed a ventricular paced rhythm at 73 bpm unchanged from previous. CODE STATUS: Full code DVT prophylaxis: Heparin Anticipated discharge date: Clinical course to determine Anticipated discharge place: Clinical course to determine Patient was seen independently by Nurse Pracitioner. This document was prepared using [employer] dictation software. Please allow for errors in immigration law specialist, while rare they do occur. This patient was seen independently by my colleague Gloria HAWLEY. I agree with the assessment and plan. Objective - Vital Signs Vital signs: Vital Signs Temp 97.5 F L 08/11/23 04:00 Pulse 78 08/11/23 04:00 Resp 18 08/11/23 04:00 BP 167/56 08/11/23 04:00 Pulse Ox 96 08/11/23 04:00 FiO2 40 08/08/23 08:03 Intake & Output 08/10/23 08/11/23 08/11/23 18:59 06:59 18:59 Intake Total 310 Output Total 200 700 Balance 110 -700 Intake: Oral 310 Output: Urine 200 700 Other: Voiding Method Toilet Toilet - Labs CBC & Chem 7: 08/11/23 14:57 08/11/23 14:57 Labs: Abnormal Lab Results - Last 24 Hours (Table) 08/10/23 08/10/23 Range/Units 08:35 08:35 RBC 2.59 L (3.80-5.40) m/uL Hgb 8.4 L (11.4-16.0) gm/dL Hct 25.1 L (34.0-46.0) % Sodium 132 L (137-145) mmol/L Chloride 97 L (98-107) mmol/L BUN 33 H (7-17) mg/dL Creatinine 2.78 H (0.52-1.04) mg/dL Microbiology - Last 24 Hours (Table) 08/08/23 03:00 Blood Culture - Preliminary Blood 08/08/23 02:45 Blood Culture - Preliminary Blood
[2023-08-11 15:26] LABS: HCT 28.5 % (34.0-46.0); HGB 9.4 gm/dL (11.4-16.0); MCHC 32.9 g/dL (31.0-37.0); MCV 97.2 fL (80.0-100.0); Macrocytosis Slight; Mean Platelet Volume 8.7; Platelet Count 189 k/uL (150-450); RBC 2.93 m/uL (3.80-5.40); RDW 15.2 % (11.5-15.5); WBC 6.7 k/uL (3.8-10.6)
[2023-08-11 15:44] LABS: African American GFR (CKD) 33 (>60 ml/min/1.73 sqM); Anion Gap 5 mmol/L; Blood Urea Nitrogen 18 mg/dL (7-17); Calcium 8.3 mg/dL (8.4-10.2); Carbon Dioxide 31 mmol/L (22-30); Chloride 96 mmol/L (98-107); Glucose 102 mg/dL (74-99); Magnesium 1.9 mg/dL (1.6-2.3); Non-African American GFR(CKD) 29 (>60 ml/min/1.73 sqM); Potassium 3.5 mmol/L (3.5-5.1); Sodium 132 mmol/L (137-145)
[2023-08-11] MEDS: FLUTICASONE 50MCG/SPRAY NASAL 16GM EA NOSTRIL PRN (15:44)
--- NOTE | 2023-08-11 16:48 | P.PN ---
Subjective Patient is seen for follow-up for end-stage renal disease. Seen on hemodialysis. UF will be decreased to about 1 to 1-1/2 L. Blood pressure had dropped to 95 mmHg and is back up to 130s now No significant complaints except for pain in the left foot. Objective - Vital Signs Vital signs: Vital Signs Temp 97.4 F L 08/11/23 16:00 Pulse 74 08/11/23 16:00 Resp 16 08/11/23 16:00 BP 165/56 08/11/23 16:00 Pulse Ox 95 08/11/23 16:00 FiO2 40 08/08/23 08:03 Intake & Output 08/10/23 08/11/23 08/11/23 18:59 06:59 18:59 Intake Total 310 480 Output Total 200 700 Balance 110 -700 480 Weight 58.2 kg Intake: Oral 310 480 Output: Urine 200 700 Other: Voiding Method Toilet Toilet - Exam Patient is awake, comfortable, no acute distress Alert oriented 3 Examination of the heart S1 and S2 Examination of the lungs bilateral breath sounds are heard Abdomen is soft nontender No edema noted in the lower extremities, no swelling bruises or rashes noted in the left ankle area Patient appears euvolemic. - Labs CBC & Chem 7: 08/11/23 14:57 08/11/23 14:57 Labs: Abnormal Lab Results - Last 24 Hours (Table) 08/11/23 08/11/23 Range/Units 14:57 14:57 RBC 2.93 L (3.80-5.40) m/uL Hgb 9.4 L (11.4-16.0) gm/dL Hct 28.5 L (34.0-46.0) % Sodium 132 L (137-145) mmol/L Chloride 96 L (98-107) mmol/L Carbon Dioxide 31 H (22-30) mmol/L BUN 18 H (7-17) mg/dL Creatinine 1.63 H (0.52-1.04) mg/dL Glucose 102 H (74-99) mg/dL Calcium 8.3 L (8.4-10.2) mg/dL Microbiology - Last 24 Hours (Table) 08/08/23 03:00 Blood Culture - Preliminary Blood 08/08/23 02:45 Blood Culture - Preliminary Blood Assessment and Plan Assessment: 1. ESRD on HD TTS, access RUE AVF. Left kidney absent. 2. Pneumonia with Hypoxia-improved off BiPAP and on nasal cannula 3. Hypertension with chronic kidney disease. 4. Anemia with ESRD 5. MBD with ESRD Plan: Decrease UF to about 1.5 L as blood pressure had dropped earlier during treatment. Chest x-ray showed evidence of pulmonary vascular congestion therefore patient was being challenged for UF. Continue antibiotics
[2023-08-11] MEDS: NIFEdipine 10 MG CAP PO SCH (23:15)
--- NOTE | 2023-08-12 11:05 | P.PN ---
Subjective Progress Note Date: 08/12/23 Principal diagnosis: Fluid overload. Acute hypoxic respiratory failure This is an 82-year-old female with history of end-stage renal disease, on hemodialysis, patient has been very compliant with her hemodialysis. However over the last 1 week, patient has been complaining of increased shortness of breath, nonproductive cough, but no fever, no chills, no hemoptysis, no chest pain. Patient was evaluated in the ER, and her chest x-ray is showing evidence of interstitial edema, underlying right lower lobe pneumonia is not entirely ruled out, suspicious for increased infiltrate in the right lower lobe hence patient was admitted, and this consult was initiated upon admission the patient did not have any leukocytosis WBC count was 9.5, hemoglobin 8.9. Her sodium however was noted to be low at 122, and follow-up sodium later this morning is 126. Her BUN is 24 creatinine 2.66 screening for influenza A, influenza B, RSV and COVID-19 were all negative. Patient had a elevated BNP level of 20,800, procalcitonin level is pending. Patient did receive Lasix however it is not clear whether the patient makes a significant amount of urine on a daily basis. According to her she does make some urine. And she is not anuric Patient was reevaluated today on 08/09/2023, feeling better today, breathing easier, less shortness of breath, no cough no wheezing no fever no chills no hemoptysis and no chest pain.CBC continues to show no evidence of leukocytosis, WBC count is 9.1 hemoglobin is 7.9 basic metabolic profile is normal creatinine is up to 2.08 from admission. Remind you patient is a renal failure patient. Procalcitonin is borderline elevated, 0.13 would definitely recommend follow-up chest x-ray in the next 24 hours, and if improving then the findings are mostly findings of pulmonary edema rather than pneumonia. Although pneumonia involving the right lower lobe is still in the differential and not entirely ruled out Progress note dated August 10, 2023. The patient is seen today in room 353. The patient is on 2 L of oxygen. No IV fluids. She receives hemodialysis, on Tuesdays, , and Thursday. She is hoping to be discharged after hemodialysis tomorrow. The patient appears in no acute distress. She states her breathing is improved. Currently, her white count is 9.6, hemoglobin 8.4, hematocrit 25.1, and platelet count 183,000. S odium 132, potassium 3.6, chlorides 97, CO2 28, BUN 33, creatinine 2.78. Blood cultures are negative. Chest x-ray shows improved aeration at the lung bases, with cardiomegaly, and mild pulmonary vascular congestion. Progress note dated August 11, 2023. This is an 82-year-old female seen today in room 353. Currently she is undergoing hemodialysis. She is on 2 L of oxygen. The plan is for removal of 2 L of fluid today. The patient is hoping to be discharged, after dialysis. No new labs today. Clinically she appears very stable. She does not use oxygen at home. She will need to be assessed for home oxygen use, after dialysis. Progress note dated August 12, 2023. 82-year-old female seen today in room 353. The plan was to send the patient home yesterday after hemodialysis. Unfortunately, the patient became hypotensive, and had chest pain. For that reason she was not discharged. Currently, she is seen today in room 353. She is on room air. No IV fluids. No new labs today. The labs from yesterday have been reviewed. She had 3 troponins, 0.022, 0.020, 0.016. Objective - Vital Signs Vital signs: Vital Signs Temp 99 F 08/12/23 08:20 Pulse 68 08/12/23 08:20 Resp 20 08/12/23 08:20 BP 134/63 08/12/23 08:20 Pulse Ox 94 L 08/12/23 08:30 FiO2 40 08/08/23 08:03 Intake & Output 08/11/23 08/12/23 08/12/23 18:59 06:59 18:59 Intake Total 1180 240 Output Total 1561 250 Balance -381 -250 240 Weight 55.6 kg Intake: Oral 480 240 Hemodialysis 700 Output: Urine 250 Hemodialysis 1561 Other: Voiding Method Toilet Toilet - Exam No acute distress, oriented 3. Currently on room air. No respiratory distress. HEENT examination is grossly unremarkable. Mucous membranes are moist. No oral lesions. Neck supple. Full range of motion. No adenopathy thyromegaly or neck vein distention. Cardiovascular examination reveals regular rhythm rate. S1-S2 normal. No S3 or S4. No discernible murmur noted. Heart sounds are distant. Heart rate 68 bpm. Lungs reveal basilar crackles. No wheezes or rhonchi. 2 L saturation is 95 %. Breath sounds are equal bilaterally. Room air saturation is 92%. Abdomen soft bowel sounds are heard. No masses or tenderness. Extremities are intact. No cyanosis clubbing or edema. Skin is without rash or lesion. Neurologic examination is brief but nonfocal. - Labs CBC & Chem 7: 08/11/23 14:57 08/11/23 14:57 Labs: Abnormal Lab Results - Last 24 Hours (Table) 08/11/23 08/11/23 Range/Units 14:57 14:57 RBC 2.93 L (3.80-5.40) m/uL Hgb 9.4 L (11.4-16.0) gm/dL Hct 28.5 L (34.0-46.0) % Sodium 132 L (137-145) mmol/L Chloride 96 L (98-107) mmol/L Carbon Dioxide 31 H (22-30) mmol/L BUN 18 H (7-17) mg/dL Creatinine 1.63 H (0.52-1.04) mg/dL Glucose 102 H (74-99) mg/dL Calcium 8.3 L (8.4-10.2) mg/dL Microbiology - Last 24 Hours (Table) 08/08/23 03:00 Blood Culture - Preliminary Blood 08/08/23 02:45 Blood Culture - Preliminary Blood Assessment and Plan Assessment: Acute hypoxemic respiratory failure, secondary to pulmonary edema/fluid overload, in a patient with end-stage renal disease. History of chronic kidney disease, currently on 3 times a week hemodialysis. Chronic iron deficiency anemia. Hyponatremia. History of pulmonary hypertension. History of chronic diastolic CHF. Plan: Plan dated August 10, 2023. The patient is seen today room 353. She continues on 2 L of oxygen. The patient appears to be relatively comfortable. She is hoping to be discharged home tomorrow, after hemodialysis. Labs, x-rays, medications are reviewed. The patient continues on Rocephin. We will continue to follow make recommendations along the way. The patient also continues on breathing treatments. Clinically, she looks very stable. There is no conversational dyspnea, use of accessory muscles, or audible wheezes. Plan dated August 11, 2023. The patient is currently undergoing hemodialysis. She continues on oxygen at 2 L. The plan for hemodialysis today is removal of fluid, hopefully, 2 L. The patient is hoping to be discharged home after dialysis. The patient will need to be assessed for home oxygen use, after hemodialysis. She will need a room air resting saturation, and a saturation, while walking up and down the hallway. Labs, x-rays, medications are reviewed. Prognosis is guarded. We will continue to follow the patient, make recommendations along the way. Plan dated August 12, 2023. I was able to speak to the saw handle assembler, who stated that after the hemodialysis yesterday, the patient had hypotension, and some chest discomfort. The patient's troponins were all in the relatively low range. The patient is not having any symptoms at this time. She would like to be discharged home. She is currently off oxygen, her saturations are in the low 90s. Labs, x-rays, and medications are reviewed. From the pulmonary standpoint, she could be discharged. Should she not be discharged, we will continue to follow the patient. Prognosis is guarded. Time with Patient: Less than 30
[2023-08-12 11:25] LABS: HCT 29.5 % (34.0-46.0); HGB 9.9 gm/dL (11.4-16.0); MCH 32.5 pg (25.0-35.0); MCHC 33.7 g/dL (31.0-37.0); MCV 96.7 fL (80.0-100.0); Macrocytosis Slight; Platelet Count 190 k/uL (150-450); RBC 3.06 m/uL (3.80-5.40); RDW 15.5 % (11.5-15.5); WBC 6.3 k/uL (3.8-10.6)
[2023-08-12 11:44] LABS: ALT 14 U/L (4-34); AST 21 U/L (14-36); African American GFR (CKD) 20 (>60 ml/min/1.73 sqM); Albumin 3.3 g/dL (3.5-5.0); Alkaline Phosphatase 90 U/L (38-126); Anion Gap 9 mmol/L; Blood Urea Nitrogen 23 mg/dL (7-17); Calcium 8.5 mg/dL (8.4-10.2); Carbon Dioxide 27 mmol/L (22-30); Chloride 96 mmol/L (98-107); Glucose 108 mg/dL (74-99); Non-African American GFR(CKD) 18 (>60 ml/min/1.73 sqM); Potassium 3.5 mmol/L (3.5-5.1); Sodium 132 mmol/L (137-145); Total Bilirubin 0.6 mg/dL (0.2-1.3); Total Protein 5.7 g/dL (6.3-8.2)
--- NOTE | 2023-08-12 12:19 | P.PN ---
Subjective HISTORY OF PRESENT ILLNESS: This is a 82-year-old female with a past medical history significant for hypothyroidism, hyperlipidemia, hypertension, and end-stage renal disease on hemodialysis. Patient follows in the office with Dr. Jay. We have been asked to see the patient in consultation for chest pain. Patient examined at the bedside. Patient was undergoing hemodialysis today when she developed chest pain. She was approximately 90 minutes into her dialysis session. She states the pain started in the middle of her chest and radiated into her back between her shoulder blades. Patient's hemodialysis was stopped and fluid was given b ack to her. She then had resolution of her chest pain. She states that she has been on hemodialysis for approximately 1 month. She denies ever having chest pain like this with dialysis previously. The patient did not require any sublingual nitro. She currently denies any chest pain or pressure. Denies any shortness of breath. Patient's blood pressures have been elevated with a systolic between [id number] during hospitalization DIAGNOSTICS: - EKG reveals ventricular paced rhythm. - Chest xray improved aeration of the lung base with cardiomegaly and mild pulmonary vascular congestion - Laboratory data: WBC 9.6. Hemoglobin 8.4. Platelet count 183. Sodium 132. Potassium 3.6. BUN 33. Creatinine 2.78. Troponin negative x 2 - Current home cardiac medications include aspirin 81 mg daily, Lipitor 20 mg at night, Lasix 40 mg twice a day, amlodipine 5 mg twice a day, carvedilol 12.5 mg twice a day, hydralazine 50 mg twice a day, and losartan 25 mg daily as needed. - Most recent echocardiogram obtained on July 23, 2023 revealed ejection fraction 55%, mild MR, moderate TR 08/12/2023 Patient examined this morning at bedside. Patient denies chest pain or pressure. She denies shortness of breath. Vital signs are stable. No further episodes of chest pain. PHYSICAL EXAM: VITAL SIGNS: Reviewed. GENERAL: Well-developed in no acute distress. HEENT: Head is normocephalic. Pupils are equal, round. Sclerae anicteric. Mucous membranes of the mouth are moist. Neck supple. No JVD or thyromegaly LUNGS: Respirations even and unlabored. Lungs essentially clear to auscultation bilaterally. HEART: Regular rate and rhythm. S1 and S2 heard. Systolic murmur noted ABDOMEN: Soft. Nondistended. Nontender. EXTREMITIES: Normal range of motion. No clubbing or cyanosis. Peripheral pulses intact. No lower extremity edema NEUROLOGIC: Awake and alert. Oriented x 3. ASSESSMENT: Chest pain, atypical, troponin negative x 2 Hypertension, uncontrolled End-stage renal disease on hemodialysis, left kidney absent History of permanent pacemaker implantation Hyperlipidemia Hypothyroidism PLAN: Increase carvedilol to 25 mg twice a day Discontinue hydralazine Continue additional cardiac medications Hold Procardia in the morning of dialysis days Continue to monitor blood pressure Further recommendations pending patient course Nurse practitioner note has been reviewed by physician. Signing provider agrees with the documented findings, assessment, and plan of care documented by MAINTENANCE CONTROLLER as a scribe. Objective - Vital Signs Vital signs: Vital Signs Temp 99 F 08/12/23 08:20 Pulse 68 08/12/23 08:20 Resp 20 08/12/23 08:20 BP 134/63 08/12/23 08:20 Pulse Ox 94 L 08/12/23 08:30 FiO2 40 08/08/23 08:03 Intake & Output 08/11/23 08/12/23 08/12/23 18:59 06:59 18:59 Intake Total 1180 240 Output Total 1561 250 Balance -381 -250 240 Weight 55.6 kg Intake: Oral 480 240 Hemodialysis 700 Output: Urine 250 Hemodialysis 1561 Other: Voiding Method Toilet Toilet - Labs CBC & Chem 7: 08/12/23 11:10 08/12/23 11:10 Labs: Abnormal Lab Results - Last 24 Hours (Table) 08/11/23 08/11/23 08/12/23 Range/Units 14:57 14:57 11:10 RBC 2.93 L 3.06 L (3.80-5.40) m/uL Hgb 9.4 L 9.9 L (11.4-16.0) gm/dL Hct 28.5 L 29.5 L (34.0-46.0) % Sodium 132 L (137-145) mmol/L Chloride 96 L (98-107) mmol/L Carbon Dioxide 31 H (22-30) mmol/L BUN 18 H (7-17) mg/dL Creatinine 1.63 H (0.52-1.04) mg/dL Glucose 102 H (74-99) mg/dL Calcium 8.3 L (8.4-10.2) mg/dL Total Protein (6.3-8.2) g/dL Albumin (3.5-5.0) g/dL 08/12/23 Range/Units 11:10 RBC (3.80-5.40) m/uL Hgb (11.4-16.0) gm/dL Hct (34.0-46.0) % Sodium 132 L (137-145) mmol/L Chloride 96 L (98-107) mmol/L Carbon Dioxide (22-30) mmol/L BUN 23 H (7-17) mg/dL Creatinine 2.47 H (0.52-1.04) mg/dL Glucose 108 H (74-99) mg/dL Calcium (8.4-10.2) mg/dL Total Protein 5.7 L (6.3-8.2) g/dL Albumin 3.3 L (3.5-5.0) g/dL Microbiology - Last 24 Hours (Table) 08/08/23 03:00 Blood Culture - Preliminary Blood 08/08/23 02:45 Blood Culture - Preliminary Blood
--- NOTE | 2023-08-12 13:28 | P.PN ---
Subjective Progress Note Date: 08/12/23 Hospital course: Patient is a very pleasant 82-year-old female with a past medical history of ESRD on dialysis Thursday//Thursday's, CAD status post pacemaker placement, chronic diastolic heart failure, hypertension, hyperlipidemia, and hypothyroidism. She presented to the emergency department on 08/08/2023 with a chief complaint of shortness of breath progressively worsening. Upon arrival to the emergency department patient underwent full evaluation. She was found to be in acute respiratory distress with respiratory rate 25 and requiring supplemental oxygen with a nonrebreather. Temp is 98.0 F, heart rate was 82, and blood pressure was 170/72. EKG was completed showing a ventricular paced rhythm. Chest x-ray completed showing right lower lobe infiltrate consistent with right lower lobe pneumonia. Labs completed and reviewed. CBC showing normocytic anemia with hemoglobin of 8.9. BMP revealing hyponatremia with so dium of 122, hypokalemia with potassium of 3.1, hypochloremia with chloride of 88, and renal function consistent with ESRD with BUN of 18, creatinine 2.36, and GFR of 19. Liver profile unremarkable. Troponin 0.030 and proBNP elevated at 20,800. Influenza A, influenza B, RSV, and COVID PCR were all negative. Patient later requiring placement on BiPAP. She was started on treatment for community-acquired pneumonia with azithromycin and Rocephin. She was admitted under our services with consultation to nephrology and pulmonology. Patient was undergoing treatment for community-acquired pneumonia as well as mild diastolic heart failure exacerbation. On the morning of 08/11/2023 patient developed chest pain/pressure to midsternal chest radiating into her back and left shoulder during her dialysis session. During this time dialysis nurse reported patient's blood pressure did drop. Orders placed for aspirin 276 mg p.o. x 1 dose (as patient already took 81 mg aspirin this morning), stat EKG which again revealed a ventricular paced rhythm unchanged from previous. Troponin which resulted at 0.022 and consult was placed to cardiology. Tube Blower was notified and dialysis session stopped at this time. Patient was evaluated by cardiology. Troponins were trended resulting at 0.022, 0.020, and 0.016. Patient has had no further episodes of chest pain. She has been weaned off of oxygen. She has been cleared by pulmonary and nephrology for discharge. Cardiology made some medication changes, discontinuing amlodipine and hydralazine and starting patient on Procardia 30 mg twice daily and Coreg. Today they increased carvedilol to 25 mg twice a day and recommending continued monitoring of blood pressure. Physical exam: Patient seen and fully evaluated at bedside. Patient was sitting up in chair at bedside and appeared to be doing well this morning. Vital signs reviewed and stable. General: Nontoxic, no distress and appears stated age. Derm: Skin warm and dry, normal coloration for ethnicity. Patient with large area of bruising covering right arm. Head: Atraumatic, normocephalic and symmetric. Eyes: EOMs intact, no lid lag, and anicteric sclera Mouth: no lip lesions, mucus membranes moist Cardiovascular: regular rate and rhythm with normal S1S2, no murmur, positive posterior tibial pulses bilaterally, and cap refill < 2 seconds. AV fistula right upper extremity with bruit and thrill intact. Lungs: Respirations even, regular, and unlabored on room air. Lungs with soft crackles noted to right lower lobe. Otherwise CTA with no rhonchi, no rales, no wheezing, and no accessory muscle usage. Abdominal: soft, nontender to palpation, no guarding, no appreciable organomegaly Ext: ROM intact. No gross muscle atrophy, no lower extremity edema, no contractures Neuro: Speech clear, face symmetrical and CN II-XII grossly intact with no noted focal neuro deficits Psych: Alert and oriented to person, place, time, and situation. Appropriate and pleasant affect. Assessment and Plan of Care: 82-year-old female with end-stage renal disease on hemodialysis Thursday//Saturdays, presented to the emergency department with a chief complaint of worsening shortness of breath associated with fever and cough and initially requiring placement on continuous BiPAP. Patient was found to have right lower lobe pneumonia and fluid volume overload. Chest pain, acute coronary event ruled out Hypotension during dialysis session -On 08/11/2023 patient developed chest pain/pressure to midsternal chest radiating into her back and left shoulder during her dialysis session. -Cardiology evaluated and made some medication changes, discontinuing amlodipine and hydralazine and starting patient on Procardia 30 mg twice daily and Coreg. Discussed with Cardiac LIQUOR CLERK whom stated they increased carvedilol to 25 mg twice a day and recommending continued monitoring of blood pressure. Acute hypoxic respiratory failure, resolved Community acquired pneumonia, right lower lobe HFpEF, mild exacerbation ESRD on hemodialysis -Initial chest x-ray positive for right lower lobe pneumonia and repeat chest x- ray completed this morning showing improved aeration of the lung bases with cardiomegaly and mild pulmonary vascular congestion. -Acute respiratory viral panel negative for COVID influenza and RSV -Oxygenation to be administered and titrated as needed to maintain SPO2 equal to or greater than 90%. Patient initially requiring continuous BiPAP and is now on 5L O2 via NC. -Orders placed for RN communication to attempt to wean down from oxygen. -Telemetry monitoring. -Monitor pulse-oximetry -Duonebs scheduled 4 times daily and as needed for SOB and/or wheezing -Incentive Spirometry, instructed patient on use 10-15 times hourly while awake. -Diuretics: Lasix 40 mg IVP every 12 hours -Antibiotics: Patient completed 3-day course of azithromycin and 5-day course of Rocephin. -Procalcitonin slightly elevated at 0.13. -Legionella antigen negative -Pulmonology clearing patient from pulmonary perspective. -Nephrology following managing dialysis. Patient to continue dialysis Thursday//Saturdays. Hyponatremia, secondary to fluid volume overload. Improved with IV diuresis. -Continue with Lasix 40 mg IVP twice daily along with scheduled dialysis -Hyponatremia is believed to be the result of dilution secondary to fluid volume overload and improved with IV diuresis. Anemia of chronic disease, secondary to end-stage renal disease -Denies any GI bleeding, will place patient on PPI prophylaxis with Protonix. -Hemoglobin stable at 8.4, no need for transfusion or further intervention at this time. Will continue to monitor with repeat morning CBC and transfuse if needed for hemoglobin less than 7. History of CAD status post pacemaker placement Hypertension Hyperlipidemia Continue daily medication regimen with aspirin 81 mg daily, amlodipine 5 mg twice daily, atorvastatin 20 mg nightly, carvedilol 12.5 mg twice daily, hydralazine 50 mg twice daily, and losartan 25 mg daily. Hypothyroidism Continue daily medication regimen with levothyroxine 50 mcg daily. Data and imaging reviewed: Morning labs completed. CBC showing stable normocytic anemia with hemoglobin of 9.9. BMP showing mild hyponatremia with sodium of 132 and hypochloremia with chloride of 96 and renal function consistent with ESRD with BUN of 23, and creatinine 2.47 and GFR of 18. Magnesium normal findings at 2.0. Troponins were trended resulting at 0.022, 0.020, and 0.016. Vital signs reviewed. Blood pressure 134/63, heart rate 68, respiratory rate 20, temp 99.0 F, and SpO2 of 92% on room air. Blood cultures showing no growth to date. CODE STATUS: Full code DVT prophylaxis: Heparin Anticipated discharge date: Clinical course to determine Anticipated discharge place: Clinical course to determine Patient was seen independently by Nurse Pracitioner. This document was prepared using [employer] dictation software. Please allow for errors in diving fisher, while rare they do occur. Objective - Vital Signs Vital signs: Vital Signs Temp 98.1 F 08/12/23 04:00 Pulse 61 08/12/23 04:00 Resp 17 08/12/23 04:00 BP 121/59 08/12/23 04:00 Pulse Ox 92 L 08/12/23 04:00 FiO2 40 08/08/23 08:03 Intake & Output 08/11/23 08/12/23 08/12/23 18:59 06:59 18:59 Intake Total 1180 Output Total 1561 250 Balance -381 -250 Weight 55.6 kg Intake: Oral 480 Hemodialysis 700 Output: Urine 250 Hemodialysis 1561 Other: Voiding Method Toilet Toilet - Labs CBC & Chem 7: 08/12/23 11:10 08/12/23 11:10 Labs: Abnormal Lab Results - Last 24 Hours (Table) 08/11/23 08/11/23 Range/Units 14:57 14:57 RBC 2.93 L (3.80-5.40) m/uL Hgb 9.4 L (11.4-16.0) gm/dL Hct 28.5 L (34.0-46.0) % Sodium 132 L (137-145) mmol/L Chloride 96 L (98-107) mmol/L Carbon Dioxide 31 H (22-30) mmol/L BUN 18 H (7-17) mg/dL Creatinine 1.63 H (0.52-1.04) mg/dL Glucose 102 H (74-99) mg/dL Calcium 8.3 L (8.4-10.2) mg/dL Microbiology - Last 24 Hours (Table) 08/08/23 03:00 Blood Culture - Preliminary Blood 08/08/23 02:45 Blood Culture - Preliminary Blood
--- NOTE | 2023-08-12 16:41 | P.PN ---
Subjective Patient is seen for follow-up for end-stage renal disease. No significant complaints today. Patient had significant chest pressure yesterday during dialysis and treatment was terminated early. Patient did not tolerate increased UF. Objective - Vital Signs Vital signs: Vital Signs Temp 98.9 F 08/12/23 16:00 Pulse 76 08/12/23 16:00 Resp 20 08/12/23 16:00 BP 137/54 08/12/23 16:00 Pulse Ox 94 L 08/12/23 16:00 FiO2 40 08/08/23 08:03 Intake & Output 08/11/23 08/12/23 08/12/23 18:59 06:59 18:59 Intake Total 1180 480 Output Total 1561 250 Balance -381 -250 480 Weight 55.6 kg Intake: Oral 480 480 Hemodialysis 700 Output: Urine 250 Hemodialysis 1561 Other: Voiding Method Toilet Toilet # Voids 200 - Exam Patient is awake, comfortable, no acute distress Alert oriented 3 Examination of the heart S1 and S2 Examination of the lungs bilateral breath sounds are heard Abdomen is soft nontender No edema noted in the lower extremities, no swelling bruises or rashes noted in the left ankle area Patient appears euvolemic. - Labs CBC & Chem 7: 08/12/23 11:10 08/12/23 11:10 Labs: Abnormal Lab Results - Last 24 Hours (Table) 08/12/23 08/12/23 Range/Units 11:10 11:10 RBC 3.06 L (3.80-5.40) m/uL Hgb 9.9 L (11.4-16.0) gm/dL Hct 29.5 L (34.0-46.0) % Sodium 132 L (137-145) mmol/L Chloride 96 L (98-107) mmol/L BUN 23 H (7-17) mg/dL Creatinine 2.47 H (0.52-1.04) mg/dL Glucose 108 H (74-99) mg/dL Total Protein 5.7 L (6.3-8.2) g/dL Albumin 3.3 L (3.5-5.0) g/dL Microbiology - Last 24 Hours (Table) 08/08/23 03:00 Blood Culture - Preliminary Blood 08/08/23 02:45 Blood Culture - Preliminary Blood Assessment and Plan Assessment: 1. ESRD on HD TTS, access RUE AVF. Left kidney absent. 2. Pneumonia with Hypoxia-improved off BiPAP and on nasal cannula 3. Hypertension with chronic kidney disease. 4. Anemia with ESRD 5. MBD with ESRD Plan: Hemodialysis in a.m. with UF of 0.5 to 1 L as tolerated.
[2023-08-12] MEDS: carvediloL 12.5 MG TAB PO SCH (18:45)
[2023-08-13] MEDS ORDERED: NIFEdipine 10 MG CAP PO SCH (09:45)
--- NOTE | 2023-08-13 10:53 | P.DS ---
Providers Date of admission: 08/08/23 02:22 Expected date of discharge: 08/13/23 Attending physician: Cullen Sales MD Consults: 08/08/23 02:22 Consult Physician Routine Consulting Provider: Greyson Heredia Consult Reason/Comments: volume overload, bipap dependent Do you want consulting provider notified?: Yes Consult Physician Routine Consulting Provider: Iván Guerra Consult Reason/Comments: dialysis Do you want consulting provider notified?: Yes 08/11/23 10:46 Consult Physician Routine Consulting Provider: Truman Thomas Consult Reason/Comments: Pt developed chest pain pressure during dialysis Do you want consulting provider notified?: Yes Primary care physician: [facility] Course: Discharge Diagnosis: Acute hypoxic respiratory failure, resolved. Community acquired pneumonia, right lower lobe. Patient completed 3-day course of azithromycin and 5-day course of Rocephin. HFpEF, mild exacerbation. Continue with Lasix 40 mg twice daily along with scheduled dialysis ESRD on hemodialysis. Patient to continue dialysis Thursday//Saturdays. Chest pain with hypotension during dialysis, acute coronary event ruled out. Cardiology evaluated and made some medication changes, discontinuing amlodipine and hydralazine and starting patient on Procardia XL 30 mg twice daily, increase carvedilol to 25 mg twice daily and recommending continuation of losartan 25 mg daily. Hyponatremia, secondary to fluid volume overload. Improved with IV diuresis. Anemia of chronic disease, secondary to end-stage renal disease. Hemoglobin stable at 9.9 on discharge. Patient discharged home on Protonix 40 mg daily. History of CAD status post pacemaker placement Hypertension Hyperlipidemia Hypothyroidism. Continue daily medication regimen with levothyroxine 50 mcg daily. Hospital Course: Patient is a very pleasant 82-year-old female with a past medical history of ESRD on dialysis Thursday//Thursday's, CAD status post pacemaker placement, chronic diastolic heart failure, hypertension, hyperlipidemia, and hypothyroidism. She presented to the emergency department on 08/08/2023 with a chief complaint of shortness of breath progressively worsening. Upon arrival to the emergency department patient underwent full evaluation. She was found to be in acute respiratory distress with respiratory rate 25 and requiring suppl emental oxygen with a nonrebreather. Temp is 98.0 F, heart rate was 82, and blood pressure was 170/72. EKG was completed showing a ventricular paced rhythm. Chest x-ray completed showing right lower lobe infiltrate consistent with right lower lobe pneumonia. Labs completed and reviewed. CBC showing normocytic anemia with hemoglobin of 8.9. BMP revealing hyponatremia with sodium of 122, hypokalemia with potassium of 3.1, hypochloremia with chloride of 88, and renal function consistent with ESRD with BUN of 18, creatinine 2.36, and GFR of 19. Liver profile unremarkable. Troponin 0.030 and proBNP elevated at 20,800. Influenza A, influenza B, RSV, and COVID PCR were all negative. Patient later requiring placement on BiPAP. She was started on treatment for community-acquired pneumonia with azithromycin and Rocephin. She was admitted under our services with consultation to nephrology and pulmonology. Patient was undergoing treatment for community-acquired pneumonia as well as mild diastolic heart failure exacerbation. On the morning of 08/11/2023 patient developed chest pain/pressure to midsternal chest radiating into her back and left shoulder during her dialysis session. During this time dialysis nurse reported patient's blood pressure did drop. Orders placed for aspirin 276 mg p.o. x 1 dose (as patient already took 81 mg aspirin this morning), stat EKG which again revealed a ventricular paced rhythm unchanged from previous. Troponin which resulted at 0.022 and consult was placed to cardiology. Knitting Machine Operator [employer] was notified and dialysis session stopped at this time. Patient was evaluated by cardiology. Troponins were trended resulting at 0.022, 0.020, and 0.016. Patient has had no further episodes of chest pain. She has been weaned off of oxygen. She has been cleared by pulmonary and nephrology for discharge. Cardiology evaluated and made some medication changes, discontinuing amlodipine and hydralazine and starting patient on Procardia XL 30 mg twice daily, increase carvedilol to 25 mg twice daily and recommending continuation of losartan 25 mg daily. Patient has been cleared by cardiology, nephrology, and pulmonology. Medically, patient is stable for discharge at this time. Patient to follow-up outpatient with PCP in 1 to 2 days, cardiology in 1 week, and nephrology in 1 week. Patient discharged home with [facility]. Physical exam: Patient seen and fully evaluated at bedside. Patient was sitting up in chair at bedside and appeared to be doing well this morning. Vital signs reviewed and stable. General: Nontoxic, no distress and appears stated age. Derm: Skin warm and dry, normal coloration for ethnicity. Patient with large area of bruising covering right arm. Head: Atraumatic, normocephalic and symmetric. Eyes: EOMs intact, no lid lag, and anicteric sclera Mouth: no lip lesions, mucus membranes moist Cardiovascular: regular rate and rhythm with normal S1S2, no murmur, positive posterior tibial pulses bilaterally, and cap refill < 2 seconds[address] AV fistula right upper extremity with bruit and thrill intact. Lungs: Respirations even, regular, and unlabored on room air. Lungs with soft crackles noted to right lower lobe. Otherwise CTA with no rhonchi, no rales, no wheezing, and no accessory muscle usage. Abdominal: soft, nontender to palpation, no guarding, no appreciable organomegaly Ext: ROM intact. No gross muscle atrophy, no lower extremity edema, no contractures Neuro: Speech clear, face symmetrical and CN II-XII grossly intact with no noted focal neuro deficits Psych: Alert and oriented to person, place, time, and situation. Appropriate and pleasant affect. A total of 31 minutes of time were spent preparing this complex discharge summary. Pt was discharged on 08/13/23. Patient was seen independently by Nurse Practitioner. This document was prepared using [employer] dictation software. Please allow for errors in configuration management manager while rare they do occur. Brian Castro NP rendered care for this patient independently, reviewed the findings and plan as documented in the note above. I did not physically speak with or examine the patient on this date. Patient Condition at Discharge: Stable Plan - Discharge Summary Discharge Rx Participant: Yes New Discharge Prescriptions: New Pantoprazole [Protonix] 40 mg PO AC-BRKFST 30 Days #30 tab NIFEdipine XL [Procardia XL] 30 mg PO Q12HR 30 Days #60 tab carvediloL [Coreg*] 25 mg PO BID-W/MEALS 30 Days #120 tab Continue Aspirin EC [Ecotrin Low Dose] 81 mg PO DAILY Cholestyramine (with Sugar) [Cholestyramine Packet] 4 gm PO BID PRN PRN Reason: Diarrhea Fluticasone Nasal [place] [Flonase Nasal [place]] 1 - 2 spr EA NOSTRIL BID PRN PRN Reason: Allergy Symptoms Loratadine 10 mg PO DAILY Vits A,C,E/Lutein/Minerals [Ocuvite with Lutein Tablet] 1 tab PO DAILY allopurinoL [Zyloprim] 100 mg PO DAILY Atorvastatin [Lipitor] 20 mg PO HS Levothyroxine Sodium [Synthroid] 50 mcg PO DAILY Oxybutynin Xl [Ditropan XL] 5 mg PO HS Vitamin E (Dl,Tocopheryl Acet) [Vitamin E (1000 Iu = 450 MG)] 450 mg PO HS Losartan [Cozaar] 25 mg PO DIRECTED Furosemide [Lasix] 40 mg PO BID Discontinued carvediloL [Coreg*] 12.5 mg PO BID hydrALAZINE HCL [Apresoline] 50 mg PO BID amLODIPine [Norvasc] 5 mg PO BID Discharge Medication List Aspirin EC [Ecotrin Low Dose] 81 mg PO DAILY 01/17/23 [History] Atorvastatin [Lipitor] 20 mg PO HS 01/17/23 [History] Cholestyramine (with Sugar) [Cholestyramine Packet] 4 gm PO BID PRN 01/17/23 [History] Fluticasone Nasal [place] [Flonase Nasal [place]] 1 - 2 spr EA NOSTRIL BID PRN 01/17/23 [History] Levothyroxine Sodium [Synthroid] 50 mcg PO DAILY 01/17/23 [History] Loratadine 10 mg PO DAILY 01/17/23 [History] Oxybutynin Xl [Ditropan XL] 5 mg PO HS 01/17/23 [History] Vits A,C,E/Lutein/Minerals [Ocuvite with Lutein Tablet] 1 tab PO DAILY 01/17/23 [History] Vitamin E (Dl,Tocopheryl Acet) [Vitamin E (1000 Iu = 450 MG)] 450 mg PO HS 07/22/23 [History] allopurinoL [Zyloprim] 100 mg PO DAILY 07/22/23 [History] Furosemide [Lasix] 40 mg PO BID 08/08/23 [History] Losartan [Cozaar] 25 mg PO DIRECTED 08/08/23 [History] NIFEdipine XL [Procardia XL] 30 mg PO Q12HR 30 Days #60 tab 08/13/23 [Rx] Pantoprazole [Protonix] 40 mg PO AC-BRKFST 30 Days #30 tab 08/13/23 [Rx] carvediloL [Coreg*] 25 mg PO BID-W/MEALS 30 Days #120 tab 08/13/23 [Rx] Follow up Appointment(s)/Referral(s): Truman Thomas MD [STAFF PHYSICIAN] - 08/21/23 2:15 pm (Appt with Dr. Jay) Linda Antoine MD [STAFF PHYSICIAN] - 1 Week (pt will be seen at Hemodialysis center) Jono Edwards DO [Primary Care Provider] - 08/17/23 3:00 pm [facility], [NON-STAFF] - Patient Instructions/Handouts: End Stage Kidney Disease (DC) Activity/Diet/Wound Care/Special Instructions: Activity: As tolerated. Take breaks as needed. Diet: Heart healthy and carb consistent diet. Avoid salts, or foods with hidden salts such as canned or boxed foods and frozen dinners. Extra salt makes your heart work harder and traps the fluid in your body for longer. Special Instructions: Weigh yourself every morning after you urinate. If you gain 3 pounds overnight or more than 5 pounds in one week, call your primary physician and shotgun shell loading machine operator for guidance on your medications or they may want to see you in their office. Keep a daily log of your weights and be sure to bring with you at follow up visits with your ceramics teacher and shotgun shell loading machine operator. Take all of your medications as directed, especially your water pills. NEVER skip a dose. And remember to keep all of your doctor's appointments and follow- up as needed. Elevate your legs when you are not up moving around to help with circulation and prevent swelling. Compression stockings are also a great way to improve lower extremity circulation and prevent/improve lower extremity edema. Call your ceramics teacher and shotgun shell loading machine operator if you notice any extra swelling in your legs, ankles, feet or abdomen, if you have a new dry cough, if your shortness of breath worsens with activity or at rest, or if you feel more fatigued. Thank you for allowing us to participate in your care, it was truly a pleasure having you for our patient!!! . Discharge Disposition: HOME WITH HOME HEALTH SERVICES
--- NOTE | 2023-08-13 11:13 | P.PN ---
Subjective HISTORY OF PRESENT ILLNESS: This is a 82-year-old female with a past medical history significant for hypothyroidism, hyperlipidemia, hypertension, and end-stage renal disease on hemodialysis. Patient follows in the office with Dr. Jay. We have been asked to see the patient in consultation for chest pain. Patient examined at the bedside. Patient was undergoing hemodialysis today when she developed chest pain. She was approximately 90 minutes into her dialysis session. She states the pain started in the middle of her chest and radiated into her back between her shoulder blades. Patient's hemodialysis was stopped and fluid was given b ack to her. She then had resolution of her chest pain. She states that she has been on hemodialysis for approximately 1 month. She denies ever having chest pain like this with dialysis previously. The patient did not require any sublingual nitro. She currently denies any chest pain or pressure. Denies any shortness of breath. Patient's blood pressures have been elevated with a systolic between 910000 during hospitalization DIAGNOSTICS: - EKG reveals ventricular paced rhythm. - Chest xray improved aeration of the lung base with cardiomegaly and mild pulmonary vascular congestion - Laboratory data: WBC 9.6. Hemoglobin 8.4. Platelet count 183. Sodium 132. Potassium 3.6. BUN 33. Creatinine 2.78. Troponin negative x 2 - Current home cardiac medications include aspirin 81 mg daily, Lipitor 20 mg at night, Lasix 40 mg twice a day, amlodipine 5 mg twice a day, carvedilol 12.5 mg twice a day, hydralazine 50 mg twice a day, and losartan 25 mg daily as needed. - Most recent echocardiogram obtained on July 23, 2023 revealed ejection fraction 55%, mild MR, moderate TR 08/12/2023 Patient examined this morning at bedside. Patient denies chest pain or pressure. She denies shortness of breath. Vital signs are stable. No further episodes of chest pain. 08/13/2023 Patient examined this morning at the bedside. Patient denies chest pain or pressure. She denies shortness of breath. Vital signs are stable. She has had no further episodes of chest pain or pressure. PHYSICAL EXAM: VITAL SIGNS: Reviewed. GENERAL: Well-developed in no acute distress. HEENT: Head is normocephalic. Pupils are equal, round. Sclerae anicteric. Mucous membranes of the mouth are moist. Neck supple. No JVD or thyromegaly LUNGS: Respirations even and unlabored. Lungs essentially clear to auscultation bilaterally. HEART: Regular rate and rhythm. S1 and S2 heard. Systolic murmur noted ABDOMEN: Soft. Nondistended. Nontender. EXTREMITIES: Normal range of motion. No clubbing or cyanosis. Peripheral pulses intact. No lower extremity edema NEUROLOGIC: Awake and alert. Oriented x 3. ASSESSMENT: Chest pain, atypical, troponin negative x 2 Hypertension, uncontrolled End-stage renal disease on hemodialysis, left kidney absent History of permanent pacemaker implantation Hyperlipidemia Hypothyroidism PLAN: Continue current cardiac medications Hold Procardia in the morning of dialysis days Continue to monitor blood pressure Further recommendations pending patient course Nurse practitioner note has been reviewed by physician. Signing provider agrees with the documented findings, assessment, and plan of care documented by WAREHOUSE RECEIVER as a scribe. Objective - Vital Signs Vital signs: Vital Signs Temp 97.7 F 08/13/23 09:30 Pulse 68 08/13/23 09:30 Resp 18 08/13/23 09:30 BP 154/56 08/13/23 09:30 Pulse Ox 94 L 08/13/23 09:30 FiO2 40 08/08/23 08:03 Intake & Output 08/12/23 08/13/23 08/13/23 18:59 06:59 18:59 Intake Total 720 240 Balance 720 240 Weight 55.8 kg Intake: Oral 720 240 Other: Voiding Method Toilet Toilet Toilet # Voids 200 - Labs CBC & Chem 7: 08/12/23 11:10 08/12/23 11:10 Labs: Abnormal Lab Results - Last 24 Hours (Table) 08/12/23 08/12/23 Range/Units 11:10 11:10 RBC 3.06 L (3.80-5.40) m/uL Hgb 9.9 L (11.4-16.0) gm/dL Hct 29.5 L (34.0-46.0) % Sodium 132 L (137-145) mmol/L Chloride 96 L (98-107) mmol/L BUN 23 H (7-17) mg/dL Creatinine 2.47 H (0.52-1.04) mg/dL Glucose 108 H (74-99) mg/dL Total Protein 5.7 L (6.3-8.2) g/dL Albumin 3.3 L (3.5-5.0) g/dL
--- NOTE | 2023-08-13 11:20 | P.PN ---
Subjective Progress Note Date: 08/13/23 Principal diagnosis: Fluid overload. Acute hypoxic respiratory failure This is an 82-year-old female with history of end-stage renal disease, on hemodialysis, patient has been very compliant with her hemodialysis. However over the last 1 week, patient has been complaining of increased shortness of breath, nonproductive cough, but no fever, no chills, no hemoptysis, no chest pain. Patient was evaluated in the ER, and her chest x-ray is showing evidence of interstitial edema, underlying right lower lobe pneumonia is not entirely ruled out, suspicious for increased infiltrate in the right lower lobe hence patient was admitted, and this consult was initiated upon admission the patient did not have any leukocytosis WBC count was 9.5, hemoglobin 8.9. Her sodium however was noted to be low at 122, and follow-up sodium later this morning is 126. Her BUN is 24 creatinine 2.66 screening for influenza A, influenza B, RSV and COVID-19 were all negative. Patient had a elevated BNP level of 20,800, procalcitonin level is pending. Patient did receive Lasix however it is not clear whether the patient makes a significant amount of urine on a daily basis. According to her she does make some urine. And she is not anuric Patient was reevaluated today on 08/09/2023, feeling better today, breathing easier, less shortness of breath, no cough no wheezing no fever no chills no hemoptysis and no chest pain.CBC continues to show no evidence of leukocytosis, WBC count is 9.1 hemoglobin is 7.9 basic metabolic profile is normal creatinine is up to 2.08 from admission. Remind you patient is a renal failure patient. Procalcitonin is borderline elevated, 0.13 would definitely recommend follow-up chest x-ray in the next 24 hours, and if improving then the findings are mostly findings of pulmonary edema rather than pneumonia. Although pneumonia involving the right lower lobe is still in the differential and not entirely ruled out Progress note dated August 10, 2023. The patient is seen today in room 353. The patient is on 2 L of oxygen. No IV fluids. She receives hemodialysis, on Tuesdays, , and Thursday. She is hoping to be discharged after hemodialysis tomorrow. The patient appears in no acute distress. She states her breathing is improved. Currently, her white count is 9.6, hemoglobin 8.4, hematocrit 25.1, and platelet count 183,000. S odium 132, potassium 3.6, chlorides 97, CO2 28, BUN 33, creatinine 2.78. Blood cultures are negative. Chest x-ray shows improved aeration at the lung bases, with cardiomegaly, and mild pulmonary vascular congestion. Progress note dated August 11, 2023. This is an 82-year-old female seen today in room 353. Currently she is undergoing hemodialysis. She is on 2 L of oxygen. The plan is for removal of 2 L of fluid today. The patient is hoping to be discharged, after dialysis. No new labs today. Clinically she appears very stable. She does not use oxygen at home. She will need to be assessed for home oxygen use, after dialysis. Progress note dated August 12, 2023. 82-year-old female seen today in room 353. The plan was to send the patient home yesterday after hemodialysis. Unfortunately, the patient became hypotensive, and had chest pain. For that reason she was not discharged. Currently, she is seen today in room 353. She is on room air. No IV fluids. No new labs today. The labs from yesterday have been reviewed. She had 3 troponins, 0.022, 0.020, 0.016. Progress note dated August 13, 2023. The patient is seen today in room 353. She is currently undergoing hemodialysis. The plan is to remove 1 L. The patient is on room air. She is not receiving any IV fluids. The patient is hoping to be discharged, after dialysis today. The patient has no specific complaints today. No new laboratory data today. Objective - Vital Signs Vital signs: Vital Signs Temp 97.7 F 08/13/23 09:30 Pulse 68 08/13/23 09:30 Resp 18 08/13/23 09:30 BP 154/56 08/13/23 09:30 Pulse Ox 94 L 08/13/23 09:30 FiO2 40 08/08/23 08:03 Intake & Output 08/12/23 08/13/23 08/13/23 18:59 06:59 18:59 Intake Total 720 240 Balance 720 240 Weight 55.8 kg Intake: Oral 720 240 Other: Voiding Method Toilet Toilet Toilet # Voids 200 - Exam No acute distress, oriented 3. Currently on room air. No respiratory distress. HEENT examination is grossly unremarkable. Mucous membranes are moist. No oral lesions. Neck supple. Full range of motion. No adenopathy thyromegaly or neck vein distention. Cardiovascular examination reveals regular rhythm rate. S1-S2 normal. No S3 or S4. No discernible murmur noted. Heart sounds are distant. Heart rate 71 bpm. Lungs reveal basilar crackles. No wheezes or rhonchi. 2 L saturation is 95 %. Breath sounds are equal bilaterally. Room air saturation is 94 %. Abdomen soft bowel sounds are heard. No masses or tenderness. Extremities are intact. No cyanosis clubbing or edema. Skin is without rash or lesion. Neurologic examination is brief but nonfocal. - Labs CBC & Chem 7: 08/12/23 11:10 08/12/23 11:10 Labs: Abnormal Lab Results - Last 24 Hours (Table) 08/12/23 08/12/23 Range/Units 11:10 11:10 RBC 3.06 L (3.80-5.40) m/uL Hgb 9.9 L (11.4-16.0) gm/dL Hct 29.5 L (34.0-46.0) % Sodium 132 L (137-145) mmol/L Chloride 96 L (98-107) mmol/L BUN 23 H (7-17) mg/dL Creatinine 2.47 H (0.52-1.04) mg/dL Glucose 108 H (74-99) mg/dL Total Protein 5.7 L (6.3-8.2) g/dL Albumin 3.3 L (3.5-5.0) g/dL Assessment and Plan Assessment: Acute hypoxemic respiratory failure, secondary to pulmonary edema/fluid overload, in a patient with end-stage renal disease. History of chronic kidney disease, currently on 3 times a week hemodialysis. Chronic iron deficiency anemia. Hyponatremia. History of pulmonary hypertension. History of chronic diastolic CHF. Plan: Plan dated August 10, 2023. The patient is seen today room 353. She continues on 2 L of oxygen. The patient appears to be relatively comfortable. She is hoping to be discharged home tomorrow, after hemodialysis. Labs, x-rays, medications are reviewed. The patient continues on Rocephin. We will continue to follow make recommendations along the way. The patient also continues on breathing treatments. Clinically, she looks very stable. There is no conversational dyspnea, use of accessory muscles, or audible wheezes. Plan dated August 11, 2023. The patient is currently undergoing hemodialysis. She continues on oxygen at 2 L. The plan for hemodialysis today is removal of fluid, hopefully, 2 L. The patient is hoping to be discharged home after dialysis. The patient will need to be assessed for home oxygen use, after hemodialysis. She will need a room air resting saturation, and a saturation, while walking up and down the hallway. Labs, x-rays, medications are reviewed. Prognosis is guarded. We will continue to follow the patient, make recommendations along the way. Plan dated August 12, 2023. I was able to speak to the director of search engine optimization, who stated that after the hemodialysis yesterday, the patient had hypotension, and some chest discomfort. The patient's troponins were all in the relatively low range. The patient is not having any symptoms at this time. She would like to be discharged home. She is currently off oxygen, her saturations are in the low 90s. Labs, x-rays, and medications are reviewed. From the pulmonary standpoint, she could be discharged. Should she not be discharged, we will continue to follow the patient. Prognosis is guarded. Plan dated August 13, 2023. The patient is doing well. She is hopeful to be discharged sometime after hemodialysis today. She is currently on room air. She is not receiving any IV fluids. No new labs today. Her saturations on room air are 94%. She denies any shortness of breath, cough, wheezing, chest tightness, or phlegm production. From the pulmonary standpoint, the patient is stable for discharge. No additional recommendations are made. Time with Patient: Less than 30
[2023-08-13] MEDS: NIFEdipine XL 30 MG TAB.ER.24 PO SCH (12:41)
--- NOTE | 2023-08-13 13:38 | P.PN ---
Subjective Patient is seen for follow-up for end-stage renal disease. Patient is seen on hemodialysis. She is tolerating her treatment well. No complaints of chest pains or shortness of breath. Goal UF about 1 L. Objective - Vital Signs Vital signs: Vital Signs Temp 97.8 F 08/13/23 12:00 Pulse 68 08/13/23 12:00 Resp 18 08/13/23 12:00 BP 148/50 08/13/23 12:00 Pulse Ox 92 L 08/13/23 12:00 FiO2 40 08/08/23 08:03 Intake & Output 08/12/23 08/13/23 08/13/23 18:59 06:59 18:59 Intake Total 720 240 Balance 720 240 Weight 55.8 kg Intake: Oral 720 240 Other: Voiding Method Toilet Toilet Toilet # Voids 200 - Exam Patient is awake, comfortable, no acute distress Abdomen is soft nontender No edema noted in the lower extremities, no swelling bruises or rashes noted in the left ankle area Patient appears euvolemic. - Labs CBC & Chem 7: 08/12/23 11:10 08/12/23 11:10 Labs: Microbiology - Last 24 Hours (Table) 08/08/23 03:00 Blood Culture - Final Blood 08/08/23 02:45 Blood Culture - Final Blood Assessment and Plan Assessment: 1. ESRD on HD TTS, access RUE AVF. Left kidney absent. 2. Pneumonia with Hypoxia-improved off BiPAP and on nasal cannula 3. Hypertension with chronic kidney disease. 4. Anemia with ESRD 5. MBD with ESRD Plan: Patient can be discharged from nephrology standpoint post hemodialysis.
[2023-08-13 14:54] VITALS: BP 143/76; PULSE 65; RESP 16; TEMP 97.5
== END 2023-08-13 14:43 | disposition home health service (06) | DRG 189 ==
LOC: EC 00:12 → 3SCARD 02:22
PROVIDERS: ADMIT Internal Medicine; ATTEND Internal Medicine
PROC: 5A1D70Z Performance of Urinary Filtration, Intermittent, Less than 6 Hours Per Day (ICD-10-PCS; principal; 2023-08-08)
PROC: 5A09457 Assistance with Respiratory Ventilation, 24-96 Consecutive Hours, Continuous Positive Airway Pressure (ICD-10-PCS; 2023-08-08)
DX: J96.01 Acute respiratory failure with hypoxia (principal); I50.33 Acute on chronic diastolic (congestive) heart failure; J18.9 Pneumonia, unspecified organism; N18.6 End stage renal disease; I13.2 Hypertensive heart and chronic kidney disease with heart failure and with stage 5 chronic kidney disease, or end stage renal disease; J44.0 Chronic obstructive pulmonary disease with (acute) lower respiratory infection; E87.1 Hypo-osmolality and hyponatremia; I31.39 Other pericardial effusion (noninflammatory); I95.3 Hypotension of hemodialysis; Z11.52 Encounter for screening for COVID-19; D63.1 Anemia in chronic kidney disease; E11.22 Type 2 diabetes mellitus with diabetic chronic kidney disease; I27.20 Pulmonary hypertension, unspecified; E03.9 Hypothyroidism, unspecified; Z79.890 Hormone replacement therapy; E87.8 Other disorders of electrolyte and fluid balance, not elsewhere classified; E78.5 Hyperlipidemia, unspecified; D50.9 Iron deficiency anemia, unspecified; E87.6 Hypokalemia; Z79.899 Other long term (current) drug therapy; Z79.82 Long term (current) use of aspirin; Z95.0 Presence of cardiac pacemaker; Z99.2 Dependence on renal dialysis; Z88.0 Allergy status to penicillin; Z88.8 Allergy status to other drugs, medicaments and biological substances; E88.9 Metabolic disorder, unspecified; I08.1 Rheumatic disorders of both mitral and tricuspid valves; Z98.51 Tubal ligation status; Z88.1 Allergy status to other antibiotic agents
CPT/HCPCS: 36415; 71045; 80048; 80053; 83735; 83880; 84145; 84484; 85025; 85027; 85610; 85730; 87040; 87449; 87636; 90935; 93005; 94640; 94660; 94760; 96365; 96367; 96375; 99291

== ENCOUNTER → 2023-12-07 | Outpatient (CLI) | payer MEDICARE ==
[2023-12-07 14:40] LABS: Basophils # (A) 0.02 X 10*3/uL (0.00-0.10); Basophils % (A) 0.2 %; Eosinophils % (A) 1.2 %; HCT 32.6 % (37.2-46.3); HGB 10.9 g/dL (12.0-15.0); Lymphocytes # (A) 2.01 X 10*3/uL (0.90-5.00); Lymphocytes % (A) 23.4 %; MCH 32.2 pg (27.0-32.0); MCHC 33.4 g/dL (32.0-37.0); MCV 96.2 FL (80.0-97.0); Mean Platelet Volume 11.5 FL (9.5-12.2); Monocytes # (A) 0.76 X 10*3/uL (0.20-1.00); Monocytes % (A) 8.8 %; NRBC Per 100 WBC 0 X 10*3/uL (0.00-0.01); Neutrophils # (A) 5.62 X 10*3/uL (1.80-7.70); Neutrophils % (A) 65.5 %; Platelet Count 244 X 10*3/uL (140-440); RBC 3.39 X 10*6/uL (4.10-5.20); RDW 13.1 % (11.5-14.5); WBC 8.59 X 10*3/uL (4.50-10.00)
[2023-12-07 14:55] LABS: ALT 7 U/L (8-44); AST 18 U/L (13-35); Albumin 4.5 g/dL (3.8-4.9); Albumin/Globulin Ratio 1.88 Ratio (1.60-3.17); Alkaline Phosphatase 93 U/L (41-126); BUN/Creat Ratio 20.29 Ratio (12.00-20.00); Blood Urea Nitrogen 97.4 mg/dL (9.0-27.0); Calcium 9.7 mg/dL (8.7-10.3); Carbon Dioxide 20.3 mmol/L (21.6-31.8); Chloride 92 mmol/L (96-109); Globulin 2.4 g/dL (1.6-3.3); Glucose 113 mg/dL (70-110); Phosphorus 5.7 mg/dL (2.4-5.1); Potassium 3.7 mmol/L (3.5-5.5); Sodium 131 mmol/L (135-145); T4, Free (Free Thyroxine) 1.59 ng/dL (0.80-1.80); Total Bilirubin 0.4 mg/dL (0.3-1.2); Total Protein 6.9 g/dL (6.2-8.2)
== END | disposition home or self-care (01) ==
LOC: LABWHC1 10:37
PROVIDERS: ATTEND Internal Medicine
DX: N18.6 End stage renal disease (principal); E03.9 Hypothyroidism, unspecified
CPT/HCPCS: 36415; 80053; 83735; 84100; 84439; 84443; 85025

== ENCOUNTER 2023-12-08 08:43 | Inpatient (IN) | payer MEDICARE ==
[2023-12-08 10:15] LABS: Basophils % (A) 0 %; Eosinophils # (A) 0.2 k/uL (0-0.7); Eosinophils % (A) 2 %; HCT 32.5 % (34.0-46.0); Lymphocytes # (A) 2.1 k/uL (1.0-4.8); Lymphocytes % (A) 26 %; MCH 32.7 pg (25.0-35.0); MCHC 33.9 g/dL (31.0-37.0); MCV 96.5 fL (80.0-100.0); Monocytes # (A) 0.5 k/uL (0-1.0); Monocytes % (A) 6 %; Neutrophils # (A) 5.3 k/uL (1.3-7.7); Neutrophils % (A) 64 %; Platelet Count 216 k/uL (150-450); RBC 3.37 m/uL (3.80-5.40); RDW 13.5 % (11.5-15.5); WBC 8.2 k/uL (3.8-10.6)
[2023-12-08 10:24] LABS: Partial Thromboplastin Time 23.9 sec (22.0-30.0); Prothrombin Time 10.9 sec (10.0-12.5)
[2023-12-08 10:39] LABS: ALT 11 U/L (4-34); AST 21 U/L (14-36); African American GFR (CKD) 11 (>60 ml/min/1.73 sqM); Albumin 4.7 g/dL (3.5-5.0); Alkaline Phosphatase 107 U/L (38-126); Anion Gap 14 mmol/L; Blood Urea Nitrogen 99 mg/dL (7-17); Calcium 9.5 mg/dL (8.4-10.2); Carbon Dioxide 19 mmol/L (22-30); Chloride 98 mmol/L (98-107); Glucose 108 mg/dL (74-99); Non-African American GFR(CKD) 9 (>60 ml/min/1.73 sqM); Potassium 4.1 mmol/L (3.5-5.1); Sodium 131 mmol/L (137-145); Total Bilirubin 0.7 mg/dL (0.2-1.3); Total Protein 7.3 g/dL (6.3-8.2)
--- NOTE | 2023-12-08 10:46 | ED ---
General Adult HPI - General Chief complaint: Recheck/Abnormal Lab/Rx Stated complaint: abn labs Time Seen by Provider: 12/08/23 09:11 Source: patient, family, RN notes reviewed, old records reviewed Mode of arrival: ambulatory Limitations: no limitations - History of Present Illness Initial comments: 83-year-old female for evaluation having not had hemodialysis in the last 3 weeks. Patient had initially denied further hemodialysis 3 weeks ago due to issues with her right upper extremity fistula. Patient is agreeable to dialysis but is requesting either long-term permacath versus peritoneal dialysis. Her radio/tv technician is aware of the issue. She has been urinating over the past 3 weeks. No specific complaints from the patient. - Related Data Home Medications Medication Instructions Recorded Confirmed Aspirin EC [Ecotrin Low Dose] 81 mg PO W/SUPPER 01/17/23 12/08/23 Atorvastatin [Lipitor] 20 mg PO HS 01/17/23 12/08/23 Cholestyramine (with Sugar) 4 gm PO BID PRN 01/17/23 12/08/23 [Cholestyramine Packet] Fluticasone Nasal [place] [Flonase 1 - 2 spr EA NOSTRIL BID PRN 01/17/23 12/08/23 Nasal [place]] Levothyroxine Sodium [Synthroid] 50 mcg PO DAILY@0200 01/17/23 12/08/23 Loratadine 10 mg PO DAILY 01/17/23 12/08/23 Oxybutynin Xl [Ditropan XL] 5 mg PO HS 01/17/23 12/08/23 Vits A,C,E/Lutein/Minerals 1 tab PO DAILY 01/17/23 12/08/23 [Ocuvite with Lutein Tablet] Vitamin E (Dl,Tocopheryl Acet) 450 mg PO W/SUPPER 07/22/23 12/08/23 [Vitamin E (1000 Iu = 450 MG)] allopurinoL [Zyloprim] 100 mg PO DAILY 07/22/23 12/08/23 Furosemide [Lasix] 40 mg PO BID-W/MEALS 08/08/23 12/08/23 Benzonatate [Tessalon Perles] 100 mg PO Q8H PRN 12/08/23 12/08/23 Losartan [Cozaar] 50 mg PO DIRECTED 12/08/23 12/08/23 NIFEdipine XL [Procardia XL] 30 mg PO BID-W/MEALS 12/08/23 12/08/23 carvediloL [Coreg*] 25 mg PO DIRECTED 12/08/23 12/08/23 clindamycin HCL [Cleocin] 300 mg PO Q8H 12/08/23 12/08/23 Previous Rx's Medication Instructions Recorded Pantoprazole [Protonix] 40 mg PO [id number] 30 Days #30 tab 08/13/23 Allergies Allergy/AdvReac Type Severity Reaction Status Date / Time bacitracin Allergy Rash/Hives Verified 12/08/23 10:40 [From Neosporin ([id number])] levofloxacin [From Levaquin] Allergy Rash/Hives Verified 12/08/23 10:40 metronidazole [From Flagyl] Allergy Rash/Hives Verified 12/08/23 10:40 neomycin Allergy Rash/Hives Verified 12/08/23 10:40 [From Neosporin ([id number])] Penicillins Allergy Rash/Hives Verified 12/08/23 10:40 polymyxin B Allergy Rash/Hives Verified 12/08/23 10:40 [From Neosporin ([id number])] Review of Systems ROS Statement: Those systems with pertinent positive or pertinent negative responses have been documented in the HPI. ROS Other: All systems not noted in ROS Statement are negative. Past Medical History Past Medical History: Chest Pain / Angina, Dialysis, Hyperlipidemia, Hypertension, Renal Disease Additional Past Medical History / Comment(s): stage 4 renal. right arm fistula History of Any Multi-Drug Resistant Organisms: None Reported Past Surgical History: Appendectomy, Tubal Ligation Additional Past Surgical History / Comment(s): pacemaker Past Psychological History: No Psychological Hx Reported Smoking Status: Never smoker Past Alcohol Use History: None Reported Past Drug Use History: None Reported General Exam Limitations: no limitations General appearance: alert, in no apparent distress Head exam: Present: atraumatic, normocephalic ENT exam: Present: normal exam Neck exam: Present: normal inspection. Absent: tenderness, meningismus Respiratory exam: Present: normal lung sounds bilaterally. Absent: respiratory distress, wheezes Cardiovascular Exam: Present: regular rate, normal rhythm GI/Abdominal exam: Present: soft. Absent: distended, tenderness Extremities exam: Present: normal inspection, normal capillary refill Neurological exam: Present: alert, oriented X3, CN II-XII intact. Absent: motor sensory deficit Psychiatric exam: Present: normal affect, normal mood Skin exam: Present: warm, dry, intact. Absent: cyanosis, diaphoretic Course Vital Signs 12/08/23 12/08/23 08:47 10:07 Temperature 98.1 F Pulse Rate 64 66 Respiratory 18 18 Rate Blood Pressure 175/55 157/59 O2 Sat by Pulse 98 96 Oximetry Medical Decision Making - Medical Decision Making Was pt. sent in by a medical professional or institution ([facility], [employer], urgent care, hospital, or custodial...) When possible be specific @ -No Did you speak to anyone other than the patient for history (EMS, parent, family, police, friend...)? What history was obtained from this source @ -No Did you review nursing and triage notes (agree or disagree)? Why? @ -I reviewed and agree with nursing and triage notes Were old charts reviewed (outside hosp., previous admission, EMS record, old EKG, old radiological studies, urgent care reports/EKG's, custodial records)? Report findings @ -No old charts were reviewed Differential Diagnosis: uremia, fluid overload, electrolyte abnormality EKG interpreted by me (3pts min.). @Paced rhythm rate of 64 QRS duration 158, QTc 457 X-rays interpreted by me (1pt min.). @ -None done CT interpreted by me (1pt min.). @ -None done U/S interpreted by me (1pt. min.). @ -None done What testing was considered but not performed or refused? (CT, X-rays, U/S, labs)? Why? @ -None What meds were considered but not given or refused? Why? @ -None Did you discuss the management of the patient with other professionals (professionals i.e. [facility], [employer], lab, RT, psych nurse, social media job titles, twister operator, teacher, loan officer assistant, assistant case manager)? Give summary @Dr. Samson, will admit Was smoking cessation discussed for >3mins.? @ -No Was critical care preformed (if so, how long)? @ -No Were there social determinants of health that impacted care today? How? (Homelessness, low income, unemployed, alcoholism, drug addiction, transportation, low edu. Level, literacy, decrease access to med. care, [place] [facility], rehab)? @ -No Was there de-escalation of care discussed even if they declined (Discuss DNR or withdrawal of care, Hospice)? DNR status @ -No What co-morbidities impacted this encounter? (DM, HTN, Smoking, COPD, CAD, C ancer, CVA, ARF, Chemo, Hep., AIDS, mental health diagnosis, sleep apnea, morbid obesity)? @ -End-stage renal disease on hemodialysis. Was patient admitted / discharged? Hospital course, mention meds given and route, prescriptions, significant lab abnormalities, going to OR and other pertinent info. @ -83-year-old female with end-stage renal disease on hemodialysis who has not received hemodialysis in the past 3 weeks presenting with increasing BUN and creatinine. Potassium is normal. She is making urine at this time. She does not appear fluid overloaded. She is not hypoxic at this time. Patient is agreeable with hemodialysis or preferably peritoneal dialysis but refuses dialysis through her right upper extremity fistula. She will be admitted to internal medicine with both vascular and nephrology on consult. Undiagnosed new problem with uncertain prognosis? @ -No Drug Therapy requiring intensive monitoring for toxicity (Heparin, Nitro, Insulin, Cardizem)? @ -No Were any procedures done? @ -No Diagnosis/symptom? @ -[End-stage renal disease, uremia Acute, or Chronic, or Acute on Chronic? @ -Acute on chronic Uncomplicated (without systemic symptoms) or Complicated (systemic symptoms)? @ -[default Side effects of treatment? @ -No Exacerbation, Progression, or Severe Exacerbation? @ -No Poses a threat to life or bodily function? How? (Chest pain, [place], VA, pneumonia, PE, COPD, DKA, ARF, appy, cholecystitis, CVA, Diverticulitis, Homicidal, Suicidal, threat to staff... and all critical care pts) @Yes, fluid overload, electrolyte abnormality - Lab Data Result diagrams: 12/08/23 10:07 12/08/23 10:07 Lab Results 12/08/23 12/08/23 12/08/23 Range/Units 10:07 10:07 10:07 WBC 8.2 (3.8-10.6) k/uL RBC 3.37 L (3.80-5.40) m/uL Hgb 11.0 L (11.4-16.0) gm/dL Hct 32.5 L (34.0-46.0) % MCV 96.5 (80.0-100.0) fL MCH 32.7 (25.0-35.0) pg MCHC 33.9 (31.0-37.0) g/dL RDW 13.5 (11.5-15.5) % Plt Count 216 (150-450) k/uL MPV 9.0 Neutrophils % 64 % Lymphocytes % 26 % Monocytes % 6 % Eosinophils % 2 % Basophils % 0 % Neutrophils # 5.3 (1.3-7.7) k/uL Lymphocytes # 2.1 (1.0-4.8) k/uL Monocytes # 0.5 (0-1.0) k/uL Eosinophils # 0.2 (0-0.7) k/uL Basophils # 0.0 (0-0.2) k/uL PT 10.9 (10.0-12.5) sec INR 1.0 (<1.2) APTT 23.9 (22.0-30.0) sec Sodium 131 L (137-145) mmol/L Potassium 4.1 (3.5-5.1) mmol/L Chloride 98 (98-107) mmol/L Carbon Dioxide 19 L (22-30) mmol/L Anion Gap 14 mmol/L BUN 99 H (7-17) mg/dL Creatinine 4.14 H (0.52-1.04) mg/dL Est GFR (CKD-EPI)AfAm 11 (>60 ml/min/1.73 sqM) Est GFR (CKD-EPI)NonAf 9 (>60 ml/min/1.73 sqM) Glucose 108 H (74-99) mg/dL Calcium 9.5 (8.4-10.2) mg/dL Magnesium 2.0 (1.6-2.3) mg/dL Total Bilirubin 0.7 (0.2-1.3) mg/dL AST 21 (14-36) U/L ALT 11 (4-34) U/L Alkaline Phosphatase 107 (38-126) U/L Total Protein 7.3 (6.3-8.2) g/dL Albumin 4.7 (3.5-5.0) g/dL Disposition Clinical Impression: ESRD on dialysis Disposition: ADMITTED IP TO THIS HOSP Condition: Stable Is patient prescribed a controlled substance at d/c from ED?: No Referrals: Jono Edwards DO [Primary Care Provider] - 1-2 days Time of Disposition: 11:15
[2023-12-08] MEDS ORDERED: NALOXONE 0.4 MG/ML 1 ML VIAL IV PRN (11:12)
[2023-12-08] MEDS ORDERED: CHOLESTYRAMINE (WITH SUGAR) 4 GM PACKET PO PRN (11:43)
[2023-12-08] MEDS ORDERED: BENZONATATE 100 MG CAP PO PRN (11:43)
[2023-12-08] MEDS ORDERED: FLUTICASONE 50MCG/SPRAY NASAL 16GM EA NOSTRIL PRN (11:43)
[2023-12-08] MEDS: FUROSEMIDE 40 MG TAB PO SCH (12:16)
[2023-12-08] MEDS: carvediloL 12.5 MG TAB PO SCH (12:16)
[2023-12-08] MEDS: allopurinoL 100 MG TAB PO SCH (12:16)
[2023-12-08] MEDS: PANTOPRAZOLE 40 MG TABLET PO SCH (12:16)
--- NOTE | 2023-12-08 12:28 | P.HPIM ---
History of Present Illness H&P Date: 12/08/23 History of Presenting Illness: Patient is a very pleasant 83-year-old female with a past medical history of ESRD on dialysis Thursday//Thursday's, CAD status post pacemaker placement, chronic diastolic heart failure, hypertension, hyperlipidemia, and hypothyroidism. She presented to the hospital secondary to reports of need for dialysis and missing hemodialysis x 3 weeks secondary to problems with her right upper extremity fistula. Patient requesting either long-term permacath versus peritoneal dialysis. She reports overall weakness and fatigue but otherwise denies having any complaints at this time including recent fevers, chills, headache, lightheadedness, dizziness, chest pain, palpitations, shortness of breath, cough or congestion, abdominal pain, nausea, vomiting, difficulties with urination or bowel function, or experiencing any increased swelling in her lower extremities. Upon arrival to our facility, patient underwent evaluation in the emergency department. Vital signs upon arrival show blood pressure 175/55, heart rate 64, respiratory rate 18, temp 98.1 F, SpO2 of 98% on room air. EKG completed showing a ventricular paced rhythm at 64 bpm. Labs completed and reviewed. CBC showing stable normocytic anemia with hemoglobin of 11.0. Coagulation profile normal findings. BMP showing hyponatremia with sodium of 131 and hypocarbia with bicarb of 19 with elevated anion gap of 14 and renal function consistent with ESRD with BUN of 99, creatinine 4.14, and GFR of 9. Calcium was 9.5, magnesium 2.0, and liver profile unremarkable. Patient was admitted under our services with consult to vascular surgery for placement of permacath and to nephrology for needed dialysis. Review of systems: Pertinent positives and negatives as discussed in HPI, a complete review of systems was performed and all other systems are negative. Physical exam: Vital signs reviewed and stable. General: Nontoxic, no distress and appears stated age. Derm: Skin warm and dry, normal coloration for ethnicity. Head: Atraumatic, normocephalic and symmetric. Eyes: EOMs intact, no lid lag, and anicteric sclera Mouth: no lip lesions, mucus membranes moist Cardiovascular: regular rate and rhythm with normal S1S2, systolic murmur, positive posterior tibial pulses bilaterally, and cap refill < 2 seconds. Fistula right upper extremity with bruit and thrill intact. Lungs: Respirations even, regular, and unlabored on room air. Lungs CTA bilaterally, no rhonchi, no rales, no wheezing, and no accessory muscle usage. Abdominal: soft, nontender to palpation, no guarding, no appreciable organomegaly Ext: ROM intact. No gross muscle atrophy, bilateral lower extremity edema, no contractures Neuro: Speech clear, face symmetrical and CN II-XII grossly intact with no noted focal neuro deficits Psych: Alert and oriented to person, place, time, and situation. Appropriate and pleasant affect. Assessment and Plan of Care: ESRD, missed dialysis x 3 weeks Complications with dialysis fistula -Renal function showing BUN of 99, creatinine 4.14, GFR of 9. Potassium stable at 4.1. -EKG reviewed showing ventricular paced rhythm. -Consult placed to vascular surgery for placement of dialysis permacath -Consult placed to nephrology for management of dialysis -Telemetry monitoring -Close monitoring of electrolytes, especially potassium with missed dialysis sessions x 3 weeks. CAD status post permanent pacemaker placement Pretension Chronic diastolic heart failure Hypertension Hyperlipidemia Continue cardiac medication regimen with atorvastatin 40 mg nightly, carved ilol 12.5 mg daily, Procardia 30 mg daily, Lasix 40 mg twice daily, and losartan 25 mg twice daily. Will hold aspirin pending completion of dialysis catheter placement. Hypothyroidism Continue daily medication regimen with levothyroxine 50 mcg daily. Data amd Imaging reviewed: As stated above in HPI CODE STATUS: Full Code DVT prophylaxis: SCDs and AYANNA martinez pending placement of dialysis catheter Anticipated discharge date: Pending clinical course Anticipated discharge place: Pending clinical course Patient was seen independently by Nurse Practitioner. This document was prepared using [employer] dictation software. Please allow for errors in java lead engineer while rare they do occur. Brian Castro NP rendered care for this patient independently, reviewed the findings and plan as documented in the note above. I did not physically speak with or examine the patient on this date. Past Medical History Past Medical History: Chest Pain / Angina, Dialysis, Hyperlipidemia, Hypertension, Renal Disease Additional Past Medical History / Comment(s): stage 4 renal. right arm fistula History of Any Multi-Drug Resistant Organisms: None Reported Past Surgical History: Appendectomy, Tubal Ligation Additional Past Surgical History / Comment(s): pacemaker Past Psychological History: No Psychological Hx Reported Smoking Status: Never smoker Past Alcohol Use History: None Reported Past Drug Use History: None Reported Medications and Allergies Home Medications Medication Instructions Recorded Confirmed Type Aspirin EC [Ecotrin Low Dose] 81 mg PO W/SUPPER 01/17/23 12/08/23 History Atorvastatin [Lipitor] 20 mg PO HS 01/17/23 12/08/23 History Cholestyramine (with Sugar) 4 gm PO BID PRN 01/17/23 12/08/23 History [Cholestyramine Packet] Fluticasone Nasal [place] [Flonase 1 - 2 spr EA NOSTRIL BID PRN 01/17/23 12/08/23 History Nasal [place]] Levothyroxine Sodium [Synthroid] 50 mcg PO DAILY@0200 01/17/23 12/08/23 History Loratadine 10 mg PO DAILY 01/17/23 12/08/23 History Oxybutynin Xl [Ditropan XL] 5 mg PO HS 01/17/23 12/08/23 History Vits A,C,E/Lutein/Minerals 1 tab PO DAILY 01/17/23 12/08/23 History [Ocuvite with Lutein Tablet] Vitamin E (Dl,Tocopheryl Acet) 450 mg PO W/SUPPER 07/22/23 12/08/23 History [Vitamin E (1000 Iu = 450 MG)] allopurinoL [Zyloprim] 100 mg PO DAILY 07/22/23 12/08/23 History Furosemide [Lasix] 40 mg PO BID-W/MEALS 08/08/23 12/08/23 History Pantoprazole [Protonix] 40 mg PO AC-BRKFST 30 Days #30 tab 08/13/23 12/08/23 Rx Benzonatate [Tessalon Perles] 100 mg PO Q8H PRN 12/08/23 12/08/23 History Losartan [Cozaar] 25 mg PO BID@1200,1800 12/08/23 12/08/23 History NIFEdipine XL [Procardia XL] 30 mg PO DAILY 12/08/23 12/08/23 History carvediloL [Coreg*] 12.5 mg PO DAILY 12/08/23 12/08/23 History clindamycin HCL [Cleocin] 300 mg PO Q8H 12/08/23 12/08/23 History Allergies Allergy/AdvReac Type Severity Reaction Status Date / Time bacitracin Allergy Rash/Hives Verified 12/08/23 10:40 [From Neosporin ([id number])] levofloxacin [From Levaquin] Allergy Rash/Hives Verified 12/08/23 10:40 metronidazole [From Flagyl] Allergy Rash/Hives Verified 12/08/23 10:40 neomycin Allergy Rash/Hives Verified 12/08/23 10:40 [From Neosporin ([id number])] Penicillins Allergy Rash/Hives Verified 12/08/23 10:40 polymyxin B Allergy Rash/Hives Verified 12/08/23 10:40 [From Neosporin ([id number])] Physical Exam Vitals: Vital Signs Temp Pulse Resp BP Pulse Ox 12/08/23 10:07 66 18 157/59 96 12/08/23 08:47 98.1 F 64 18 175/55 98 Intake and Output 12/07/23 12/08/23 12/08/23 22:59 06:59 14:59 Other: Weight 53.524 kg Results CBC & Chem 7: 12/08/23 10:07 12/08/23 10:07 Labs: Abnormal Lab Results - Last 24 Hours (Table) 12/08/23 12/08/23 Range/Units 10:07 10:07 RBC 3.37 L (3.80-5.40) m/uL Hgb 11.0 L (11.4-16.0) gm/dL Hct 32.5 L (34.0-46.0) % Sodium 131 L (137-145) mmol/L Carbon Dioxide 19 L (22-30) mmol/L BUN 99 H (7-17) mg/dL Creatinine 4.14 H (0.52-1.04) mg/dL Glucose 108 H (74-99) mg/dL
[2023-12-08] MEDS: LIDOCAINE 1% INJ 10MG/ML (20 ML MDV) SQ ONE (14:44)
[2023-12-08] MEDS: fentaNYL (PF) 50 MCG/ML 2 ML AMP IVP ONE ×3 (14:44→14:56)
[2023-12-08] MEDS: ONDANSETRON 4 MG/2 ML VIAL IVP ONE ×2 (14:56→15:20)
--- NOTE | 2023-12-08 15:22 | P.PCN ---
Description of Procedure: Preop diagnosis is acute chronic renal failure Postop same Procedure ultrasound-guided 19 cm dialysis catheter placed right jugular a pproach Patient was brought to the [facility] Consult[facility] right side of the chest was prepped draped in Prestel you sterile manner patient has a pacemaker on the left side of the chest ultrasound-guided micropuncture introduced right jugular vein micropuncture guide was passed. Then the 4 [place] sheath advanced up the guidewire. Then we passed the regular guidewire which parked at the inferior vena cava. A tunnel was created through the tunnel we brought 90 cm dialysis catheter dilator advanced out of the guidewire under fluoroscopy control. Then sheath was advanced. The guidewire through the sheath. 2 dialysis catheter sheath was removed tip of catheter superior vena cava atrial junction flushed with heparin saline hep-locked secured with 3-0 nylon dressing applied patient taught the procedure well x-ray of the chest
[2023-12-08] MEDS: VITAMIN E (DL,TOCOPHERYL ACET) 400 UNIT (180 MG) CAP PO SCH (18:04)
[2023-12-08] MEDS: LOSARTAN 25 MG TAB PO SCH (21:00)
[2023-12-08] MEDS: OXYBUTYNIN XL 5 MG TAB.ER.24 PO SCH (21:00)
[2023-12-08] MEDS: ATORVASTATIN 20 MG TAB PO SCH (21:00)
[2023-12-09] MEDS: LEVOTHYROXINE 50 MCG TAB PO SCH (01:37)
[2023-12-09] MEDS: LORATADINE 10 MG TAB PO SCH (08:36)
[2023-12-09] MEDS: VIT A,C & E-LUTEIN-MINERALS 1 EACH TAB PO SCH (08:37)
[2023-12-09] MEDS: NIFEdipine XL 30 MG TAB.ER.24 PO SCH ×2 (08:37→20:35)
--- NOTE | 2023-12-09 12:38 | P.NPCON ---
History of Present Illness - Reason for Consult end stage renal disease - History of Present Illness Reason for consultation: End-stage renal disease History of present illness: Patient is 83-year-old female seen in renal consultation for end-stage renal disease. She is maintained on hemodialysis on Thursday schedule. Patient has a right upper extremity AV fistula. Patient states there were issues with cannulating the AV fistula and she was tired of getting poked. Therefore she stopped going to hemodialysis and has not gone for about 2 weeks now. Patient states she had blood work done by her primary care physician outpatient and was told to go to the hospital. She is now agreeable to do hemodialysis but not via AV fistula. She had a permacath placed by vascular surgery yesterday. She is scheduled to undergo hemodialysis today. Denies chest pain or shortness of breath. No vomiting or diarrhea. Oral intake has been poor the last few days. Patient does have history of coronary artery disease and has a pacemaker. She also has history of diastolic CHF and hypertension. No fever or chills. States she does make urine. Vital signs are stable. General: No acute distress. HEENT: Head exam is unremarkable. LUNGS: No audible rhonchi or wheezes. HEART: Rate and Rhythm are regular. ABDOMEN: Nontender. EXTREMITITES: No edema. Past Medical History Past Medical History: Chest Pain / Angina, Dialysis, Hyperlipidemia, Hyperten phillip, Renal Disease Additional Past Medical History / Comment(s): stage 4 renal. right arm fistula History of Any Multi-Drug Resistant Organisms: None Reported Past Surgical History: Appendectomy, Tubal Ligation Additional Past Surgical History / Comment(s): pacemaker Past Anesthesia/Blood Transfusion Reactions: Postoperative Nausea & Vomiting (PONV) Past Psychological History: No Psychological Hx Reported Smoking Status: Never smoker Past Alcohol Use History: None Reported Past Drug Use History: None Reported Medications and Allergies Home Medications Medication Instructions Recorded Confirmed Type Aspirin EC [Ecotrin Low Dose] 81 mg PO W/SUPPER 01/17/23 12/08/23 History Atorvastatin [Lipitor] 20 mg PO HS 01/17/23 12/08/23 History Cholestyramine (with Sugar) 4 gm PO BID PRN 01/17/23 12/08/23 History [Cholestyramine Packet] Fluticasone Nasal [place] [Flonase 1 - 2 spr EA NOSTRIL BID PRN 01/17/23 12/08/23 History Nasal [place]] Levothyroxine Sodium [Synthroid] 50 mcg PO DAILY@0200 01/17/23 12/08/23 History Loratadine 10 mg PO DAILY 01/17/23 12/08/23 History Oxybutynin Xl [Ditropan XL] 5 mg PO HS 01/17/23 12/08/23 History Vits A,C,E/Lutein/Minerals 1 tab PO DAILY 01/17/23 12/08/23 History [Ocuvite with Lutein Tablet] Vitamin E (Dl,Tocopheryl Acet) 450 mg PO W/SUPPER 07/22/23 12/08/23 History [Vitamin E (1000 Iu = 450 MG)] allopurinoL [Zyloprim] 100 mg PO DAILY 07/22/23 12/08/23 History Furosemide [Lasix] 40 mg PO BID-W/MEALS 08/08/23 12/08/23 History Pantoprazole [Protonix] 40 mg PO AC-BRKFST 30 Days #30 tab 08/13/23 12/08/23 Rx Benzonatate [Tessalon Perles] 100 mg PO Q8H PRN 12/08/23 12/08/23 History Losartan [Cozaar] 25 mg PO BID@1200,1800 12/08/23 12/08/23 History NIFEdipine XL [Procardia XL] 30 mg PO DAILY 12/08/23 12/08/23 History carvediloL [Coreg*] 12.5 mg PO DAILY 12/08/23 12/08/23 History clindamycin HCL [Cleocin] 300 mg PO Q8H 12/08/23 12/08/23 History Allergies Allergy/AdvReac Type Severity Reaction Status Date / Time bacitracin Allergy Rash/Hives Verified 12/08/23 10:40 [From Neosporin ([id number])] levofloxacin [From Levaquin] Allergy Rash/Hives Verified 12/08/23 10:40 metronidazole [From Flagyl] Allergy Rash/Hives Verified 12/08/23 10:40 neomycin Allergy Rash/Hives Verified 12/08/23 10:40 [From Neosporin ([id number])] Penicillins Allergy Rash/Hives Verified 12/08/23 10:40 polymyxin B Allergy Rash/Hives Verified 12/08/23 10:40 [From Neosporin ([id number])] Physical Exam Vitals: Vital Signs Temp Pulse Pulse Pulse Resp BP Pulse Ox 12/09/23 07:31 98.0 F 69 17 172/61 95 12/09/23 01:58 97.4 F L 66 18 167/55 93 L 12/08/23 19:55 18 12/08/23 19:20 97.2 F L 67 20 174/54 94 L 12/08/23 17:39 71 180/61 99 12/08/23 17:09 61 167/64 97 12/08/23 16:40 65 166/59 97 12/08/23 16:24 65 178/61 98 12/08/23 16:10 67 16 167/58 98 12/08/23 15:40 71 14 185/79 97 12/08/23 13:06 64 18 96 Intake and Output 12/08/23 12/09/23 12/09/23 22:59 06:59 14:59 Other: Voiding Method Toilet # Voids 1 2 Weight 53.524 kg Results - Lab Results Most recent lab results Calcium 9.5 mg/dL (8.4-10.2) 12/08/23 10:07 Magnesium 2.0 mg/dL (1.6-2.3) 12/08/23 10:07 12/08/23 10:07 12/08/23 10:07 Assessment and Plan Plan: Assessment: 1. End-stage renal disease maintained on hemodialysis on Thursday schedule. Permacath placed December 08, 2023. 2. Hypertension with chronic kidney disease. 3. History of coronary artery disease. 4. Hyponatremia secondary to chronic kidney disease. 5. Metabolic acidosis secondary to chronic kidney disease. Expect improvement postdialysis. Plan: Hemodialysis today and again tomorrow. Check phosphorus level. Maintain Lasix. Increase nifedipine frequency to twice daily. Patient is also expressed interest in peritoneal dialysis. This will be further addressed outpatient. Thank you for the consultation. I will continue to follow the patient with you during her hospital stay.
--- NOTE | 2023-12-09 17:24 | P.PN ---
Subjective Progress Note Date: 12/09/23 Hospital Course: Patient is a very pleasant 83-year-old female with a past medical history of ESRD on dialysis Thursday//Thursday's, CAD status post pacemaker placement, chronic diastolic heart failure, hypertension, hyperlipidemia, and hypothyroidism. She presented to the hospital secondary to reports of need for dialysis and missing hemodialysis x 3 weeks secondary to problems with her right upper extremity fistula. Patient requesting either long-term permacath versus peritoneal dialysis. She reports overall weakness and fatigue but otherwise den ies having any complaints at this time including recent fevers, chills, headache, lightheadedness, dizziness, chest pain, palpitations, shortness of breath, cough or congestion, abdominal pain, nausea, vomiting, difficulties with urination or bowel function, or experiencing any increased swelling in her lower extremities. Upon arrival to our facility, patient underwent evaluation in the emergency department. Vital signs upon arrival show blood pressure 175/55, heart rate 64, respiratory rate 18, temp 98.1 F, SpO2 of 98% on room air. EKG completed showing a ventricular paced rhythm at 64 bpm. Labs completed and reviewed. CBC showing stable normocytic anemia with hemoglobin of 11.0. Coa gulation profile normal findings. BMP showing hyponatremia with sodium of 131 and hypocarbia with bicarb of 19 with elevated anion gap of 14 and renal function consistent with ESRD with BUN of 99, creatinine 4.14, and GFR of 9. Calcium was 9.5, magnesium 2.0, and liver profile unremarkable. Patient was admitted under our services with consult to vascular surgery for placement of permacath and to nephrology for needed dialysis. Vascular surgery placed permacath on 12/08/2023. Physical exam: Patient seen and fully evaluated at bedside this morning. She currently denies having any complaints at this time. Patient expresses mild frustration as she thought she could be set up for peritoneal dialysis and be discharged home today for home dialysis. Patient does have outpatient appointment with Dr. Webb for evaluation and placement of catheter. Vital signs reviewed and stable. General: Nontoxic, no distress and appears stated age. Derm: Skin warm and dry, normal coloration for ethnicity. Head: Atraumatic, normocephalic and symmetric. Eyes: EOMs intact, no lid lag, and anicteric sclera Mouth: no lip lesions, mucus membranes moist Cardiovascular: regular rate and rhythm with normal S1S2, systolic murmur, positive posterior tibial pulses bilaterally, and cap refill < 2 seconds. Fistula right upper extremity with bruit and thrill intact. Lungs: Respirations even, regular, and unlabored on room air. Lungs CTA bilaterally, no rhonchi, no rales, no wheezing, and no accessory muscle usage. Abdominal: soft, nontender to palpation, no guarding, no appreciable organomegaly Ext: ROM intact. No gross muscle atrophy, bilateral lower extremity edema, no contractures Neuro: Speech clear, face symmetrical and CN II-XII grossly intact with no noted focal neuro deficits Psych: Alert and oriented to person, place, time, and situation. Appropriate and pleasant affect. Assessment and Plan of Care: ESRD, missed dialysis x 3 weeks Complications with dialysis fistula -Renal function showing BUN of 99, creatinine 4.14, GFR of 9. Potassium stable at 4.1. -EKG reviewed showing ventricular paced rhythm. -Vascular surgery following, placed permacath on 12/08/2023. -Nephrology following, recommending dialysis today and again tomorrow. -Telemetry monitoring -Close monitoring of electrolytes, especially potassium with missed dialysis sessions x 3 weeks. CAD status post permanent pacemaker placement Pretension Chronic diastolic heart failure Hypertension Hyperlipidemia Continue cardiac medication regimen with aspirin 81 mg daily, atorvastatin 40 mg nightly, carvedilol 12.5 mg daily, Procardia 30 mg daily, Lasix 40 mg twice daily, and losartan 25 mg twice daily. Hypothyroidism Continue daily medication regimen with levothyroxine 50 mcg daily. Data amd Imaging reviewed: Morning labs pending. Will follow-up with results and place additional orders if indicated based upon findings. Vital signs reviewed. Blood pressure 172/61, heart rate 69, respiratory rate 17, temp 98.0 F, and SpO2 of 95% on room air. CODE STATUS: Full Code DVT prophylaxis: SCDs and AYANNA hose pending placement of dialysis catheter Anticipated discharge date: Pending clinical course Anticipated discharge place: Pending clinical course Patient was seen independently by Nurse Practitioner. This document was prepared using [employer] dictation software. Please allow for errors in cushion sewer while rare they do occur. Objective - Vital Signs Vital signs: Vital Signs Temp 97.1 F L 12/09/23 12:56 Pulse 62 12/09/23 12:56 Resp 17 12/09/23 12:56 BP 171/60 12/09/23 12:56 Pulse Ox 97 12/09/23 12:56 FiO2 Intake & Output 12/08/23 12/09/23 12/09/23 18:59 06:59 18:59 Weight 53.524 kg Other: Voiding Method Toilet # Voids 1 2 - Labs CBC & Chem 7: 12/08/23 10:07 12/08/23 10:07
[2023-12-09] MEDS: ONDANSETRON 4 MG/2 ML VIAL IVP PRN (17:59)
[2023-12-09] MEDS: ASPIRIN 81 MG PO SCH (18:54)
[2023-12-09 20:18] LABS: Hepatitis B Surface Antigen Nonreactive (Nonreactive)
[2023-12-09 20:24] LABS: Hepatitis B Surface AB- Quant 3.5 mIU/mL
[2023-12-09] MEDS: ACETAMINOPHEN TAB 325 MG TAB PO STA (20:34)
[2023-12-10 08:45] LABS: HCT 31.4 % (37.2-46.3); HGB 10.2 g/dL (12.0-15.0); MCH 31.7 pg (27.0-32.0); MCHC 32.5 g/dL (32.0-37.0); MCV 97.5 FL (80.0-97.0); Mean Platelet Volume 11.3 FL (9.5-12.2); NRBC Per 100 WBC 0 X 10*3/uL (0.00-0.01); Platelet Count 198 X 10*3/uL (140-440); RBC 3.22 X 10*6/uL (4.10-5.20); RDW 13.2 % (11.5-14.5)
[2023-12-10 09:48] LABS: Magnesium 1.9 mg/dL (1.5-2.4)
[2023-12-10 09:57] LABS: ALT 8 U/L (8-44); AST 16 U/L (13-35); Albumin 3.9 g/dL (3.8-4.9); Albumin/Globulin Ratio 1.95 Ratio (1.60-3.17); Alkaline Phosphatase 86 U/L (41-126); BUN/Creat Ratio 14.19 Ratio (12.00-20.00); Blood Urea Nitrogen 36.9 mg/dL (9.0-27.0); Calcium 8.8 mg/dL (8.7-10.3); Carbon Dioxide 25.8 mmol/L (21.6-31.8); Chloride 96 mmol/L (96-109); Glucose 88 mg/dL (70-110); Phosphorus 3.9 mg/dL (2.4-5.1); Potassium 3.6 mmol/L (3.5-5.5); Sodium 136 mmol/L (135-145); Total Bilirubin 0.3 mg/dL (0.3-1.2); Total Protein 5.9 g/dL (6.2-8.2)
--- NOTE | 2023-12-10 10:18 | P.GSCN ---
History of Present Illness Consult date: 12/10/23 History of present illness: CHIEF COMPLAINT: Abnormal labs and missing dialysis HISTORY OF PRESENT ILLNESS: This is a 83-year-old female with a history of end- stage renal disease on dialysis. She had been having issues with her fistula and had not gone to dialysis for 2 to 3 weeks. Patient came into the ER due to abnormal labs and needing dialysis. Patient requesting peritoneal dialysis. Nephrology consulted surgical service for prior peritoneal dialysis catheter. Patient did have permacath placed by vascular surgery and receiving hemodialysis this morning. PAST MEDICAL HISTORY: Coronary artery disease, hypertension, chronic diastolic heart failure, h yperlipidemia, hypothyroidism, end-stage renal disease PAST SURGICAL HISTORY: Pacemaker, appendectomy several years ago that had complications per patient, tubal ligation MEDICATIONS: See below ALLERGIES: See below SOCIAL HISTORY: No illicit drug use. REVIEW OF SYSTEMS: CONSTITUTIONAL: Denies fever or chills. HEENT: Denies blurred vision, vision changes, or eye pain. Denies hemoptysis CARDIOVASCULAR: Denies chest pain or pressure. RESPIRATORY: No shortness of breath. GASTROINTESTINAL: See HPI for pertinent findings HEMATOLOGIC: Denies bleeding disorders. GENITOURINARY: Denies any blood in urine or increased urinary frequency. SKIN: Denies pruitis. Denies rash. PHYSICAL EXAM: VITAL SIGNS: Reviewed GENERAL: Well-developed in no acute distress. HEENT: No sclera icterus. Extraocular movements grossly intact. Moist buccal mucosa. Head is atraumatic, normocephalic. No nasal drainage. ABDOMEN: Soft. Nondistended. Nontender. Old appendectomy scar noted NEUROLOGIC: Alert and oriented. Cranial nerves II through XII grossly intact. LABORATORY DATA: WBC 9.6 Hgb 10.2 platelets 198 Sodium 136 potassium 3.6 creatinine 2.6 IMAGING: ASSESSMENT: 1. End-stage renal disease PLAN: -Peritoneal dialysis catheter placement scheduled for Thursday with Dr. Webb. Procedure can be done outpatient if needed. Thank you for this consultation Physician Detective [employer] note has been reviewed by physician. Signing provider agrees with the documented findings, assessment, and plan of care. I have personally seen and examined the patient, reviewed the FAN RUNNER /PAs history, exam and MDM and agree with the assessment and plan as written. Based on total visit time, I have performed more than 50% of the visit. As above: Patient with history of renal failure. Wants to switch to peritoneal dialysis. This will be scheduled on Thursday as an outpatient. October discharge. Past Medical History Past Medical History: Chest Pain / Angina, Dialysis, Hyperlipidemia, Hypertension, Renal Disease Additional Past Medical History / Comment(s): stage 4 renal. right arm fistula History of Any Multi-Drug Resistant Organisms: None Reported Past Surgical History: Appendectomy, Tubal Ligation Additional Past Surgical History / Comment(s): pacemaker Past Anesthesia/Blood Transfusion Reactions: Postoperative Nausea & Vomiting (PONV) Past Psychological History: No Psychological Hx Reported Smoking Status: Never smoker Past Alcohol Use History: None Reported Past Drug Use History: None Reported Medications and Allergies Home Medications Medication Instructions Recorded Confirmed Type Aspirin EC [Ecotrin Low Dose] 81 mg PO W/SUPPER 01/17/23 12/08/23 History Atorvastatin [Lipitor] 20 mg PO HS 01/17/23 12/08/23 History Cholestyramine (with Sugar) 4 gm PO BID PRN 01/17/23 12/08/23 History [Cholestyramine Packet] Fluticasone Nasal [place] [Flonase 1 - 2 spr EA NOSTRIL BID PRN 01/17/23 12/08/23 History Nasal [place]] Levothyroxine Sodium [Synthroid] 50 mcg PO DAILY@0200 01/17/23 12/08/23 History Loratadine 10 mg PO DAILY 01/17/23 12/08/23 History Oxybutynin Xl [Ditropan XL] 5 mg PO HS 01/17/23 12/08/23 History Vits A,C,E/Lutein/Minerals 1 tab PO DAILY 01/17/23 12/08/23 History [Ocuvite with Lutein Tablet] Vitamin E (Dl,Tocopheryl Acet) 450 mg PO W/SUPPER 07/22/23 12/08/23 History [Vitamin E (1000 Iu = 450 MG)] allopurinoL [Zyloprim] 100 mg PO DAILY 07/22/23 12/08/23 History Furosemide [Lasix] 40 mg PO BID-W/MEALS 08/08/23 12/08/23 History Pantoprazole [Protonix] 40 mg PO AC-BRKFST 30 Days #30 tab 08/13/23 12/08/23 Rx Benzonatate [Tessalon Perles] 100 mg PO Q8H PRN 12/08/23 12/08/23 History Losartan [Cozaar] 25 mg PO BID@1200,1800 12/08/23 12/08/23 History NIFEdipine XL [Procardia XL] 30 mg PO DAILY 12/08/23 12/08/23 History carvediloL [Coreg*] 12.5 mg PO DAILY 12/08/23 12/08/23 History clindamycin HCL [Cleocin] 300 mg PO Q8H 12/08/23 12/08/23 History Allergies Allergy/AdvReac Type Severity Reaction Status Date / Time bacitracin Allergy Rash/Hives Verified 12/08/23 10:40 [From Neosporin ([id number])] levofloxacin [From Levaquin] Allergy Rash/Hives Verified 12/08/23 10:40 metronidazole [From Flagyl] Allergy Rash/Hives Verified 12/08/23 10:40 neomycin Allergy Rash/Hives Verified 12/08/23 10:40 [From Neosporin ([id number])] Penicillins Allergy Rash/Hives Verified 12/08/23 10:40 polymyxin B Allergy Rash/Hives Verified 12/08/23 10:40 [From Neosporin ([id number])] Surgical - Exam Vital Signs Temp Pulse Resp BP Pulse Ox 98.1 F 64 18 175/55 98 12/08/23 08:47 12/08/23 08:47 12/08/23 08:47 12/08/23 08:47 12/08/23 08:47 Results - Labs 12/10/23 05:13 12/10/23 05:13 Abnormal Lab Results - Last 24 Hours (Table) 12/10/23 12/10/23 Range/Units 05:13 05:13 RBC 3.22 L (4.10-5.20) X 10*6/uL Hgb 10.2 L (12.0-15.0) g/dL Hct 31.4 L (37.2-46.3) % MCV 97.5 H (80.0-97.0) FL Anion Gap 14.20 H (4.00-12.00) mmol/L BUN 36.9 H (9.0-27.0) mg/dL Creatinine 2.6 H (0.6-1.5) mg/dL Est GFR (CKD-EPI) 18 L (>=60) Total Protein 5.9 L (6.2-8.2) g/dL Diabetes panel 12/10/23 Range/Units 05:13 Sodium 136 (135-145) mmol/L Potassium 3.6 (3.5-5.5) mmol/L Chloride 96 (96-109) mmol/L Carbon Dioxide 25.8 (21.6-31.8) mmol/L BUN 36.9 H (9.0-27.0) mg/dL Creatinine 2.6 H (0.6-1.5) mg/dL Glucose 88 (70-110) mg/dL Calcium 8.8 (8.7-10.3) mg/dL AST 16 (13-35) U/L ALT 8 (8-44) U/L Alkaline Phosphatase 86 (41-126) U/L Total Protein 5.9 L (6.2-8.2) g/dL Albumin 3.9 (3.8-4.9) g/dL Calcium panel 12/10/23 Range/Units 05:13 Calcium 8.8 (8.7-10.3) mg/dL Phosphorus 3.9 (2.4-5.1) mg/dL Albumin 3.9 (3.8-4.9) g/dL Pituitary panel 12/10/23 Range/Units 05:13 Sodium 136 (135-145) mmol/L Potassium 3.6 (3.5-5.5) mmol/L Chloride 96 (96-109) mmol/L Carbon Dioxide 25.8 (21.6-31.8) mmol/L BUN 36.9 H (9.0-27.0) mg/dL Creatinine 2.6 H (0.6-1.5) mg/dL Glucose 88 (70-110) mg/dL Calcium 8.8 (8.7-10.3) mg/dL Adrenal panel 12/10/23 Range/Units 05:13 Sodium 136 (135-145) mmol/L Potassium 3.6 (3.5-5.5) mmol/L Chloride 96 (96-109) mmol/L Carbon Dioxide 25.8 (21.6-31.8) mmol/L BUN 36.9 H (9.0-27.0) mg/dL Creatinine 2.6 H (0.6-1.5) mg/dL Glucose 88 (70-110) mg/dL Calcium 8.8 (8.7-10.3) mg/dL Total Bilirubin 0.3 (0.3-1.2) mg/dL AST 16 (13-35) U/L ALT 8 (8-44) U/L Alkaline Phosphatase 86 (41-126) U/L Total Protein 5.9 L (6.2-8.2) g/dL Albumin 3.9 (3.8-4.9) g/dL
--- NOTE | 2023-12-10 11:08 | P.PN ---
Subjective Patient is seen in follow-up for end-stage renal disease. She is maintained on hemodialysis on Thursday schedule. No problems with dialysis yesterday. Currently seen while undergoing hemodialysis. Daughter present at bedside. Wanting to know when PD catheter will be placed. Vital signs are stable. General: No acute distress. HEENT: Head exam is unremarkable. LUNGS: No audible rhonchi or wheezes. HEART: Rate and Rhythm are regular. ABDOMEN: Nontender. EXTREMITITES: No edema. Objective - Vital Signs Vital signs: Vital Signs Temp 97.5 F L 12/10/23 07:23 Pulse 64 12/10/23 07:23 Resp 17 12/10/23 07:23 BP 164/55 12/10/23 07:23 Pulse Ox 95 12/10/23 07:23 FiO2 Intake & Output 12/09/23 12/10/23 12/10/23 18:59 06:59 18:59 Intake Total 500 Output Total 1500 Balance -1000 Intake: Hemodialysis 500 Output: Hemodialysis 1500 Other: Voiding Method Toilet # Voids 2 2 - Labs CBC & Chem 7: 12/10/23 05:13 12/10/23 05:13 Labs: Abnormal Lab Results - Last 24 Hours (Table) 12/10/23 12/10/23 Range/Units 05:13 05:13 RBC 3.22 L (4.10-5.20) X 10*6/uL Hgb 10.2 L (12.0-15.0) g/dL Hct 31.4 L (37.2-46.3) % MCV 97.5 H (80.0-97.0) FL Anion Gap 14.20 H (4.00-12.00) mmol/L BUN 36.9 H (9.0-27.0) mg/dL Creatinine 2.6 H (0.6-1.5) mg/dL Est GFR (CKD-EPI) 18 L (>=60) Total Protein 5.9 L (6.2-8.2) g/dL Assessment and Plan Plan: Assessment: 1. End-stage renal disease maintained on hemodialysis on Thursday schedule. Permacath placed December 08, 2023. 2. Hypertension with chronic kidney disease. 3. History of coronary artery disease. 4. Hyponatremia secondary to chronic kidney disease. Improved postdialysis. 5. Metabolic acidosis secondary to chronic kidney disease. Improved postdialysis. Plan: Currently seen while undergoing hemodialysis. Next treatment on Thursday. Phosphorus level 3.9 dated December 10, 2023. Maintain Lasix. PD catheter to be placed Thursday. Discussed with patient and her daughter present at bedside.
[2023-12-10 13:55] VITALS: PULSE 62
--- NOTE | 2023-12-10 16:04 | P.DS ---
Providers Date of admission: 12/08/23 11:13 Expected date of discharge: 12/10/23 Attending physician: Landon Samson MD Consults: 12/08/23 11:12 Consult Physician Routine Consulting Provider: Primo Li Consult Reason/Comments: Possible dialysis access Do you want consulting provider notified?: Yes Consult Physician Routine Consulting Provider: Linda Antoine Consult Reason/Comments: ESRD Do you want consulting provider notified?: Yes 12/09/23 15:52 Consult Physician Routine Consulting Provider: Martin Webb Consult Reason/Comments: pd cath consult Do you want consulting provider notified?: Yes Primary care physician: [facility] Hospital Course: Discharge Diagnosis: ESRD, missed dialysis x 3 weeks. Dialysis permacath was placed and patient underwent hemodialysis on 12/09/2023 and again on 12/10/2023. Patient cleared by nephrology and to resume scheduled hemodialysis on Thursday. Per patient's request she is scheduled for peritoneal catheter placement on 12/14/[address] Webb. Complications with dialysis fistula. Vascular surgery evaluated, placed permacath on 12/08/2023. CAD status post permanent pacemaker placement. Continue cardiac medication regimen with aspirin 81 mg daily, atorvastatin 40 mg nightly, carvedilol 12.5 mg daily, Procardia 30 mg daily, Lasix 40 mg twice daily, and losartan 25 mg twice daily. Hypertension. Continue cardiac medication regimen with carvedilol 12.5 mg daily, Procardia 30 mg daily, Lasix 40 mg twice daily, and losartan 25 mg twice daily. Chronic diastolic heart failure. Continue cardiac medication regimen with aspirin 81 mg daily, atorvastatin 40 mg nightly, carvedilol 12.5 mg daily, Procardia 30 mg daily, Lasix 40 mg twice daily, and losartan 25 mg twice daily. Hyperlipidemia. Continue medication regimen with atorvastatin 40 mg nightly. Hypothyroidism. Continue daily medication regimen with levothyroxine 50 mcg daily. Hospital Course: Patient is a very pleasant 83-year-old female with a past medical history of ESRD on dialysis Thursday//Thursday', CAD status post pacemaker placement, chronic diastolic heart failure, hypertension, hyperlipidemia, and hypothyroidism. She presented to the hospital secondary to reports of need for dialysis and missing hemodialysis x 3 weeks secondary to problems with her right upper extremity fistula. Patient requesting either long-term permacath versus peritoneal dialysis. She reports overall weakness and fatigue but otherwise denies having any complaints at this time including recent fevers, chills, headache, lightheadedness, dizziness, chest pain, palpitations, shortness of breath, cough or congestion, abdominal pain, nausea, vomiting, difficulties with urination or bowel function, or experiencing any increased swelling in her lower extremities. Upon arrival to our facility, patient underwent evaluation in the emergency department. Vital signs upon arrival show blood pressure 175/55, heart rate 64, respiratory rate 18, temp 98.1 F, SpO2 of 98% on room air. EKG completed showing a ventricular paced rhythm at 64 bpm. Labs completed and reviewed. CBC showing stable normocytic anemia with hemoglobin of 11.0. Coagulation profile normal findings. BMP showing hyponatremia with sodium of 131 and hypocarbia with bicarb of 19 with elevated anion gap of 14 and renal function consistent with ESRD with BUN of 99, creatinine 4.14, and GFR of 9. Calcium was 9.5, magnesium 2.0, and liver profile unremarkable. Patient was admitted under our services with consult to vascular surgery for placement of permacath and to nephrology for needed dialysis. Vascular surgery placed permacath on 12/08/2023. Patient then underwent patient was evaluated by nephrology and underwent hemodialysis on 12/09/2023 and again on 12/10/2023. Patient cleared by nephrology and to resume scheduled hemodialysis on Thursday. Per patient's request she is scheduled for peritoneal catheter placement on 12/14/[address] Webb. Patient medically stable for discharge at this time. Patient to follow-up outpatient with PCP in 1 to 2 days, psychologist counseling in 1 week, and general surgery as scheduled 12/14/2023 and outpatient in office on 12/30/2023. Patient to resume scheduled hemodialysis on 12/12/2023. Physical exam: Vital signs reviewed and stable. General: Nontoxic, no distress and appears stated age. Derm: Skin warm and dry, normal coloration for ethnicity. Head: Atraumatic, normocephalic and symmetric. Eyes: EOMs intact, no lid lag, and anicteric sclera Mouth: no lip lesions, mucus membranes moist Cardiovascular: regular rate and rhythm with normal S1S2, systolic murmur, positive posterior tibial pulses bilaterally, and cap refill < 2 seconds. Fistu la right upper extremity with bruit and thrill intact. Lungs: Respirations even, regular, and unlabored on room air. Lungs CTA bilaterally, no rhonchi, no rales, no wheezing, and no accessory muscle usage. Abdominal: soft, nontender to palpation, no guarding, no appreciable organomegaly Ext: ROM intact. No gross muscle atrophy, bilateral lower extremity edema, no contractures Neuro: Speech clear, face symmetrical and CN II-XII grossly intact with no noted focal neuro deficits Psych: Alert and oriented to person, place, time, and situation. Appropriate and pleasant affect. A total of 35 minutes of time were spent preparing this complex discharge summary. Pt was discharged on 12/10/2023 at 3:50 PM. Patient was seen independently by Nurse Practitioner. This document was prepared using [employer] dictation software. Please allow for errors in station worker while rare they do occur. Patient Condition at Discharge: Stable Plan - Discharge Summary Discharge Rx Participant: No New Discharge Prescriptions: Continue Aspirin EC [Ecotrin Low Dose] 81 mg PO W/SUPPER Cholestyramine (with Sugar) [Cholestyramine Packet] 4 gm PO BID PRN PRN Reason: Diarrhea Fluticasone Nasal [place] [Flonase Nasal [place]] 1 - 2 spr EA NOSTRIL BID PRN PRN Reason: Allergy Symptoms Loratadine 10 mg PO DAILY Vits A,C,E/Lutein/Minerals [Ocuvite with Lutein Tablet] 1 tab PO DAILY allopurinoL [Zyloprim] 100 mg PO DAILY Pantoprazole [Protonix] 40 mg PO [facility] 30 Days #30 tab carvediloL [Coreg*] 12.5 mg PO DAILY Benzonatate [Tessalon Perles] 100 mg PO Q8H PRN PRN Reason: Cough clindamycin HCL [Cleocin] 300 mg PO Q8H Atorvastatin [Lipitor] 20 mg PO HS Levothyroxine Sodium [Synthroid] 50 mcg PO DAILY@0200 Oxybutynin Xl [Ditropan XL] 5 mg PO HS Vitamin E (Dl,Tocopheryl Acet) [Vitamin E (1000 Iu = 450 MG)] 450 mg PO W/SUPPER Furosemide [Lasix] 40 mg PO BID-W/MEALS NIFEdipine XL [Procardia XL] 30 mg PO DAILY Losartan [Cozaar] 25 mg PO BID@1200,1800 Discharge Medication List Aspirin EC [Ecotrin Low Dose] 81 mg PO W/SUPPER 01/17/23 [History] Atorvastatin [Lipitor] 20 mg PO HS 01/17/23 [History] Cholestyramine (with Sugar) [Cholestyramine Packet] 4 gm PO BID PRN 01/17/23 [History] Fluticasone Nasal [place] [Flonase Nasal [place]] 1 - 2 spr EA NOSTRIL BID PRN 01/17/23 [History] Levothyroxine Sodium [Synthroid] 50 mcg PO DAILY@0200 01/17/23 [History] Loratadine 10 mg PO DAILY 01/17/23 [History] Oxybutynin Xl [Ditropan XL] 5 mg PO HS 01/17/23 [History] Vits A,C,E/Lutein/Minerals [Ocuvite with Lutein Tablet] 1 tab PO DAILY 01/17/23 [History] Vitamin E (Dl,Tocopheryl Acet) [Vitamin E (1000 Iu = 450 MG)] 450 mg PO W/SUPPER 07/22/23 [History] allopurinoL [Zyloprim] 100 mg PO DAILY 07/22/23 [History] Furosemide [Lasix] 40 mg PO BID-W/MEALS 08/08/23 [History] Pantoprazole [Protonix] 40 mg PO AC-BRKFST 30 Days #30 tab 08/13/23 [Rx] Benzonatate [Tessalon Perles] 100 mg PO Q8H PRN 12/08/23 [History] Losartan [Cozaar] 25 mg PO BID@1200,1800 12/08/23 [History] NIFEdipine XL [Procardia XL] 30 mg PO DAILY 12/08/23 [History] carvediloL [Coreg*] 12.5 mg PO DAILY 12/08/23 [History] clindamycin HCL [Cleocin] 300 mg PO Q8H 12/08/23 [History] Follow up Appointment(s)/Referral(s): Martin Webb MD [Medical Doctor] - 12/30/23 1:50 pm Linda Antoine MD [STAFF PHYSICIAN] - 1 Week (The office is closed, please call and make follow up appointment.) [facility] [NON-STAFF] - 12/12/23 6:00 am Jono Edwards DO [Primary Care Provider] - 12/17/23 11:40 am Patient Instructions/Handouts: Dialysis Diet (DC), End Stage Kidney Disease (DC), Perma-cath Placement (DC) Activity/Diet/Wound Care/Special Instructions: Activity: As tolerated. Take breaks as needed. Diet: Renal and heart healthy diet. Avoid salts, or foods with hidden salts such as canned or boxed foods and frozen dinners. Extra salt makes your heart work harder and traps the fluid in your body for longer. Special Instructions: Take all of your medications as directed and remember to keep all of your doctor's appointments and follow-up as needed. Need to follow-up for your scheduled hemodialysis on Thursday and outpatient with Dr. Webb for needle dialysis catheter placement on Thursday. Surgery team will call you with time and further information regarding this procedure. Thank you for allowing us to participate in your care, it was truly a pleasure having you for our patient!!! . Discharge Disposition: HOME SELF-CARE
[2023-12-10 18:19] VITALS: BP 153/52; RESP 18; TEMP 98.5
== END 2023-12-10 18:27 | disposition home or self-care (01) | DRG 314 ==
LOC: EC 08:43 → 5NMEDONC 11:13
PROVIDERS: ADMIT Student in an Organized Health Care Education/Training Program; ATTEND Student in an Organized Health Care Education/Training Program
PROC: 02HV33Z Insertion of Infusion Device into Superior Vena Cava, Percutaneous Approach (ICD-10-PCS; principal; 2023-12-08 11:00)
PROC: 0JH63XZ Insertion of Tunneled Vascular Access Device into Chest Subcutaneous Tissue and Fascia, Percutaneous Approach (ICD-10-PCS; principal; 2023-12-08 11:00)
PROC: 5A1D70Z Performance of Urinary Filtration, Intermittent, Less than 6 Hours Per Day (ICD-10-PCS; 2023-12-09)
DX: T82.590A Other mechanical complication of surgically created arteriovenous fistula, initial encounter (principal); N18.6 End stage renal disease; I13.2 Hypertensive heart and chronic kidney disease with heart failure and with stage 5 chronic kidney disease, or end stage renal disease; E87.20 Acidosis, unspecified; E87.1 Hypo-osmolality and hyponatremia; I50.32 Chronic diastolic (congestive) heart failure; D63.1 Anemia in chronic kidney disease; Z91.158 Patient's noncompliance with renal dialysis for other reason; Z99.2 Dependence on renal dialysis; E03.9 Hypothyroidism, unspecified; I25.10 Atherosclerotic heart disease of native coronary artery without angina pectoris; E78.5 Hyperlipidemia, unspecified; Z79.82 Long term (current) use of aspirin; Z79.2 Long term (current) use of antibiotics; Z79.890 Hormone replacement therapy; Z79.899 Other long term (current) drug therapy; Z95.0 Presence of cardiac pacemaker; Y84.1 Kidney dialysis as the cause of abnormal reaction of the patient, or of later complication, without mention of misadventure at the time of the procedure; Z88.1 Allergy status to other antibiotic agents; Z88.3 Allergy status to other anti-infective agents; Z88.0 Allergy status to penicillin
CPT/HCPCS: 36415; 36558; 76937; 77001; 80053; 83735; 84100; 85025; 85027; 85610; 85730; 86706; 87340; 90935; 93005; 99285

== ENCOUNTER 2023-12-12 15:16 | Emergency (ER) | payer MEDICARE ==
[2023-12-12 15:24] VITALS: TEMP 98.2
--- NOTE | 2023-12-12 15:47 | ED ---
General Adult HPI - General Chief complaint: Recheck/Abnormal Lab/Rx Stated complaint: post op comp-heart cath bleeding Time Seen by Provider: 12/12/23 15:31 Source: patient, RN notes reviewed Mode of arrival: ambulatory Limitations: no limitations - History of Present Illness Initial comments: This is an 83-year-old female with a history of atrial fibrillation on Eliquis who presents emergency department chief complaint of a postoperative complication. Patient underwent a dialysis port catheter placement in the right IJ on 12/08/[address] Li. Since this time she has had some minimal bleeding from her catheter placement site. Patient went to dialysis this morning and when she went home she took a nap and woke up with her bed saturated in blood in addition to her close where she is reported to the emergency room. Patient endorses mild lightheadedness. She denies chest pain, chest pressure, palpitations. - Related Data Home Medications Medication Instructions Recorded Confirmed Aspirin EC [Ecotrin Low Dose] 81 mg PO W/SUPPER 01/17/23 12/08/23 Atorvastatin [Lipitor] 20 mg PO HS 01/17/23 12/08/23 Cholestyramine (with Sugar) 4 gm PO BID PRN 01/17/23 12/08/23 [Cholestyramine Packet] Fluticasone Nasal [place] [Flonase 1 - 2 spr EA NOSTRIL BID PRN 01/17/23 12/08/23 Nasal [place]] Levothyroxine Sodium [Synthroid] 50 mcg PO DAILY@0200 01/17/23 12/08/23 Loratadine 10 mg PO DAILY 01/17/23 12/08/23 Oxybutynin Xl [Ditropan XL] 5 mg PO HS 01/17/23 12/08/23 Vits A,C,E/Lutein/Minerals 1 tab PO DAILY 01/17/23 12/08/23 [Ocuvite with Lutein Tablet] Vitamin E (Dl,Tocopheryl Acet) 450 mg PO W/SUPPER 07/22/23 12/08/23 [Vitamin E (1000 Iu = 450 MG)] allopurinoL [Zyloprim] 100 mg PO DAILY 07/22/23 12/08/23 Furosemide [Lasix] 40 mg PO BID-W/MEALS 08/08/23 12/08/23 Benzonatate [Tessalon Perles] 100 mg PO Q8H PRN 12/08/23 12/08/23 Losartan [Cozaar] 25 mg PO BID@1200,1800 12/08/23 12/08/23 NIFEdipine XL [Procardia XL] 30 mg PO DAILY 12/08/23 12/08/23 carvediloL [Coreg*] 12.5 mg PO DAILY 12/08/23 12/08/23 clindamycin HCL [Cleocin] 300 mg PO Q8H 12/08/23 12/08/23 Previous Rx's Medication Instructions Recorded Pantoprazole [Protonix] 40 mg PO AC-BRKFST 30 Days #30 tab 08/13/23 Allergies Allergy/AdvReac Type Severity Reaction Status Date / Time bacitracin Allergy Rash/Hives Verified 12/12/23 15:24 [From Neosporin ([id number])] levofloxacin [From Levaquin] Allergy Rash/Hives Verified 12/12/23 15:24 metronidazole [From Flagyl] Allergy Rash/Hives Verified 12/12/23 15:24 neomycin Allergy Rash/Hives Verified 12/12/23 15:24 [From Neosporin ([id number])] Penicillins Allergy Rash/Hives Verified 12/12/23 15:24 polymyxin B Allergy Rash/Hives Verified 12/12/23 15:24 [From Neosporin ([id number])] Review of Systems ROS Statement: Those systems with pertinent positive or pertinent negative responses have been documented in the HPI. ROS Other: All systems not noted in ROS Statement are negative. Past Medical History Past Medical History: Chest Pain / Angina, Dialysis, Hyperlipidemia, Hypertension, Renal Disease Additional Past Medical History / Comment(s): stage 4 renal. right arm fistula History of Any Multi-Drug Resistant Organisms: None Reported Past Surgical History: Appendectomy, Tubal Ligation Additional Past Surgical History / Comment(s): pacemaker Past Anesthesia/Blood Transfusion Reactions: Postoperative Nausea & Vomiting (PONV) Past Psychological History: No Psychological Hx Reported Smoking Status: Never smoker Past Alcohol Use History: None Reported Past Drug Use History: None Reported General Exam Limitations: no limitations General appearance: alert, in no apparent distress Head exam: Present: atraumatic, normocephalic, normal inspection Eye exam: Present: normal appearance, PERRL, EOMI. Absent: scleral icterus, conjunctival injection, periorbital swelling ENT exam: Present: normal exam, mucous membranes moist Neck exam: Present: other (right Internal jugular port catheter placement with surrounding ecchymosis.). Absent: normal inspection Respiratory exam: Present: normal lung sounds bilaterally. Absent: respiratory distress, wheezes, rales, rhonchi, stridor Cardiovascular Exam: Present: regular rate, normal rhythm, normal heart sounds. Absent: systolic murmur, diastolic murmur, rubs, gallop, clicks GI/Abdominal exam: Present: soft, normal bowel sounds. Absent: distended, tenderness, guarding, rebound, rigid Extremities exam: Present: normal inspection, full ROM, normal capillary refill. Absent: tenderness, pedal edema, joint swelling, calf tenderness Back exam: Present: normal inspection Neurological exam: Present: alert, oriented X3, CN II-XII intact Psychiatric exam: Present: normal affect, normal mood Skin exam: Present: warm, dry, intact, normal color. Absent: rash Course Vital Signs 12/12/23 12/12/23 15:20 19:55 Temperature 98.2 F Pulse Rate 80 72 Respiratory 20 18 Rate Blood Pressure 141/52 166/53 O2 Sat by Pulse 93 L 93 L Oximetry Medical Decision Making - Medical Decision Making Was pt. sent in by a medical professional or institution (, PA, ASSEMBLER ENGINE, urgent care, hospital, or shelter...) When possible be specific @ -No Did you speak to anyone other than the patient for history (EMS, parent, family, police, friend...)? What history was obtained from this source @ -No Did you review nursing and triage notes (agree or disagree)? Why? @ -The patient's chart note from 12/08/23 a port catheter placement was made in the right IJ by Dr. Li Were old charts reviewed (outside hosp., previous admission, EMS record, old EKG, old radiological studies, urgent care reports/EKG's, shelter records)? Report findings @ -No old charts were reviewed Differential Diagnosis (chest pain, altered mental status, abdominal pain women, abdominal pain men, vaginal bleeding, weakness, fever, dyspnea, syncope, headache, dizziness, GI bleed, back pain, seizure, CVA, palpatations, mental health, musculoskeletal)? @ -Catheter placement dysfunction EKG interpreted by me (3pts min.). @ -None X-rays interpreted by me (1pt min.). @ -None done CT interpreted by me (1pt min.). @ -None done U/S interpreted by me (1pt. min.). @ -US of the neck inconclusive What testing was considered but not performed or refused? (CT, X-rays, U/S, labs)? Why? @ -None What meds were considered but not given or refused? Why? @ -None Did you discuss the management of the patient with other professionals (professionals i.e. , PA, ASSEMBLER ENGINE, lab, RT, psych nurse, social science instructor, landscaping supervisor, teacher, fire information officer, manager rn case)? Give summary @ -Contacted the patient's vascular surgeon, Dr. Li, who stated that he was in the patient the emergency room for further evaluation. On the physician's examination of the patient bleeding has ceased. Gauze was placed over the catheter site and compression tape. Discussion with the patient option to stay in the hospital until her procedure on Thursday, patient has declined. Vascular surgeon is okay with patient's request for going home. Strict return parameters have been discussed with the patient. Was smoking cessation discussed for >3mins.? @ -No Was critical care preformed (if so, how long)? @ -No Were there social determinants of health that impacted care today? How? (Homelessness, low income, unemployed, alcoholism, drug addiction, transportation, low edu. Level, literacy, decrease access to med. care, assisted, rehab)? @ -No Was there de-escalation of care discussed even if they declined (Discuss DNR or withdrawal of care, Hospice)? DNR status @ -No What co-morbidities impacted this encounter? (DM, HTN, Smoking, COPD, CAD, Cancer, CVA, ARF, Chemo, Hep., AIDS, mental health diagnosis, sleep apnea, morbid obesity)? @ -None Was patient admitted / discharged? Hospital course, mention meds given and route, prescriptions, significant lab abnormalities, going to OR and other pertinent info. @ -Charge. 83-year-old female with a catheter port malfunction. Patient's arrival to the emergency department patient's catheter dressing was soaked with blood and nursing staff change the dressing applied compression tape. At this time basic labs were ordered in addition to a ultrasound for evaluation of a potential aneurysm. Ultrasound was inconclusive due to occlusive dressing over the area. At this time I consulted the patient's vascular surgeon for further evaluation. On Dr. Li's evaluation of the patient there is no longer bleeding from the site. Dressing applied over the area and patient is stable for discharge home. Labs unremarkable as compared to previous from 12/10/2023. Return parameters have discussed with the patient where she has verbalized understanding. Patient has a follow-up appointment on 12/10/[address] Webb for peritoneal dialysis placement. All questions been answered at bedside. Case discussed with my attending Dr. Remy. Undiagnosed new problem with uncertain prognosis? @ -No Drug Therapy requiring intensive monitoring for toxicity (Heparin, Nitro, Insulin, Cardizem)? @ -No Were any procedures done? @ -No Diagnosis/symptom? @ -Catheter malfunction Acute, or Chronic, or Acute on Chronic? @ -acute Uncomplicated (without systemic symptoms) or Complicated (systemic symptoms)? @ -uncomplicated Side effects of treatment? @ -No Exacerbation, Progression, or Severe Exacerbation? @ -No Poses a threat to life or bodily function? How? (Chest pain, [place], [place], pneumonia, PE, COPD, DKA, ARF, appy, cholecystitis, CVA, Diverticulitis, Homicidal, [place], threat to staff... and all critical care pts) @ -No - Lab Data Result diagrams: 12/12/23 17:19 12/12/23 17:19 Lab Results 12/12/23 12/12/23 12/12/23 Range/Units 17:11 17:16 17:19 WBC 7.4 (3.8-10.6) k/uL RBC 2.98 L (3.80-5.40) m/uL Hgb 9.9 L (11.4-16.0) gm/dL Hct 29.5 L (34.0-46.0) % MCV 99.1 (80.0-100.0) fL MCH 33.3 (25.0-35.0) pg MCHC 33.7 (31.0-37.0) g/dL RDW 13.3 (11.5-15.5) % Plt Count 147 L (150-450) k/uL MPV 8.4 Neutrophils % 55 % Lymphocytes % 27 % Monocytes % 6 % Eosinophils % 10 % Basophils % 1 % Neutrophils # 4.1 (1.3-7.7) k/uL Lymphocytes # 2.0 (1.0-4.8) k/uL Monocytes # 0.4 (0-1.0) k/uL Eosinophils # 0.8 H (0-0.7) k/uL Basophils # 0.0 (0-0.2) k/uL PT (10.0-12.5) sec INR (<1.2) APTT (22.0-30.0) sec Sodium (137-145) mmol/L Potassium (3.5-5.1) mmol/L Chloride (98-107) mmol/L Carbon Dioxide (22-30) mmol/L Anion Gap BUN (7-17) mg/dL Creatinine (0.52-1.04) mg/dL Est GFR (CKD-EPI)AfAm (>60 ml/min/1.73 sqM) Est GFR (CKD-EPI)NonAf (>60 ml/min/1.73 sqM) Glucose (74-99) mg/dL Calcium (8.4-10.2) mg/dL Total Bilirubin (0.2-1.3) mg/dL AST (14-36) U/L ALT (4-34) U/L Alkaline Phosphatase (38-126) U/L Total Protein (6.3-8.2) g/dL Albumin (3.5-5.0) g/dL Blood Type O Positive Blood Type Confirm O Positive Blood Type Recheck No Previous Record Bld Type Recheck Status CABO Indicated Antibody Screen NEGATIVE Spec Expiration Date 12/15/2023231512/12/23 12/12/23 Range/Units 17:19 17:19 WBC (3.8-10.6) k/uL RBC (3.80-5.40) m/uL Hgb (11.4-16.0) gm/dL Hct (34.0-46.0) % MCV (80.0-100.0) fL MCH (25.0-35.0) pg MCHC (31.0-37.0) g/dL RDW (11.5-15.5) % Plt Count (150-450) k/uL MPV Neutrophils % % Lymphocytes % % Monocytes % % Eosinophils % % Basophils % % Neutrophils # (1.3-7.7) k/uL Lymphocytes # (1.0-4.8) k/uL Monocytes # (0-1.0) k/uL Eosinophils # (0-0.7) k/uL Basophils # (0-0.2) k/uL PT 11.1 (10.0-12.5) sec INR 1.0 (<1.2) APTT 24.1 (22.0-30.0) sec Sodium 131 L (137-145) mmol/L Potassium 3.7 (3.5-5.1) mmol/L Chloride 99 (98-107) mmol/L Carbon Dioxide (22-30) mmol/L Anion Gap Not Reportable BUN 13 (7-17) mg/dL Creatinine 1.80 H (0.52-1.04) mg/dL Est GFR (CKD-EPI)AfAm 29 (>60 ml/min/1.73 sqM) Est GFR (CKD-EPI)NonAf 25 (>60 ml/min/1.73 sqM) Glucose 111 H (74-99) mg/dL Calcium 8.7 (8.4-10.2) mg/dL Total Bilirubin 0.9 (0.2-1.3) mg/dL AST 25 (14-36) U/L ALT 8 (4-34) U/L Alkaline Phosphatase 63 (38-126) U/L Total Protein 5.9 L (6.3-8.2) g/dL Albumin 3.5 (3.5-5.0) g/dL Blood Type Blood Type Confirm Blood Type Recheck Bld Type Recheck Status Antibody Screen Spec Expiration Date Disposition Clinical Impression: Bleeding due to dialysis catheter placement Disposition: HOME SELF-CARE Condition: Good Instructions (If sedation given, give patient instructions): Apixaban (By mouth) Additional Instructions: Return the emergency department if symptoms worsen or improve. Follow-up as scheduled on 12/14/23 for further evaluation with Dr. Webb. Is patient prescribed a controlled substance at d/c from ED?: No Referrals: Jono Edwards DO [Primary Care Provider] - 1-2 days Time of Disposition: 19:45
[2023-12-12 17:38] LABS: Basophils % (A) 1 %; Eosinophils # (A) 0.8 k/uL (0-0.7); Eosinophils % (A) 10 %; HCT 29.5 % (34.0-46.0); HGB 9.9 gm/dL (11.4-16.0); Lymphocytes % (A) 27 %; MCH 33.3 pg (25.0-35.0); MCHC 33.7 g/dL (31.0-37.0); MCV 99.1 fL (80.0-100.0); Mean Platelet Volume 8.4; Monocytes # (A) 0.4 k/uL (0-1.0); Monocytes % (A) 6 %; Neutrophils # (A) 4.1 k/uL (1.3-7.7); Neutrophils % (A) 55 %; Platelet Count 147 k/uL (150-450); RBC 2.98 m/uL (3.80-5.40); RDW 13.3 % (11.5-15.5); WBC 7.4 k/uL (3.8-10.6)
[2023-12-12 17:57] LABS: Partial Thromboplastin Time 24.1 sec (22.0-30.0); Prothrombin Time 11.1 sec (10.0-12.5)
--- NOTE | 2023-12-12 18:25 | US ---
EXAMINATION TYPE: Pre-Operative Non-Invasive Evaluation of the hand for Potential Radial Artery [address], Measurements only DATE OF EXAM: 12/12/2023 6:05 PM CLINICAL INDICATION: Female, 83 years old with history of dialysis port bleeding, left side; EXAMINAT ION TYPE: US radial artery UE RT DATE OF EXAM: 12/12/2023 COMPARISON: NONE CLINICAL INDICATION: Female, 83 years old with history of dialysis port bleeding, right side; Bleedin g dialysis port right neck. TECHNIQUE: FINDINGS: Scanned area unable to visualize port due to bandages. IMPRESSION: Port not visualized. Nondiagnostic study.
[2023-12-12 19:00] LABS: ALT 8 U/L (4-34); AST 25 U/L (14-36); African American GFR (CKD) 29 (>60 ml/min/1.73 sqM); Albumin 3.5 g/dL (3.5-5.0); Alkaline Phosphatase 63 U/L (38-126); Blood Urea Nitrogen 13 mg/dL (7-17); Calcium 8.7 mg/dL (8.4-10.2); Chloride 99 mmol/L (98-107); Glucose 111 mg/dL (74-99); Non-African American GFR(CKD) 25 (>60 ml/min/1.73 sqM); Sodium 131 mmol/L (137-145); Total Bilirubin 0.9 mg/dL (0.2-1.3); Total Protein 5.9 g/dL (6.3-8.2)
[2023-12-12 19:06] LABS: Potassium 3.7 mmol/L (3.5-5.1)
[2023-12-12 19:57] VITALS: BP 166/53; PULSE 72; RESP 18
--- NOTE | 2023-12-13 10:19 | PN ---
PROGRESS NOTE HISTORY OF PRESENT ILLNESS: This is an 83-year-old pleasant female, patient came to the emergency room. This patient has a history of chronic renal failure. The patient had a dialysis catheter placed last week. The patient has history of atrial fibrillation and pacemaker. The patient is on Eliquis. The patient came because of the bleeding from the access site of the catheter. The patient had dialysis today and she was given heparin, and the patient is on Eliquis. PHYSICAL EXAMINATION: NECK: The patient's neck is supple. The patient has a right IJ catheter. CHEST: Clear. ABDOMEN: Soft. Femoral pulses are present. Dressing removed. There was some bleeding from the exit catheter. Pressure dressing applied, bleeding was stopped. PLAN: The patient to go home today. Visit coming Thursday for better dialysis placement. At this point, the patient is stable. The patient can be discharged to continue with home medication. MARIANELA / DANIELLE: [id number] /
== END 2023-12-12 20:20 | disposition home or self-care (01) ==
LOC: EC 15:16
DX: T82.9XXA Unspecified complication of cardiac and vascular prosthetic device, implant and graft, initial encounter (principal); Z88.0 Allergy status to penicillin; Z88.6 Allergy status to analgesic agent; Z88.8 Allergy status to other drugs, medicaments and biological substances
CPT/HCPCS: 36415; 80053; 85025; 85610; 85730; 86850; 86900; 86901; 99284

== ENCOUNTER 2023-12-14 09:40 | Day surgery (SDC) | payer MEDICARE ==
--- NOTE | 2023-12-14 07:31 | P.GSHP ---
History of Present Illness H&P Date: 12/14/23 Chief Complaint: Renal failure 83-year-old female presents today for elective dialysis catheter insertion. Patient with history of previous hemodialysis through a right arm fistula and also recently a right IJ PermCath. Patient interested in peritoneal dialysis. She states she is considering no longer having any hemodialysis. No known hernias. Past Medical History Past Medical History: Chest Pain / Angina, Dialysis, Hyperlipidemia, Hypertension, Renal Disease Additional Past Medical History / Comment(s): stage 4 renal. right arm fistula History of Any Multi-Drug Resistant Organisms: None Reported Past Surgical History: Appendectomy, Tubal Ligation Additional Past Surgical History / Comment(s): pacemaker Past Anesthesia/Blood Transfusion Reactions: Postoperative Nausea & Vomiting (PONV) Past Psychological History: No Psychological Hx Reported Smoking Status: Never smoker Past Alcohol Use History: None Reported Past Drug Use History: None Reported Medications and Allergies Home Medications Medication Instructions Recorded Confirmed Type Aspirin EC [Ecotrin Low Dose] 81 mg PO W/SUPPER 01/17/23 12/08/23 History Atorvastatin [Lipitor] 20 mg PO HS 01/17/23 12/08/23 History Cholestyramine (with Sugar) 4 gm PO BID PRN 01/17/23 12/08/23 History [Cholestyramine Packet] Fluticasone Nasal [place] [Flonase 1 - 2 spr EA NOSTRIL BID PRN 01/17/23 12/08/23 History Nasal [place]] Levothyroxine Sodium [Synthroid] 50 mcg PO DAILY@0200 01/17/23 12/08/23 History Loratadine 10 mg PO DAILY 01/17/23 12/08/23 History Oxybutynin Xl [Ditropan XL] 5 mg PO HS 01/17/23 12/08/23 History Vits A,C,E/Lutein/Minerals 1 tab PO DAILY 01/17/23 12/08/23 History [Ocuvite with Lutein Tablet] Vitamin E (Dl,Tocopheryl Acet) 450 mg PO W/SUPPER 07/22/23 12/08/23 History [Vitamin E (1000 Iu = 450 MG)] allopurinoL [Zyloprim] 100 mg PO DAILY 07/22/23 12/08/23 History Furosemide [Lasix] 40 mg PO BID-W/MEALS 08/08/23 12/08/23 History Pantoprazole [Protonix] 40 mg PO AC-BRKFST 30 Days #30 tab 08/13/23 12/08/23 Rx Benzonatate [Tessalon Perles] 100 mg PO Q8H PRN 12/08/23 12/08/23 History Losartan [Cozaar] 25 mg PO BID@1200,1800 12/08/23 12/08/23 History NIFEdipine XL [Procardia XL] 30 mg PO DAILY 12/08/23 12/08/23 History carvediloL [Coreg*] 12.5 mg PO DAILY 12/08/23 12/08/23 History clindamycin HCL [Cleocin] 300 mg PO Q8H 12/08/23 12/08/23 History Allergies Allergy/AdvReac Type Severity Reaction Status Date / Time bacitracin Allergy Rash/Hives Verified 12/12/23 15:24 [From Neosporin ([id number])] levofloxacin [From Levaquin] Allergy Rash/Hives Verified 12/12/23 15:24 metronidazole [From Flagyl] Allergy Rash/Hives Verified 12/12/23 15:24 neomycin Allergy Rash/Hives Verified 12/12/23 15:24 [From Neosporin ([id number])] Penicillins Allergy Rash/Hives Verified 12/12/23 15:24 polymyxin B Allergy Rash/Hives Verified 12/12/23 15:24 [From Neosporin ([id number])] Surgical - Exam Physical exam: General: Well-developed, well-nourished HEENT: Normocephalic, sclerae nonicteric Abdomen: Nontender, nondistended Extremities: No edema Neuro: Alert and oriented Assessment and Plan (1) ESRD on dialysis Narrative/Plan: Will proceed with peritoneal dialysis catheter insertion at this time. Risks of bleeding, infection, poor function, fluid leak, hernia, peritonitis reviewed. She understands and wishes to proceed. Status: Acute Code(s): N18.6 - END STAGE RENAL DISEASE; Z99.2 - DEPENDENCE ON RENAL DIALYSIS SNOMED Code(s): 093144845
[2023-12-14 10:07] VITALS: TEMP 97.9
[2023-12-14] MEDS: ACETAMINOPHEN TAB 500 MG TAB PO PRN (10:26)
[2023-12-14] MEDS: HEPARIN SODIUM,PORCINE 5,000 UNIT/ML 1 ML VIAL SQ PRN (10:26)
[2023-12-14] MEDS: ONDANSETRON 4 MG/2 ML VIAL IVP STA (10:27)
[2023-12-14] MEDS: DEXAMETHASONE SOD PHOSPHATE 4 MG/ML 1 ML VIAL IVP STA (10:27)
[2023-12-14] MEDS: SODIUM CHLORIDE 0.9% 1,000 ML BAG IV STA (10:40)
[2023-12-14] MEDS: IV FLUID CONTINUATION 1,000 ML IV ONE (10:42)
[2023-12-14 10:45] LABS: African American GFR (CKD) 14 (>60 ml/min/1.73 sqM); Anion Gap 11 mmol/L; Blood Urea Nitrogen 25 mg/dL (7-17); Calcium 9.6 mg/dL (8.4-10.2); Carbon Dioxide 30 mmol/L (22-30); Chloride 92 mmol/L (98-107); Glucose 97 mg/dL (74-99); Non-African American GFR(CKD) 12 (>60 ml/min/1.73 sqM); Potassium 3.4 mmol/L (3.5-5.1); Sodium 133 mmol/L (137-145)
[2023-12-14] MEDS ORDERED: MIDAZOLAM 2 MG/2 ML VIAL ONE (10:52)
[2023-12-14] MEDS ORDERED: PROPOFOL 10 MG/ML 20 ML VIAL IV ONE (10:52)
[2023-12-14] MEDS ORDERED: KETAMINE HCL IN 0.9 % NACL 50 MG/5 ML SYRINGE ONE (10:52)
[2023-12-14] MEDS ORDERED: GLYCOPYRROLATE 0.2 MG/ML 2 ML VIAL ONE (10:52)
[2023-12-14] MEDS ORDERED: fentaNYL (PF) 50 MCG/ML 2 ML AMP ONE (10:52)
[2023-12-14] MEDS: BUPIVACAINE (PF) 0.25% 30 ML VIAL SQ ONE (11:19)
[2023-12-14] MEDS ORDERED: NALOXONE 0.4 MG/ML 1 ML VIAL IV PRN (11:48)
--- NOTE | 2023-12-14 11:49 | P.OP ---
Date of Procedure: 12/14/23 Procedure(s) Performed: PREOPERATIVE DIAGNOSIS: Renal failure POSTOPERATIVE DIAGNOSIS: Same PROCEDURE: Peritoneal dialysis catheter insertion SURGEON: Jon EBL: Minimal ANESTHESIA: Sedation plus local COMPLICATIONS: None OPERATIVE PROCEDURE: The patient was placed in the operative table in the supine position. The abdomen was prepped and draped in usual sterile fashion. A small vertical incision was made in the left periumbilical location. Dissection down through the subcutaneous tissues took place using electrocautery. The anterior rectus was divided vertically using the scalpel. The rectus was bluntly. The posterior rectus was visualized. An 0 Vicryl pursestring was placed. A small opening in the posterior rectus fascia and peritoneum took place using a Metzenbaum scissors. There were no adhesions to the suture that was placed. The pigtail catheter was advanced into the pelvis over a stylette. No resistance was met. The inner cuff was secured to the fascia using the 0 Vicryl pursestring that was placed. The catheter was tunneled to an exit site in the left lateral lower quadrant. The catheter was connected to the 1 L bag of saline and approximated 800 mL of saline was easily introduced into the peritoneal cavity. The fluid was then allowed to evacuate. The majority of the fluid was returned. The anterior rectus fascia was then reapproximated using a running 0 Vicryl stitch. The subcutaneous tissues reprepped using 3-0 Vicryl sutures and the skin using 4-0 Monocryl sutures. The outpatient dialysis adapter was applied to the end of the catheter. Sterile dressings were then applied after skin glue was placed over the incision. DISPOSITION: Stable to recovery room
[2023-12-14 12:52] VITALS: RESP 20
[2023-12-14 13:02] VITALS: BP 184/66; PULSE 72
== END 2023-12-14 13:22 | disposition home or self-care (01) ==
LOC: OR 09:40
PROVIDERS: ATTEND Surgery
DX: I12.0 Hypertensive chronic kidney disease with stage 5 chronic kidney disease or end stage renal disease (principal); N18.6 End stage renal disease; E78.5 Hyperlipidemia, unspecified; E07.9 Disorder of thyroid, unspecified; Z99.2 Dependence on renal dialysis; Z90.49 Acquired absence of other specified parts of digestive tract; Z95.0 Presence of cardiac pacemaker; Z79.82 Long term (current) use of aspirin; Z79.899 Other long term (current) drug therapy; Z88.1 Allergy status to other antibiotic agents; Z88.0 Allergy status to penicillin; Z88.8 Allergy status to other drugs, medicaments and biological substances; Z98.51 Tubal ligation status; Z79.890 Hormone replacement therapy
CPT/HCPCS: 80048; 49421; C1752; J2250; J1644; J1100; J0690; J2405; J3010; J2704; J0665

== ENCOUNTER 2023-12-17 10:20 | Emergency (ER) | payer MEDICARE ==
--- NOTE | 2023-12-17 11:20 | ED ---
Recheck HPI - General Chief Complaint: Arrhythmia/Palpitations Stated Complaint: Cath Issues Time Seen by Provider: 12/17/23 10:45 Source: patient, RN notes reviewed Mode of arrival: wheelchair Limitations: no limitations - History of Present Illness Initial Comments: This is an 83-year-old female who presents to the emergency department for palpitations and problems with her dialysis catheter. Patient is currently on hemodialysis Thursday, , and Thursday. She was recently in the hospital due to problems with her dialysis port in the right arm, causing her to miss dialysis for 2 to 3 weeks. On 12/07 she had placement of a right IJ permacath with Dr. Li. On 12/13, she also had placement of a peritoneal dialysis catheter with Dr. Webb. Patient's family states that she was evaluated here on 12/11 for bleeding from the right IJ catheter. States that additional sutures were placed to help with the bleeding and she was discharged home. Since then she has continued to have some residual bleeding, particularly whenever she is hooked up to dialysis. Her daughter took her to dialysis this morning and states that they would not proceed with treatment due to the bleeding. She has otherwise not missed any recent sessions. States that she is no longer on any blood thinners. She notes having palpitations last night that has since resolved. Denies any chest pain or shortness of breath. - Related Data Home Medications Medication Instructions Recorded Confirmed Aspirin EC [Ecotrin Low Dose] 81 mg PO W/SUPPER 01/17/23 12/14/23 Atorvastatin [Lipitor] 20 mg PO HS 01/17/23 12/14/23 Cholestyramine (with Sugar) 4 gm PO BID PRN 01/17/23 12/14/23 [Cholestyramine Packet] Fluticasone Nasal [place] [Flonase 1 - 2 spr EA NOSTRIL BID PRN 01/17/23 12/14/23 Nasal [place]] Levothyroxine Sodium [Synthroid] 50 mcg PO DAILY@0200 01/17/23 12/14/23 Loratadine 10 mg PO DAILY 01/17/23 12/14/23 Oxybutynin Xl [Ditropan XL] 5 mg PO HS 01/17/23 12/14/23 Vits A,C,E/Lutein/Minerals 1 tab PO DAILY 01/17/23 12/14/23 [Ocuvite with Lutein Tablet] Vitamin E (Dl,Tocopheryl Acet) 450 mg PO W/SUPPER 07/22/23 12/14/23 [Vitamin E (1000 Iu = 450 MG)] allopurinoL [Zyloprim] 100 mg PO DAILY 07/22/23 12/14/23 Furosemide [Lasix] 40 mg PO BID-W/MEALS 08/08/23 12/14/23 Benzonatate [Tessalon Perles] 100 mg PO Q8H PRN 12/08/23 12/14/23 Losartan [Cozaar] 25 mg PO BID@1200,1800 12/08/23 12/14/23 NIFEdipine XL [Procardia XL] 30 mg PO DAILY 12/08/23 12/14/23 carvediloL [Coreg*] 12.5 mg PO DAILY 12/08/23 12/14/23 clindamycin HCL [Cleocin] 300 mg PO Q8H 12/08/23 12/14/23 Previous Rx's Medication Instructions Recorded Pantoprazole [Protonix] 40 mg PO AC-[id number] 30 Days #30 tab 08/13/23 Allergies Allergy/AdvReac Type Severity Reaction Status Date / Time adhesive tape Allergy Rash/Hives Verified 12/17/23 10:35 bacitracin Allergy Rash/Hives Verified 12/14/23 09:58 [From Neosporin ([id number])] levofloxacin [From Levaquin] Allergy Rash/Hives Verified 12/14/23 09:58 metronidazole [From Flagyl] Allergy Rash/Hives Verified 12/14/23 09:58 neomycin Allergy Rash/Hives Verified 12/14/23 09:58 [From Neosporin ([id number])] Penicillins Allergy Rash/Hives Verified 12/14/23 09:58 polymyxin B Allergy Rash/Hives Verified 12/14/23 09:58 [From Neosporin ([id number])] Review of Systems ROS Statement: Those systems with pertinent positive or pertinent negative responses have been documented in the HPI. ROS Other: All systems not noted in ROS Statement are negative. Past Medical History Past Medical History: Chest Pain / Angina, Dialysis, Hyperlipidemia, Hypertension, Renal Disease, Thyroid Disorder Additional Past Medical History / Comment(s): stage 4 renal. right arm fistula. History of Any Multi-Drug Resistant Organisms: None Reported Past Surgical History: Appendectomy, Pacemaker, Tubal Ligation Additional Past Surgical History / Comment(s): pacemaker. hemo and peritoneal dialysis Past Anesthesia/Blood Transfusion Reactions: Postoperative Nausea & Vomiting (PONV) Past Psychological History: No Psychological Hx Reported Smoking Status: Never smoker Past Alcohol Use History: None Reported Past Drug Use History: None Reported General Exam Limitations: no limitations General appearance: alert, in no apparent distress Head exam: Present: atraumatic, normocephalic, normal inspection Respiratory exam: Present: normal lung sounds bilaterally. Absent: respiratory distress, wheezes, rales, rhonchi, stridor Cardiovascular Exam: Present: regular rate, normal rhythm, normal heart sounds. Absent: systolic murmur, diastolic murmur, rubs, gallop, clicks Neurological exam: Present: alert, oriented X3, CN II-XII intact Psychiatric exam: Present: normal affect, normal mood Skin exam: Present: other (Right IJ catheter is in place. Sutures intact. Dried blood without any active bleeding.) Course Vital Signs 12/17/23 12/17/23 10:25 14:05 Temperature 98 F 98.1 F Pulse Rate 74 71 Respiratory 20 18 Rate Blood Pressure 163/66 166/57 O2 Sat by Pulse 97 94 L Oximetry Medical Decision Making - Medical Decision Making This is an 83-year-old female who presents to the emergency department for palpitations and bleeding from her dialysis catheter. Was pt. sent in by a medical professional or institution? @ -No Did you speak to anyone other than the patient for history? @ -Her daughter provided the majority of the history. Did you review nursing and triage notes? @ -Yes, and I agree, it is accurate with regards to the patient's symptoms. Were old charts reviewed? @ -No Differential Diagnosis? @ -Differential Palpitations: Ventricular arrhythmias, atrial arrhythmias, myocardial infarction, anemia, thyrotoxicosis, electrolyte imbalance, hypokalemia, pulmonary embolism, pulmonary disease, drugs, alcohol, anxiety, stress.... This is not meant to be an all-inclusive list. EKG interpreted by me (3pts min.)? @ -EKG interpreted by me demonstrating the following: Electronic ventricular pacemaker. Ventricular rate 71 bpm, W[place] interval 182 ms, QRS duration 147 ms, QTc 456 ms. X-rays interpreted by me (1pt min.)? @ -Chest x-ray obtained. My interpretation identifies a pacemaker in the left chest wall. KUB x-ray obtained. My interpretation identifies the peritoneal dialysis catheter in the pelvis. CT interpreted by me (1pt min.)? @ -Not obtained U/S interpreted by me (1pt. min.)? @ -Not obtained What testing was considered but not performed? (CT, X-rays, U/S, labs)? Why? @ -None What meds were considered but not given? Why? @ -None Did you discuss the management of the patient with other professionals? @ -No Did you reconcile home meds? @ -No Was smoking cessation discussed for >3mins.? @ -No Was critical care preformed (if so, how long)? @ -No Were there social determinants of health that impacted care today? How? (Homelessness, low income, unemployed, alcoholism, drug addiction, transportation, low edu. Level, literacy, decrease access to med. care, care home, rehab)? @ -No Was there de-escalation of care discussed even if they declined? (Discuss DNR or withdrawal of care, Hospice)? @ -No What co-morbidities impacted this encounter? (DM, HTN, Smoking, COPD, CAD, Cancer, CVA, Hep., AIDS, mental health diagnosis, sleep apnea, morbid obesity)? @ -Renal disease, CHF Was patient admitted / discharged? @ -Discharged. Lab work demonstrates a mild decrease in hemoglobin as well as mild hyponatremia and hypokalemia. Renal function is stable when compared with prior. We avoided replacement of potassium, as patient is due for dialysis and these values will change. We also want to avoid the patient becoming hyperkalemic. Chest x-ray and KUB x-ray obtained revealing no acute process. Patient's IJ permacath was cleansed and monitored for approximately 3 hours in the emergency department. There was no active bleeding visualized during that time. Given the fairly unremarkable workup with patient remaining asymptomatic and no additional bleeding, advised that she can be discharged home with plan to follow-up with her providers on an outpatient basis. Also advised she contact the dialysis center to see if they can schedule her for later today due to missing the session this morning. Undiagnosed new problem with uncertain prognosis? @ -None Drug Therapy requiring intensive monitoring for toxicity (Heparin, Nitro, Insulin, Cardizem)? @ -None Were any procedures done? @ -None Diagnosis/symptom? @ -Bleeding due to dialysis catheter placement, palpitations Acute, or Chronic, or Acute on Chronic? @ -Acute Uncomplicated (without systemic symptoms) or Complicated (systemic symptoms)? @ -Uncomplicated Side effects of treatment? @ -None Exacerbation, Progression, or Severe Exacerbation] @ -Not applicable Poses a threat to life or bodily function? @ -No Return precautions reviewed in depth, the patient is instructed to return to the emergency department with any new, worsening, or concerning symptoms. Patient verbalized understanding. This case was discussed in detail with the attending ED physician, Dr. Guzman. Presentation, findings, and treatment plan discussed in detail as well. - Lab Data Result diagrams: 12/17/23 11:29 12/17/23 11:29 Lab Results 12/17/23 12/17/23 12/17/23 Range/Units 11:29 11:29 11:29 WBC 6.5 (3.8-10.6) k/uL RBC 2.73 L (3.80-5.40) m/uL Hgb 8.9 L (11.4-16.0) gm/dL Hct 26.7 L (34.0-46.0) % MCV 98.1 (80.0-100.0) fL MCH 32.8 (25.0-35.0) pg MCHC 33.4 (31.0-37.0) g/dL RDW 13.5 (11.5-15.5) % Plt Count 146 L (150-450) k/uL MPV 8.8 Neutrophils % 53 % Lymphocytes % 24 % Monocytes % 9 % Eosinophils % 12 % Basophils % 0 % Neutrophils # 3.5 (1.3-7.7) k/uL Lymphocytes # 1.6 (1.0-4.8) k/uL Monocytes # 0.6 (0-1.0) k/uL Eosinophils # 0.8 H (0-0.7) k/uL Basophils # 0.0 (0-0.2) k/uL PT 10.6 (10.0-12.5) sec INR 1.0 (<1.2) APTT 25.0 (22.0-30.0) sec Sodium 129 L (137-145) mmol/L Potassium 3.1 L (3.5-5.1) mmol/L Chloride 93 L (98-107) mmol/L Carbon Dioxide 28 (22-30) mmol/L Anion Gap 8 mmol/L BUN 27 H (7-17) mg/dL Creatinine 2.86 H (0.52-1.04) mg/dL Est GFR (CKD-EPI)AfAm 17 (>60 ml/min/1.73 sqM) Est GFR (CKD-EPI)NonAf 15 (>60 ml/min/1.73 sqM) Glucose 115 H (74-99) mg/dL Calcium 9.0 (8.4-10.2) mg/dL Magnesium 1.6 (1.6-2.3) mg/dL Total Bilirubin 0.6 (0.2-1.3) mg/dL AST 19 (14-36) U/L ALT 6 (4-34) U/L Alkaline Phosphatase 73 (38-126) U/L Troponin I (0.000-0.034) ng/mL Total Protein 5.6 L (6.3-8.2) g/dL Albumin 3.5 (3.5-5.0) g/dL 12/17/23 Range/Units 11:29 WBC (3.8-10.6) k/uL RBC (3.80-5.40) m/uL Hgb (11.4-16.0) gm/dL Hct (34.0-46.0) % MCV (80.0-100.0) fL MCH (25.0-35.0) pg MCHC (31.0-37.0) g/dL RDW (11.5-15.5) % Plt Count (150-450) k/uL MPV Neutrophils % % Lymphocytes % % Monocytes % % Eosinophils % % Basophils % % Neutrophils # (1.3-7.7) k/uL Lymphocytes # (1.0-4.8) k/uL Monocytes # (0-1.0) k/uL Eosinophils # (0-0.7) k/uL Basophils # (0-0.2) k/uL PT (10.0-12.5) sec INR (<1.2) APTT (22.0-30.0) sec Sodium (137-145) mmol/L Potassium (3.5-5.1) mmol/L Chloride (98-107) mmol/L Carbon Dioxide (22-30) mmol/L Anion Gap mmol/L BUN (7-17) mg/dL Creatinine (0.52-1.04) mg/dL Est GFR (CKD-EPI)AfAm (>60 ml/min/1.73 sqM) Est GFR (CKD-EPI)NonAf (>60 ml/min/1.73 sqM) Glucose (74-99) mg/dL Calcium (8.4-10.2) mg/dL Magnesium (1.6-2.3) mg/dL Total Bilirubin (0.2-1.3) mg/dL AST (14-36) U/L ALT (4-34) U/L Alkaline Phosphatase (38-126) U/L Troponin I 0.022 (0.000-0.034) ng/mL Total Protein (6.3-8.2) g/dL Albumin (3.5-5.0) g/dL - Radiology Data Radiology results: report reviewed, image reviewed Disposition Clinical Impression: Bleeding due to dialysis catheter placement, Palpitations Disposition: HOME SELF-CARE Instructions (If sedation given, give patient instructions): Heart Palpitations (ED), Peritoneal Dialysis Catheter Care (ED), Perma-cath Placement (DC) Additional Instructions: Return to the emergency department with any new, worsening, or concerning symptoms. Follow up with your primary care provider in 1-2 days. Is patient prescribed a controlled substance at d/c from ED?: No Referrals: Jono Edwards DO [Primary Care Provider] - 1-2 days Time of Disposition: 13:35
--- NOTE | 2023-12-17 11:34 | XR ---
EXAMINATION TYPE: XR chest 2V DATE OF EXAM: 12/17/2023 COMPARISON: 08/10/2023 HISTORY: 83-year-old female with dysrhythmia TECHNIQUE: PA and lateral views FINDINGS: Left anterior chest wall pacemaker generator with right atrial and right ventricular leads. Right-danilo ed double-lumen hemodialysis catheters with tips at the mid SVC. Heart borderline enlarged. Diffuse i nterstitial density. Possible trace left effusion. Possible nodule periphery of the right upper lobe. IMPRESSION: 1. COPD with superimposed mild pulmonary vascular congestion. 2. Follow-up after treatment to exclude a pulmonary nodule in the lateral right upper lobe.
--- NOTE | 2023-12-17 11:37 | XR ---
EXAMINATION TYPE: XR KUB DATE OF EXAM: 12/17/2023 Comparison: None Clinical History: 83-year-old female Abdominal pain after peritoneal dialysis cath Findings: Peritoneal dialysis catheter is coiled within the pelvis. Moderate enlargement stool burden. No dilat ed small bowel loops. Vascular stent right paramedian upper abdomen. No evidence for free intraperito sherly air. Impression: Peritoneal dialysis catheter looped within the pelvis. Moderate to large stool burden suggesting cons tipation. No evidence for free air or bowel obstruction. Chest reported separately.
[2023-12-17 11:58] LABS: Prothrombin Time 10.6 sec (10.0-12.5)
[2023-12-17 12:00] LABS: Basophils % (A) 0 %; Eosinophils # (A) 0.8 k/uL (0-0.7); Eosinophils % (A) 12 %; HCT 26.7 % (34.0-46.0); HGB 8.9 gm/dL (11.4-16.0); Lymphocytes # (A) 1.6 k/uL (1.0-4.8); Lymphocytes % (A) 24 %; MCH 32.8 pg (25.0-35.0); MCHC 33.4 g/dL (31.0-37.0); MCV 98.1 fL (80.0-100.0); Mean Platelet Volume 8.8; Monocytes # (A) 0.6 k/uL (0-1.0); Monocytes % (A) 9 %; Neutrophils # (A) 3.5 k/uL (1.3-7.7); Neutrophils % (A) 53 %; Platelet Count 146 k/uL (150-450); RBC 2.73 m/uL (3.80-5.40); RDW 13.5 % (11.5-15.5); WBC 6.5 k/uL (3.8-10.6)
[2023-12-17 13:19] LABS: Sodium 129 mmol/L (137-145)
[2023-12-17 13:20] LABS: ALT 6 U/L (4-34); AST 19 U/L (14-36); African American GFR (CKD) 17 (>60 ml/min/1.73 sqM); Albumin 3.5 g/dL (3.5-5.0); Alkaline Phosphatase 73 U/L (38-126); Anion Gap 8 mmol/L; Blood Urea Nitrogen 27 mg/dL (7-17); Carbon Dioxide 28 mmol/L (22-30); Chloride 93 mmol/L (98-107); Glucose 115 mg/dL (74-99); Magnesium 1.6 mg/dL (1.6-2.3); Non-African American GFR(CKD) 15 (>60 ml/min/1.73 sqM); Potassium 3.1 mmol/L (3.5-5.1); Total Bilirubin 0.6 mg/dL (0.2-1.3); Total Protein 5.6 g/dL (6.3-8.2)
[2023-12-17 14:08] VITALS: BP 166/57; PULSE 71; RESP 18; TEMP 98.1
== END 2023-12-17 14:08 | disposition home or self-care (01) ==
LOC: EC 10:20
DX: T82.42XA Displacement of vascular dialysis catheter, initial encounter (principal); R00.2 Palpitations; Z91.09 Other allergy status, other than to drugs and biological substances; Z88.0 Allergy status to penicillin; Z88.8 Allergy status to other drugs, medicaments and biological substances; Z88.1 Allergy status to other antibiotic agents
CPT/HCPCS: 36415; 71046; 74018; 80053; 83735; 84484; 85025; 85610; 85730; 93005; 99285

== ENCOUNTER 2024-03-19 09:03 | Inpatient (IN) | payer MEDICARE ==
--- NOTE | 2024-03-19 09:21 | ED ---
General Adult HPI - General Chief complaint: Shortness of Breath Stated complaint: NINFA Time Seen by Provider: 03/19/24 09:10 Source: patient, EMS, RN notes reviewed, old records reviewed Mode of arrival: EMS Limitations: no limitations - History of Present Illness Initial comments: Is a 89-year-old female presents emergency department complaining of sudden onset shortness of breath. Patient is a dialysis patient for peritoneal dialysis. Apparently had a peritoneal dialysis run yesterday however they did not pull fluid off. The plan was to pull it off today however patient awoke this morning with sudden onset shortness of breath. Was hypoxic at the scene per EMS in the 80%'s. Was placed on CPAP which improved her respiratory status. Was also hypertensive at that time. Patient denies any chest pain, abdominal pain, nausea, vomiting, diarrhea, cough. Primary complaint is the shortness of breath. Denies missing dialysis. Patient does have a right arm fistula but also a dialysis port in the right chest as well as hemodialysis. Presents for further evaluation at this time. Patient does have a pacemaker. - Related Data Home Medications Medication Instructions Recorded Confirmed Aspirin EC [Ecotrin Low Dose] 81 mg PO W/SUPPER 01/17/23 03/19/24 Atorvastatin [Lipitor] 20 mg PO HS 01/17/23 03/19/24 Cholestyramine (with Sugar) 4 gm PO BID PRN 01/17/23 03/19/24 [Cholestyramine Packet] Fluticasone Nasal [place] [Flonase 1 - 2 spr EA NOSTRIL BID PRN 01/17/23 03/19/24 Nasal [place]] Levothyroxine Sodium [Synthroid] 50 mcg PO DAILY@0200 01/17/23 03/19/24 Loratadine 10 mg PO DAILY 01/17/23 03/19/24 Oxybutynin Xl [Ditropan XL] 5 mg PO HS 01/17/23 03/19/24 Vitamin E (Dl,Tocopheryl Acet) 450 mg PO W/SUPPER 07/22/23 03/19/24 [Vitamin E (1000 Iu = 450 MG)] allopurinoL [Zyloprim] 100 mg PO DAILY 07/22/23 03/19/24 Furosemide [Lasix] 40 mg PO BID 08/08/23 03/19/24 NIFEdipine XL [Procardia XL] 30 mg PO Q12H 12/08/23 03/19/24 carvediloL [Coreg*] 12.5 mg PO BID 12/08/23 03/19/24 Folic Acid/Vit B Complex and C 0.8 mg PO W/LUNCH 03/19/24 03/19/24 [[place] Tablet] Losartan [Cozaar] 50 mg PO W/LUNCH 03/19/24 03/19/24 Previous Rx's Medication Instructions Recorded Pantoprazole [Protonix] 40 mg PO [id number] 30 Days #30 tab 08/13/23 Allergies Allergy/AdvReac Type Severity Reaction Status Date / Time adhesive tape Allergy Rash/Hives Verified 03/19/24 11:23 bacitracin Allergy Rash/Hives Verified 03/19/24 11:23 [From Neosporin ([id number])] levofloxacin [From Levaquin] Allergy Rash/Hives Verified 03/19/24 11:23 metronidazole [From Flagyl] Allergy Rash/Hives Verified 03/19/24 11:23 neomycin Allergy Rash/Hives Verified 03/19/24 11:23 [From Neosporin ([id number])] Penicillins Allergy Rash/Hives Verified 03/19/24 11:23 polymyxin B Allergy Rash/Hives Verified 03/19/24 11:23 [From Neosporin ([id number])] Review of Systems ROS Statement: Those systems with pertinent positive or pertinent negative responses have been documented in the HPI. Review of Systems: CONST: Denies fever EYES: Denies blurry vision ENT: Denies nasal congestion C/V: Denies Chest pain RESP: Endorses shortness of breath GI: Denies abdominal pain : Denies dysuria SKIN: Denies rash. MSK: Denies joint pain. NEURO: Denies headache ROS Other: All systems not noted in ROS Statement are negative. Past Medical History Past Medical History: Chest Pain / Angina, Dialysis, Hyperlipidemia, Hypertension, Renal Disease, Thyroid Disorder Additional Past Medical History / Comment(s): stage 4 renal. right arm fistula. History of Any Multi-Drug Resistant Organisms: None Reported Past Surgical History: Appendectomy, Pacemaker, Tubal Ligation Additional Past Surgical History / Comment(s): pacemaker. hemo and peritoneal dialysis Past Anesthesia/Blood Transfusion Reactions: Postoperative Nausea & Vomiting (PONV) Past Psychological History: No Psychological Hx Reported Smoking Status: Never smoker Past Alcohol Use History: None Reported Past Drug Use History: None Reported General Exam - General Exam Comments Initial Comments: General: Appears in respiratory distress. HEAD: Normal with no signs of head trauma. EYES: EOMI ENT: Hearing grossly intact, normal oropharynx. RESPIRATORY: Hypoxic on room air, improved on BiPAP. Breath sounds bilaterally. C/V: Regular rate and rhythm. S1 and S2 auscultated, mild pitting edema, peripheral pulses 2+ and intact throughout. Right chest dialysis catheter appears unremarkable. ABD: Abd is soft, nontender, nondistended. She notes dialysis catheter appears unremarkable. EXT: Normal range of motion, no obvious deformity SKIN: No rashes or lesions observed on exposed skin. NEURO: Alert and oriented x 4. No focal deficits. Limitations: no limitations Course Vital Signs 03/19/24 03/19/24 03/19/24 09:04 09:10 10:11 Temperature 97.5 F L Pulse Rate 101 H 95 Respiratory 22 17 Rate Blood Pressure 207/107 191/90 O2 Sat by Pulse 95 97 Oximetry Fraction of 40 Inspired Oxygen (FIO2) 03/19/24 03/19/24 03/19/24 11:40 12:07 12:51 Temperature 97.9 F Pulse Rate 98 93 Respiratory 18 20 Rate Blood Pressure 184/106 179/86 O2 Sat by Pulse 3 L 96 Oximetry Fraction of 40 Inspired Oxygen (FIO2) Medical Decision Making - Medical Decision Making Was pt. sent in by a medical professional or institution (, PA, MULTIFOLD OPERATOR, urgent care, hospital, or longterm...) When possible be specific @ -No Did you speak to anyone other than the patient for history (EMS, parent, family, police, friend...)? What history was obtained from this source @ -No Did you review nursing and triage notes (agree or disagree)? Why? @ -I reviewed and agree with nursing and triage notes Were old charts reviewed (outside hosp., previous admission, EMS record, old EKG, old radiological studies, urgent care reports/EKG's, longterm records)? Report findings @ -Reviewed including EKG from November 2023 which revealed no significant changes in patient's EKG. Differential Diagnosis (chest pain, altered mental status, abdominal pain women, abdominal pain men, vaginal bleeding, weakness, fever, dyspnea, syncope, headache, dizziness, GI bleed, back pain, seizure, CVA, palpatations, mental health, musculoskeletal)? @ -Differential Dyspnea: Coronary syndrome, arrhythmia, tamponade, asthma, COPD, pulmonary embolism, pneumonia, pneumothorax, pulmonary effusion, anaphylaxis, diabetic ketoacidosis, flailed chest, pulmonary contusion, diaphragmatic rupture, anemia, neuromuscular, this is not meant to be an all-inclusive list. EKG interpreted by me (3pts min.). @ -As above X-rays interpreted by me (1pt min.). @ -X-ray reveals worsening pulmonary vascular congestion. CT interpreted by me (1pt min.). @ -None done U/S interpreted by me (1pt. min.). @ -None done What testing was considered but not performed or refused? (CT, X-rays, U/S, la bs)? Why? @ -None What meds were considered but not given or refused? Why? @ -None Did you discuss the management of the patient with other professionals (professionals i.e. , PA, MULTIFOLD OPERATOR, lab, RT, psych nurse, transition social worker, spacer type bar and segment, teacher, community arts officer, family preservation caseworker)? Give summary @ -Patient requires dialysis and I did reach out to nephrology Dr. Langston to evaluate the patient and arrange for dialysis. I also contacted Dr. Lees and of ICU who accepted the patient to the ICU. I spoke with the admitting provider, Dr. Samson who accepted the admission. Was smoking cessation discussed for >3mins.? @ -No Was critical care preformed (if so, how long)? @ -yes, 35 minutes Were there social determinants of health that impacted care today? How? (Homelessness, low income, unemployed, alcoholism, drug addiction, transportation, low edu. Level, literacy, decrease access to med. care, custodial, rehab)? @ -No Was there de-escalation of care discussed even if they declined (Discuss DNR or withdrawal of care, Hospice)? DNR status @ -No What co-morbidities impacted this encounter? (DM, HTN, Smoking, COPD, CAD, Cancer, CVA, ARF, Chemo, Hep., AIDS, mental health diagnosis, sleep apnea, mo rbid obesity)? @ -Dialysis Was patient admitted / discharged? Hospital course, mention meds given and route, prescriptions, significant lab abnormalities, going to OR and other pertinent info. @ -Based on the patient's presentation and physical exam, presents with acute onset of dyspnea. Does appear to be likely secondary to not pulling off enough fluid during dialysis which she is aware of from yesterday. Is requiring BiPAP for hypoxic respiratory failure. We will obtain basic labs, chest x-ray, infectious labs. Patient was in agreement this plan. Respiratory status did improve on BiPAP. Patient does still make urine and we will administer a dose of Lasix. I will contact nephrology. EKG shows paced rhythm with no obvious acute changes.X-ray shows worsening pulm vascular congestion with concern for fluid overload. Labs returned remarkable for elevated BUN and creatinine in the setting of CKD. Troponin is slightly elevated to 0.168 likely secondary to the hypoxia, hypertensive emergency, and volume overload state. BNP is elevated to 59,000. Viral swabs negative. Patient's blood pressure did improve from 220 systolic to 200 systolic on BiPAP. Additional nitroglycerin drip started and patient's pressures did slowly improve over time. We will continue with BiPAP. Patient requires dialysis and I did reach out to nephrology Dr. Langston to evaluate the patient and arrange for dialysis. I also contacted Dr. Lees and of ICU who accepted the patient to the ICU. I spoke with the admitting provider, Dr. Samson who accepted the admission. Patient admitted in serious condition. Undiagnosed new problem with uncertain prognosis? @ -No Drug Therapy requiring intensive monitoring for toxicity (Heparin, Nitro, Insulin, Cardizem)? @ -No Were any procedures done? @ -No Diagnosis/symptom? @ -Acute hypoxic respiratory failure likely secondary to hypertensive emergency and volume overload with pulmonary vascular congestion in the setting of ESRD on peritoneal dialysis, elevated troponin Acute, or Chronic, or Acute on Chronic? @ -Acute Uncomplicated (without systemic symptoms) or Complicated (systemic symptoms)? @ -Complicated Side effects of treatment? @ -None Exacerbation, Progression, or Severe Exacerbation] @ -No Poses a threat to life or bodily function? @ -Yes - Lab Data Result diagrams: 03/19/24 09:13 03/19/24 09:13 Lab Results 03/19/24 03/19/24 03/19/24 Range/Units 09:13 09:13 09:13 WBC 8.4 (3.8-10.6) k/uL RBC 3.63 L (3.80-5.40) m/uL Hgb 11.2 L (11.4-16.0) gm/dL Hct 34.3 (34.0-46.0) % MCV 94.5 (80.0-100.0) fL MCH 30.9 (25.0-35.0) pg MCHC 32.7 (31.0-37.0) g/dL RDW 13.2 (11.5-15.5) % Plt Count 157 (150-450) k/uL MPV 7.8 Neutrophils % 76 % Lymphocytes % 17 % Monocytes % 4 % Eosinophils % 2 % Basophils % 0 % Neutrophils # 6.4 (1.3-7.7) k/uL Lymphocytes # 1.4 (1.0-4.8) k/uL Monocytes # 0.3 (0-1.0) k/uL Eosinophils # 0.1 (0-0.7) k/uL Basophils # 0.0 (0-0.2) k/uL PT 11.5 (10.0-12.5) sec INR 1.1 (<1.2) APTT 23.4 (22.0-30.0) sec Sodium 132 L (137-145) mmol/L Potassium 3.6 (3.5-5.1) mmol/L Chloride 94 L (98-107) mmol/L Carbon Dioxide 30 (22-30) mmol/L Anion Gap 8 mmol/L BUN 29 H (7-17) mg/dL Creatinine 4.48 H (0.52-1.04) mg/dL Est GFR (CKD-EPI)AfAm 10 (>60 ml/min/1.73 sqM) Est GFR (CKD-EPI)NonAf 8 (>60 ml/min/1.73 sqM) Glucose 159 H (74-99) mg/dL Calcium 9.0 (8.4-10.2) mg/dL Magnesium 2.0 (1.6-2.3) mg/dL Total Bilirubin 0.7 (0.2-1.3) mg/dL AST 27 (14-36) U/L ALT 13 (4-34) U/L Alkaline Phosphatase 79 (38-126) U/L Troponin I (0.000-0.034) ng/mL NT-Pro-B Natriuret Pep 57687 pg/mL Total Protein 6.0 L (6.3-8.2) g/dL Albumin 3.6 (3.5-5.0) g/dL Influenza Type A (PCR) (Not Detectd) Influenza Type B (PCR) (Not Detectd) RSV (PCR) (Not Detectd) SARS-CoV-2 (PCR) (Not Detectd) 03/19/24 03/19/24 Range/Units 09:13 10:13 WBC (3.8-10.6) k/uL RBC (3.80-5.40) m/uL Hgb (11.4-16.0) gm/dL Hct (34.0-46.0) % MCV (80.0-100.0) fL MCH (25.0-35.0) pg MCHC (31.0-37.0) g/dL RDW (11.5-15.5) % Plt Count (150-450) k/uL MPV Neutrophils % % Lymphocytes % % Monocytes % % Eosinophils % % Basophils % % Neutrophils # (1.3-7.7) k/uL Lymphocytes # (1.0-4.8) k/uL Monocytes # (0-1.0) k/uL Eosinophils # (0-0.7) k/uL Basophils # (0-0.2) k/uL PT (10.0-12.5) sec INR (<1.2) APTT (22.0-30.0) sec Sodium (137-145) mmol/L Potassium (3.5-5.1) mmol/L Chloride (98-107) mmol/L Carbon Dioxide (22-30) mmol/L Anion Gap mmol/L BUN (7-17) mg/dL Creatinine (0.52-1.04) mg/dL Est GFR (CKD-EPI)AfAm (>60 ml/min/1.73 sqM) Est GFR (CKD-EPI)NonAf (>60 ml/min/1.73 sqM) Glucose (74-99) mg/dL Calcium (8.4-10.2) mg/dL Magnesium (1.6-2.3) mg/dL Total Bilirubin (0.2-1.3) mg/dL AST (14-36) U/L ALT (4-34) U/L Alkaline Phosphatase (38-126) U/L Troponin I 0.168 H* (0.000-0.034) ng/mL NT-Pro-B Natriuret Pep pg/mL Total Protein (6.3-8.2) g/dL Albumin (3.5-5.0) g/dL Influenza Type A (PCR) Not Detected (Not Detectd) Influenza Type B (PCR) Not Detected (Not Detectd) RSV (PCR) Not Detected (Not Detectd) SARS-CoV-2 (PCR) Not Detected (Not Detectd) - EKG Data -: EKG Interpreted by Me EKG Comments: 12-lead Electrocardiogram Interpretation Note EKG was reviewed and interpreted by myself. 12-lead ECG performed at 0907 is interpreted by me as revealing ventricular paced rhythm at a rate of 99 beats per minute. Left axis deviation. [place] interval is 158 ms, QRS durations 149 ms, QTc is 413 ms.. There were no ST or T wave abnormalities to suggest myocardial ischemia or injury. R wave progression across the precordium was satisfactory. By my interpretation this EKG is non-diagnostic for acute ischemia. No significant change when compared with EKG from November 2023. Critical Care Time Critical Care Time: Yes Total Critical Care Time: 35 Disposition Clinical Impression: Hypertensive emergency, Volume overload, ESRD (end stage renal disease), Elevated troponin, Hypoxic respiratory failure, BiPAP (biphasic positive airway pressure) dependence Disposition: ADMITTED IP TO THIS HOSP Condition: Serious Is patient prescribed a controlled substance at d/c from ED?: No Time of Disposition: 11:55
[2024-03-19] MEDS ORDERED: DEXTROSE IV STA (09:27)
[2024-03-19] MEDS ORDERED: NITROGLYCERIN IV STA (09:27)
[2024-03-19] MEDS ORDERED: WATER IV STA (09:27)
--- NOTE | 2024-03-19 09:31 | XR ---
EXAMINATION TYPE: XR chest 1V portable DATE OF EXAM: 03/19/2024 COMPARISON: 12/17/2023 HISTORY: Difficulty breathing TECHNIQUE: Single frontal view of the chest is obtained. FINDINGS: There is a 2-lead cardiac pacemaker. There is a dialysis catheter entering the right jugular vein and terminating in the SVC/RA junction. There is been interval development of diffuse interstitial opacity greater than left consistent with pulmonary edema or interstitial pneumonia. The heart size is normal. There is no pneumothorax or pleural effusion. The osseous structures are intact IMPRESSION: Interval development of interstitial opacity consistent with acute cardiac pulmonary dis ease as described above. [facility], , 03/19/2024 9:28 AM
[2024-03-19 09:39] LABS: ALT 13 U/L (4-34); AST 27 U/L (14-36); African American GFR (CKD) 10 (>60 ml/min/1.73 sqM); Albumin 3.6 g/dL (3.5-5.0); Alkaline Phosphatase 79 U/L (38-126); Anion Gap 8 mmol/L; Blood Urea Nitrogen 29 mg/dL (7-17); Carbon Dioxide 30 mmol/L (22-30); Chloride 94 mmol/L (98-107); Glucose 159 mg/dL (74-99); Non-African American GFR(CKD) 8 (>60 ml/min/1.73 sqM); Potassium 3.6 mmol/L (3.5-5.1); Sodium 132 mmol/L (137-145); Total Bilirubin 0.7 mg/dL (0.2-1.3)
[2024-03-19 09:45] LABS: INR 1.1 (<1.2); Partial Thromboplastin Time 23.4 sec (22.0-30.0); Prothrombin Time 11.5 sec (10.0-12.5)
[2024-03-19 09:54] LABS: Basophils % (A) 0 %; Eosinophils # (A) 0.1 k/uL (0-0.7); Eosinophils % (A) 2 %; HCT 34.3 % (34.0-46.0); HGB 11.2 gm/dL (11.4-16.0); Lymphocytes # (A) 1.4 k/uL (1.0-4.8); Lymphocytes % (A) 17 %; MCH 30.9 pg (25.0-35.0); MCHC 32.7 g/dL (31.0-37.0); MCV 94.5 fL (80.0-100.0); Mean Platelet Volume 7.8; Monocytes # (A) 0.3 k/uL (0-1.0); Monocytes % (A) 4 %; Neutrophils # (A) 6.4 k/uL (1.3-7.7); Neutrophils % (A) 76 %; Platelet Count 157 k/uL (150-450); RBC 3.63 m/uL (3.80-5.40); RDW 13.2 % (11.5-15.5); WBC 8.4 k/uL (3.8-10.6)
[2024-03-19] MEDS: NITROGLYCERIN 1000MCG/10ML SYRINGE IV ONE (10:00)
[2024-03-19 10:14] LABS: NT-Pro-B-Type Natriuretic Pept 59300 pg/mL
[2024-03-19] MEDS ORDERED: NITROGLYCERIN-D5W PMX 50 MG in DEXTROSE/WATER 1 250ML.BAG IV ONE (10:15)
[2024-03-19] MEDS: NITROGLYCERIN-D5W PMX 50 MG in DEXTROSE/WATER 1 250ML.BAG IV SCH (10:42)
[2024-03-19] MEDS: FUROSEMIDE 10 MG/ML 4 ML VIAL IV STA (10:44)
[2024-03-19] MEDS ORDERED: NALOXONE 0.4 MG/ML 1 ML VIAL IV PRN (12:10)
[2024-03-19] MEDS: LORazepam 2 MG/ML INJ IV STA (13:17)
[2024-03-19] MEDS: ASPIRIN 81 MG PO STA (13:17)
[2024-03-19] MEDS: FUROSEMIDE 10 MG/ML 10 ML VIAL IV SCH (13:18)
[2024-03-19] MEDS: hydrALAZINE HCL 50 MG TAB PO SCH (13:18)
[2024-03-19] MEDS: carvediloL 12.5 MG TAB PO SCH (13:18)
--- NOTE | 2024-03-19 13:26 | P.CRDCN ---
History of Present Illness History of present illness: HISTORY OF PRESENT ILLNESS: This is a 83-year-old female with a past medical history significant for permanent pacemaker implantation, hypertension, hyperlipidemia, chronic kidney disease, and former nicotine dependence. Patient follows in the office with Dr. aJy. We have been asked to see the patient in consultation for elevated troponin. Patient examined at the bedside in the emergency room. Patient's family members present. Patients daughter providing majority of HPI. She st ates the patient has been on peritoneal dialysis for about 5 weeks. Prior to this she was on hemodialysis and still has her permacath. She states patient has been tolerating peritoneal dialysis well and has been having clear fluid return. She states this morning the patient began to have labored breathing and was short of breath so they called EMS. She states her oxygen saturation at that time was 73%. She was also found to have elevated blood pressures with a systolic greater than 200. She states the patient's blood pressures at home have been running around 140. She states that her medications are in a pill organizer and are marked for each day. Apparently her medications from [facility] were all still remaining in her pill organizer indicating that she did not take any of her antihypertensive medications yesterday. The patient currently denies any chest pain or pressure. She does report shortness of breath. She also reports a headache at the time of examination. She was placed on a BiPAP and remains on BiPAP at the time of examination. Patient was started on an IV nitro drip for blood pressure management. Most recent blood pressure 127/63 at the time of examination. DIAGNOSTICS: - EKG reveals ventricular paced rhythm - Chest xray interval development of interstitial opacity consistent with acute cardiac pulmonary disease - Laboratory data: WBC 8.4. Hemoglobin 11.2. Platelet count 157. Sodium 142. Potassium 3.6. BUN 29. Creatinine 4.48. Magnesium 2.0. Troponin 0.168. proBNP 59,300. - Current home cardiac medications include carvedilol 12.5 mg twice a day, nifedipine 30 mg daily, losartan 25 mg daily, Lasix 40 mg twice a day, Lipitor 20 mg at night, aspirin 81 mg daily - Most recent echocardiogram obtained in July 2023 revealed ejection fract ion 55%, mild LVH, mild MR, moderate TR - Cardiac catheterization history: unknown REVIEW OF SYSTEMS: At the time of my exam: CONSTITUTIONAL: Denies fever or chills. HEENT: Denies blurred vision, vision changes, or eye pain. Denies hemoptysis CARDIOVASCULAR: Denies chest pain. Denies orthopnea. Denies PND. Denies palpitations RESPIRATORY: Reports shortness of breath. GASTROINTESTINAL: Denies abdominal pain. Denies nausea or vomiting. HEMATOLOGIC: Denies bleeding disorders. GENITOURINARY: Denies any blood in urine. SKIN: Denies pruitis. Denies rash. PHYSICAL EXAM: VITAL SIGNS: Reviewed. GENERAL: Well-developed in no acute distress. HEENT: Head is normocephalic. Pupils are equal, round. Sclerae anicteric. Mucous membranes of the mouth are moist. Neck supple. No JVD or thyromegaly LUNGS: Respirations even and unlabored. Lungs essentially clear to auscultation bilaterally. HEART: Regular rate and rhythm. S1 and S2 heard. Right chest hemodialysis catheter present. ABDOMEN: Soft. Nondistended. Nontender. EXTREMITIES: Normal range of motion. No clubbing or cyanosis. Peripheral pulses intact. No lower extremity edema NEUROLOGIC: Awake and alert. Oriented x 3. ASSESSMENT: Hypertensive emergency End-stage renal dialysis, on peritoneal dialysis x 5 weeks, previously on hemo dialysis Elevated troponin, likely type II ND secondary to hypertensive emergency along with poor renal clearance, no evidence of acute coronary syndrome Acute hypoxic respiratory failure, requiring BiPAP Acute on chronic heart failure with preserved EF/volume overload, secondary to renal disease History of dual-chamber pacemaker implantation, [employer] 2019 Moderate tricuspid regurgitation Hyperlipidemia Hypothyroidism Former nicotine dependence PLAN: An acute coronary event has been ruled out No need to repeat echocardiogram at this time Wean off nitro drip as systolic blood pressure at the time of examination is in the 120s Resume home cardiac medications Nephrology consulted. Patient to undergo hemodialysis today. Continue IV diuretics per nephrology Further recommendations pending patient course Nurse practitioner note has been reviewed by physician. Signing provider agrees with the documented findings, assessment, and plan of care documented by TRAIN [employer]OLLER as a scribe. Past Medical History Past Medical History: Chest Pain / Angina, Dialysis, Hyperlipidemia, Hypertension, Renal Disease, Thyroid Disorder Additional Past Medical History / Comment(s): stage 4 renal. right arm fistula. History of Any Multi-Drug Resistant Organisms: None Reported Past Surgical History: Appendectomy, Pacemaker, Tubal Ligation Additional Past Surgical History / Comment(s): pacemaker. hemo and peritoneal dialysis Past Anesthesia/Blood Transfusion Reactions: Postoperative Nausea & Vomiting (PONV) Past Psychological History: No Psychological Hx Reported Smoking Status: Never smoker Past Alcohol Use History: None Reported Past Drug Use History: None Reported Medications and Allergies Home Medications Medication Instructions Recorded Confirmed Type Aspirin EC [Ecotrin Low Dose] 81 mg PO W/SUPPER 01/17/23 03/19/24 History Atorvastatin [Lipitor] 20 mg PO HS 01/17/23 03/19/24 History Cholestyramine (with Sugar) 4 gm PO BID PRN 01/17/23 03/19/24 History [Cholestyramine Packet] Fluticasone Nasal [place] [Flonase 1 - 2 spr EA NOSTRIL BID PRN 01/17/23 03/19/24 History Nasal [place]] Levothyroxine Sodium [Synthroid] 50 mcg PO DAILY@0200 01/17/23 03/19/24 History Loratadine 10 mg PO DAILY 01/17/23 03/19/24 History Oxybutynin Xl [Ditropan XL] 5 mg PO HS 01/17/23 03/19/24 History Vits A,C,E/Lutein/Minerals 1 tab PO DAILY 01/17/23 03/19/24 History [Ocuvite with Lutein Tablet] Vitamin E (Dl,Tocopheryl Acet) 450 mg PO W/SUPPER 07/22/23 03/19/24 History [Vitamin E (1000 Iu = 450 MG)] allopurinoL [Zyloprim] 100 mg PO DAILY 07/22/23 03/19/24 History Furosemide [Lasix] 40 mg PO BID-W/MEALS 08/08/23 03/19/24 History Pantoprazole [Protonix] 40 mg PO AC-BRKFST 30 Days #30 tab 08/13/23 03/19/24 Rx Losartan [Cozaar] 25 mg PO DIRECTED 12/08/23 03/19/24 History NIFEdipine XL [Procardia XL] 30 mg PO DAILY 12/08/23 03/19/24 History carvediloL [Coreg*] 12.5 mg PO DIRECTED 12/08/23 03/19/24 History Folic Acid/Vit B Complex and C 0.8 mg PO DAILY 03/19/24 03/19/24 History [Namrata-Dagoberto Tablet] Allergies Allergy/AdvReac Type Severity Reaction Status Date / Time adhesive tape Allergy Rash/Hives Verified 03/19/24 11:23 bacitracin Allergy Rash/Hives Verified 03/19/24 11:23 [From Neosporin ([id number])] levofloxacin [From Levaquin] Allergy Rash/Hives Verified 03/19/24 11:23 metronidazole [From Flagyl] Allergy Rash/Hives Verified 03/19/24 11:23 neomycin Allergy Rash/Hives Verified 03/19/24 11:23 [From Neosporin ([id number])] Penicillins Allergy Rash/Hives Verified 03/19/24 11:23 polymyxin B Allergy Rash/Hives Verified 03/19/24 11:23 [From Neosporin ([id number])] Physical Exam Vitals: Vital Signs Temp Pulse Resp BP Pulse Ox FiO2 03/19/24 12:51 97.9 F 93 20 179/86 96 03/19/24 12:07 40 03/19/24 11:40 98 18 184/106 3 L 03/19/24 10:11 95 17 191/90 97 03/19/24 09:10 40 03/19/24 09:04 97.5 F L 101 H 22 207/107 95 Intake and Output 03/18/24 03/19/24 03/19/24 22:59 06:59 14:59 Intake Total 4.50 Balance 4.50 Intake: Intake, IV Titration 4.50 Amount Nitroglycerin-D5w Pmx 50 4.50 mg In Dextrose/Water 1 250ml.bag @ 5 MCG/MIN 1.5 mls/hr IV .Q24H COUNT INCLUDES THE [facility] Rx#: [id number] Other: Weight 86.636 kg Results 03/19/24 09:13 03/19/24 09:13 Cardiac Enzymes 03/19/24 03/19/24 Range/Units 09:13 09:13 AST 27 (14-36) U/L Troponin I 0.168 H* (0.000-0.034) ng/mL Coagulation 03/19/24 Range/Units 09:13 PT 11.5 (10.0-12.5) sec APTT 23.4 (22.0-30.0) sec CBC 03/19/24 Range/Units 09:13 WBC 8.4 (3.8-10.6) k/uL RBC 3.63 L (3.80-5.40) m/uL Hgb 11.2 L (11.4-16.0) gm/dL Hct 34.3 (34.0-46.0) % Plt Count 157 (150-450) k/uL Comprehensive Metabolic Panel 03/19/24 Range/Units 09:13 Sodium 132 L (137-145) mmol/L Potassium 3.6 (3.5-5.1) mmol/L Chloride 94 L (98-107) mmol/L Carbon Dioxide 30 (22-30) mmol/L BUN 29 H (7-17) mg/dL Creatinine 4.48 H (0.52-1.04) mg/dL Glucose 159 H (74-99) mg/dL Calcium 9.0 (8.4-10.2) mg/dL AST 27 (14-36) U/L ALT 13 (4-34) U/L Alkaline Phosphatase 79 (38-126) U/L Total Protein 6.0 L (6.3-8.2) g/dL Albumin 3.6 (3.5-5.0) g/dL Current Medications Generic Name Dose Route Start Last Admin Trade Name Freq PRN Reason Stop Dose Admin Aspirin 81 mg 03/19/24 17:30 Aspirin 81 Mg PO W/SUPPER COUNT INCLUDES THE [facility] Atorvastatin Calcium 20 mg 03/19/24 21:00 Atorvastatin 20 Mg Tab PO HS COUNT INCLUDES THE [facility] Carvedilol 12.5 mg 03/19/24 13:00 Carvedilol 12.5 Mg Tab PO BID-W/MEALS COUNT INCLUDES THE [facility] Furosemide 80 mg 03/19/24 12:00 Furosemide 10 Mg/Ml 10 Ml Vial IV Q12HR COUNT INCLUDES THE [facility] Hydralazine HCl 10 mg 03/19/24 11:49 Hydralazine Hcl 20 Mg/Ml 1 Ml Vial IVP Q6HR PRN Blood Pressure - High Hydralazine HCl 50 mg 03/19/24 12:00 Hydralazine Hcl 50 Mg Tab PO TID COUNT INCLUDES THE [facility] Peritoneal Dialysis Solution 50 g in 2,000 mls @ 0 mls/hr 03/19/24 12:00 Delflex With 2.5% Dextrose (2,000 Ml) INTRAPERIT Q6HR COUNT INCLUDES THE [facility] Protocol As Directed Losartan Potassium 25 mg 03/19/24 13:30 Losartan 25 Mg Tab PO DAILY COUNT INCLUDES THE [facility] Naloxone HCl 0.2 mg 03/19/24 12:10 Naloxone 0.4 Mg/Ml 1 Ml Vial IV Q2M PRN Opioid Reversal Nifedipine 30 mg 03/19/24 13:30 Nifedipine Xl 30 Mg Tab.Er.24 PO DAILY COUNT INCLUDES THE [facility] Intake and Output 03/18/24 03/19/24 03/19/24 22:59 06:59 14:59 Intake Total 4.50 Balance 4.50 Intake: Intake, IV Titration 4.50 Amount Nitroglycerin-D5w Pmx 50 4.50 mg In Dextrose/Water 1 250ml.bag @ 5 MCG/MIN 1.5 mls/hr IV .Q24H COUNT INCLUDES THE [facility] Rx#: [id number] Other: Weight 86.636 kg Patient Weight 03/20/24 06:59 Weight 86.636 kg 03/19/24 09:13 03/19/24 09:13
--- NOTE | 2024-03-19 13:54 | P.CNPUL ---
History of Present Illness Consult date: 03/19/24 Reason for consult: dyspnea History of present illness: This is a 83-year-old female patient, who presented to the Emergency Department because of an acute hypoxic respiratory failure and hypertensive emergency. The patient is known to have end-stage renal disease on peritoneal dialysis which she has been undergoing for the past 4 to 6 weeks. The patient also has a permacath over the right IJ. The patient is known to have end-stage renal disease, hypertension, hyperlipidemia and previous history of pacemaker insertion. In the emergency, the patient was noted to be quite short of breath. According to the family, the PD dialysis had not been working properly for this patient. No nausea. No vomiting. Abdominal pain. She came into the ED with labored breathing and hypoxemia. Her blood pressure was elevated and the systolic blood pressure was greater than 200. The patient was started on nitroglycerin drip for blood pressure control. The patient was also placed on a BiPAP pressure of 10/5 and FiO2 has been titrated to maintain saturation above 90%. Chest x-ray is consistent with CHF/pulmonary edema. No consolidation. No airspace disease. EKG shows a paced rhythm. The white cell count of 8.4 with a hemoglobin 11.2 and a platelet count of 157. PS 29 with a creatinine of 4.4 and the potassium level is at 3.6 and a total of 6.42. proBNP level is above 59,000 and troponin level is at 0.168. The patient remains on aspirin. The patient is also on Coreg on outpatient basis in combination with losartan and nifedipine. Most recent echocardiogram from July 2023 shows a preserved LV function, mild LVH, mild MR, moderate TR. Review of Systems Constitutional: Reports fatigue, Reports weight gain Eyes: denies as per HPI, denies blurred vision, denies bulging eye, denies decreased vision, denies diplopia, denies discharge, denies dry eye, denies irritation, denies itching, denies pain, denies photophobia, denies loss of peripheral vision, denies loss of vision, denies tunnel vision/blind spots Ears: bilateral: decreased hearing, deny: ear discharge, earache, tinnitus Ears, nose, mouth and throat: Reports as per HPI Breasts: absent: as per HPI, change in shape, gynecomastia, masses, nipple discharge, pain, skin changes, swelling Breasts: Reports as per HPI Cardiovascular: Reports decreased exercise tolerance, Reports dyspnea on exertion, Reports shortness of breath Respiratory: Reports dyspnea Gastrointestinal: Reports as per HPI Genitourinary: Reports as per HPI (End-stage renal disease currently on peritoneal dialysis) Menstruation: Reports as per HPI Musculoskeletal: Reports as per HPI Musculoskeletal: absent: ankle pain, ankle stiffness, ankle swelling, as per HPI, elbow pain, elbow stiffness, elbow swelling, foot pain, foot stiffness, foot swelling, hand pain, hand stiffness, hand swelling, hip pain, hip stiffness, hip swelling, knee pain, knee stiffness, knee swelling, shoulder pain, shoulder stiffness, shoulder swelling, wrist pain, wrist stiffness, wrist swelling Integumentary: Reports as per HPI Neurological: Reports as per HPI Psychiatric: Reports as per HPI Endocrine: Reports as per HPI Hematologic/Lymphatic: Reports as per HPI Allergic/Immunologic: Reports as per HPI Past Medical History Past Medical History: Chest Pain / Angina, Dialysis, Hyperlipidemia, Hypertension, Renal Disease, Thyroid Disorder Additional Past Medical History / Comment(s): stage 4 renal. right arm fistula. History of Any Multi-Drug Resistant Organisms: None Reported Past Surgical History: Appendectomy, Pacemaker, Tubal Ligation Additional Past Surgical History / Comment(s): pacemaker. hemo and peritoneal dialysis Past Anesthesia/Blood Transfusion Reactions: Postoperative Nausea & Vomiting (PONV) Past Psychological History: No Psychological Hx Reported Smoking Status: Never smoker Past Alcohol Use History: None Reported Past Drug Use History: None Reported Medications and Allergies Home Medications Medication Instructions Recorded Confirmed Type Aspirin EC [Ecotrin Low Dose] 81 mg PO W/SUPPER 01/17/23 03/19/24 History Atorvastatin [Lipitor] 20 mg PO HS 01/17/23 03/19/24 History Cholestyramine (with Sugar) 4 gm PO BID PRN 01/17/23 03/19/24 History [Cholestyramine Packet] Fluticasone Nasal [place] [Flonase 1 - 2 spr EA NOSTRIL BID PRN 01/17/23 03/19/24 History Nasal [place]] Levothyroxine Sodium [Synthroid] 50 mcg PO DAILY@0200 01/17/23 03/19/24 History Loratadine 10 mg PO DAILY 01/17/23 03/19/24 History Oxybutynin Xl [Ditropan XL] 5 mg PO HS 01/17/23 03/19/24 History Vits A,C,E/Lutein/Minerals 1 tab PO DAILY 01/17/23 03/19/24 History [Ocuvite with Lutein Tablet] Vitamin E (Dl,Tocopheryl Acet) 450 mg PO W/SUPPER 07/22/23 03/19/24 History [Vitamin E (1000 Iu = 450 MG)] allopurinoL [Zyloprim] 100 mg PO DAILY 07/22/23 03/19/24 History Furosemide [Lasix] 40 mg PO BID 08/08/23 03/19/24 History Pantoprazole [Protonix] 40 mg PO AC-BRKFST 30 Days #30 tab 08/13/23 03/19/24 Rx NIFEdipine XL [Procardia XL] 30 mg PO Q12H 12/08/23 03/19/24 History carvediloL [Coreg*] 12.5 mg PO BID 12/08/23 03/19/24 History Folic Acid/Vit B Complex and C 0.8 mg PO W/LUNCH 03/19/24 03/19/24 History [Namrata-Dagoberto Tablet] Losartan [Cozaar] 50 mg PO W/LUNCH 03/19/24 03/19/24 History Allergies Allergy/AdvReac Type Severity Reaction Status Date / Time adhesive tape Allergy Rash/Hives Verified 03/19/24 11:23 bacitracin Allergy Rash/Hives Verified 03/19/24 11:23 [From Neosporin ([id number])] levofloxacin [From Levaquin] Allergy Rash/Hives Verified 03/19/24 11:23 metronidazole [From Flagyl] Allergy Rash/Hives Verified 03/19/24 11:23 neomycin Allergy Rash/Hives Verified 03/19/24 11:23 [From Neosporin ([id number])] Penicillins Allergy Rash/Hives Verified 03/19/24 11:23 polymyxin B Allergy Rash/Hives Verified 03/19/24 11:23 [From Neosporin ([id number])] Physical Exam Vitals: Vital Signs Temp Pulse Resp BP Pulse Ox FiO2 03/19/24 12:51 97.9 F 93 20 179/86 96 03/19/24 12:07 40 03/19/24 11:40 98 18 184/106 3 L 03/19/24 10:11 95 17 191/90 97 03/19/24 09:10 40 03/19/24 09:04 97.5 F L 101 H 22 207/107 95 Intake and Output 03/18/24 03/19/24 03/19/24 22:59 06:59 14:59 Intake Total 4.50 Balance 4.50 Intake: Intake, IV Titration 4.50 Amount Nitroglycerin-D5w Pmx 50 4.50 mg In Dextrose/Water 1 250ml.bag @ 5 MCG/MIN 1.5 mls/hr IV .Q24H [facility] Rx#: [id number] Other: Weight 86.636 kg General Appearance,, comfortable, mild acute respiratory distress currently on BiPAP at a pressure of 10 over 5 cm of water and the patient is able to tolerate the BiPAP without major difficulties. Head exam was generally normal. There was no scleral icterus or corneal arcus. Mucous membranes were moist. Neck was supple and without jugular venous distension, thyromegaly, or carotid bruits. Carotids were easily palpable bilaterally. There was no adenopathy. Positive JVD's. No goiter or neck masses at this point in time. Lung sounds are diminished bilaterally along with bibasilar crackles. Cardiac exam revealed the PMI to be normally situated and sized. The rhythm was regular and no extrasystoles were noted during several minutes of auscultation. The first and second heart sounds were normal and physiologic splitting of the second heart sound was noted. There were no murmurs, rubs, clicks, or gallops. The patient has a pacemaker pocket over the left anterior chest area. Abdominal exam revealed normal bowel sounds. The abdomen was soft, non-tender, and without masses, organomegaly, or appreciable enlargement of the abdominal aorta. The patient has a peritoneal dialysis catheter and the exit site is dry clean and intact. Examination of the extremities revealed easily palpable radial, femoral and pedal pulses. There was no cyanosis, clubbing or edema. Examination of the skin revealed no evidence of significant rashes, suspicious appearing nevi or other concerning lesions. The patient has also a permacath over the right anterior chest area. Exit site is dry clean and intact. Neurologically, the patient is awake and alert and the patient does not have any focal neurological deficit. Cranial nerves are essentially intact. Results - Laboratory Findings CBC and BMP: 03/19/24 09:13 03/19/24 09:13 PT/INR, D-dimer PT 11.5 sec (10.0-12.5) 03/19/24 09:13 INR 1.1 (<1.2) 03/19/24 09:13 Abnormal lab findings: Abnormal Labs 03/19/24 03/19/24 03/19/24 09:13 09:13 09:13 RBC 3.63 L Hgb 11.2 L Sodium 132 L Chloride 94 L BUN 29 H Creatinine 4.48 H Glucose 159 H Troponin I 0.168 H* Total Protein 6.0 L - Diagnostic Findings Chest x-ray: image reviewed Assessment and Plan Plan: Acute pulmonary edema/reflux pulmonary edema secondary to hypertensive heart disease and hypertensive emergency and poorly controlled blood pressure and possibly some fluid overload. The patient is currently on BiPAP for respiratory support Acute hypertensive emergency, currently on nitroglycerin for blood pressure control Acute dyspnea secondary to above End-stage renal disease on peritoneal dialysis x 5 weeks, previously on hemodialysis Elevated troponin, likely type II [place] secondary to hypertensive emergency along with poor renal clearance, no evidence of acute coronary syndrome Acute on chronic heart failure with preserved EF/volume overload, secondary to renal disease History of dual-chamber pacemaker implantation, [employer], 2019 Moderate tricuspid regurgitation Hyperlipidemia Hypothyroidism Former nicotine dependence Plan Will proceed with hemodialysis today and the patient will undergo a emergent hemodialysis Nitroglycerin drip for blood pressure control Wean down FiO2 as tolerated keep the patient on BiPAP throughout the dialysis process and following that the patient will be trialed on nasal cannula Restart Coreg 12.5 mg twice daily, nifedipine 30 mg p.o. daily and losartan 25 mg p.o. daily and hydralazine 50 mg p.o. 3 times daily. The patient is also on IV Lasix 80 mg IV every 12 hours. The patient would likely need to go to the ICU following the hemodialysis for respiratory and hemodynamic monitoring. Will continue to follow. Consult nephrology and cardiology
--- NOTE | 2024-03-19 14:28 | P.HPIM ---
History of Present Illness H&P Date: 03/19/24 Patient is a 83-year-old female with history of ESRD on peritoneal dialysis, previously on hemodialysis for 1 year, diastolic heart failure, permanent pacemaker, hypertension, dyslipidemia, hypothyroidism, former nicotine dependence, gout presenting with shortness of breath. Daughter is at bedside. Patient has been getting peritoneal dialysis for few weeks. However, unclear if patient took her medications over the last couple of days. Unsure if peritoneal dialysis was performed correctly. Patient did develop worsening shortness of breath this morning. Blood pressure was checked at home, and was in the 200s systolic. Patient denies any chest pain, abdominal pain, nausea, vomiting, urinary or bowel complaints. She claims that she makes little amount of urine. She does have some frontal headache, denies any new vision changes. Denies any fevers or chills. Former smoker, denies any alcohol or illicit drug use. In the ED, temperature was 97.5, pulse 101, respiratory rate 22, blood pressure 207/107, 95% on BiPAP. EKG independently interpreted, shows paced rhythm. est x-ray independently interpreted, shows bilateral interstitial opacities. WBC 8.4, hemoglobin 911.2, sodium 132, creatinine 4.48, magnesium 2, troponin 0.168, proBNP 59,000, respiratory viral panel negative. Patient started on nitroglycerin drip. Cardiology and nephrology and ICU consulted. Patient being admitted for hypertensive emergency, hypervolemia secondary to ESRD. Pertinent positives and negatives as discussed in HPI, a complete review of systems was performed and all other systems are negative. Patient seen and examined at bedside. Vital signs reviewed General: nontoxic, no distress, appears at stated age Derm: warm, dry, peritoneal dialysis site clean, dry, intact Head: atraumatic, normocephalic, symmetric Eyes: EOMI, no lid lag, anicteric sclera, pupils equal round reactive to light ENT: Nose and ears atraumatic Neck: No thyromegaly, supple Mouth: no lip lesion, mucus membranes moist Cardiovascular: S1S2 reg, no murmur, no edema Lungs: Bibasilar Rales, on BiPAP Abdominal: soft, nontender to palpation, no guarding, no appreciable organomegaly Ext: no gross muscle atrophy, muscle strength muscle strength 5 out of 5 in all 4 extremities, no contractures Neuro: CN II-XII grossly intact Psych: Alert, oriented, appropriate affect Assessment/Plan: Active: Acute hypoxic respiratory failure Acute pulmonary edema Hypervolemia Acute on chronic diastolic heart failure exacerbation ESRD on peritoneal dialysis Hypertensive emergency Type II NSTEMI -Discussed management with cardiology, hypertensive emergency likely in the setting of ESRD, missed medications and missed dialysis -Nephrology following, likely to get hemodialysis today -Patient currently on nitroglycerin drip, ICU consulted, monitor blood pressure closely -Continue on BiPAP, continue to wean -Continue aspirin 81 mg, carvedilol 12.5 mg twice daily, losartan 25 mg daily -Patient continued on nifedipine 30 mg daily, hydralazine 50 3 times daily started by nephrology, as well as Lasix 80 mg IV every 12 hours, monitor electrolytes and urine output Chronic: Hypothyroidism Gout Dyslipidemia The patient is admitted with an anticipated greater than 2 midnight stay as inpatient status for evaluation of acute hypoxic respiratory failure. Surrogate decision-maker: Daughter CODE STATUS: Full code DVT prophylaxis: Subcu heparin Anticipated discharge date: Pending clinical course Anticipated discharge place: Pending clinical course A total of 55 minutes was spent on the care of this complex patient more than 50% of the time was spent in counseling and care coordination. Past Medical History Past Medical History: Chest Pain / Angina, Dialysis, Hyperlipidemia, Hypertension, Renal Disease, Thyroid Disorder Additional Past Medical History / Comment(s): stage 4 renal. right arm fistula. History of Any Multi-Drug Resistant Organisms: None Reported Past Surgical History: Appendectomy, Pacemaker, Tubal Ligation Additional Past Surgical History / Comment(s): pacemaker. hemo and peritoneal dialysis Past Anesthesia/Blood Transfusion Reactions: Postoperative Nausea & Vomiting (PONV) Past Psychological History: No Psychological Hx Reported Smoking Status: Never smoker Past Alcohol Use History: None Reported Past Drug Use History: None Reported Medications and Allergies Home Medications Medication Instructions Recorded Confirmed Type Aspirin EC [Ecotrin Low Dose] 81 mg PO W/SUPPER 01/17/23 03/19/24 History Atorvastatin [Lipitor] 20 mg PO HS 01/17/23 03/19/24 History Cholestyramine (with Sugar) 4 gm PO BID PRN 01/17/23 03/19/24 History [Cholestyramine Packet] Fluticasone Nasal Hailey [Flonase 1 - 2 spr EA NOSTRIL BID PRN 01/17/23 03/19/24 History Nasal Hailey] Levothyroxine Sodium [Synthroid] 50 mcg PO DAILY@0200 01/17/23 03/19/24 History Loratadine 10 mg PO DAILY 01/17/23 03/19/24 History Oxybutynin Xl [Ditropan XL] 5 mg PO HS 01/17/23 03/19/24 History Vitamin E (Dl,Tocopheryl Acet) 450 mg PO W/SUPPER 07/22/23 03/19/24 History [Vitamin E (1000 Iu = 450 MG)] allopurinoL [Zyloprim] 100 mg PO DAILY 07/22/23 03/19/24 History Furosemide [Lasix] 40 mg PO BID 08/08/23 03/19/24 History Pantoprazole [Protonix] 40 mg PO AC-[id number] 30 Days #30 tab 08/13/23 03/19/24 Rx NIFEdipine XL [Procardia XL] 30 mg PO Q12H 12/08/23 03/19/24 History carvediloL [Coreg*] 12.5 mg PO BID 12/08/23 03/19/24 History Folic Acid/Vit B Complex and C 0.8 mg PO W/LUNCH 03/19/24 03/19/24 History [N[place]rata-Dagoberto Tablet] Losartan [Cozaar] 50 mg PO W/LUNCH 03/19/24 03/19/24 History Allergies Allergy/AdvReac Type Severity Reaction Status Date / Time adhesive tape Allergy Rash/Hives Verified 03/19/24 11:23 bacitracin Allergy Rash/Hives Verified 03/19/24 11:23 [From Neosporin ([id number])] levofloxacin [From Levaquin] Allergy Rash/Hives Verified 03/19/24 11:23 metronidazole [From Flagyl] Allergy Rash/Hives Verified 03/19/24 11:23 neomycin Allergy Rash/Hives Verified 03/19/24 11:23 [From Neosporin ([id number])] Penicillins Allergy Rash/Hives Verified 03/19/24 11:23 polymyxin B Allergy Rash/Hives Verified 03/19/24 11:23 [From Neosporin ([id number])] Physical Exam Vitals: Vital Signs Temp Pulse Resp BP Pulse Ox FiO2 03/19/24 12:51 97.9 F 93 20 179/86 96 03/19/24 12:07 40 03/19/24 11:40 98 18 184/106 3 L 03/19/24 10:11 95 17 191/90 97 03/19/24 09:10 40 03/19/24 09:04 97.5 F L 101 H 22 207/107 95 Intake and Output 03/18/24 03/19/24 03/19/24 22:59 06:59 14:59 Intake Total 4.50 Balance 4.50 Intake: Intake, IV Titration 4.50 Amount Nitroglycerin-D5w Pmx 50 4.50 mg In Dextrose/Water 1 250ml.bag @ 5 MCG/MIN 1.5 mls/hr IV .Q24H [facility] Rx#: [id number] Other: Weight 86.636 kg Results CBC & Chem 7: 03/19/24 09:13 03/19/24 09:13 Labs: Abnormal Lab Results - Last 24 Hours (Table) 03/19/24 03/19/24 03/19/24 Range/Units 09:13 09:13 09:13 RBC 3.63 L (3.80-5.40) m/uL Hgb 11.2 L (11.4-16.0) gm/dL Sodium 132 L (137-145) mmol/L Chloride 94 L (98-107) mmol/L BUN 29 H (7-17) mg/dL Creatinine 4.48 H (0.52-1.04) mg/dL Glucose 159 H (74-99) mg/dL Troponin I 0.168 H* (0.000-0.034) ng/mL Total Protein 6.0 L (6.3-8.2) g/dL
[2024-03-19] MEDS: LOSARTAN 25 MG TAB PO SCH (16:03)
[2024-03-19] MEDS: HEPARIN SODIUM,PORCINE 5,000 UNIT/ML 1 ML VIAL SQ SCH (17:26)
[2024-03-19] MEDS: DIALYSIS (PERIT 2.5%) 2,000 ML 50 G/2,000 ML BAG INTRAPERIT SCH (17:30)
[2024-03-19] MEDS: NIFEdipine XL 30 MG TAB.ER.24 PO SCH (17:38)
[2024-03-19] MEDS: ASPIRIN 81 MG PO SCH (19:13)
[2024-03-19] MEDS: ATORVASTATIN 20 MG TAB PO SCH (20:54)
[2024-03-20] MEDS: LEVOTHYROXINE 50 MCG TAB PO SCH (06:55)
[2024-03-20] MEDS: PANTOPRAZOLE 40 MG TABLET PO SCH (07:29)
[2024-03-20] MEDS: hydrALAZINE HCL 20 MG/ML 1 ML VIAL IVP PRN (07:30)
[2024-03-20 10:15] LABS: Basophils % (A) 0 %; Eosinophils # (A) 0.3 k/uL (0-0.7); Eosinophils % (A) 4 %; HCT 35.3 % (34.0-46.0); HGB 11.2 gm/dL (11.4-16.0); Hypochromasia Slight; Lymphocytes # (A) 1.5 k/uL (1.0-4.8); Lymphocytes % (A) 20 %; MCHC 31.7 g/dL (31.0-37.0); MCV 97.8 fL (80.0-100.0); Mean Platelet Volume 8.4; Monocytes # (A) 0.4 k/uL (0-1.0); Monocytes % (A) 5 %; Neutrophils # (A) 5.1 k/uL (1.3-7.7); Neutrophils % (A) 69 %; Platelet Count 134 k/uL (150-450); RBC 3.61 m/uL (3.80-5.40); RDW 13.4 % (11.5-15.5); WBC 7.4 k/uL (3.8-10.6)
[2024-03-20] MEDS: allopurinoL 100 MG TAB PO SCH (10:21)
[2024-03-20 10:26] LABS: ALT 13 U/L (4-34); AST 32 U/L (14-36); African American GFR (CKD) 13 (>60 ml/min/1.73 sqM); Albumin 3.5 g/dL (3.5-5.0); Alkaline Phosphatase 70 U/L (38-126); Anion Gap 10 mmol/L; Blood Urea Nitrogen 25 mg/dL (7-17); Carbon Dioxide 28 mmol/L (22-30); Chloride 99 mmol/L (98-107); Glucose 70 mg/dL (74-99); Non-African American GFR(CKD) 12 (>60 ml/min/1.73 sqM); Potassium 3.6 mmol/L (3.5-5.1); Sodium 137 mmol/L (137-145); Total Bilirubin 0.7 mg/dL (0.2-1.3); Total Protein 5.8 g/dL (6.3-8.2)
--- NOTE | 2024-03-20 11:00 | P.PN ---
Subjective Patient is seen in follow-up for end-stage renal disease. She received 1 hemodialysis treatment yesterday with 3.5 L net ultrafiltration. She is now on a nasal cannula. PD to be resumed today. Vital signs are stable. General: No acute distress. HEENT: Head exam is unremarkable. On nasal cannula. LUNGS: No audible rhonchi or wheezes. HEART: Rate and Rhythm are regular. ABDOMEN: Nontender. EXTREMITITES: No edema. Objective - Vital Signs Vital signs: Vital Signs Temp 97.9 F 03/20/24 08:05 Pulse 84 03/20/24 08:05 Resp 16 03/20/24 08:05 BP 165/57 03/20/24 08:05 Pulse Ox 96 03/20/24 08:05 FiO2 40 03/19/24 15:22 Intake & Output 03/19/24 03/20/24 03/20/24 18:59 06:59 18:59 Intake Total 1034.375 Output Total 8000 Balance -6965.625 Weight 86.636 kg 86.6 kg Intake: Intake, IV Titration 34.375 Amount Nitroglycerin-D5w Pmx 50 34.375 mg In Dextrose/Water 1 250ml.bag @ 5 MCG/MIN 1.5 mls/hr IV .Q24H [facility] Rx#: [id number] Hemodialysis 1000 Output: Hemodialysis 4500 Hemodialysis Net Amount 3500 - Labs CBC & Chem 7: 03/20/24 09:54 03/20/24 09:54 Labs: Abnormal Lab Results - Last 24 Hours (Table) 03/20/24 03/20/24 Range/Units 09:54 09:54 RBC 3.61 L (3.80-5.40) m/uL Hgb 11.2 L (11.4-16.0) gm/dL Plt Count 134 L (150-450) k/uL BUN 25 H (7-17) mg/dL Creatinine 3.45 H (0.52-1.04) mg/dL Glucose 70 L (74-99) mg/dL Total Protein 5.8 L (6.3-8.2) g/dL Assessment and Plan Plan: Assessment: 1. End-stage renal disease maintained on peritoneal dialysis. Still has a permacath but has been off hemodialysis since February 23, 2024. Received 1 treatment of hemodialysis yesterday with 3.5 L ultrafiltration due to volume overload. 2. Acute hypoxic respiratory failure. Now on nasal cannula. 3. Volume overload. Improved with UF. 4. Acute on chronic diastolic CHF and moderate tricuspid regurgitation. 5. Hypervolemic hyponatremia. Improved. 6. Hypertensive emergency secondary to volume overload. Better. Plan: Resume PD with 2 L every 6 hours with 2.5% extra solution. Maintain IV Lasix. Increase dose of hydralazine. Check phosphorus level.
--- NOTE | 2024-03-20 11:11 | P.PN ---
Subjective Progress Note Date: 03/20/24 Hospital Course: 83-year-old female with history of ESRD on peritoneal dialysis, previously on hemodialysis for 1 year, diastolic heart failure, permanent pacemaker, hypertension, dyslipidemia, hypothyroidism, former nicotine dependence, gout presenting with shortness of breath. In the ED, temperature was 97.5, pulse 101, respiratory rate 22, blood pressure 207/107, 95% on BiPAP. EKG indepe ndently interpreted, shows paced rhythm. Chest x-ray independently interpreted, shows bilateral interstitial opacities. WBC 8.4, hemoglobin 911.2, sodium 132, creatinine 4.48, magnesium 2, troponin 0.168, proBNP 59,000, respiratory viral panel negative. Patient started on nitroglycerin drip. Cardiology and nephrology and ICU consulted. Patient being admitted for hypertensive emergency, hypervolemia secondary to ESRD. Now off of BiPAP. Off of nitroglycerin drip. Subjective: Patient seen and examined at bedside. No acute events overnight. Pertinent positives and negatives as discussed above, a complete review of systems was performed and all other systems are negative. Vitals Signs Reviewed. General: Nontoxic, no distress, appears at stated age Derm: Warm, dry, PD catheter site clean dry, intact Head: Atraumatic, normocephalic, symmetric Eyes: EOMI, no lid lag, anicteric sclera Mouth: No lip lesion, mucus membranes moist Cardiovascular: S1S2 reg, no murmur, right upper extremity fistula in place Lungs: Bibasilar rales, no accessory muscle use, supplemental oxygen Abdominal: Soft, nontender to palpation, no guarding, no appreciable organomegaly Ext: No gross muscle atrophy, no edema, no contractures Neuro: CN II-XI grossly intact, no focal neuro deficits Psych: Alert, oriented, appropriate affect Data Reviewed Today: Pertinent Labs: Hemoglobin 11.2, platelet 134, sodium 137, bicarb 28, BUN 25, creatinine 3.45, blood sugar 70 Imaging: Assessment and Plan: Active: Acute hypoxic respiratory failure, resolving Acute pulmonary edema Hypervolemia Acute on chronic diastolic heart failure exacerbation ESRD on peritoneal dialysis Hypertensive emergency Type II NSTEMI -Nephrology note reviewed, increase dose of hydralazine to 100 3 times daily, continue nifedipine 30 mg daily, maintain Lasix 80 mg IV every 12 hours, monitor electrolytes, resume PD -Cardiology and awning hanger helper also following -Wean oxygen -Continue aspirin 81 mg, carvedilol 12.5 mg twice daily, losartan 25 mg daily Chronic: Hypothyroidism Gout Dyslipidemia DVT ppx: Subcu heparin Code status: Full code Anticipated discharge place: Pending clinical course Anticipated discharge time: Pending clinical course Objective - Vital Signs Vital signs: Vital Signs Temp 97.9 F 03/20/24 08:05 Pulse 84 03/20/24 08:05 Resp 16 03/20/24 08:05 BP 165/57 03/20/24 08:05 Pulse Ox 96 03/20/24 08:05 FiO2 40 03/19/24 15:22 Intake & Output 03/19/24 03/20/24 03/20/24 18:59 06:59 18:59 Intake Total 1034.375 Output Total 8000 Balance -6965.625 Weight 86.636 kg 86.6 kg Intake: Intake, IV Titration 34.375 Amount Nitroglycerin-D5w Pmx 50 34.375 mg In Dextrose/Water 1 250ml.bag @ 5 MCG/MIN 1.5 mls/hr IV .Q24H [facility] Rx#: [id number] Hemodialysis 1000 Output: Hemodialysis 4500 Hemodialysis Net Amount 3500 - Labs CBC & Chem 7: 03/20/24 09:54 03/20/24 09:54 Labs: Abnormal Lab Results - Last 24 Hours (Table) 03/20/24 03/20/24 Range/Units 09:54 09:54 RBC 3.61 L (3.80-5.40) m/uL Hgb 11.2 L (11.4-16.0) gm/dL Plt Count 134 L (150-450) k/uL BUN 25 H (7-17) mg/dL Creatinine 3.45 H (0.52-1.04) mg/dL Glucose 70 L (74-99) mg/dL Total Protein 5.8 L (6.3-8.2) g/dL
--- NOTE | 2024-03-20 12:02 | P.PN ---
Subjective HISTORY OF PRESENT ILLNESS: This is a 83-year-old female with a past medical history significant for permanent pacemaker implantation, hypertension, hyperlipidemia, chronic kidney disease, and former nicotine dependence. Patient follows in the office with Dr. Jay. We have been asked to see the patient in consultation for elevated troponin. Patient examined at the bedside in the emergency room. Patient's family members present. Patients daughter providing majority of HPI. She states the patient has been on peritoneal dialysis for about 5 weeks. Prior to this she was on hemodialysis and still has her permacath. She states patient sanchez s been tolerating peritoneal dialysis well and has been having clear fluid return. She states this morning the patient began to have labored breathing and was short of breath so they called EMS. She states her oxygen saturation at that time was 73%. She was also found to have elevated blood pressures with a systolic greater than 200. She states the patient's blood pressures at home have been running around 140. She states that her medications are in a pill organizer and are marked for each day. Apparently her medications from yesterday were all still remaining in her pill organizer indicating that she did not take any of her antihypertensive medications yesterday. The patient currently denies any chest pain or pressure. She does report shortness of breath. She also reports a headache at the time of examination. She was placed on a BiPAP and remains on BiPAP at the time of examination. Patient was started on an IV nitro drip for blood pressure management. Most recent blood pressure 127/63 at the time of examination. DIAGNOSTICS: - EKG reveals ventricular paced rhythm - Chest xray interval development of interstitial opacity consistent with acute cardiac pulmonary disease - Laboratory data: WBC 8.4. Hemoglobin 11.2. Platelet count 157. Sodium 142. Potassium 3.6. BUN 29. Creatinine 4.48. Magnesium 2.0. Troponin 0.168. proBNP 59,300. - Current home cardiac medications include carvedilol 12.5 mg twice a day, nifedipine 30 mg daily, losartan 25 mg daily, Lasix 40 mg twice a day, Lipitor 20 mg at night, aspirin 81 mg daily - Most recent echocardiogram obtained in July 2023 revealed ejection fraction 55%, mild LVH, mild MR, moderate TR - Cardiac catheterization history: unknown 03/20/2024 Patient examined this morning at the bedside. Patient currently denies chest pain or pressure. She denies shortness of breath. She underwent hemodialysis yesterday with removal of 3.5 L. Per nursing, she is to resume peritoneal dialysis this morning. Patient is complaining of her feet itching at the time of examination. Blood pressure this morning 165/57. Patient initially was refusing to take her blood pressure medications but did eventually agree. PHYSICAL EXAM: VITAL SIGNS: Reviewed. GENERAL: Well-developed in no acute distress. HEENT: Head is normocephalic. Pupils are equal, round. Sclerae anicteric. Mucous membranes of the mouth are moist. Neck supple. No JVD or thyromegaly LUNGS: Respirations even and unlabored. Lungs essentially clear to auscultation bilaterally. HEART: Regular rate and rhythm. S1 and S2 heard. Right chest hemodialysis catheter present. ABDOMEN: Soft. Nondistended. Nontender. EXTREMITIES: Normal range of motion. No clubbing or cyanosis. Peripheral pulses intact. No lower extremity edema NEUROLOGIC: Awake and alert. Oriented x 3. ASSESSMENT: Hypertensive emergency End-stage renal dialysis, on peritoneal dialysis x 5 weeks, previously on hemodialysis Elevated troponin, likely type II NM secondary to hypertensive emergency along with poor renal clearance, no evidence of acute coronary syndrome Acute hypoxic respiratory failure, requiring BiPAP Acute on chronic heart failure with preserved EF/volume overload, secondary to renal disease History of dual-chamber pacemaker implantation, [employer], 2019 Moderate tricuspid regurgitation Hyperlipidemia Hypothyroidism Former nicotine dependence PLAN: An acute coronary event has been ruled out No need to repeat echocardiogram Continue current cardiac medications Continue to monitor blood pressure Continue IV diuretics per nephrology Further recommendations pending patient course Nurse practitioner note has been reviewed by physician. Signing provider agrees with the documented findings, assessment, and plan of care documented by REAL ESTATE DEVELOPER as a scribe. Objective - Vital Signs Vital signs: Vital Signs Temp 97.9 F 03/20/24 08:05 Pulse 84 03/20/24 08:05 Resp 16 03/20/24 08:05 BP 165/57 03/20/24 08:05 Pulse Ox 96 03/20/24 08:05 FiO2 40 03/19/24 15:22 Intake & Output 03/19/24 03/20/24 03/20/24 18:59 06:59 18:59 Intake Total 1034.375 Output Total 8000 Balance -6965.625 Weight 86.636 kg 86.6 kg Intake: Intake, IV Titration 34.375 Amount Nitroglycerin-D5w Pmx 50 34.375 mg In Dextrose/Water 1 250ml.bag @ 5 MCG/MIN 1.5 mls/hr IV .Q24H [facility] Rx#: [id number] Hemodialysis 1000 Output: Hemodialysis 4500 Hemodialysis Net Amount 3500 - Labs CBC & Chem 7: 03/20/24 09:54 03/20/24 09:54 Labs: Abnormal Lab Results - Last 24 Hours (Table) 03/20/24 03/20/24 03/20/24 Range/Units 09:54 09:54 09:54 RBC 3.61 L (3.80-5.40) m/uL Hgb 11.2 L (11.4-16.0) gm/dL Plt Count 134 L (150-450) k/uL BUN 25 H (7-17) mg/dL Creatinine 3.45 H (0.52-1.04) mg/dL Glucose 70 L (74-99) mg/dL Phosphorus 5.2 H (2.5-4.5) mg/dL Total Protein 5.8 L (6.3-8.2) g/dL
--- NOTE | 2024-03-20 13:54 | P.PN ---
Subjective Progress Note Date: 03/20/24 This is a 83-year-old female patient, who presented to the Emergency Department because of an acute hypoxic respiratory failure and hypertensive emergency. The patient is known to have end-stage renal disease on peritoneal dialysis which she has been undergoing for the past 4 to 6 weeks. The patient also has a permacath over the right IJ. The patient is known to have end-stage renal disease, hypertension, hyperlipidemia and previous history of pacemaker insertion. In the emergency, the patient was noted to be quite short of breath. According to the family, the PD dialysis had not been working properly for this patient. No nausea. No vomiting. Abdominal pain. She came into the ED with labored breathing and hypoxemia. Her blood pressure was elevated and the s tol blood pressure was greater than 200. The patient was started on nitroglycerin drip for blood pressure control. The patient was also placed on a BiPAP pressure of 10/5 and FiO2 has been titrated to maintain saturation above 90%. Chest x-ray is consistent with CHF/pulmonary edema. No consolidation. No airspace disease. EKG shows a paced rhythm. The white cell count of 8.4 with a hemoglobin 11.2 and a platelet count of 157. PS 29 with a creatinine of 4.4 and the potassium level is at 3.6 and a total of 6.42. proBNP level is above 59,000 and troponin level is at 0.168. The patient remains on aspirin. The patient is also on Coreg on outpatient basis in combination with losartan and nifedipine. Most recent echocardiogram from July 2023 shows a preserved LV function, mild LVH, mild MR, moderate TR. 03/20/2024, patient is being seen for a follow-up. Patient was seen yesterday in the emergency department because of acute pulmonary edema and acute hypertensive emergency. Currently, her blood pressure is 1 down to 134/50 and she is also on 2 L of oxygen by nasal cannula and the patient is breathing without having any major difficulties. The patient underwent 1 session of hemodialysis yesterday with a total of 3.5 L of net ultrafiltration. The patient subsequently showed improvement in blood pressure and in the respiratory status. WBC count 7.4, hemoglobin 11.2 with a platelet count of 134. BUN is 25 with a creatinine of 3.4 and a sodium levels at 137 and glucose at 70. The patient will resume peritoneal dialysis with 2 L every 6 hours utilizing a 2.5% exchange and the patient will maintain also on IV Lasix. Meanwhile, the blood pressure is under good control. The patient is currently on Coreg 12.5 mg p.o. twice a day, Cozaar 25 mg p.o. daily, Procardia XL 30 mg p.o. daily. Objective - Vital Signs Vital signs: Vital Signs Temp 98.3 F 03/20/24 12:35 Pulse 71 03/20/24 12:35 Resp 16 03/20/24 12:35 BP 134/50 03/20/24 12:35 Pulse Ox 97 03/20/24 12:35 FiO2 40 03/19/24 15:22 Intake & Output 03/19/24 03/20/24 03/20/24 18:59 06:59 18:59 Intake Total 1034.375 Output Total 8000 Balance -6965.625 Weight 86.636 kg 86.6 kg Intake: Intake, IV Titration 34.375 Amount Nitroglycerin-D5w Pmx 50 34.375 mg In Dextrose/Water 1 250ml.bag @ 5 MCG/MIN 1.5 mls/hr IV .Q24H [facility] Rx#: [id number] Hemodialysis 1000 Output: Hemodialysis 4500 Hemodialysis Net Amount 3500 - Exam General Appearance,, comfortable, mild acute respiratory distress currently on 2 L of oxygen by nasal cannula Head exam was generally normal. There was no scleral icterus or corneal arcus. Mucous membranes were moist. Neck was supple and without jugular venous distension, thyromegaly, or carotid bruits. Carotids were easily palpable bilaterally. There was no adenopathy. Positive JVD's. No goiter or neck masses at this point in time. Lung sounds are diminished bilaterally along with bibasilar crackles. Cardiac exam revealed the PMI to be normally situated and sized. The rhythm was regular and no extrasystoles were noted during several minutes of auscultation. The first and second heart sounds were normal and physiologic splitting of the second heart sound was noted. There were no murmurs, rubs, clicks, or gallops. The patient has a pacemaker pocket over the left anterior chest area. Abdominal exam revealed normal bowel sounds. The abdomen was soft, non-tender, and without masses, organomegaly, or appreciable enlargement of the abdominal aorta. The patient has a peritoneal dialysis catheter and the exit site is dry clean and intact. Examination of the extremities revealed easily palpable radial, femoral and pedal pulses. There was no cyanosis, clubbing or edema. Examination of the skin revealed no evidence of significant rashes, suspicious appearing nevi or other concerning lesions. The patient has also a permacath over the right anterior chest area. Exit site is dry clean and intact. Neurologically, the patient is awake and alert and the patient does not have any focal neurological deficit. Cranial nerves are essentially intact. - Labs CBC & Chem 7: 03/20/24 09:54 03/20/24 09:54 Labs: Abnormal Lab Results - Last 24 Hours (Table) 03/20/24 03/20/24 03/20/24 Range/Units 09:54 09:54 09:54 RBC 3.61 L (3.80-5.40) m/uL Hgb 11.2 L (11.4-16.0) gm/dL Plt Count 134 L (150-450) k/uL BUN 25 H (7-17) mg/dL Creatinine 3.45 H (0.52-1.04) mg/dL Glucose 70 L (74-99) mg/dL Phosphorus 5.2 H (2.5-4.5) mg/dL Total Protein 5.8 L (6.3-8.2) g/dL Assessment and Plan Plan: Acute pulmonary edema/reflux pulmonary edema secondary to hypertensive heart disease and hypertensive emergency and poorly controlled blood pressure and possibly some fluid overload. The patient is is much improved following dialysis and 3.5 L of ultrafiltration. Blood pressure is under better control and the patient is currently on 2 L of oxygen by nasal cannula Acute hypertensive emergency, currently on nitroglycerin for blood pressure control, currently on a combination of Coreg and Cozaar Acute dyspnea secondary to above, improved End-stage renal disease on peritoneal dialysis x 5 weeks, previously on hemodialysis Elevated troponin, likely type II [place] secondary to hypertensive emergency along with poor renal clearance, no evidence of acute coronary syndrome Acute on chronic heart failure with preserved EF/volume overload, secondary to renal disease History of dual-chamber pacemaker implantation, [employer], 2019 Moderate tricuspid regurgitation Hyperlipidemia Hypothyroidism Former nicotine dependence Plan Post hemodialysis with a 3.5 L of ultrafiltration. Continue IV Lasix Start the patient on PD dialysis with 2.5% exchanges 4 times a day Continue antihypertensive medication Wean down FiO2 and the patient is currently on 2 L of oxygen by nasal cannula Continue Coreg 12.5 mg twice daily, nifedipine 30 mg p.o. daily and losartan 25 mg p.o. daily and hydralazine 50 mg p.o. 3 times daily. The patient is also on IV Lasix 80 mg IV every 12 hours. Will continue to follow. Consult nephrology and cardiology
[2024-03-20] MEDS: hydrALAZINE HCL 50 MG TAB PO SCH (16:56)
[2024-03-21 00:33] LABS: Appearance,BF Slightly Hazy (Clear); RBC, Body Fluid 35 /UL (0-2000)
[2024-03-21 08:33] LABS: African American GFR (CKD) 12 (>60 ml/min/1.73 sqM); Anion Gap 10 mmol/L; Blood Urea Nitrogen 27 mg/dL (7-17); Carbon Dioxide 30 mmol/L (22-30); Chloride 95 mmol/L (98-107); Glucose 175 mg/dL (74-99); Magnesium 1.9 mg/dL (1.6-2.3); Non-African American GFR(CKD) 10 (>60 ml/min/1.73 sqM); Sodium 135 mmol/L (137-145)
[2024-03-21 08:38] LABS: Potassium 2.6 mmol/L (3.5-5.1)
[2024-03-21] MEDS: POTASSIUM CHLORIDE 10 MEQ in WATER FOR INJECTION 1 100ML.BAG IVPB SCH (09:27)
[2024-03-21] MEDS: POTASSIUM CHLORIDE ER 20 MEQ TAB.ER PO STA ×2 (10:34→18:59)
[2024-03-21] MEDS: DIALYSIS INTRAPERIT SCH (12:14)
--- NOTE | 2024-03-21 12:42 | P.PN ---
Subjective patient is seen for follow-up for end-stage renal disease. Maintained on peritoneal dialysis. Complaining of abdominal distention today. No complaints of shortness of breath. No significant UF noted with PD Potassium was low at 2.6 and is being replaced. Objective - Vital Signs Vital signs: Vital Signs Temp 97.9 F 03/21/24 12:16 Pulse 78 03/21/24 12:16 Resp 17 03/21/24 12:16 BP 154/79 03/21/24 12:16 Pulse Ox 97 03/21/24 12:16 FiO2 40 03/19/24 15:22 Intake & Output 03/20/24 03/21/24 03/21/24 18:59 06:59 18:59 Intake Total 180 Output Total 0 127 Balance 180 -127 Weight 87.2 kg Intake: Oral 180 Output: Gastric Drainage 0 Urine 0 Post Void Residual 127 Stool 0 Urine/Stool Mix 0 Emesis 0 Oral Regurgitation 0 Other 0 Other: Voiding Method CAPD CAPD Toilet # Voids 1 # Bowel Movements 1 - Exam patient is awake, comfortable, no acute distress. Examination of the heart S1 and S2 Examination of the lungs bilateral breath sounds are heard Abdomen is soft nontender Examination of lower extremity shows no significant edema [employer] exam grossly intact - Labs CBC & Chem 7: 03/20/24 09:54 03/21/24 07:13 Labs: Abnormal Lab Results - Last 24 Hours (Table) 03/20/24 03/21/24 Range/Units 19:00 07:13 Sodium 135 L (137-145) mmol/L Potassium 2.6 L* (3.5-5.1) mmol/L Chloride 95 L (98-107) mmol/L BUN 27 H (7-17) mg/dL Creatinine 3.82 H (0.52-1.04) mg/dL Glucose 175 H (74-99) mg/dL Fluid Appearance Slightly Hazy A (Clear) Microbiology - Last 24 Hours (Table) 03/20/24 19:00 Gram Stain - Preliminary Dialysate Assessment and Plan Assessment: 1. End-stage renal disease maintained on peritoneal dialysis. Still has a permacath but has been off hemodialysis since February 23, 2024. Received 1 treatment of hemodialysis on admission with 3.5 L ultrafiltration due to volume overload. 2. Acute hypoxic respiratory failure. Now on nasal cannula. 3. Volume overload. Improved with UF. 4. Acute on chronic diastolic CHF and moderate tricuspid regurgitation. 5. Hypervolemic hyponatremia. Improved. 6. Hypertensive emergency secondary to volume overload. Better. Plan: change PD exchanges to 4.25% solution alternating with 2.5% solution. Can use 1.8 L for next exchange today. Continue with IV Lasix. continue with current antihypertensive regimen. Replace potassium Repeat labs in a.m.
--- NOTE | 2024-03-21 14:07 | P.PN ---
Subjective Progress Note Date: 03/21/24 HISTORY OF PRESENT ILLNESS: This is a 83-year-old female with a past medical history significant for pe rmanent pacemaker implantation, hypertension, hyperlipidemia, chronic kidney disease, and former nicotine dependence. Patient follows in the office with Dr. Jay. We have been asked to see the patient in consultation for elevated troponin. Patient examined at the bedside in the emergency room. Patient's family members present. Patients daughter providing majority of HPI. She states the patient has been on peritoneal dialysis for about 5 weeks. Prior to this she was on hemodialysis and still has her permacath. She states patient has been tolerating peritoneal dialysis well and has been having clear fluid return. She states this morning the patient began to have labored breathing and was short of breath so they called EMS. She states her oxygen saturation at that time was 73%. She was also found to have elevated blood pressures with a systolic greater than 200. She states the patient's blood pressures at home have been running around 140. She states that her medications are in a pill organizer and are marked for each day. Apparently her medications from yesterday were all still remaining in her pill organizer indicating that she did not take any of her antihypertensive medications yesterday. The patient currently denies any chest pain or pressure. She does report shortness of breath. She also reports a headache at the time of examination. She was placed on a BiPAP and remains on BiPAP at the time of examination. Patient was started on an IV nitro drip for blood pressure management. Most recent blood pressure 127/63 at the time of examination. DIAGNOSTICS: - EKG reveals ventricular paced rhythm - Chest xray interval development of interstitial opacity consistent with acute cardiac pulmonary disease - Laboratory data: WBC 8.4. Hemoglobin 11.2. Platelet count 157. Sodium 142. Potassium 3.6. BUN 29. Creatinine 4.48. Magnesium 2.0. Troponin 0.168. proBNP 59,300. - Current home cardiac medications include carvedilol 12.5 mg twice a day, nifedipine 30 mg daily, losartan 25 mg daily, Lasix 40 mg twice a day, Lipitor 20 mg at night, aspirin 81 mg daily - Most recent echocardiogram obtained in July 2023 revealed ejection fraction 55%, mild LVH, mild MR, moderate TR - Cardiac catheterization history: unknown 03/20/2024 Patient examined this morning at the bedside. Patient currently denies chest pain or pressure. She denies shortness of breath. She underwent hemodialysis yesterday with removal of 3.5 L. Per nursing, she is to resume peritoneal dialysis this morning. Patient is complaining of her feet itching at the time of examination. Blood pressure this morning 165/57. Patient initially was refusing to take her blood pressure medications but did eventually agree. 03/21/24 Patient reports feeling "horrible due to belly pain ", she just had peritoneal dialysis. She denies any chest pain or pressure. No shortness of breath or dizziness. Blood pressure has been controlled. PHYSICAL EXAM: VITAL SIGNS: Reviewed. GENERAL: Well-developed in no acute distress. HEENT: Head is normocephalic. Pupils are equal, round. Sclerae anicteric. Mucous membranes of the mouth are moist. Neck supple. No JVD LUNGS: Respirations even and unlabored. Lungs essentially clear to auscultation bilaterally. HEART: Regular rate and rhythm. S1 and S2 heard. Right chest hemodialysis catheter present. ABDOMEN: Soft. Nondistended. Nontender. EXTREMITIES: Normal range of motion. No clubbing or cyanosis. Peripheral pulses intact. No lower extremity edema NEUROLOGIC: Awake and alert. Oriented x 3. ASSESSMENT: Hypertensive emergency End-stage renal dialysis, on peritoneal dialysis x 5 weeks, previously on hemodialysis Elevated troponin, likely type II [place] secondary to hypertensive emergency along with poor renal clearance, no evidence of acute coronary syndrome Acute hypoxic respiratory failure, requiring BiPAP Acute on chronic heart failure with preserved EF/volume overload, secondary to renal disease History of dual-chamber pacemaker implantation, [employer], 2019 Moderate tricuspid regurgitation Hyperlipidemia Hypothyroidism Former nicotine dependence PLAN: Continue with current medications. Monitor blood pressure. No need to repeat echocardiogram. Continue IV diuretics per nephrology. Further recommendations pending patient course. Nurse practitioner note has been reviewed by physician. Signing provider agrees with the documented findings, assessment, and plan of care documented by SAW FEEDER as a scribe. Objective - Vital Signs Vital signs: Vital Signs Temp 97.9 F 03/21/24 12:16 Pulse 78 03/21/24 12:16 Resp 17 03/21/24 12:16 BP 154/79 03/21/24 12:16 Pulse Ox 97 03/21/24 12:16 FiO2 40 03/19/24 15:22 Intake & Output 03/20/24 03/21/2403/21/24 18:59 06:59 18:59 Intake Total 180 Output Total 0 127 Balance 180 -127 Weight 87.2 kg Intake: Oral 180 Output: Gastric Drainage 0 Urine 0 Post Void Residual 127 Stool 0 Urine/Stool Mix 0 Emesis 0 Oral Regurgitation 0 Other 0 Other: Voiding Method CAPD CAPD Toilet # Voids 1 # Bowel Movements 1 - Labs CBC & Chem 7: 03/20/24 09:54 03/21/24 07:13 Labs: Abnormal Lab Results - Last 24 Hours (Table) 03/20/24 03/21/24 Range/Units 19:00 07:13 Sodium 135 L (137-145) mmol/L Potassium 2.6 L* (3.5-5.1) mmol/L Chloride 95 L (98-107) mmol/L BUN 27 H (7-17) mg/dL Creatinine 3.82 H (0.52-1.04) mg/dL Glucose 175 H (74-99) mg/dL Fluid Appearance Slightly Hazy A (Clear) Microbiology - Last 24 Hours (Table) 03/20/24 19:00 Gram Stain - Preliminary Dialysate
--- NOTE | 2024-03-21 14:51 | P.PN ---
Subjective Progress Note Date: 03/21/24 Hospital Course: 83-year-old female with history of ESRD on peritoneal dialysis, previously on hemodialysis for 1 year, diastolic heart failure, permanent pacemaker, hypertension, dyslipidemia, hypothyroidism, former nicotine dependence, gout presenting with shortness of breath. In the ED, temperature was 97.5, pulse 101, respiratory rate 22, blood pressure 207/107, 95% on BiPAP. EKG indepe ndently interpreted, shows paced rhythm. Chest x-ray independently interpreted, shows bilateral interstitial opacities. WBC 8.4, hemoglobin 911.2, sodium 132, creatinine 4.48, magnesium 2, troponin 0.168, proBNP 59,000, respiratory viral panel negative. Patient started on nitroglycerin drip. Cardiology and nephrology and ICU consulted. Patient being admitted for hypertensive emergency, hypervolemia secondary to ESRD. Now off of BiPAP. Off of nitroglycerin drip. Back on peritoneal dialysis. Subjective: Patient seen and examined at bedside. No acute events overnight. Complaining of some abdominal bloating. Denies any difficulty breathing. Pertinent positives and negatives as discussed above, a complete review of systems was performed and all other systems are negative. Vitals Signs Reviewed. General: Nontoxic, no distress, appears at stated age Derm: Warm, dry, PD catheter site clean dry, intact Head: Atraumatic, normocephalic, symmetric Eyes: EOMI, no lid lag, anicteric sclera Mouth: No lip lesion, mucus membranes moist Cardiovascular: S1S2 reg, no murmur, right upper extremity fistula in place Lungs: Bibasilar rales, no accessory muscle use, supplemental oxygen Abdominal: Soft, nontender to palpation, no guarding, no appreciable organomegaly Ext: No gross muscle atrophy, no edema, no contractures Neuro: CN II-XI grossly intact, no focal neuro deficits Psych: Alert, oriented, appropriate affect Data Reviewed Today: Pertinent Labs: Sodium 135, potassium 3.6, creatinine 3.82, magnesium 1.9 Imaging: No new imaging Assessment and Plan: Active: Acute hypoxic respiratory failure, resolving Acute pulmonary edema Hypervolemia Acute on chronic diastolic heart failure exacerbation ESRD on peritoneal dialysis Hypertensive emergency Type II NSTEMI Hypokalemia -Nephrology note reviewed, started on PD, slightly lower volume -Cardiology note reviewed, continue current therapy -Wean oxygen -Continue aspirin 81 mg, carvedilol 12.5 mg twice daily, losartan 25 mg daily -Continue hydralazine 100 3 times daily, nifedipine 30 mg daily, IV Lasix 80 mg IV every 12 hours monitor electrolytes -40 mill equivalent oral potassium given Chronic: Hypothyroidism Gout Dyslipidemia DVT ppx: Subcu heparin Code status: Full code Anticipated discharge place: Pending clinical course Anticipated discharge time: Pending clinical course Objective - Vital Signs Vital signs: Vital Signs Temp 97.9 F 03/21/24 12:16 Pulse 78 03/21/24 12:16 Resp 17 03/21/24 12:16 BP 154/79 03/21/24 12:16 Pulse Ox 97 03/21/24 12:16 FiO2 40 03/19/24 15:22 Intake & Output 03/20/24 03/21/24 03/21/24 18:59 06:59 18:59 Intake Total 180 Output Total 0 127 Balance 180 -127 Weight 87.2 kg Intake: Oral 180 Output: Gastric Drainage 0 Urine 0 Post Void Residual 127 Stool 0 Urine/Stool Mix 0 Emesis 0 Oral Regurgitation 0 Other 0 Other: Voiding Method CAPD CAPD Toilet # Voids 1 # Bowel Movements 1 - Labs CBC & Chem 7: 03/20/24 09:54 03/21/24 07:13 Labs: Abnormal Lab Results - Last 24 Hours (Table) 03/20/24 03/21/24 Range/Units 19:00 07:13 Sodium 135 L (137-145) mmol/L Potassium 2.6 L* (3.5-5.1) mmol/L Chloride 95 L (98-107) mmol/L BUN 27 H (7-17) mg/dL Creatinine 3.82 H (0.52-1.04) mg/dL Glucose 175 H (74-99) mg/dL Fluid Appearance Slightly Hazy A (Clear) Microbiology - Last 24 Hours (Table) 03/20/24 19:00 Gram Stain - Preliminary Dialysate
[2024-03-21] MEDS: DIALYSIS (PERIT 2.5%) 2,000 ML 45 G/1,800 ML BAG INTRAPERIT SCH (17:42)
--- NOTE | 2024-03-21 18:00 | P.PN ---
Subjective Progress Note Date: 03/21/24 This is a 83-year-old female patient, who presented to the Emergency Department because of an acute hypoxic respiratory failure and hypertensive emergency. The patient is known to have end-stage renal disease on peritoneal dialysis which she has been undergoing for the past 4 to 6 weeks. The patient also has a permacath over the right IJ. The patient is known to have end-stage renal disease, hypertension, hyperlipidemia and previous history of pacemaker insertion. In the emergency, the patient was noted to be quite short of breath. According to the family, the PD dialysis had not been working properly for this patient. No nausea. No vomiting. Abdominal pain. She came into the ED with labored breathing and hypoxemia. Her blood pressure was elevated and the systolic blood pressure was greater than 200. The patient was started on nitroglycerin drip for blood pressure control. The patient was also placed on a BiPAP pressure of 10/5 and FiO2 has been titrated to maintain saturation above 90%. Chest x-ray is consistent with CHF/pulmonary edema. No consolidation. No airspace disease. EKG shows a paced rhythm. The white cell count of 8.4 with a hemoglobin 11.2 and a platelet count of 157. PS 29 with a creatinine of 4.4 and the potassium level is at 3.6 and a total of 6.42. proBNP level is above 59,000 and troponin level is at 0.168. The patient remains on aspirin. The patient is also on Coreg on outpatient basis in combination with losartan and nifedipine. Most recent echocardiogram from July 2023 shows a preserved LV function, mild LVH, mild MR, moderate TR. 03/20/2024, patient is being seen for a follow-up. Patient was seen yesterday in the emergency department because of acute pulmonary edema and acute hypertensive emergency. Currently, her blood pressure is 1 down to 134/50 and she is also on 2 L of oxygen by nasal cannula and the patient is breathing without having any major difficulties. The patient underwent 1 session of hemodialysis yesterday with a total of 3.5 L of net ultrafiltration. The patient subsequently showed improvement in blood pressure and in the respiratory status. WBC count 7.4, hemoglobin 11.2 with a platelet count of 134. BUN is 25 with a creatinine of 3.4 and a sodium levels at 137 and glucose at 70. The patient will resume peritoneal dialysis with 2 L every 6 hours utilizing a 2.5% exchange and the patient will maintain also on IV Lasix. Meanwhile, the blood pressure is under good control. The patient is currently on Coreg 12.5 mg p.o. twice a day, Cozaar 25 mg p.o. daily, Procardia XL 30 mg p.o. daily. The patient is seen today March 21, 2024 in follow-up on the selective care unit. She is currently resting comfortably in bed. Awake and alert in no acute distress. She is maintaining O2 saturations in the 90s on room air. Sodium 135. Potassium 3.0. Bicarb 30. BUN 27. Creatinine 3.82. Glucose 175. Her potassium is being replaced. She remains on Lasix 80 mg every 12 hours. Continuing peritoneal dialysis. Heparin for DVT prophylaxis. Objective - Vital Signs Vital signs: Vital Signs Temp 98 F 03/21/24 17:43 Pulse 65 03/21/24 17:43 Resp 18 03/21/24 17:43 BP 128/46 03/21/24 17:43 Pulse Ox 97 03/21/24 17:43 FiO2 40 03/19/24 15:22 Intake & Output 03/20/24 03/21/24 03/21/24 18:59 06:59 18:59 Intake Total 180 Output Total 0 127 Balance 180 -127 Weight 87.2 kg Intake: Oral 180 Output: Gastric Drainage 0 Urine 0 Post Void Residual 127 Stool 0 Urine/Stool Mix 0 Emesis 0 Oral Regurgitation 0 Other 0 Other: Voiding Method CAPD CAPD Toilet # Voids 1 0 # Bowel Movements 1 - Exam GENERAL EXAM: Alert, 83-year-old female, on room air, comfortable in no apparent distress. HEAD: Normocephalic. EYES: Normal reaction of pupils, equal size. NOSE: Clear with pink turbinates. THROAT: No erythema or exudates. NECK: No masses, no JVD. CHEST: No chest wall deformity. LUNGS: Equal air entry with no crackles, wheeze, rhonchi or dullness. CVS: S1 and S2 normal with no audible murmur, regular rhythm. ABDOMEN: No hepatosplenomegaly, normal bowel sounds, no guarding or rigidity. SPINE: No scoliosis or deformity SKIN: No rashes CENTRAL NERVOUS SYSTEM: No focal deficits, tone is normal in all 4 extremities. EXTREMITIES: There is no peripheral edema. No clubbing, no cyanosis. Peripheral pulses are intact. - Labs CBC & Chem 7: 03/20/24 09:54 03/21/24 16:16 Labs: Abnormal Lab Results - Last 24 Hours (Table) 03/20/24 03/21/24 03/21/24 Range/Units 19:00 07:13 16:16 Sodium 135 L (137-145) mmol/L Potassium 2.6 L* 3.0 L (3.5-5.1) mmol/L Chloride 95 L (98-107) mmol/L BUN 27 H (7-17) mg/dL Creatinine 3.82 H (0.52-1.04) mg/dL Glucose 175 H (74-99) mg/dL Fluid Appearance Slightly Hazy A (Clear) Microbiology - Last 24 Hours (Table) 03/20/24 19:00 Gram Stain - Preliminary Dialysate Body Fluid Culture - Preliminary Assessment and Plan Assessment: Acute pulmonary edema/reflux pulmonary edema secondary to hypertensive heart disease and hypertensive emergency and poorly controlled blood pressure and possibly some fluid overload. The patient is is much improved following dialysis and 3.5 L of ultrafiltration. Blood pressure is under better control and the patient is currently on room air Acute hypertensive emergency, currently off nitroglycerin, on a combination of Coreg and Cozaar Acute dyspnea secondary to above, improved End-stage renal disease on peritoneal dialysis x 5 weeks, previously on hemodialysis Elevated troponin, likely type II CO secondary to hypertensive emergency along with poor renal clearance, no evidence of acute coronary syndrome Acute on chronic heart failure with preserved EF/volume overload, secondary to renal disease History of dual-chamber pacemaker implantation, [employer], 2019 Moderate tricuspid regurgitation Hyperlipidemia Hypothyroidism Former nicotine dependence Plan: The patient was seen and evaluated Labs and medications reviewed Stable and on room air Continue diuretics Continue CAPD Blood pressure improving We will continue to follow I have personally seen and examined the patient, performed the documentation and the assessment and plan as written. Number of minutes spent on the visit: 10.
[2024-03-22] MEDS ORDERED: CHOLESTYRAMINE (WITH SUGAR) 4 GM PACKET PO PRN (08:28)
[2024-03-22] MEDS: LORATADINE 10 MG TAB PO SCH (08:45)
[2024-03-22 09:18] LABS: African American GFR (CKD) 11 (>60 ml/min/1.73 sqM); Anion Gap 10 mmol/L; Blood Urea Nitrogen 24 mg/dL (7-17); Calcium 9.2 mg/dL (8.4-10.2); Carbon Dioxide 30 mmol/L (22-30); Chloride 97 mmol/L (98-107); Glucose 153 mg/dL (74-99); Magnesium 1.8 mg/dL (1.6-2.3); Non-African American GFR(CKD) 10 (>60 ml/min/1.73 sqM); Potassium 3.6 mmol/L (3.5-5.1); Sodium 137 mmol/L (137-145)
--- NOTE | 2024-03-22 13:02 | P.PN ---
Subjective HISTORY OF PRESENT ILLNESS: This is a 83-year-old female with a past medical history significant for permanent pacemaker implantation, hypertension, hyperlipidemia, chronic kidney disease, and former nicotine dependence. Patient follows in the office with Dr. Jay. We have been asked to see the patient in consultation for elevated troponin. Patient examined at the bedside in the emergency room. Patient's family members present. Patients daughter providing majority of HPI. She states the patient has been on peritoneal dialysis for about 5 weeks. Prior to this she was on hemodialysis and still has her permacath. She states patient sanchez s been tolerating peritoneal dialysis well and has been having clear fluid return. She states this morning the patient began to have labored breathing and was short of breath so they called EMS. She states her oxygen saturation at that time was 73%. She was also found to have elevated blood pressures with a systolic greater than 200. She states the patient's blood pressures at home have been running around 140. She states that her medications are in a pill organizer and are marked for each day. Apparently her medications from yesterday were all still remaining in her pill organizer indicating that she did not take any of her antihypertensive medications yesterday. The patient currently denies any chest pain or pressure. She does report shortness of breath. She also reports a headache at the time of examination. She was placed on a BiPAP and remains on BiPAP at the time of examination. Patient was started on an IV nitro drip for blood pressure management. Most recent blood pressure 127/63 at the time of examination. DIAGNOSTICS: - EKG reveals ventricular paced rhythm - Chest xray interval development of interstitial opacity consistent with acute cardiac pulmonary disease - Laboratory data: WBC 8.4. Hemoglobin 11.2. Platelet count 157. Sodium 142. Potassium 3.6. BUN 29. Creatinine 4.48. Magnesium 2.0. Troponin 0.168. proBNP 59,300. - Current home cardiac medications include carvedilol 12.5 mg twice a day, nifedipine 30 mg daily, losartan 25 mg daily, Lasix 40 mg twice a day, Lipitor 20 mg at night, aspirin 81 mg daily - Most recent echocardiogram obtained in July 2023 revealed ejection fraction 55%, mild LVH, mild MR, moderate TR - Cardiac catheterization history: unknown 03/20/2024 Patient examined this morning at the bedside. Patient currently denies chest pain or pressure. She denies shortness of breath. She underwent hemodialysis yesterday with removal of 3.5 L. Per nursing, she is to resume peritoneal dialysis this morning. Patient is complaining of her feet itching at the time of examination. Blood pressure this morning 165/57. Patient initially was refusing to take her blood pressure medications but did eventually agree. 03/22/2024 Patient examined this morning at the bedside. Patient denies chest pain or pressure. Denies SOB. Blood pressure has improved. Blood pressure this morning 153/53. Repeat blood pressure after medications 128/56. PHYSICAL EXAM: VITAL SIGNS: Reviewed. GENERAL: Well-developed in no acute distress. HEENT: Head is normocephalic. Pupils are equal, round. Sclerae anicteric. Mucous membranes of the mouth are moist. Neck supple. No JVD or thyromegaly LUNGS: Respirations even and unlabored. Lungs essentially clear to auscultation bilaterally. HEART: Regular rate and rhythm. S1 and S2 heard. Right chest hemodialysis catheter present. ABDOMEN: Soft. Nondistended. Nontender. EXTREMITIES: Normal range of motion. No clubbing or cyanosis. Peripheral pulses intact. No lower extremity edema NEUROLOGIC: Awake and alert. Oriented x 3. ASSESSMENT: Hypertensive emergency End-stage renal dialysis, on peritoneal dialysis x 5 weeks, previously on hemodialysis Elevated troponin, likely type II NC secondary to hypertensive emergency along with poor renal clearance, no evidence of acute coronary syndrome Acute hypoxic respiratory failure, requiring BiPAP Acute on chronic heart failure with preserved EF/volume overload, secondary to renal disease History of dual-chamber pacemaker implantation, [employer], 2019 Moderate tricuspid regurgitation Hyperlipidemia Hypothyroidism Former nicotine dependence PLAN: An acute coronary event has been ruled out No need to repeat echocardiogram Continue current cardiac medications Continue to monitor blood pressure Continue IV diuretics per nephrology Patient is currently stable from a cardiac standpoint We will sign off. Please reconsult if needed. Nurse practitioner note has been reviewed by physician. Signing provider agrees with the documented findings, assessment, and plan of care documented by RECREATIONAL COUNSELOR as a scribe. Objective - Vital Signs Vital signs: Vital Signs Temp 98.1 F 03/22/24 08:40 Pulse 74 03/22/24 08:40 Resp 20 03/22/24 08:40 BP 153/53 03/22/24 08:40 Pulse Ox 99 03/22/24 08:40 FiO2 40 03/19/24 15:22 Intake & Output 03/21/24 03/22/24 03/22/24 18:59 06:59 18:59 Intake Total 50 Balance 50 Weight 86.8 kg Intake: Oral 50 Other: Voiding Method Toilet CAPD # Voids 0 # Bowel Movements 1 - Labs CBC & Chem 7: 03/20/24 09:54 03/22/24 08:18 Labs: Abnormal Lab Results - Last 24 Hours (Table) 03/21/24 Range/Units 16:16 Potassium 3.0 L (3.5-5.1) mmol/L Microbiology - Last 24 Hours (Table) 03/20/24 19:00 Gram Stain - Preliminary Dialysate Body Fluid Culture - Preliminary
--- NOTE | 2024-03-22 13:23 | P.PN ---
Subjective patient is seen for follow-up for end-stage renal disease. Maintained on peritoneal dialysis.. Had UF of about 300 mL with 4.25% solution. No complaints of shortness of breath. Objective - Vital Signs Vital signs: Vital Signs Temp 97.7 F 03/22/24 11:53 Pulse 75 03/22/24 11:53 Resp 17 03/22/24 11:53 BP 128/56 03/22/24 11:53 Pulse Ox 94 L 03/22/24 11:53 FiO2 40 03/19/24 15:22 Intake & Output 03/21/24 03/22/24 03/22/24 18:59 06:59 18:59 Intake Total 50 180 Balance 50 180 Weight 86.8 kg Intake: Oral 50 180 Other: Voiding Method Toilet CAPD CAPD # Voids 0 0 # Bowel Movements 1 1 - Exam patient is awake, comfortable, no acute distress. Examination of the heart S1 and S2 Examination of the lungs bilateral breath sounds are heard Abdomen is soft nontender Examination of lower extremity shows no significant edema DIRECTOR OF NURSES REGISTRY exam grossly intact - Labs CBC & Chem 7: 03/20/24 09:54 03/22/24 08:18 Labs: Abnormal Lab Results - Last 24 Hours (Table) 03/21/24 03/22/24 Range/Units 16:16 08:18 Potassium 3.0 L (3.5-5.1) mmol/L Chloride 97 L (98-107) mmol/L BUN 24 H (7-17) mg/dL Creatinine 4.02 H (0.52-1.04) mg/dL Glucose 153 H (74-99) mg/dL Microbiology - Last 24 Hours (Table) 03/20/24 19:00 Gram Stain - Preliminary Dialysate Body Fluid Culture - Preliminary Assessment and Plan Assessment: 1. End-stage renal disease maintained on peritoneal dialysis. Still has a permacath but has been off hemodialysis since February 23, 2024. Received 1 treatment of hemodialysis on admission with 3.5 L ultrafiltration due to volume overload. 2. Acute hypoxic respiratory failure. Now on nasal cannula. 3. Volume overload. Improved 4. Acute on chronic diastolic CHF and moderate tricuspid regurgitation. 5. Hypervolemic hyponatremia. Improved. 6. Hypertensive emergency secondary to volume overload. Better. Plan: change PD exchanges to 4.25% solution every 6 hours Continue with IV Lasix until discharge. continue with current antihypertensive regimen. Replace potassium Encouraged increased oral intake. no need for renal diet. Repeat labs in a.m.
[2024-03-22] MEDS: FOLIC ACID-VIT B COMPLEX-VIT C 1 CAP PO SCH (13:38)
[2024-03-22] MEDS: POTASSIUM CHLORIDE ER 20 MEQ TAB.ER PO STA (13:38)
[2024-03-22 13:59] LABS: Nucleated Cells, Body Fluid 190 /UL
--- NOTE | 2024-03-22 14:31 | P.PN ---
Subjective Progress Note Date: 03/22/24 Hospital course: Patient is a very pleasant 83-year-old female with a past medical history of ESRD on home peritoneal dialysis, CAD status post pacemaker placement, chronic diastolic heart failure, hypertension, hyperlipidemia, and hypothyroidism. She presented to the emergency department on 03/19/2024 with a chief complaint of shortness of breath. Upon arrival to our facility, patient underwent evaluation in our emergency department. Vital signs upon arrival show blood pressure 207/107, heart rate 101, respiratory rate 22, temp 97.5 F axillary, and SpO2 of 95% on BiPAP with FiO2 of 40%. EKG was completed showing a ventricular paced rhythm at 99 bpm. Chest x-ray completed showing interval development of interstitial opacity consistent with acute cardiac pulmonary disease. Labs completed and reviewed. CBC showing normocytic anemia with hemoglobin of 11.2. Coagulation profile normal findings. BMP showing hyponatremia with sodium of 132 and hypochloremia with chloride of 94 and elevated renal function with BUN of 29, creatinine 4.48, GFR of 8. Blood glucose 159. Liver profile unremarkable. Troponin 0.168 and proBNP 59,300. Patient was admitted under our services for acute hypoxic respiratory failure secondary to acute on chronic diastolic heart failure exacerbation with pulmonary edema and type II NSTEMI. Consults placed to nephrology and cardiology. Physical exam: Vital signs reviewed and stable. General: Nontoxic, no distress and appears stated age. Derm: Skin warm and dry, normal coloration for ethnicity. Head: Atraumatic, normocephalic and symmetric. Eyes: EOM's intact, no lid lag, and anicteric sclera Mouth: no lip lesions, mucus membranes moist Cardiovascular: regular rate and rhythm with normal S1S2, systolic murmur, positive posterior tibial pulses bilaterally, and cap refill < 2 seconds. Lungs: Respirations even, regular, and unlabored on room air. Lungs CTA b ilaterally, no rhonchi, no rales, no wheezing, and no accessory muscle usage. Abdominal: soft, nontender to palpation, no guarding, no appreciable organomegaly. Peritoneal dialysis catheter in place with no surrounding erythema or drainage Ext: ROM intact. No gross muscle atrophy, no edema, no contractures Neuro: Speech clear, face symmetrical and CN II-XII grossly intact with no noted focal neuro deficits Psych: Alert and oriented to person, place, time, and situation. Appropriate and pleasant affect. Assessment and Plan of Care: Acute hypoxic respiratory failure, resolving Acute pulmonary edema Acute on chronic diastolic heart failure exacerbation Type II NSTEMI with history of CAD status post permanent pacemaker placement Hypervolemia ESRD on peritoneal dialysis, multiple missed dialysis sessions Hypertensive emergency -Nephrology following, reviewed documentation in chart. [employer] recomme nding continued peritoneal dialysis exchanges every 6 hours and continuation of IV Lasix until discharge -Cardiology following, reviewed documentation in chart. Cardiology stating patient currently stable from cardiac standpoint and clearing patient from their perspective. -Continue to wean oxygen as patient tolerates -Continue aspirin 81 mg, atorvastatin 20 mg nightly, carvedilol 12.5 mg twice d aily, hydralazine 100 mg 3 times daily, nifedipine 30 mg daily, and Losartan 25 mg daily -Continue IV Lasix 80 mg IV every 12 hours monitor electrolytes -40 mill equivalent oral potassium given Hypokalemia, resolved Hyperlipidemia. Continue medication regimen with atorvastatin 40 mg nightly. Hypothyroidism. Continue daily medication regimen with levothyroxine 50 mcg franca y. Data and imaging reviewed: Morning labs reviewed. BMP showing resolution of hypokalemia from previous 2.6 up to 3.6 this morning, chloride 97, BUN of 24, and creatinine of 4.02 with GFR of 10. Blood glucose 153. Magnesium 1.8. Vital signs reviewed. Blood pressure 143/53, heart rate 71, respiratory rate 18, temp 98.1 F, and SpO2 of 90% on 2 L. CODE STATUS: Full code DVT prophylaxis: Heparin Anticipated discharge date: Likely 24 to [address]: Home with home care Patient was seen independently by Nurse Pracitioner. This document was prepared using [employer] dictation software. Please allow for errors in command and control officer, while rare they do occur. . Brian Castro NP rendered care for this patient independently, reviewed the findings and plan as documented in the note above. I did not physically speak with or examine the patient on this date. Objective - Vital Signs Vital signs: Vital Signs Temp 98.1 F 03/22/24 05:41 Pulse 71 03/22/24 05:41 Resp 18 03/22/24 05:41 BP 143/53 03/22/24 05:41 Pulse Ox 98 03/22/24 05:41 FiO2 40 03/19/24 15:22 Intake & Output 03/21/24 03/22/24 03/22/24 18:59 06:59 18:59 Intake Total 50 Balance 50 Weight 86.8 kg Intake: Oral 50 Other: Voiding Method Toilet CAPD # Voids 0 # Bowel Movements 1 - Labs CBC & Chem 7: 03/20/24 09:54 03/22/24 08:18 Labs: Abnormal Lab Results - Last 24 Hours (Table) 03/21/24 03/21/24 Range/Units 07:13 16:16 Sodium 135 L (137-145) mmol/L Potassium 2.6 L* 3.0 L (3.5-5.1) mmol/L Chloride 95 L (98-107) mmol/L BUN 27 H (7-17) mg/dL Creatinine 3.82 H (0.52-1.04) mg/dL Glucose 175 H (74-99) mg/dL Microbiology - Last 24 Hours (Table) 03/20/24 19:00 Gram Stain - Preliminary Dialysate Body Fluid Culture - Preliminary
--- NOTE | 2024-03-22 15:56 | P.PN ---
Subjective Progress Note Date: 03/22/24 This is a 83-year-old female patient, who presented to the Emergency Department because of an acute hypoxic respiratory failure and hypertensive emergency. The patient is known to have end-stage renal disease on peritoneal dialysis which she has been undergoing for the past 4 to 6 weeks. The patient also has a permacath over the right IJ. The patient is known to have end-stage renal disease, hypertension, hyperlipidemia and previous history of pacemaker insertion. In the emergency, the patient was noted to be quite short of breath. According to the family, the PD dialysis had not been working properly for this patient. No nausea. No vomiting. Abdominal pain. She came into the ED with labored breathing and hypoxemia. Her blood pressure was elevated and the systolic blood pressure was greater than 200. The patient was started on nitroglycerin drip for blood pressure control. The patient was also placed on a BiPAP pressure of 10/5 and FiO2 has been titrated to maintain saturation above 90%. Chest x-ray is consistent with CHF/pulmonary edema. No consolidation. No airspace disease. EKG shows a paced rhythm. The white cell count of 8.4 with a hemoglobin 11.2 and a platelet count of 157. PS 29 with a creatinine of 4.4 and the potassium level is at 3.6 and a total of 6.42. proBNP level is above 59,000 and troponin level is at 0.168. The patient remains on aspirin. The patient is also on Coreg on outpatient basis in combination with losartan and nifedipine. Most recent echocardiogram from July 2023 shows a preserved LV function, mild LVH, mild MR, moderate TR. 03/20/2024, patient is being seen for a follow-up. Patient was seen yesterday in the emergency department because of acute pulmonary edema and acute hypertensive emergency. Currently, her blood pressure is 1 down to 134/50 and she is also on 2 L of oxygen by nasal cannula and the patient is breathing without having any major difficulties. The patient underwent 1 session of hemodialysis yesterday with a total of 3.5 L of net ultrafiltration. The patient subsequently showed improvement in blood pressure and in the respiratory status. WBC count 7.4, hemoglobin 11.2 with a platelet count of 134. BUN is 25 with a creatinine of 3.4 and a sodium levels at 137 and glucose at 70. The patient will resume peritoneal dialysis with 2 L every 6 hours utilizing a 2.5% exchange and the patient will maintain also on IV Lasix. Meanwhile, the blood pressure is under good control. The patient is currently on Coreg 12.5 mg p.o. twice a day, Cozaar 25 mg p.o. daily, Procardia XL 30 mg p.o. daily. The patient is seen today March 21, 2024 in follow-up on the selective care unit. She is currently resting comfortably in bed. Awake and alert in no acute distress. She is maintaining O2 saturations in the 90s on room air. Sodium 135. Potassium 3.0. Bicarb 30. BUN 27. Creatinine 3.82. Glucose 175. Her potassium is being replaced. She remains on Lasix 80 mg every 12 hours. Continuing peritoneal dialysis. Heparin for DVT prophylaxis. The patient is seen today March 22, 2024 in follow-up on the selective care unit. She is currently resting comfortably in bed. Awake and alert in no acute distress. Maintaining O2 saturations in the 90s on 2 L/min per nasal cannula. She is continued on peritoneal dialysis. Remains on IV diuretics. Heparin for DVT prophylaxis. Dialysate cultures revealing no growth thus far. Sodium 137. Potassium 3.6. Bicarb 30. BUN 24. Creatinine 4.02. Glucose 153. Objective - Vital Signs Vital signs: Vital Signs Temp 97.7 F 03/22/24 11:53 Pulse 75 03/22/24 11:53 Resp 17 03/22/24 11:53 BP 128/56 03/22/24 11:53 Pulse Ox 94 L 03/22/24 11:53 FiO2 40 03/19/24 15:22 Intake & Output 03/21/24 03/22/24 03/22/24 18:59 06:59 18:59 Intake Total 50 180 Balance 50 180 Weight 86.8 kg Intake: Oral 50 180 Other: Voiding Method Toilet CAPD CAPD # Voids 0 0 # Bowel Movements 1 1 - Exam GENERAL EXAM: Alert, 83-year-old female, resting in bed, on 2 L/min per nasal cannula, comfortable in no apparent distress. HEAD: Normocephalic. EYES: Normal reaction of pupils, equal size. NOSE: Clear with pink turbinates. THROAT: No erythema or exudates. NECK: No masses, no JVD. CHEST: No chest wall deformity. LUNGS: Equal air entry with crackles in the bilateral bases. CVS: S1 and S2 normal with no audible murmur, regular rhythm. ABDOMEN: Peritoneal dialysis catheter site clean and dry, no hepatosplenomegaly, normal bowel sounds, no guarding or rigidity. SPINE: No scoliosis or deformity SKIN: No rashes CENTRAL NERVOUS SYSTEM: No focal deficits, tone is normal in all 4 extremities. EXTREMITIES: There is no peripheral edema. No clubbing, no cyanosis. Peripheral pulses are intact. - Labs CBC & Chem 7: 03/20/24 09:54 03/22/24 08:18 Labs: Abnormal Lab Results - Last 24 Hours (Table) 03/21/24 03/22/24 Range/Units 16:16 08:18 Potassium 3.0 L (3.5-5.1) mmol/L Chloride 97 L (98-107) mmol/L BUN 24 H (7-17) mg/dL Creatinine 4.02 H (0.52-1.04) mg/dL Glucose 153 H (74-99) mg/dL Microbiology - Last 24 Hours (Table) 03/20/24 19:00 Gram Stain - Preliminary Dialysate Body Fluid Culture - Preliminary Assessment and Plan Assessment: Acute pulmonary edema/reflux pulmonary edema secondary to hypertensive heart disease and hypertensive emergency and poorly controlled blood pressure and possibly some fluid overload. The patient is is much improved following dialysis. Blood pressure is under better control and the patient is currently on 2 L nasal cannula Acute hypertensive emergency, currently off nitroglycerin, on a combination of Coreg and Cozaar Acute dyspnea secondary to above, improved End-stage renal disease on peritoneal dialysis x 5 weeks, previously on hemodialysis Elevated troponin, likely type II AR secondary to hypertensive emergency along with poor renal clearance, no evidence of acute coronary syndrome Acute on chronic diastolic heart failure with preserved EF/volume overload, secondary to renal disease History of dual-chamber pacemaker implantation, [place], 2019 Moderate tricuspid regurgitation Hyperlipidemia Hypothyroidism Former nicotine dependence Plan: The patient was seen and evaluated Labs and medications reviewed Continue diuretics Continue peritoneal dialysis Blood pressure improving Titrate down/off the FiO2 as tolerated Follow-up chest x-ray in a.m. We will continue to follow I have personally seen and examined the patient, performed the documentation and the assessment and plan as written. Number of minutes spent on the visit: 10.
[2024-03-22] MEDS: DIALYSIS INTRAPERIT SCH (17:57)
[2024-03-22 21:19] LABS: Appearance,BF Clear (Clear)
[2024-03-23 05:05] VITALS: RESP 17
[2024-03-23] MEDS: ONDANSETRON 4 MG/2 ML VIAL IVP STA (05:46)
[2024-03-23 07:04] LABS: HCT 38.4 % (34.0-46.0); HGB 12.1 gm/dL (11.4-16.0); Hypochromasia Slight; MCH 31.1 pg (25.0-35.0); MCHC 31.6 g/dL (31.0-37.0); MCV 98.3 fL (80.0-100.0); Mean Platelet Volume 8.8; Platelet Count 160 k/uL (150-450); RBC 3.91 m/uL (3.80-5.40); RDW 13.4 % (11.5-15.5); WBC 5.2 k/uL (3.8-10.6)
[2024-03-23 07:35] LABS: African American GFR (CKD) 10 (>60 ml/min/1.73 sqM); Anion Gap 9 mmol/L; Blood Urea Nitrogen 22 mg/dL (7-17); Calcium 9.3 mg/dL (8.4-10.2); Carbon Dioxide 28 mmol/L (22-30); Chloride 99 mmol/L (98-107); Glucose 207 mg/dL (74-99); Magnesium 1.7 mg/dL (1.6-2.3); Non-African American GFR(CKD) 9 (>60 ml/min/1.73 sqM); Sodium 136 mmol/L (137-145)
[2024-03-23 07:36] LABS: Potassium 3.4 mmol/L (3.5-5.1)
[2024-03-23] MEDS: POTASSIUM CHLORIDE ER 20 MEQ TAB.ER PO STA (08:02)
[2024-03-23 08:05] VITALS: BP 134/53; TEMP 98.1
--- NOTE | 2024-03-23 08:31 | XR ---
EXAMINATION TYPE: XR chest 1V portable DATE OF EXAM: 03/23/2024 HISTORY: Shortness of breath. COMPARISON: 03/19/2024 TECHNIQUE: Single view of the chest is submitted. FINDINGS: Demonstrated are scattered senescent parenchymal change. Large bore central venous line on the right is unchanged. There is resolution of previously noted pulmonary venous congestion and scattered reti culonodular infiltrates. There is no evidence for focal infiltrate. The heart is stable. Hilar and mediastinal structures are within normal limits. Degenerative changes are seen of the dorsal spine. IMPRESSION: 1. There is resolution of previously noted pulmonary venous congestion and scattered reticulonodular infiltrates. [facility], , 03/23/2024 8:28 AM
[2024-03-23] MEDS: POTASSIUM BICARBONATE/CIT AC 20 MEQ TABLET.EFF PO ONE (10:24)
--- NOTE | 2024-03-23 10:48 | P.DS ---
Providers Date of admission: 03/19/24 12:11 Expected date of discharge: 03/23/24 Attending physician: Landon Samson Consults: 03/19/24 10:01 Consult Physician Urgent Consulting Provider: Ivan Langston Consult Reason/Comments: volume overload, dialysis Do you want consulting provider notified?: Already Contacted 03/19/24 12:11 Consult Physician Stat Consulting Provider: Viktoriya Lees Consult Reason/Comments: hypertensive emergency on nitro drip Do you want consulting provider notified?: Already Contacted [facility] Course: Pt made the decision to stop all treatment including dialysis and is being discharged home with Hospice. Discharge Diagnosis: Acute hypoxic respiratory failure, resolving Acute pulmonary edema Acute on chronic diastolic heart failure exacerbation Type II NSTEMI with history of CAD status post permanent pacemaker placement Hypervolemia ESRD on peritoneal dialysis, multiple missed dialysis sessions Hypertensive emergency Hypokalemia. Hyperlipidemia. Hypothyroidism. Hospital course: Patient is a very pleasant 83-year-old female with a past medical history of ESRD on home peritoneal dialysis, CAD status post pacemaker placement, chronic diastolic heart failure, hypertension, hyperlipidemia, and hypothyroidism. She presented to the emergency department on 03/19/2024 with a chief complaint of shortness of breath. Upon arrival to our facility, patient underwent evaluation in our emergency department. Vital signs upon arrival show blood pressure 207/107, heart rate 101, respiratory rate 22, temp 97.5 F axillary, and SpO2 of 95% on BiPAP with FiO2 of 40%. EKG was completed showing a ventricular paced rhythm at 99 bpm. Chest x-ray completed showing interval development of interstitial opacity consistent with acute cardiac pulmonary disease. Labs completed and reviewed. CBC showing normocytic anemia with hemoglobin of 11.2. Coagulation profile normal findings. BMP showing hyponatremia with sodium of 132 and hypochloremia with chloride of 94 and elevated renal function with BUN of 29, creatinine 4.48, GFR of 8. Blood glucose 159. Liver profile unremarkable. Troponin 0.168 and proBNP 59,300. Patient was admitted under our services for acute hypoxic respiratory failure secondary to acute on chronic diastolic heart failure exacerbation with pulmonary edema and type II NSTEMI. Consults placed to nephrology and cardiology. Patient underwent IV diuresis and dialysis throughout hospitalization. Patient then made the decision that continuing dialysis and treatment was too much for her. Patient reports she is too weak and does not want to continue living this way. Patient requested to be placed on hospice. Hospice consult was placed and met with patient and family. Patient and family in agreement for discharge home on hospice. Physical exam: Vital signs reviewed and stable. General: Nontoxic, no distress and appears stated age. Derm: Skin warm and dry, normal coloration for ethnicity. Head: Atraumatic, normocephalic and symmetric. Eyes: EOM's intact, no lid lag, and anicteric sclera Mouth: no lip lesions, mucus membranes moist Cardiovascular: regular rate and rhythm with normal S1S2, systolic murmur, positive posterior tibial pulses bilaterally, and cap refill < 2 seconds. Lungs: Respirations even, regular, and unlabored on room air. Lungs CTA bilaterally, no rhonchi, no rales, no wheezing, and no accessory muscle usage. Abdominal: soft, nontender to palpation, no guarding, no appreciable orga nomegaly. Peritoneal dialysis catheter in place with no surrounding erythema or drainage Ext: ROM intact. No gross muscle atrophy, no edema, no contractures Neuro: Speech clear, face symmetrical and CN II-XII grossly intact with no noted focal neuro deficits Psych: Alert and oriented to person, place, time, and situation. Appropriate and pleasant affect. A total of 39 minutes of time were spent preparing this complex discharge summary. Pt was discharged on 03/23/2024 at 10:46 AM Patient was seen independently by Nurse Practitioner. This document was prepared using [employer] dictation software. Please allow for errors in transportation planner while rare they do occur. Brian Castro NP rendered care for this patient independently, reviewed the findings and plan as documented in the note above. I did not physically speak with or examine the patient on this date. Patient Condition at Discharge: Stable Plan - Discharge Summary Discharge Rx Participant: Yes New Discharge Prescriptions: New hydrALAZINE HCL [Apresoline] 100 mg PO TID #180 tab Continue Aspirin EC [Ecotrin Low Dose] 81 mg PO W/SUPPER Cholestyramine (with Sugar) [Cholestyramine Packet] 4 gm PO BID PRN PRN Reason: Diarrhea Fluticasone Nasal Aline [Flonase Nasal Aline] 1 - 2 spr EA NOSTRIL BID PRN PRN Reason: Allergy Symptoms Loratadine 10 mg PO DAILY allopurinoL [Zyloprim] 100 mg PO DAILY Pantoprazole [Protonix] 40 mg PO AC-BRKFST 30 Days #30 tab carvediloL [Coreg*] 12.5 mg PO BID Folic Acid/Vit B Complex and C [Namrata-Dagoberto Tablet] 0.8 mg PO W/LUNCH Atorvastatin [Lipitor] 20 mg PO HS Levothyroxine Sodium [Synthroid] 50 mcg PO DAILY@0200 Oxybutynin Xl [Ditropan XL] 5 mg PO HS Vitamin E (Dl,Tocopheryl Acet) [Vitamin E (1000 Iu = 450 MG)] 450 mg PO W/SUPPER Furosemide [Lasix] 40 mg PO BID NIFEdipine XL [Procardia XL] 30 mg PO Q12H Changed Losartan [Cozaar] 25 mg PO W/LUNCH #0 Discharge Medication List Aspirin EC [Ecotrin Low Dose] 81 mg PO W/SUPPER 01/17/23 [History] Atorvastatin [Lipitor] 20 mg PO HS 01/17/23 [History] Cholestyramine (with Sugar) [Cholestyramine Packet] 4 gm PO BID PRN 01/17/23 [History] Fluticasone Nasal Aline [Flonase Nasal Aline] 1 - 2 spr EA NOSTRIL BID PRN 01/17/23 [History] Levothyroxine Sodium [Synthroid] 50 mcg PO DAILY@0200 01/17/23 [History] Loratadine 10 mg PO DAILY 01/17/23 [History] Oxybutynin Xl [Ditropan XL] 5 mg PO HS 01/17/23 [History] Vitamin E (Dl,Tocopheryl Acet) [Vitamin E (1000 Iu = 450 MG)] 450 mg PO W/SUPPER 07/22/23 [History] allopurinoL [Zyloprim] 100 mg PO DAILY 07/22/23 [History] Furosemide [Lasix] 40 mg PO BID 08/08/23 [History] Pantoprazole [Protonix] 40 mg PO AC-BRKFST 30 Days #30 tab 08/13/23 [Rx] NIFEdipine XL [Procardia XL] 30 mg PO Q12H 12/08/23 [History] carvediloL [Coreg*] 12.5 mg PO BID 12/08/23 [History] Folic Acid/Vit B Complex and C [Namrata-Dagoberto Tablet] 0.8 mg PO W/LUNCH 03/19/24 [History] Losartan [Cozaar] 25 mg PO W/LUNCH #0 03/23/24 [Rx] hydrALAZINE HCL [Apresoline] 100 mg PO TID #180 tab 03/23/24 [Rx] Follow up Appointment(s)/Referral(s): Jono Edwards DO [Primary Care Provider] - [facility], [[facility]STAFF] - Activity/Diet/Wound Care/Special Instructions: Activity: As tolerated. Take breaks as needed. Diet: Anything and everything your heart desires!! Special Instructions: Medications per [facility]. Thank you for allowing us to participate in your care, it was truly a pleasure having you for our patient!!! . Discharge Disposition: HOME WITH HOSPICE
[2024-03-23 12:09] VITALS: PULSE 70
--- NOTE | 2024-03-23 19:43 | P.PN ---
Subjective patient is seen for follow-up for end-stage renal disease. Maintained on peritoneal dialysis.. Family is present at bedside. Patient has decided to proceed with hospice care and wants to discontinue dialysis. Patient states that she has not noticed any significant improvement in quality of life and does not want to continue with renal replacement therapy. Objective - Vital Signs Vital signs: Vital Signs Temp 98.1 F 03/23/24 08:00 Pulse 70 03/23/24 12:00 Resp 17 03/23/24 12:00 BP 134/53 03/23/24 08:00 Pulse Ox 95 03/23/24 12:00 FiO2 40 03/19/24 15:22 Intake & Output 03/23/24 03/23/24 03/24/24 06:59 18:59 06:59 Output Total 0 0 Balance 0 0 Weight 55.5 kg Output: Urine 0 Stool 0 Other: Voiding Method CAPD CAPD # Voids 1 0 - Exam patient is awake, comfortable, no acute distress. Examination of the heart S1 and S2 Examination of the lungs bilateral breath sounds are heard Abdomen is soft nontender Examination of lower extremity shows no significant edema ACCOUNTING GENERALIST exam grossly intact - Labs CBC & Chem 7: 03/23/24 06:38 03/23/24 06:38 Labs: Abnormal Lab Results - Last 24 Hours (Table) 03/23/24 Range/Units 06:38 Sodium 136 L (137-145) mmol/L Potassium 3.4 L (3.5-5.1) mmol/L BUN 22 H (7-17) mg/dL Creatinine 4.37 H (0.52-1.04) mg/dL Glucose 207 H (74-99) mg/dL Microbiology - Last 24 Hours (Table) 03/22/24 12:49 Gram Stain - Preliminary Dialysate Body Fluid Culture - Preliminary 03/20/24 19:00 Gram Stain - Preliminary Dialysate Body Fluid Culture - Preliminary Assessment and Plan Assessment: 1. End-stage renal disease maintained on peritoneal dialysis. Still has a permacath but has been off hemodialysis since February 23, 2024. Received 1 treatment of hemodialysis on admission with 3.5 L ultrafiltration due to volume overload. 2. Acute hypoxic respiratory failure. Now on nasal cannula. 3. Volume overload. Improved 4. Acute on chronic diastolic CHF and moderate tricuspid regurgitation. 5. Hypervolemic hyponatremia. Improved. 6. Hypertensive emergency secondary to volume overload. Better. Plan: May proceed with hospice care. PD catheter and hemodialysis catheter will need to be discontinued. This can be done as outpatient.
== END 2024-03-23 16:45 | disposition still patient (30) | DRG 280 ==
LOC: EC 09:03 → 2SICU 12:11 → 3SCARD 18:34
PROVIDERS: ADMIT Student in an Organized Health Care Education/Training Program; ATTEND Student in an Organized Health Care Education/Training Program
PROC: 5A1D70Z Performance of Urinary Filtration, Intermittent, Less than 6 Hours Per Day (ICD-10-PCS; principal; 2024-03-19)
DX: I13.2 Hypertensive heart and chronic kidney disease with heart failure and with stage 5 chronic kidney disease, or end stage renal disease (principal); I50.33 Acute on chronic diastolic (congestive) heart failure; I21.A1 Myocardial infarction type 2; J96.01 Acute respiratory failure with hypoxia; N18.6 End stage renal disease; I16.1 Hypertensive emergency; E87.1 Hypo-osmolality and hyponatremia; Z66 Do not resuscitate; Z51.5 Encounter for palliative care; D63.1 Anemia in chronic kidney disease; Z99.2 Dependence on renal dialysis; I07.1 Rheumatic tricuspid insufficiency; M10.9 Gout, unspecified; E78.5 Hyperlipidemia, unspecified; E03.9 Hypothyroidism, unspecified; E87.6 Hypokalemia; E87.8 Other disorders of electrolyte and fluid balance, not elsewhere classified; I25.10 Atherosclerotic heart disease of native coronary artery without angina pectoris; K21.9 Gastro-esophageal reflux disease without esophagitis; Z79.82 Long term (current) use of aspirin; Z79.890 Hormone replacement therapy; Z79.899 Other long term (current) drug therapy; Z87.891 Personal history of nicotine dependence; Z95.0 Presence of cardiac pacemaker; Z91.158 Patient's noncompliance with renal dialysis for other reason; Z88.1 Allergy status to other antibiotic agents; Z88.3 Allergy status to other anti-infective agents; Z88.0 Allergy status to penicillin
CPT/HCPCS: 36415; 71045; 80048; 80053; 83735; 83880; 84100; 84132; 84484; 85025; 85027; 85610; 85730; 87070; 87205; 87636; 89050; 90935; 93005; 94660; 96365; 96366; 96372; 96375; 96376; 99291

== ENCOUNTER 2024-04-07 19:46 | Emergency (ER) | payer MEDICARE ==
--- NOTE | 2024-04-07 21:40 | ED ---
Wound/Laceration HPI - General Chief Complaint: Wound/Laceration Stated Complaint: Port sutures broke Time Seen by Provider: 04/07/24 21:00 Source: family, RN notes reviewed Mode of arrival: wheelchair - History of Present Illness Initial Comments: 83-year-old female presenting with granddaughter for tunnel catheter issue on right chest wall. Granddaughter reports that patient had tunneled catheter placed 4 months ago for acute renal failure. Patient was placed in hospice and does not use port anymore but decided with care team to leave port in. Reports the anchoring sutures came out today and was sent by hospice team to replace them. Denies fevers, chills, redness or drainage at site of tunnel. No other concerns. - Related Data Home Medications Medication Instructions Recorded Confirmed Aspirin EC [Ecotrin Low Dose] 81 mg PO W/SUPPER 01/17/23 03/19/24 Atorvastatin [Lipitor] 20 mg PO HS 01/17/23 03/19/24 Cholestyramine (with Sugar) 4 gm PO BID PRN 01/17/23 03/19/24 [Cholestyramine Packet] Fluticasone Nasal [place] [Flonase 1 - 2 spr EA NOSTRIL BID PRN 01/17/23 03/19/24 Nasal [place]] Levothyroxine Sodium [Synthroid] 50 mcg PO DAILY@0200 01/17/23 03/19/24 Loratadine 10 mg PO DAILY 01/17/23 03/19/24 Oxybutynin Xl [Ditropan XL] 5 mg PO HS 01/17/23 03/19/24 Vitamin E (Dl,Tocopheryl Acet) 450 mg PO W/SUPPER 07/22/23 03/19/24 [Vitamin E (1000 Iu = 450 MG)] allopurinoL [Zyloprim] 100 mg PO DAILY 07/22/23 03/19/24 Furosemide [Lasix] 40 mg PO BID 08/08/23 03/19/24 NIFEdipine XL [Procardia XL] 30 mg PO Q12H 12/08/23 03/19/24 carvediloL [Coreg*] 12.5 mg PO BID 12/08/23 03/19/24 Folic Acid/Vit B Complex and C 0.8 mg PO W/LUNCH 03/19/24 03/19/24 [[place] Tablet] Previous Rx's Medication Instructions Recorded Pantoprazole [Protonix] 40 mg PO [id number] 30 Days #30 tab 08/13/23 Losartan [Cozaar] 25 mg PO W/LUNCH #0 03/23/24 hydrALAZINE HCL [Apresoline] 100 mg PO TID #180 tab 03/23/24 Allergies Allergy/AdvReac Type Severity Reaction Status Date / Time adhesive tape Allergy Rash/Hives Verified 04/07/24 20:37 bacitracin Allergy Rash/Hives Verified 04/07/24 20:37 [From Neosporin ([id number])] levofloxacin [From Levaquin] Allergy Rash/Hives Verified 04/07/24 20:37 metronidazole [From Flagyl] Allergy Rash/Hives Verified 04/07/24 20:37 neomycin Allergy Rash/Hives Verified 04/07/24 20:37 [From Neosporin ([id number])] Penicillins Allergy Rash/Hives Verified 04/07/24 20:37 polymyxin B Allergy Rash/Hives Verified 04/07/24 20:37 [From Neosporin ([id number])] Review of Systems ROS Statement: Those systems with pertinent positive or pertinent negative responses have been documented in the HPI. ROS Other: All systems not noted in ROS Statement are negative. Past Medical History Past Medical History: Chest Pain / Angina, Dialysis, Hyperlipidemia, Hypertension, Renal Disease, Thyroid Disorder Additional Past Medical History / Comment(s): stage 4 renal. right arm fistula. History of Any Multi-Drug Resistant Organisms: None Reported Past Surgical History: Appendectomy, Pacemaker, Tubal Ligation Additional Past Surgical History / Comment(s): pacemaker. hemo and peritoneal dialysis Past Anesthesia/Blood Transfusion Reactions: Postoperative Nausea & Vomiting (PONV) Type of Cardiac Device: Unknown Device Placement Date:: n/a Past Psychological History: No Psychological Hx Reported Smoking Status: Never smoker Past Alcohol Use History: None Reported Past Drug Use History: None Reported General Exam General appearance: alert, in no apparent distress Head exam: Present: atraumatic, normocephalic, normal inspection ENT exam: Present: normal exam, mucous membranes moist Cardiovascular Exam: Present: other (Right chest wall tunneled catheter. No erythema or drainage surrounding tunnel.) Neurological exam: Present: alert Psychiatric exam: Present: normal affect, normal mood Skin exam: Present: warm, dry, intact, normal color. Absent: rash Course Vital Signs 04/07/24 04/07/24 20:35 22:47 Temperature 97.6 F 97.9 F Pulse Rate 92 89 Respiratory 16 18 Rate Blood Pressure 208/78 198/75 O2 Sat by Pulse 97 96 Oximetry Procedures - Laceration Laceration #1 Consent Obtained: verbal consent Indication: other (Tunnel catheter anchor right chest wall) Anesthetic Used: lidocaine 1%, without epi Anesthesia Technique: local infiltration Amount (mls): 3 Type of Sutures: nylon Size of Sutures: 4-0 Number of Sutures: 1 Technique: simple, interrupted Patient Tolerated Procedure: well, no complications Additional Comments: Catheter anchored to chest wall using 1 suture Medical Decision Making - Medical Decision Making Was pt. sent in by a medical professional or institution (, PA, FLORAL ARTIST, urgent care, hospital, or jail...) When possible be specific @ -Sent by hospice for chest wall catheter issue Did you speak to anyone other than the patient for history (EMS, parent, family, police, friend...)? What history was obtained from this source @ -Patient's granddaughter provided history Did you review nursing and triage notes (agree or disagree)? Why? @ -I reviewed and agree with nursing and triage notes Were old charts reviewed (outside hosp., previous admission, EMS record, old EKG, old radiological studies, urgent care reports/EKG's, jail records)? Report findings @ -No old charts were reviewed Differential Diagnosis (chest pain, altered mental status, abdominal pain women, abdominal pain men, vaginal bleeding, weakness, fever, dyspnea, syncope, headache, dizziness, GI bleed, back pain, seizure, CVA, palpatations, mental health, musculoskeletal)? @ -Catheter issue, cellulitis EKG interpreted by me (3pts min.). @ -None X-rays interpreted by me (1pt min.). @ -None done CT interpreted by me (1pt min.). @ -None done U/S interpreted by me (1pt. min.). @ -None done What testing was considered but not performed or refused? (CT, X-rays, U/S, labs)? Why? @ -None What meds were considered but not given or refused? Why? @ -None Did you discuss the management of the patient with other professionals (professionals i.e. , PA, FLORAL ARTIST, lab, RT, psych nurse, aids social worker, salesperson neckties, teacher, wildlife conservation officer, oil field caser)? Give summary @ -I spoke with Dr. Li who performed original catheter 4 months ago, recommends placing 1 anchoring suture Was smoking cessation discussed for >3mins.? @ -No Was critical care preformed (if so, how long)? @ -No Were there social determinants of health that impacted care today? How? (Homelessness, low income, unemployed, alcoholism, drug addiction, transportation, low edu. Level, literacy, decrease access to med. care, group home, rehab)? @ -No Was there de-escalation of care discussed even if they declined (Discuss DNR or withdrawal of care, Hospice)? DNR status @ -No What co-morbidities impacted this encounter? (DM, HTN, Smoking, COPD, CAD, Cancer, CVA, ARF, Chemo, Hep., AIDS, mental health diagnosis, sleep apnea, morbid obesity)? @ -None Was patient admitted / discharged? Hospital course, mention meds given and route, prescriptions, significant lab abnormalities, going to OR and other pertinent info. @ -Discharged. This is an 83-year-old female on hospice presenting for chest wall catheter issue. States she had this placed by Dr. Li 4 months ago for acute renal failure. Patient was placed on hospice and decided to keep catheter in place rather than having procedure to remove it when dialysis was discontinued. Today, the anchoring sutures fell out and she presents today for suture placement to anchor catheter back in place for comfort. Patient is hypertensive on exam. No sign of bacterial infection. I spoke with Dr. Li who recommends placing 1 suture to anchor catheter in place for patient comfort. 1 suture placed with no complications. Advised to follow-up with Dr. Li and hospice care team. Return precautions discussed and they are agreeable to plan. Case was discussed with my ED attending Dr. Remy. Undiagnosed new problem with uncertain prognosis? @ -No Drug Therapy requiring intensive monitoring for toxicity (Heparin, Nitro, Insulin, Cardizem)? @ -No Were any procedures done? @ -yes, 1 suture placed to anchor catheter Diagnosis/symptom? @ -Chest wall catheter issue Acute, or Chronic, or Acute on Chronic? @ -Acute Uncomplicated (without systemic symptoms) or Complicated (systemic symptoms)? @ -Uncomplicated Side effects of treatment? @ -No Exacerbation, Progression, or Severe Exacerbation? @ -No Poses a threat to life or bodily function? How? (Chest pain, [place], [place], pneumonia, PE, COPD, DKA, ARF, appy, cholecystitis, CVA, Diverticulitis, Homicidal, Suicidal, threat to staff... and all critical care pts) @ -No Disposition Clinical Impression: Vascular catheter dysfunction Disposition: HOME SELF-CARE Condition: Stable Additional Instructions: Follow-up with Dr. Li as discussed. Please return to the Emergency Department if symptoms worsen or any other concerns. Is patient prescribed a controlled substance at d/c from ED?: No Referrals: Jono Edwards DO [Primary Care Provider] - 1-2 days Time of Disposition: 22:13
[2024-04-07] MEDS: LIDOCAINE 1% INJ 10MG/ML (20 ML MDV) SQ ONE (21:41)
[2024-04-07 22:50] VITALS: BP 198/75; PULSE 89; RESP 18; TEMP 97.9
== END 2024-04-07 22:50 | disposition home or self-care (01) ==
LOC: EC 19:46
CPT/HCPCS: 12001; 36556; 99282